=== PATIENT | male | born 1955 | race Caucasian/White ===

== ENCOUNTER 2023-05-09 09:13 | Inpatient (IN) ==
--- NOTE | 2023-05-09 09:37 | Emergency Department Note ---
Impression & Plan Postoperative hemorrhage involving digestive system, Abdominal hemorrhage ED Provider Note NAME: ABRIL BANSAL AGE: 67 SEX: M : 1955 ARRIVES VIA: Walk-In INFORMANT: Patient ED PROVIDER(S): Hugo Mckoy DO CHIEF COMPLAINT: bleeding around PEG tube HPI: Patient is a 67-year-old male who presents to the ER for bleeding from his PEG tube which was just placed this past Tuesday by [facility]'s IR team. He notes around 830 he got up and he noticed that it started bleeding. Blood ran into his shirt and down onto the floor. He denies any chest pain or shortness of breath. He admits to some abdominal bloating. No dysuria, urgency, or frequency. No other exacerbating or remitting factors. He does take Lovenox and is bridging as well as his Coumadin with previous PEs over 2 months ago. He is getting radiation for esophageal cancer. Additional history obtained from who notes that was placed by IR last Tuesday. ADDITIONAL HISTORY OBTAINED: Per HPI Chronic Medical/Social Conditions Affecting Care: Per HPI PAST MEDICAL HISTORY:See Below PAST SURGICAL HISTORY:See Below FAMILY HISTORY:See Below SOCIAL HISTORY:See Below HOME MEDICATIONS:See Below ALLERGIES:See Below VITALS:See Below PHYSICAL EXAMINATION: GENERAL: Sitting up in bed, alert, well appearing, well nourished, no distress, non-toxic EYE EXAM: normal conjunctiva. OROPHARYNX: no exudate, no erythema, lips, buccal mucosa, and tongue normal and mucous membranes are moist NECK: Trach in place LUNGS: Clear to auscultation. Normal chest wall mechanics HEART: no murmurs, S1 normal and S2 normal ABDOMEN: abdomen soft, non-tender, normo-active bowel sounds, PEG tube present with dried blood on the skin. No active bleeding. tube his get 5 cm. BACK: Back is symmetrical on inspection and there is no deformity, no midline tenderness, no CVA tenderness. SKIN: no rashes and no bruising UPPER EXTREMITIES: upper extremities are grossly normal. LOWER EXTREMITIES: No pitting edema. NEURO EXAM: Normal sensorium, cranial nerves II-XII grossly intact, normal speech, no gross weakness of arms, no gross weakness of legs. MEDICAL DECISION MAKING: Patient is a 67-year-old gentleman with past medical history of esophageal cancer with a trach and PEG who presents to the ER for bleeding from the PEG site that started this morning. He had been placed at [facility] by IR this past Tuesday per . IV was established blood work is obtained. Labs show no significant leukocytosis or anemia. INR was subtherapeutic at 1.3. BMP was unremarkable. Transaminitis was present in the 200s to 300s. Lipase was unremarkable. CT abdomen pelvis showed no acute pathology. He did rebleed twice while in the ER. Following this I was able to contact interventional radiology at [facility]. They recommended draining the wound to confirm that there is 10 cc present which I did. Then they recommended adding additional 5 cc which I did. They recommend that this should be present for 4 hours as well as applying dressing underneath and cinching the bumper tight. This was done. There is no bleeding when I rechecked it. I did inform Dr. Tolbert and she will remove the extra 5 cc within 4 hours so there is no chance of necrosis. Patient was also seen evaluated by our chemical machine tender Dr. Smalls. He cinched the bumper even tighter as he noted it was still a little loose. He will follow the patient in-house and closely monitor. If it continues to bleed tomorrow they will take to the OR. Consults/Care Managements Discussions: Per MDM Triage Nursing notes reviewed. Limited review of prior medical records performed Vital Signs: reviewed and remarkable for no significant abnormalities Differential diagnosis: Differential diagnoses includes but is not limited to gastritis, arterial bleeding, incision site bleeding, superficial skin bleeding, peptic ulcer disease, GERD, gallbladder disease, pancreatitis, small bowel obstruction, appendicitis, diverticulitis, hernia, urinary tract infection, torsion, [/ectopic (if female)], perforation, trauma, infectious. ER treatment provided: See below Diagnostics interpreted by me include EKG and cardiac monitoring as listed below: -Cardiac Monitoring: An order was placed for continuous cardiac monitoring. The monitor shows a rate of 82 with sinus rhythm. -ECG: none -Laboratory studies:Interpreted by me as stated above in MDM and shown below. Imaging studies: Xrays: As interpreted by me:none CTs show: CT abdomen pelvis per my preliminary interpretation showed PEG tube present CT abdomen pelvis per radiology as described above Procedures:none Critical Care: None Past Med/Surg History Social History Smoking Status: Unknown if ever smoked Preferred Language: [place] Feels Safe at Home: Yes Allergies Allergies Allergy/AdvReac Type Severity Reaction Status Date / Time Milk Containing Products Allergy Intermediate Gastrointestinal Unverified 05/09/23 11:48 (Dairy) Upset Home Meds Home Medications Medication Instructions Recorded Confirmed amoxicillin 500 mg-potassium 1 tab feeding tube TID 05/09/23 05/09/23 clavulanate 125 mg tablet enoxaparin 100 mg/mL subcutaneous 100 mg subcut BID 05/09/23 05/09/23 syringe nutritional supplements 1 ea feeding tube TID 05/09/23 05/09/23 warfarin 5 mg tablet 7.5 mg PO DAILY 05/09/23 05/09/23 Results & Data (ED) Vital Signs Vital Signs - 24 hr 05/09/23 09:15 05/09/23 10:14 05/09/23 10:18 Temperature 36.7 C Temperature Source Temporal Artery Scan Pulse Rate 84 66 68 Pulse Rate [Right Finger] Pulse Rhythm Regular Pulse Rhythm [Right Finger] Respiratory Rate 18 20 Respiratory Effort / Characteristics Spontaneous Respiratory Depth Normal Respiratory Pattern Regular Blood Pressure 113/72 Blood Pressure [Left Arm] Blood Pressure Mean 85 Blood Pressure Mean [Left Arm] Pulse Oximetry 96 95 Oxygen Delivery Method Room Air Room Air Sepsis Recent Fever Within 48 Hours No Sepsis New/Unexplained Change in Mental Status No Sepsis Action Taken by Nursing No Action Required 05/09/23 12:41 Temperature Temperature Source Pulse Rate Pulse Rate [Right Finger] 68 Pulse Rhythm Pulse Rhythm [Right Finger] Regular Respiratory Rate 22 Respiratory Effort / Characteristics Non-Labored Spontaneous Respiratory Depth Normal Respiratory Pattern Blood Pressure Blood Pressure [Left Arm] 117/68 Blood Pressure Mean Blood Pressure Mean [Left Arm] 84 Pulse Oximetry 97 Oxygen Delivery Method Room Air Sepsis Recent Fever Within 48 Hours Sepsis New/Unexplained Change in Mental Status Sepsis Action Taken by Nursing Laboratory Data 05/09/23 10:10 05/09/23 10:10 Lab Results 05/09/23 Range/Units 10:10 WBC 6.44 (4.8-10.8) K/ul RBC 4.58 L (4.70-6.10) M/uL Hgb 13.9 L (14.0-18.0) g/dl Hct 42.1 (42.0-52.0) % MCV 91.9 (80.0-100.0) fL MCH 30.3 (25.0-34.0) pg MCHC 33.0 (32.0-36.0) g/dL RDW Std Deviation 42.4 (36.4-46.3) fL RDW Coeff of Heladio 12.6 (11.5-14.5) % Plt Count 335 (130-400) K/uL MPV 9.2 L (9.4-12.4) fL Immature Gran % (Auto) 0.6 % Neut % (Auto) 66.7 % Lymph % (Auto) 20.8 % Sutton % (Auto) 9.2 % Eos % (Auto) 2.2 % Baso % (Auto) 0.5 % Neut # (Auto) 4.30 (1.40-6.50) K/uL Lymph # (Auto) 1.34 (1.20-3.40) K/uL Sutton # (Auto) 0.59 (0.11-0.59) K/uL Eos # (Auto) 0.14 (0.00-0.50) K/uL Baso # (Auto) 0.03 (0.00-0.20) K/uL Immature Gran # (Auto) 0.04 (0.01-0.20) K/uL PT 14.3 H (9.0-12.0) Seconds INR 1.3 H (0.9-1.1) Sodium 137 (136-145) mmol/L Potassium 4.2 (3.5-5.1) mmol/L Chloride 102 (98-107) mmol/L Carbon Dioxide 28 (21-32) mmol/L Anion Gap 7 (3-11) BUN 16 (6-23) mg/dl Creatinine 0.74 (0.6-1.4) mg/dl Est Cr Clr Drug Dosing Not Reportable Est GFR ( Amer) 111.4 ml/min Est GFR (Non-Af Amer) 96.1 ml/min BUN/Creatinine Ratio 21.6 H (10-20) Glucose 102 H (70-99(Fasting)) mg/dl Calcium 10.0 (8.6-10.3) mg/dl Total Bilirubin 0.4 (0.2-1.0) mg/dl AST 232 H (13-39) U/L ALT 317 H (7-52) U/L Alkaline Phosphatase 55 (34-104) U/L Total Protein 7.4 (6.0-8.3) gm/dl Albumin 4.0 (3.4-5.0) gm/dl Globulin 3.4 (2.5-4.0) gm/dl Albumin/Globulin Ratio 1.2 (0.9-2) Lipase 26 (11-82) U/L Administered Medications Discontinued Medications Ioversol (Optiray 320 500ml) 84 ml IV ONCE ONE Stop: 05/09/23 11:04 Last Admin: 05/09/23 10:58 Dose: 84 ml Documented By: GINNY Imaging Data Radiologist's Impression: Abdomen/Pelvis CT 05/09/23 09:[address] WITH IV CONTRAST CT DOSE: 1482.71 mGy.cm HISTORY: Status post placement of a PEG tube PEG tube placed bleedidng out and around TECHNIQUE: Multiaxial CT images of the abdomen and pelvis were performed following the IV administration of 84 cc of Optiray, A dose lowering technique was utilized adhering to the principles of ALARA. COMPARISON STUDY: None. FINDINGS: Mild cardiomegaly. No acute lower thoracic abnormality. Mild linear subsegmental bibasilar atelectasis versus scarring. No free air. Unremarkable spleen, pancreas and adrenal glands. 2.5 cm left hepatic lobe cyst. Additional probable cyst in the right hepatic lobe measuring 10 mm. Patency of the hepatic and portal veins. Unremarkable gallbladder. Unremarkable kidneys. No hydronephrosis. Mild nonspecific urinary bladder wall thickening with partial distention. Unremarkable prostate. Small fat filled left inguinal hernia. Atherosclerosis of the aorta without aneurysm. There is no lymphadenopathy. A gastrostomy tube is in place which demonstrates satisfactory positioning. No fluid collections of the abdominal wall. No bowel obstruction, bowel wall thickening, mesenteric inflammation or ascites. Mild to moderate fecal retention. Normal appendix. Tiny fat filled umbilical hernia. There is no acute fracture. IMPRESSION: 1. No acute intra-abdominal or intrapelvic abnormality. 2. Satisfactory positioning of the gastrostomy tube. 3. No bowel obstruction or bowel wall thickening. 4. Additional findings as above. ACT 112: Negative or not required by law. The above report was generated using voice recognition software. It may contain grammatical, syntax or spelling errors. Electronically signed by: Osmar Aguilar M.D. 05/09/2023 11:24 AM Discharge Plan Visit Data Chief Complaint: Feeding/PEG Tube Replacement Stated Complaint: BLEEDING AFTER FEEDING TUBE PLACEMENT ED Provider: Hugo Mckoy Discharge Problem: Postoperative hemorrhage involving digestive system, Abdominal hemorrhage Patient Disposition: Admitted As Inpatient Discharge Instructions Interventions: ED Discharge Assessment Last Done: 05/09/23 13:15 Discharge Problem: Postoperative hemorrhage involving digestive system Qualifiers: Procedure type: digestive system Qualified Code(s): K91.840 - Postprocedural hemorrhage of a digestive system organ or structure following a digestive system procedure
[2023-05-09 10:24] LABS: Basophils # (auto) 0.03 K/uL (0.00-0.20); Basophils % (auto) 0.5 %; Eosinophils # (auto) 0.14 K/uL (0.00-0.50); Eosinophils % (auto) 2.2 %; Hematocrit (blood only) 42.1 % (42.0-52.0); Hemoglobin 13.9 g/dl (14.0-18.0); Immature Granulocytes # (auto) 0.04 K/uL (0.01-0.20); Immature Granulocytes % (auto) 0.6 %; Lymphocytes # (auto) 1.34 K/uL (1.20-3.40); Lymphocytes % (auto) 20.8 %; Mean Corpuscular Hemoglobin 30.3 pg (25.0-34.0); Mean Corpuscular Volume 91.9 fL (80.0-100.0); Mean Platelet Volume 9.2 fL (9.4-12.4); Monocytes # (auto) 0.59 K/uL (0.11-0.59); Monocytes % (auto) 9.2 %; Neutrophils % (auto) 66.7 %; Platelet Count 335 K/uL (130-400); RDW Coefficient of Variation 12.6 % (11.5-14.5); RDW Standard Deviation 42.4 fL (36.4-46.3); Red Blood Count 4.58 M/uL (4.70-6.10); White Blood Count 6.44 K/ul (4.8-10.8)
--- OUTSIDE RECORDS SUMMARY | 2023-05-09 10:29 | External Medical Summary | Summary of Care ---
Author Name Unknown Organization [facility] Address [address] [place] [address] Phone [phone] Care Team Providers Care Strike Off Machine Operator Name Role Phone SujathaEna Janet CHANDLER Primary Care Provider [phone] Reason for Visit * Reason Onset Date Comments Hospital Follow-Up 05/09/2023 1wk hd/fu Encounter Details Date Type Department Care Team (Late st Contact Info) Description 05/09/2023 Telephone Otolaryngology/Head & Neck/Facial Plastic Surgery [address] [place] [address] Specified, Zz No Resource [address] [place] [address] Hospital Follow-Up (1wk hd/fu ) Allergies Active Allergy Reactions Criticality Noted Date Comments Lactose Abdominal pain,Diarrhea Medium 04/30/2023 documented as of this encounter (statuses as of 05/09/2023) Medications Medication Sig Dispensed Refills Start Date End Date Status SURGICAL COMPRESSION STOCKING 20 to 30mm knee high. 0 02/10/2022 Active Warfarin Sodium 5 MG Oral Tablet (Coumadin) Take 1-2 Tablets by mouth every evening. Or as directed by warfarin clinic 60 Tablet 5 02/23/2023 Active Misc. Devices Cool mist humidification device 1 Each 0 04/28/2023 Active Misc. Devices Portable suction device 1 Each 0 04/28/2023 Active Misc. Devices Yankauer suction tips 30 Each 5 04/28/2023 Active Misc. Devices 6-0 Shiley 6UN75H (uncuffed) 4 Each 5 04/28/2023 Active Misc. Devices 4-0 Shiley 4UN65H (uncuffed) 1 Each 0 04/28/2023 Active Misc. Devices Inner cannulas for 6-0 Shiley (6IC75) 50 Each 5 04/28/2023 Active Misc. Devices Trach care cleaning kit 1 Each 0 04/28/2023 Active Misc. Devices 14 Fr flexible suction catheters 30 Each 5 04/28/2023 Active Bay SCD Express Foot Cuff Use on both legs. 10 Each 0 05/04/2023 Active Nutren 2.0 Oral Liquid Administer 250 mL five times daily, as directed through G tube via bolus syringe. 00556 mL 11 05/06/2023 Active Amoxicillin-Pot Clavulanate 500-125 MG Oral Tablet (Augmentin) Administer 1 Tablet into G tube in the morning and 1 Tablet at noon and 1 Tablet before bedtime. Do all this for 8 doses. 8 Tablet 0 05/06/2023 05/09/2023 Active Polyethylene Glycol 3350 17 GM Oral Packet (Miralax) Administer 1 Packet into G tube in the morning. 14 Each 0 05/07/2023 Active Sennosides-Docusa te Sodium 8.6-50 MG Oral Tablet (Senokot-S) Administer 2 Tablets into G tube in the morning and 2 Tablets before bedtime. 60 Tablet 0 05/06/2023 Active Enoxaparin Sodium 100 MG/ML Injection Solution Prefilled Syringe (Lovenox) Inject 100 mg under the skin in the morning and 100 mg before bedtime. Do all this for 4 days. 8 mL 0 05/06/2023 05/10/2023 Active documented as of this encounter (statuses as of 05/09/2023) Active Problems Problem Noted Date Diagnosed Date Acute respiratory failure 05/02/2023 Tracheostomy status 04/30/2023 Airway obstruction 04/30/2023 Tongue mass 04/29/2023 Other vascular myelopathies 02/23/2023 Heterozygous factor V Leiden mutation 05/23/2020 Dyslipidemia, goal LDL below 100 04/29/2020 TUBULAR ADENOMA POLYP OF COLON 10/16/2008 Benign neoplasm of colon 10/15/2008 Overview: adenomatous and hyperplastic polyps, mild to moderate diverticulosis left colonrepeat 3yrs ADVANCE DIRECTIVE INFORMATION 09/16/2005 Overview: Pt will supply copy of his living will LUMB-LUMBOSAC DISC DEGEN 05/31/2002 Sciatica 02/01/2001 documented as of this encounter (statuses as of 05/09/2023) Resolved Problems Problem Noted Date Diagnosed Date Resolved Date Acute deep vein thrombosis ( DVT) of proximal vein of right lower extremity 02/23/2023 03/08/2023 FACTOR V LEIDEN: heterozygote status 09/11/2003 07/02/2016 documented as of this encounter (statuses as of 05/09/2023) Immunizations Name Administration Dates Next Due COVID-19 mRNA, LNP-s, No Pre serve, 2-Dose Series (Moderna) 06/08/2020,05/04/2020 COVID-19, mRNA, LNP-s, PF, B ooster, 100mcg/0.5mg (Moderna) 02/09/2021 Pneumococcal Conjugate Vaccine, 20-valent (Prevn ar20) 11/16/2021 Seasonal Influenza, PF, 6 M & above, IM , (FluLaval or Fluzone) 12/16/2020,01/03/2020 Seasonal Influenza, Quadrivalent Hd (Fluzone Hd) 12/16/2022,12/26/2021 TDAP (age 10 and older)(Boostrix) 07/21/2018 TDAP (age 11 and older)(Adacel) 08/19/2008 Zoster Vaccine Recombinant (Shingrix) 07/14/2020 ,03/19/2020 documented as of this encounter Social History Tobacco Use Types Packs/Day Years Used Date Smoking Tobacco: Never Smokeless Tobacco: Never Alcohol Use Standard Drinks/Week Comments Yes 5 (1 standard drink = 0.6 oz pur e alcohol) rare PHQ-2 Answer Date Recorded PHQ Adult Total Score 0 03/08/2023 Sex and Gender Information Value Date Recorded Sex Assigned at Male 08/30/2022 2:09 PM EDT Gender Identity Male 08/30/2022 2:09 PM EDT Sexual Orientation Straight 08/30/2022 2: 09 PM EDT Job Start Date Occupation Industry Not on file Not on file Not on file documented as of this encounter Functional Status Functional Status Response Date of Assess ment Are you deaf or do you have serious difficulty h earing? No 04/28/2023 Are you blind or do you have serious difficulty seeing, even when wearing glasses? No 04/28/2023 Do you have serious difficul ty walking or climbing stairs? (5 years old or older) No 04/28/2023 Do you have difficulty dress ing or bathing? (5 years old or older) No 04/28/2023 Because of a physical, menta l, or emotional condition, do you have difficulty doing errands alone such as visiting a doctor s office or shopping? (15 years old or older) No 04/28/19 Cognitive Status Response Date of Assessm ent Because of a physical, menta l, or emotional condition, do you have serious difficulty concentrating, remembering, or making decisions? (5 years old or older) No 04/28/2023 documented as of this encounter Miscellaneous Notes * Telephone Encounter - Jeane Poe OSA - 05/09/2023 6:43 AM EST Order RETURN APPT [IP355] (Order [id number]) Jacob Bansal IV 04/28/2023 5:25 PM ED to Hosp-Admission Description: 67 year old male Department: [facility] Message Patient Name: JACOB BANSAL IV([id number]) Sex: Male : 1955 PCP: ENA SOLARES Center: [address] Types of orders made on 05/06/2023: IP Post Discharge , Lab, Medications Order Date:05/06/2023 Ordering User:CLEM CLAUDIO [[id number]] Attending Provider:Rafael Linder DO [[id number] Authorizing Provider: Clem Claudio DO [[id number]] Department:[facility]2 [facility][[id number]] Order Specific Information Order: RETURN APPT [CUSTOM: IP355] Order #: [id number]: 1 Priority: Routine Class: Nursing Unit Department (Single Entry) -> Otolaryngology Appt Needed Within: (Specify # of Days, Weeks, Months) -> 1 Wk Released on: 05/06/2023 4:46 PM Priority: Routine Class: Nursing Unit Department (Single Entry) -> Otolaryngology Appt Needed Within: (Specify # of Days, Weeks, Months) -> 1 Wk Released on: 05/06/2023 4:46 PM documented in this encounter Plan of Treatment Upcoming Encounters Date Type Department Care Team (Latest Contact Info) Description 4 8:20 AM EST Anticoagulation Pharmacy, [facility] [address] [facility] [place] [address] Pharmacist1, [facility] [address] [facility] [place] [address] 4 11:40 AM EST Nutrition Services Nutrition & Weight Management, [place] [address] [place] [address] Zaida Shrestha RDN [address] [place] [address] 4 1:00 PM EDT Hospital Encounter ENDO OSSC, Endoscopy Room [facility] [address] [place] [phone] Marcelino Smalls MD [address] [place] [address] 4 1:00 PM EDT - 4 1:30 PM EDT Surgery ENDO O[facility], Endoscopy Room [facility] [address] [place] [phone] Marcelino Smalls MD [address] [place] [address] ESOPHAGOGASTRODUODENOSCOPY (EGD), FLEXIBLE, TRANSORAL, DIAGNOSTIC 4 8:45 AM EDT Office Visit Dermatology [facility] [address] [place] [address] David Washburn MD [address] [facility] [place] [address] 8:20 AM EST Office Visit Family Practice [employer] [address] [facility] [place] [address] Ena Solares DO [address] [facility] [place] [address] Scheduled Procedures Name Priority Associated Diagnoses Date/Ti me ESOPHAGOGASTRODUODENOSCOPY ( EGD), FLEXIBLE, TRANSORAL, DIAGNOSTIC Dysphagia, unspecified type 07/11/2023 1:00 PM EDT COLONOSCOPY FLEXIBLE PROXIMA L DIAGNOSTIC Recall History of colon polyps Health Maintenance Due Date Last Done Comments COVID-19 Vaccine ( season) 2022 02/09/2021, 06/08/2020, 05/04/2020 Depression Screening 03/08/2024 03/08/2023 COLONOSCOPY-EVERY 3 YRS AGES 18-100 04/19/2025 04/19/2022, 04/19/2022, 06/24/2015, Additional history exists Lipid Panel 05/22/2025 05/22/2020, 0704/2019, 06/20/2015, Additional history exists Diabetes Screening 05/06/2026 05/06/2023, 0 05/05/2023, 05/04/2023, Additional history exists DTaP,Tdap,and Td Vaccines (3 - Td or Tdap) 07/21/2028 07/21/2018, 08/19/2008, 11/27/1997 Zoster Vaccines Completed 07/14/2020, 03/19/2020 Pneumococcal Vaccine: 65+ Years Completed 11/16/2021 COLONOSCOPY-EVERY 5 YRS AGES 18-100 Discontinued 04/19/2022, 04/19/2022, 06/24/2015, Additional history exists Influenza Vaccine (FLU shot) Completed 12/16/2022, 12/26/2021, 12/16/2020, Additional history exists GARDASIL-HPV IMMUNIZATION SERIES Aged Out No longer eligible based on patient's age to complete this topic Hepatitis B Aged Out No longer eligi ble based on patient's age to complete this topic MENINGOCOCCAL (MENACTRA/MENVEO) Aged Out No longer eligible based on patient's age to complete this topic documented as of this encounter Medical Devices Not on filedocumented as of this encounter Advance Directives Latest Code Status on File Code Status Date Activated Date Inactivated Comments Full Code 04/28/2023 7:30 PM 05/06/2023 10:41 PM Question Answer Comments Discussion of Advance Directives occurred with: Not Discussed due to patient's condition Care Teams Strike Off Machine Operator Relationship Specialty Start Date End Date Ena Solares DO [address] [place] [address] PCP - General Family Medicine 07/02/16 documented as of this encounter
--- OUTSIDE RECORDS SUMMARY | 2023-05-09 10:29 | External Medical Summary | Summary of Care ---
Author Name Unknown Organization [facility] Address [address] [facility] [place] [address] Phone [phone] Care Team Providers Care State Game Protector Name Role Phone Sujatha Artemio Janet CHANDLER Primary Care Provider [phone] Encounter Details Date Type Department Care Team (Late st Contact Info) Description 05/09/2023 Population Health External Data Unspecified Department Allergies Active Allergy Reactions Criticality Noted Date [...] directed through G tube via bolus syringe. 03258 mL 11 05/06/2023 Active Amoxicillin-Pot Clavulanate 500-125 [...] (15 years old or older) No 04/28/19 24 Cognitive Status Response Date of Assessm ent Because of a physical, menta l, or emotional condition, do you have serious difficulty concentrating, remembering, or making decisions? (5 years old or older) No 04/28/2023 documented as of this encounter Plan of Treatment Upcoming Encounters Date Type Department Care Team (Latest Contact Info) Description 4 8:20 AM EST Anticoagulation Pharmacy, [facility] [address] [facility] [place] [address] Pharmacist1, [facility] [address] [facility] [place] [address] 4 11:40 AM EST Nutrition Services Nutrition & Weight Management, [place] [address] [place] [address] Zaida Shrestha RDN [address] [place] [address] 4 1:00 PM EDT Hospital Encounter ENDO OSSC, Endoscopy Room [facility] [address] [place] [phone] Marcelino Smalls MD [address] [place] [address] 4 1:00 PM EDT - 4 1:30 PM EDT Surgery ENDO OSS, Endoscopy Room [facility] [address] [place] [phone] Marcelino Smalls MD [address] [place] [address] ESOPHAGOGASTRODUODENOSCOPY (EGD), FLEXIBLE, TRANSORAL, DIAGNOSTIC 4 8:45 AM EDT Office Visit Dermatology [facility] [address] [facility] [place], [place] [address] David Washburn MD [address] [facility] [place] [address] 8:20 AM EST Office Visit Family Practice [facility] [place] [address] [facility] [place] [address] Artemio Solares DO [address] [facility] [place] [place] [address] Scheduled Procedures Name Priority Associated Diagnoses Date/Ti [...] Additional history exists Lipid Panel 05/22/2025 05/22/2020, 07/2 04/2019, 06/20/2015, Additional history exists Diabetes Screening 05/06/2026 [...] Discussed due to patient's condition Care Teams State Game Protector Relationship Specialty Start Date End Date Artemio Solares DO [address] [place] [address] PCP - General Family Medicine 07/02/16 documented as of this encounter
--- OUTSIDE RECORDS SUMMARY | 2023-05-09 10:30 | External Medical Summary | Summary of Care ---
Author Name Unknown Organization [facility] Address [address] [facility] [place] [address] Phone [phone] Care Team Providers Care Rn Care Transition Name Role Phone Artemio Solares DO Primary Care Provider [phone] Reason for Visit * Reason Onset Date Comments Fax 05/05/2023 Encounter Details Date Type Department Care Team (Late st Contact Info) Description 05/05/2023 Telephone Family Practice [facility] [place] [address] [facility] [place] [address] Artemio Solares DO [address] [facility] [place] [address] Fax Allergies Active Allergy Reactions Criticality Noted Date Comments Lactose Abdominal pain,Diarrhea Medium 04/30/2023 documented as of this encounter (statuses as of 05/06/2023) Medications Medication Sig Dispensed Refills Start Date End Date Status Misc. Devices Cool mist humidification device 1 [...] both legs. 10 Each 0 05/04/2023 Active SURGICAL COMPRESSION STOCKING 20 to 30mm knee high. 0 02/10/2022 Suspended Warfarin Sodium 5 MG Oral Tablet (Coumadin) Take 1-2 Tablets by mouth every evening. Or as directed by warfarin clinic 60 Tablet 5 02/23/2023 Suspended Additional Information Enoxaparin Sodium 100 MG/ML Injection Solution Prefilled Syringe (Lovenox)Indicati ons:Heterozygous factor V Leiden mutation (HCC) Inject 100 mg under the skin in the morning and 100 mg before bedtime. 10 mL 0 04/26/2023 Suspended Additional Information documented as of this encounter (statuses as of 05/06/2023) Active Problems Problem Noted Date Diagnosed Date [...] as of this encounter (statuses as of 05/06/2023) Resolved Problems Problem Noted Date Diagnosed Date Resolved Date Acute deep vein thrombosis ( DVT) of proximal vein of right lower extremity 02/23/2023 03/08/2023 FACTOR V LEIDEN: heterozygote status 09/11/2003 07/02/2016 documented as of this encounter (statuses as of 05/06/2023) Immunizations Name Administration Dates Next Due COVID-19 mRNA, LNP-s, No Pre serve, 2-Dose Series (Moderna) 06/08/2020,05/04/2020 COVID-19, mRNA, LNP-s, PF, B ooster, 100mcg/0.5mg (Moderna) 02/09/2021 Diptheria/Tetanus (Adult) 11/27/1997 Pneumococcal Conjugate Vaccine, 20-valent (Prevn ar20) 11/16/2021 [...] encounter Miscellaneous Notes * Telephone Encounter - Vika Alicea OSA - 05/06/2023 12:51 PM EST [employer] calling again requesting notes be faxed over. * Telephone Encounter - Razia Castaneda OSA - 05/05/2023 12:25 PM EST This wasn't signed off on Please advise if and when we can send this * Telephone Encounter - Ching Chau OSA - 05/05/2023 11:05 AM EST Caller requesting the following information to be faxed: Name/Company of caller: [employer] Information requested to be faxed: Office notes, Patholgy imaging Fax number: [phone] Attention to Name/Company: [employer] Any additional information?: n/a documented in this encounter Plan of Treatment Upcoming Encounters Date Type Department Care Team (Latest Contact Info) Description 4 8:20 AM EST Anticoagulation Pharmacy, [facility] [place] [address] [facility] [place] [address] Pharmacist1, [facility] [address] [facility] [place] [address] 4 1:00 PM EDT Hospital Encounter ENDO [facility], Endoscopy Room [facility] [address] [place] [phone] Marcelino Smalls MD [address] [place] [address] 4 1:00 PM EDT - 4 1:30 PM EDT Surgery ENDO [facility], Endoscopy Room [facility] [address] [place] [phone] Marcelino Smalls MD [address] [place] [address] ESOPHAGOGASTRODUODENOSCOPY (EGD), FLEXIBLE, TRANSORAL, DIAGNOSTIC 4 8:45 AM EDT Office Visit Dermatology [facility] [address] [facility] [place] [address] David Washburn MD [address] [facility] [place] [address] 4 8:20 AM EST Office Visit Family Practice [facility] [address] [facility] [place] [address] Artemio Solares, [address] [place] [address] Scheduled Procedures Name Priority Associated Diagnoses Date/Ti [...] Inactivated Comments Full Code 04/28/2023 7:30 PM Question Answer Comments Discussion of Advance Directives occurred with: Not Discussed due to patient's condition Care Teams Rn Care Transition Relationship Specialty Start Date End Date Artemio Solares DO [address] [place] [address] PCP - General Family Medicine 07/02/16 documented as of this encounter
--- OUTSIDE RECORDS SUMMARY | 2023-05-09 10:30 | External Medical Summary | Summary of Care ---
Author Name Unknown Organization [facility] Address [address] [facility] [place] [address] Phone [phone] Care Team Providers Care Lace Mender Name Role Phone Artemio Solares DO Primary Care Provider [phone] Reason for Visit * Reason Onset Date Comments Fax 05/05/2023 Encounter Details Date Type Department Care Team (Late st Contact Info) Description 05/05/2023 Telephone Family Practice [facility] [place] [address] [facility] [place] [address] Artemio Solares DO [address] [facility] [place] [address] Fax Allergies Active Allergy Reactions Criticality Noted Date Comments Lactose Abdominal pain,Diarrhea Medium 04/30/2023 documented as of this encounter (statuses as of 05/05/2023) Medications Medication Sig Dispensed Refills Start Date [...] as of this encounter (statuses as of 05/05/2023) Active Problems Problem Noted Date Diagnosed Date [...] as of this encounter (statuses as of 05/05/2023) Resolved Problems Problem Noted Date Diagnosed Date Resolved Date Acute deep vein thrombosis ( DVT) of proximal vein of right lower extremity 02/23/2023 03/08/2023 FACTOR V LEIDEN: heterozygote status 09/11/2003 07/02/2016 documented as of this encounter (statuses as of 05/05/2023) Immunizations Name Administration Dates Next Due COVID-19 [...] encounter Miscellaneous Notes * Telephone Encounter - Razia Castaneda OSA - 05/05/2023 12:25 PM EST This wasn't signed off on Please advise if and when we can send this * Telephone Encounter - Ching Chau OSA - 05/05/2023 11:05 AM EST Caller requesting the following information to be faxed: Name/Company of caller: [employer] Information requested to be faxed: Office notes, Patholgy imaging Fax number: [phone] Attention to Name/Company: [employer] Any additional information?: n/a documented in this encounter Plan of Treatment Upcoming Encounters Date Type Department Care Team (Latest Contact Info) Description 4 8:20 AM EST Anticoagulation Pharmacy, [facility] [address] [facility] [place] [address] Pharmacist1, [facility] [address] [facility] [place] [address] 4 1:00 PM EDT Hospital Encounter ENDO [facility], Endoscopy Room [facility] [address] [place] [phone] Marcelino Smalls MD [address] [place] [address] 4 1:00 PM EDT - 4 1:30 PM EDT Surgery ENDO [facility], Endoscopy Room [facility] [address] [place] [phone] Marcelino Smalls MD [address] [place] [address] ESOPHAGOGASTRODUODENOSCOPY (EGD), FLEXIBLE, TRANSORAL, DIAGNOSTIC 4 8:45 AM EDT Office Visit Dermatology [facility] [address] [facility] [place] [address] David Washburn MD [address] [facility] [place] [address] 4 8:20 AM EST Office Visit Family Practice [facility] [place] [address] [facility] [place] [address] Artemio Solares DO [address] [facility] [place] [address] Scheduled Procedures Name Priority Associated Diagnoses Date/Ti me ESOPHAGOGASTRODUODENOSCOPY ( EGD), FLEXIBLE, TRANSORAL, DIAGNOSTIC Dysphagia, unspecified type 07/11/2023 1:00 PM EDT COLONOSCOPY FLEXIBLE PROXIMA L DIAGNOSTIC Recall History of colon polyps Health Maintenance Due Date Last Done Comments COVID-19 Vaccine (2022- season) 2022 02/09/2021, 06/08/2020, 05/04/2020 Depression Screening 03/08/2024 03/08/2023 COLONOSCOPY-EVERY 3 YRS AGES 18-100 04/19/2025 04/19/2022, 04/19/2022, 06/24/2015, Additional history exists Lipid Panel 05/22/2025 05/22/2020, 07/2 04/2019, 06/20/2015, Additional history exists Diabetes Screening 05/05/2026 05/05/2023, 0 05/04/2023, 05/03/2023, Additional history exists DTaP,Tdap,and Td Vaccines (3 [...] Discussed due to patient's condition Care Teams Lace Mender Relationship Specialty Start Date End Date Artemio Solares DO [address] [place] [address] PCP - General Family Medicine 07/02/16 documented as of this encounter
--- OUTSIDE RECORDS SUMMARY | 2023-05-09 10:30 | External Medical Summary | Summary of Care ---
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 Discharge Order * Precert (Within 10 days (routine)) - Authorized Specialty Diagnoses / Procedures Referred By Contsissy t Referred To Contact Radiology Diagnoses Tongue mass Tracheostomy status (HCC) Procedures IR GASTROINTESTINAL OSTOMY Mamta Sanchez MD [address] [place] [address] Referral ID Status Reason Start Date Expiration Date V isits Requested Visits Authorized [id number] Authorized 11/03/2023 999 999 Reason for Visit * Reason Comments Trouble Swallowing * Auth/Cert Specialty Diagnoses / Procedures Referred By Contsissy t Referred To Contact Diagnoses Preop examination Referral ID Status Reason Start Date Expiration Date Visits Re quested Visits Authorized [id number] Encounter Details Date Type Department Care Team (Latest Contact Info) Description 04/28/2023 5:25 PM EST - 05/06/2023 6:41 PM EST Hospital Encounter [facility], [facility] [address] [place] [address] Rafael Linder, DO [address] [place] [address] Janice Gomez, [address] [place] [address] Norma Sargent MD [address] [place] [address] Pipe Mckeon MD [address] [place] [address] Izzy Kitchen MD [address] [facility] [place] [address] Clem Camarillo, [address] [place] [address] Various: EKG,CDIQDC Discharge Disposition: Home - Self Care Allergies Active Allergy Reactions Criticality Noted Date Comments Lactose Abdominal pain,Diarrhea Medium 04/30/2023 documented as of this encounter (statuses as of 05/07/2023) Medications Medication Sig Dispensed Refills Start Date End Date Status SURGICAL COMPRESSION STOCKING 20 to 30mm knee high. 0 2 Active Warfarin Sodium 5 MG Oral Tablet (Coumadin) Take 1-2 Tablets by mouth every evening. Or as directed by warfarin clinic 60 Tablet 5 3 Active Misc. Devices Cool mist humidification device 1 Each 0 4 Active Misc. Devices Portable suction device 1 Each 0 4 Active Misc. Devices Yankauer suction tips 30 Each 5 4 Active Misc. Devices 6-0 Shiley 6UN75H (uncuffed) 4 Each 5 4 Active Misc. Devices 4-0 Shiley 4UN65H (uncuffed) 1 Each 0 4 Active Misc. Devices Inner cannulas for 6-0 Shiley (6IC75) 50 Each 5 4 Active Misc. Devices Trach care cleaning kit 1 Each 0 4 Active Misc. Devices 14 Fr flexible suction catheters 30 Each 5 4 Active Bay SCD Express Foot Cuff Use on both legs. 10 Each 0 4 Active Amoxicillin-Pot Clavulanate 500-125 MG Oral Tablet (Augmentin) Administer 1 Tablet into G tube in the morning and 1 Tablet at noon and 1 Tablet before bedtime. Do all this for 8 doses. 8 Tablet 0 4 05/09/19 24 Active Polyethylene Glycol 3350 17 GM Oral Packet (Miralax) Administer 1 Packet into G tube in the morning. 14 Each 0 4 Active Sennosides-Docus ate Sodium 8.6-50 MG Oral Tablet (Senokot-S) Administer 2 Tablets into G tube in the morning and 2 Tablets before bedtime. 60 Tablet 0 4 Active Enoxaparin Sodium 100 MG/ML Injection Solution Prefilled Syringe (Lovenox) Inject 100 mg under the skin in the morning and 100 mg before bedtime. Do all this for 4 days. 8 mL 0 4 05/10/19 24 Active Enoxaparin Sodium 100 MG/ML Injection Solution Prefilled Syringe (Lovenox)Indicat ions:Heterozygou s factor V Leiden mutation (HCC) Inject 100 mg under the skin in the morning and 100 mg before bedtime. 10 mL 0 4 05/06/19 24 Discontinued documented as of this encounter (statuses as of 05/07/2023) Active Problems Problem Noted Date Diagnosed Date [...] as of this encounter (statuses as of 05/07/2023) Resolved Problems Problem Noted Date Diagnosed Date Resolved Date Acute deep vein thrombosis ( DVT) of proximal vein of right lower extremity 02/23/2023 03/08/2023 FACTOR V LEIDEN: heterozygote status 09/11/2003 07/02/2016 documented as of this encounter (statuses as of 05/07/2023) Immunizations Name Administration Dates Next Due COVID-19 [...] Date Smoking Tobacco: Never Smokeless Tobacco: Never Tobacco Cessation:Counseling Given: Not Answered Alcohol Use Standard Drinks/Week Comments Yes 5 [...] on file documented as of this encounter Last Filed Vital Signs Vital Sign Reading Time Taken Comments Blood Pressure 109/62 05/06/2023 3:19 PM EST Pulse 77 05/06/2023 3:19 PM EST Temperature 36.2 C (97.2 F) 05/06/2023 3:19 PM ES T Respiratory Rate 17 05/06/2023 3:19 PM EST Oxygen Saturation 99% 05/06/2023 3:19 PM EST Inhaled Oxygen Concentration - - Weight 102.9 kg (226 lb 12.8 oz) 05/06/2023 6:16 AM EST Height 190.5 cm (6' 3") 04/28/2023 7:49 PM EST Body Mass Index 28.35 04/28/2023 7:49 PM EST documented in this encounter Functional Status Functional Status Response [...] No 04/28/2023 documented as of this encounter Discharge Instructions * Discharge Instr - AVS* Clem Camarillo DO - 05/02/2023 3:56 PM EST Discharge Date: 05/06/2023 The information below provides you with the instructions and the list of medications you need to betaking following discharge from the hospital. If you have any questions, please ask before leaving. If you have questions after leaving, you can reach us at the numbers below. YOUR HOSPITAL PROVIDERS: Discharging Provider: Clem Camarillo DO Provider Department: Hospital Medicine To reach this Provider Tuesday through Tuesday (8:00 AM to 4:30 PM) for any questions or test results: Call [phone] For after-hours concerns: Call [phone] and have your provider paged, or the provider circulation man for the Department of [facility] paged. Please note, the discharging provider will not be able to provide you with any medications refills.Please discuss these with your primary care provider. Worsening Symptoms: If you have new symptoms, or your symptoms get worse, please contact your Discharge Provider or Primary Care Provider (PCP). If these providers are not available, you can go to your local [facility] or Urgent Care Clinic during their business hours. In an EMERGENCY situation: Call [phone] or go to the nearest emergency room. 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 No YOUR FOLLOW UP APPOINTMENTS: Primary Care Provider Information: PCP: Ena Solares DO [address] / [facility] [place] [address] (office) [phone] (fax) An appointment was requested with your PCP (nEa Solares DO) within 7 days. Oncology referralgiven to be seen within 10 days for squamous cell cancer of the base of the tongue. (Please take this form to this visit with your primary care physician.) You need the following studies in the future: none INSTRUCTIONS: Diet: Pureed diet, Nutren 2.0 250mL 5 times per day Activity: As tolerated Additional Instructions: - Call your primary care physician or seek medical attention if you develop chest pain, shortness of breath, choking, loss of consciousness, change in mental status/confusion. POSTOPERATIVE INSTRUCTIONS FOR TRACHEOTOMY -Limit activity for 2 weeks. No strenuous activity such as running, hiking, biking, swimming, playing sports or any other activity that may increase your heart rate or blood pressure. You must avoid swimming, and bathe in a manner where you do not get water in the tracheostomy opening. - Keep humidification over the trach at all times when sitting down/resting. - Change the inner cannula at least two times per day and as needed. - Suction the trach 2-3 times per day or more often if you are having heavy secretions - Okay to use speaking valve during the day. Do not sleep with speaking valve on. - It is okay to shower. Avoid getting water directly on the trach or down the tube. Face away from the shower head. Do not immerse the tracheostomy tube in water. - If the tracheostomy tube falls out, attempt to put it back in. If the # 6 trach is unable to get back in easily, you can place the back up emergency #5 trach. If you cannot get either in, or if youhave difficulty while placing it, call the ENT department or come to your nearest emergency room. If you are in any distress, call an ambulance. -If your trach gets plugged. Remove the inner cannula and replace it. It this does not improve the blockage, remove the entire trach and come to the nearest emergency room to have it replaced. - Call [phone] and ask for ENT on-call for any bleeding from the throat, worsening pain not controlled by medications, inability to take oral nutrition, or persistent fever over 101 F. An intermittent fever to 101 F is normal after surgery for 2-3 days POSTOPERATIVE INSTRUCTIONS FOR DIRECT LARYNGOSCOPY - You may spit up blood tinged secretions. This is normal and expected. Please call for any significant bleeding from the throat, worsening pain not controlled by medications, or inability to take oral nutrition. - Call for any difficulty breathing, chest pain or shortness of breath. If you are in distress, please go directly to an emergency room. - Diet as tolerated. - Over the counter tylenol should be sufficient for pain relief Warnings: Call your surgeon promptly in case of: A. Excessive bleeding B. Fever greater than 101 degrees F (38.3 degrees centigrade) C. Persistent nausea and vomiting D. Redness, swelling or pus-like drainage E. Pain that is not relieved by the medicine you were told to take * Pharmacy Instr - AVS* Anthony Salgado Melissa, [facility] - 05/02/2023 2:29 PM EST Warfarin dosing instructions for after discharge: You will receive a prescription for Warfarin 5 mg tablets. Please take the following doses of warfarin by mouth after Discharge: Date Dose using warfarin 5 mg Tablets 05/06 Take 2 tablets = 10 mg 05/07 Take 2 tablets = 10 mg 05/08 Take 2 tablets = 10 mg 05/09 Take 1.5 tablets = 7.5 mg 05/10 Take 1.5 tablets = 7.5 mg Your dose of ENOXAPARIN is 100 mg subcutaneous injection twice daily. You should use this medication along with warfarin until you are instructed to stop. The anticoagulation clinic pharmacist will provide you with further dosing and appointment instructions. If you have any questions regarding your anticoagulation therapy, please Contact Anticoagulation Clinic at [phone] or . Please share the following information with your provider: You were continued on WARFARIN and ENOXAPARIN for Venous Thrombosis Prophylaxis (VTE) (heterozygousfactor V Leiden mutation). This is an Existing diagnosis. Your Target INR: 2.0-3.0 (Prophylaxis of venous thrombosis). Your Anticipated Duration of Therapy: Lifetime. Because you have been placed on a blood thinner, your therapy will need to be monitored on a regular basis. You will have your Anticoagulation Managed By: Anticoagulation Clinic ([facility]) . While you were in the hospital, you medication doses received and your corresponding labs were: INR Date/Time Value Ref Range Status 05/04/2023 05:54 AM 1.1 0.8 - 1.2 Final 05/03/2023 04:51 AM 1.1 0.8 - 1.2 Final 05/02/2023 04:58 AM 1.1 0.8 - 1.2 Final HGB Date/Time Value Ref Range Status 05/04/2023 05:54 AM 12.4 (L) 14.0 - 16.8 g/dL Final HCT Date/Time Value Ref Range Status 05/04/2023 05:54 AM 37.3 (L) 40.0 - 48.4 % Final PLT Date/Time Value Ref Range Status 05/04/2023 05:54 AM 235 140 - 400 K/uL Final Warfarin Administrations (last 720 hours) Date/Time Action Medication Dose 05/04/232034 Given Warfarin Sodium (Coumadin) tab 10 mg 10 mg documented in this encounter Progress Notes * Denis Martinez RP - 05/06/2023 11:16 AM EST Images from the original note were not included. PHARMACY ANTICOAGULATION WARFARIN (Coumadin) Assessment [address] [address] Name: Jacob Tipton IV Location: [facility] [place] G207/A Date: 05/06/2023 Time: 11:16 AM Jacob Tipton IV is a 67 year old male admitted for No Principal Problem: There is no principal problem currently on the Problem List. Please update the Problem List and refresh.. Pharmacy was consulted for warfarin dosing and monitoring. Anticoagulation Therapy Goals Indication for Anticoagulation: Other (please specify), Venous Thrombosis Prophylaxis (VTE) (heterozygous factor V Leiden mutation) Other please comment: heterozygous factor V Leiden mutation Anticipated Duration of Therapy: Lifetime Target INR: 2.0-3.0 (Prophylaxis of venous thrombosis) Risk factors for anticoagulation therapy: Age>65, Cancer Prior to Admission Management Anticoagulation Managed By: Anticoagulation Clinic ([facility]) Tablet Size/Strength: 5 mg Anticoagulation Regimen: 10 mg every Sun,Nunu; 7.5 mg all other days Anticoagulation Episode Summary Current INR goal: 2.0-3.0 TTR: 100.0% (2 d) Next INR check: 04/29/2023 INR from last check: 2.5 (03/11/2023) Most recent INR: 1.1 (05/06/2023) Weekly max warfarin dose: Target end date: Indefinite INR check location: Preferred lab: Send INR reminders to: Indications Heterozygous factor V Leiden mutation (HCC) [D68.51] Acute deep vein thrombosis (DVT) of proximal vein of right lower extremity (HCC) (Resolved) [I82.4Y1] Comments: Anticoagulation Care Providers Provider Role Specialty Phone number Angie Morillo DO Referring Family Medicine [phone] Labs INR Date/Time Value Ref Range Status 05/06/2023 07:39 AM 1.1 0.8 - 1.2 Final 05/05/2023 09:45 AM 1.1 0.8 - 1.2 Final 05/04/2023 05:54 AM 1.1 0.8 - 1.2 Final HGB Date/Time Value Ref Range Status 05/06/2023 07:39 AM 12.7 (L) 14.0 - 16.8 g/dL Final HCT Date/Time Value Ref Range Status 05/06/2023 07:39 AM 38.2 (L) 40.0 - 48.4 % Final PLT Date/Time Value Ref Range Status 05/06/2023 07:39 AM 302 140 - 400 K/uL Final Objective Warfarin Administrations (last 720 hours) Date/Time Action Medication Dose 05/05/232019 Given Warfarin Sodium (Coumadin) tab 15 mg 15 mg 05/04/232034 Given Warfarin Sodium (Coumadin) tab 10 mg 10 mg Assessment & Plan Assessment Dietary Assessment: Normal/expected PO intake Today's INR : Subtherapeutic Does the patient have any medication interactions: Yes Please comment: Therapeutic enoxaparin Are there bleeding concerns with the patient: No Does the patient have any upcoming procedures: No Plan Warfarin Plan: Give Warfarin Specify Warfarin Dose: 20 mg Is the patient receiving a Bridging Agent: Yes (Therapeutic enoxaparin) Warfarin Patient Education : Not needed Reason Education Not Needed: LAMINE Martinez RPh * Clem Camarillo DO - 05/05/2023 3:30 PM EST Images from the original note were not included. [facility] G207/A INTERVAL HISTORY: Patient seen and examined at bedside. No acute overnight events. Patient doing well. No complaints at this time. He and his + son at bedside are concerned about whether home services can be set up. Objective Physical Exam Most Recent Vital Signs: BP: 110 mmHg/60 mmHg (05/05/23 1520) Pulse: 81 (05/05/23 1520) Temp: 36 C (05/05/23 1520) Resp: 16 (05/05/23 1520) SpO2: 96 % (05/05/23 1520) Constitutional: no acute distress Neck: supple, normal range of motion, tracheostomy with trach collar @ 28% FiO2 CV: normal rate and rhythm, no murmur, gallops or rub Chest: normal respiratory effort, lungs clear to auscultation and percussion Abdomen: normal: soft, bowel sounds normal, no masses, tenderness or organomegaly, PEG in place Extremities: no clubbing, cyanosis, or edema, otherwise grossly normal, warm, and dry Neuro: alert, oriented to person, place, and time, normal mental status exam, cranial nerves intact, muscular strength 5/5 and symmetric, sensory normal Gastrostomy/Enterostomy Gastrostomy 18 Fr. LUQ (Active) Number of days: 2 Peripheral Line Left Antecubital 20 Gauge (Active) Number of days: 7 Peripheral Line Lower;Right Arm 20 Gauge (Active) Number of days: 7 Airway Neck Trach (Active) Number of days: 7 STUDIES: Encounter Orders Labs and other studies reviewed with pertinent findings noted below: Assessment and Plan IMPRESSION : Active Problems: Sciatica Heterozygous factor V Leiden mutation (HCC) Tongue mass Tracheostomy status (HCC) Airway obstruction Acute respiratory failure (HCC) Resolved Problems: * No resolved hospital problems. * DIFFERENTIAL AND PLAN: 67 y/o male with PMHx of Factor V Leiden (on Coumadin) was admitted on 04/28/2023 for progressive dysphagia, odynophagia, choking and difficulty with breathing while lying down over the course of the last one month was admitted to ICU and underwent tracheostomy by ENT for obstructing posterior tongue mass. Subsequently had PEG placed. Hospital course was complicated by PNA for which patient was treated with IV abx and transitioned to pO Augmentin on 05/04 to complete course. [facility]. Tongue mass PNA, likely due to aspiration S/p Trach and PEG - s/p emergent tracheostomy and biopsy of mass on 04/28/2023 -ENT consult on board; appreciate recs -suction PRN -Humidification via trach collar at 5L -ENT to perform trach change POD #5-7 -s/p course of Zosyn, started 05/02, changed to augmentin on 05/04 -sputum culture +ve for gram +ve cocci and gram +ve bacilli, and gram negative bacilli -Nutrition consulted. Appreciate recommendations to titrate tube feeds -patient also tolerating some pureed diet -CM working on establishing home health services Factor V Leiden - continue lovenox + coumadin bridge PHARMACOLOGIC VTE PROPHYLAXIS: Enoxaparin warfarin check daily dose (PHARMACIST MANAGED) Warfarin Sodium CODE STATUS: Full Code EXPECTED DISCHARGE DATE: No information available I spent a total of 54 minutes coordinating, documenting, and providing care for this patient excluding time spent in the performance of separately billed services. * Denis Martinez [facility] - 05/05/2023 11:36 AM EST Images from the original note were not included. PHARMACY ANTICOAGULATION WARFARIN (Coumadin) Assessment [facility] [place] [address] Name: Jacob Tipton IV Location: [facility] [place] G207/A Date: 05/05/2023 Time: 11:36 AM Jacob Tipton IV is a 67 year old male admitted for No Principal Problem: There is no principal problem currently on the Problem List. Please update the Problem List and refresh.. Pharmacy was consulted for warfarin dosing and monitoring. Anticoagulation Therapy Goals Indication for Anticoagulation: Other (please specify), Venous Thrombosis Prophylaxis (VTE) (heterozygous factor V Leiden mutation) Other please comment: heterozygous factor V Leiden mutation Anticipated Duration of Therapy: Lifetime Target INR: 2.0-3.0 (Prophylaxis of venous thrombosis) Risk factors for anticoagulation therapy: Age>65, Cancer Prior to Admission Management Anticoagulation Managed By: Anticoagulation Clinic ([facility]) Tablet Size/Strength: 5 mg Anticoagulation Regimen: 10 mg every Sun,Nunu; 7.5 mg all other days Anticoagulation Episode Summary Current INR goal: 2.0-3.0 TTR: 100.0% (2 d) Next INR check: 04/29/2023 INR from last check: 2.5 (03/11/2023) Most recent INR: 1.1 (05/05/2023) Weekly max warfarin dose: Target end date: Indefinite INR check location: Preferred lab: Send INR reminders to: Indications Heterozygous factor V Leiden mutation (HCC) [D68.51] Acute deep vein thrombosis (DVT) of proximal vein of right lower extremity (HCC) (Resolved) [I82.4Y1] Comments: Anticoagulation Care Providers Provider Role Specialty Phone number Angie Morillo DO Referring [facility] Medicine [phone] Labs INR Date/Time Value Ref Range Status 05/05/2023 09:45 AM 1.1 0.8 - 1.2 Final 05/04/2023 05:54 AM 1.1 0.8 - 1.2 Final 05/03/2023 04:51 AM 1.1 0.8 - 1.2 Final HGB Date/Time Value Ref Range Status 05/05/2023 09:45 AM 13.1 (L) 14.0 - 16.8 g/dL Final HCT Date/Time Value Ref Range Status 05/05/2023 09:45 AM 40.1 40.0 - 48.4 % Final PLT Date/Time Value Ref Range Status 05/05/2023 09:45 AM 286 140 - 400 K/uL Final Objective Warfarin Administrations (last 720 hours) Date/Time Action Medication Dose 05/04/232034 Given Warfarin Sodium (Coumadin) tab 10 mg 10 mg Assessment & Plan Assessment Dietary Assessment: Normal/expected PO intake Today's INR : Subtherapeutic Does the patient have any medication interactions: Yes Please comment: Therapeutic enoxaparin Are there bleeding concerns with the patient: No Does the patient have any upcoming procedures: No Plan Warfarin Plan: Give Warfarin Specify Warfarin Dose: 15 mg Is the patient receiving a Bridging Agent: Yes (Therapeutic enoxaparin) Warfarin Patient Education : Not needed Reason Education Not Needed: LAMINE Martinez RPh * Neal Vegas PA-C - 05/05/2023 6:57 AM EST PROGRESS NOTE - TRACHEOTOMY POST OP - Otolaryngology [facility] [place] [place] [address] Name: Jacob Tipton IV Location: [facility] [place] G207/A Date: 05/05/2023 Time: 6:57 AM SUBJECTIVE: No events overnight Resting comfortably No issues with trach OBJECTIVE: Most Recent Vital Signs: BP: 118 mmHg/67 mmHg (05/05/23347) Pulse: 80 (05/05/23347) Temp: 35.89 C (05/05/23347) Resp: 17 (05/05/23347) SpO2: 95 % (05/05/23347) Vital Signs Last 24 Hours: Systolic BP: Most Recent Systolic BP Av.2 mmHg Min: 103 mmHg Max: 125 mmHg Temperature: Most Recent Temperature Av.7 C Min: 35.89 C Max: 37 C Pulse: Pulse Av.9 Min: 64 Max: 88 Respirations: Resp Av.5 Min: 13 Max: 20 SpO2: SpO2 Av.5 % Min: 94 % Max: 97 % PHYSICAL EXAMINATION: Awake and resting comfortably 6CN75H shiley tracheostomy tube secured in place Normal work of breathing on TC Well-perfused IMPRESSION and PLAN: Jacob Tipton IV is a 67 year old male never smoker with a 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 He is now s/p emergent awake tracheotomy along with DL and biopsy of base of tongue lesion on 04/28/2023. He is doing well postoperatively thus far. Pathology pending. Patient to get G tube 05/03. Trach was changed to a cuffless (6UN75H) trach. - Feeds and Peg management per ICU - Surgical pathology pending, will follow results First 24 hours - Suction q2h, more often as needed > 24 hours - suction q4h, more often as needed - Suction only the length of the inner cannula and ask the patient to cough (if able) to reduce likelihood of trauma to the tracheal mucosa - Change inner cannula BID, more often as needed - Clean trach site PRN - Have obturator, spare (Shiley 6UN75H), and downsize (Shiley 4UN65H) trachs at bedside - Humidification via trach collar when off ventilator, ongoing - DO NOT change trach ties or cut sutures until 1st trach change - ENT to perform first trach change POD 5-7 The patient will be discussed with Dr. Jennifer Vegas PA-C 05/05/2023 6:57 AM * Izzy Kitchen MD - 05/04/2023 3:57 PM EST TRANSFER RECEIVING NOTE - medicine [address] [address] Name: Jacob Tipton IV Current Location: [facility] [place] A452/A HANDOFF COMMUNICATION: Sending patient service: Critical care Accepting service: Med L Sending attending aware of patient and transfer: yes Receiving attending aware of patient and transfer: yes Name of receiving attending provider: Izzy Kitchen MD Patient care is being assumed by receiving service: 3:57 PM in current location Reason for transfer: stability SUBJECTIVE: Patient was admitted on 04/28 for progressive dysphagia, odynophagia, choking, and difficulty breathing while laying down which worsened over the past month and subsequently underwent awake trach by ENT for obstructing posterior tongue mass. Patient was already being bridged from warfarin to Lovenoxin anticipation of tongue biopsy outpatient for heterozygous factor V leidin. Hospital course complicated by pneumonia, transitioned to PO augmentin on 05/04 to complete the course. Patient seen after transfer. Communicated with sign language. Did not have any complaints. CURRENT HOSPITAL MEDICATIONS: Note that completed medications (per the MAR) continue to display for 24 hours. Ordered medicationsto be given in the future also display. Current Facility-Administered Medications Medication Dose Route Frequency Provider Acetaminophen (Tylenol) 160 MG/5ML oral liquid 650 mg 650 mg G Tube Q6H Bethany Nguyen DO amoxicillin-clavulanate (Augmentin) tab 500 mg 500 mg Oral TID(AM/NOON/HS) Bethany Nguyen DO Enoxaparin (Lovenox) inj 100 mg 100 mg Subcutaneous Q12H Ritu Bowens MD hEParin 1000 UNIT/ML inj 1,400 Units 15 Units/kg (Adjusted) IV Push PRN Izzy Kitchen MD hEParin 1000 UNIT/ML inj 2,800 Units 30 Units/kg (Adjusted) IV Push PRN Izzy Kitchen MD hEParin 25,000 units in 250 mL (Xa-DVT/PE) infusion 0-30 Units/kg/hr (Adjusted) Intravenous TitrateIzzy Kitchen MD melatonin tab 3 mg 3 mg G Tube HS Bethany Nguyen DO Nutren 1.5 liquid 200 mL Tube feed Q6H Bethany Nguyen DO warfarin check daily dose (PHARMACIST MANAGED) Does Not Apply Daily 1500 Bethany Nguyen DO Warfarin Sodium (Coumadin) tab 10 mg 10 mg PEG Tube QPM 1999 Pipe Mckeon MD HYDROmorphone (Dilaudid) inj 0.2 mg 0.2 mg IV Push Q4H PRN Rossi Terry MD HYDROmorphone (Dilaudid) inj 0.5 mg 0.5 mg IV Push Q4H PRN Rossi Terry MD Polyethylene Glycol 3350 (Miralax) oral powder 17 g 1 Packet G Tube Daily(AM) Rossi Terry MD senna-docusate (Senokot-S) 2 Tablet 2 Tablet G Tube BID(AM/PM) Rossi Terry MD phenol (chlorASEPTIC) spray 3 Audubon 3 Audubon Oral Q2H PRN Ritu Bowens MD chlorHEXIDINE (Periogard) 0.12 % oral rinse 15 mL 15 mL Oral mucosal membrane BID (08,1999) Miri Beth PA-C Oral Hygiene: Mouth Swab with dentifrice Oral Q4H Limited (00;04;12;16) Miri Beth PA-C sodium chloride 0.9 % flush peripheral uriel 3 mL 3 mL IV Push Q8H Miri Beth PA-C TRANSFER MEDICATION RECONCILIATION COMPLETED? yes REVIEW OF SYSTEMS: As above OBJECTIVE: Most Recent Vital Signs: BP: 105 mmHg/75 mmHg (05/04/23 1400) Pulse: 81 (05/04/23 1400) Temp: 36.78 C (05/04/23 1400) Resp: 17 (05/04/23 1400) SpO2: 94 % (05/04/23 1400) Vital Signs Last 24 Hours: Systolic BP: Most Recent Systolic BP Av.4 mmHg Min: 96 mmHg Max: 145 mmHg Temperature: Most Recent Temperature Av.7 C Min: 36.39 C Max: 37 C Pulse: Pulse Av.5 Min: 64 Max: 94 Respirations: Resp Av.5 Min: 11 Max: 22 SpO2: SpO2 Av.7 % Min: 93 % Max: 100 % Intake/Output Summary (Last 24 hours) at 05/04/2023 1557 Last data filed at 05/04/2023 0700 Gross per 24 hour Intake 1015.17 ml Output 850 ml Net 165.17 ml General: Patient in no apparent distress. Ambulating out of bed HEENT: Trach in place, post op incisional site with ron, appears non- infected and dry. Heart: Regular rate and rhythm; S1 and S2 present; no murmurs, rubs or gallops. Pulmonary: normal respiratory effort Abdomen: Soft, non-tender, non-distended. Normal bowel sounds and no rebound or guarding. G tube inplace MSK: Gross motor function intact Extremities: No pitting edema present at lower extremity bilaterally Skin: [place], warm, no wounds or lesions present. Neuro: AAOx3. No gross motor or sensory deficits. LABS: Labs reviewed as indicated below: reviewed IMAGING: reviewed. IMPRESSION and PLAN: Large base of tongue mass s/p emergent awake tracheotomy and biopsy of mass on 04/28/2023 S/p PEG on 05/03 Follow pathology ENT on board Suction as required ENT to perform first trach change POD 5-7 Humidification via trach collar ( 5L ) Has Corinna [id number] now Pneumonia: Was on zosyn( started on 05/02) changed to oral augmentin today- complete course Sputum culture- Gram possitive cocci/gram postive bacilli and GNB Heterozygous factor V leiden Was on heparin Gtt Change to lovenox today to bridge warfarin to therapeutic Nutrition: Started on trickel feeds Feeds as per study assistant I spent a total of 50 minutes coordinating, documenting, and providing care for this patient excluding time spent in the performance of separately billed services or time spent by another provider/QHP. * Bethany Nguyen DO - 05/04/2023 1:09 PM EST BRIEF TRANSFER OUT OF INTENSIVE CARE NOTE - CRITICAL CARE MEDICINE [facility] [address] [place] [address] Name: Jacob Tipton IV Current Location: [address] Primary ICU Problem: Obstructing tongue mass s/p awake trach, pneumonia ICU Course/Complications: Patient was admitted on 04/28 for progressive dysphagia, odynophagia, choking, and difficulty breathing while laying down which worsened over the past month and subsequently underwent awake trach by ENT for obstructing posterior tongue mass. Patient was already being bridged from warfarin to Lovenox in anticipation of tongue biopsy outpatient for heterozygous factor V leidin. Hospital course complicated by pneumonia, transitioned to PO augmentin today. Patient had PEG placed 05/03 now on trickle feeds. Currently being transitioned back to warfarin from heparin drip. Pathology still pending from biopsy. Delirium: No Mechanical Ventilation: Intubated: No Difficult airway: N/A Major Procedures: Awake trach 04/28, PEG tube placement 05/03 Medications: Medication changes: Bridging back to warfarin from heparin drip Antibiotics: Yes, Augmentin for 5 day course Pending ICU Issues: Active issues currently being followed or monitored at time of transfer out of ICU: Pneumonia and factor V leidin (heterozygous) Consults following or that need to be accomplished: ENT following Central Lines/Chest Tubes/PICC/IUBC: Remaining in place: No Family Meeting/Goals of Care: Full Code Family meeting summary/decision makers: Patient and Follow Up: Outpatient follow up clinics/labs/studies: Pathology from tongue mass Incidental findings that need to be addressed: None * Rowena Chadwick RP - 05/04/2023 11:49 AM EST Images from the original note were not included. PHARMACY ANTICOAGULATION WARFARIN (Coumadin) Assessment [address] [address] Name: Jacob Tipton IV Location: [facility] [place] A452/A Date: 05/04/2023 Time: 11:49 AM Jacob Tipton IV is a 67 year old male admitted after emergent trach/PEG following large base tongue mass finding on 04/28/23. Pharmacy was consulted for warfarin dosing and monitoring. Anticoagulation Therapy Goals Indication for Anticoagulation: Other (please specify), Venous Thrombosis Prophylaxis (VTE) (heterozygous factor V Leiden mutation) Anticipated Duration of Therapy: Lifetime Target INR: 2.0-3.0 (Prophylaxis of venous thrombosis) Risk factors for anticoagulation therapy: Age>65, Cancer Prior to Admission Management Anticoagulation Managed By: Anticoagulation Clinic ([facility]) Tablet Size/Strength: 5 mg Anticoagulation Regimen: 10 mg every Sun,Nunu; 7.5 mg all other days Anticoagulation Episode Summary Current INR goal: 2.0-3.0 TTR: 100.0% (2 d) Next INR check: 04/29/2023 INR from last check: 2.5 (03/11/2023) Most recent INR: 1.1 (05/04/2023) Weekly max warfarin dose: Target end date: Indefinite INR check location: Preferred lab: Send INR reminders to: Indications Heterozygous factor V Leiden mutation (HCC) [D68.51] Acute deep vein thrombosis (DVT) of proximal vein of right lower extremity (HCC) (Resolved) [I82.4Y1] Comments: Anticoagulation Care Providers Provider Role Specialty Phone number Angie Morillo, Referring Family Medicine [phone] Labs INR Date/Time Value Ref Range Status 05/04/2023 05:54 AM 1.1 0.8 - 1.2 Final 05/03/2023 04:51 AM 1.1 0.8 - 1.2 Final 05/02/2023 04:58 AM 1.1 0.8 - 1.2 Final HGB Date/Time Value Ref Range Status 05/04/2023 05:54 AM 12.4 (L) 14.0 - 16.8 g/dL Final HCT Date/Time Value Ref Range Status 05/04/2023 05:54 AM 37.3 (L) 40.0 - 48.4 % Final PLT Date/Time Value Ref Range Status 05/04/2023 05:54 AM 235 140 - 400 K/uL Final Objective Warfarin Administrations (last 720 hours) None Assessment & Plan Assessment Dietary Assessment: Normal/expected PO intake Today's INR : Subtherapeutic (1.1) Does the patient have any medication interactions: No Are there bleeding concerns with the patient: No Does the patient have any upcoming procedures: No Plan Warfarin Plan: Give Warfarin Specify Warfarin Dose: 10 mg Is the patient receiving a Bridging Agent: Yes (heparin drip VTE Xa) Warfarin Patient Education : Not needed Reason Education Not Needed: LAMINE Chadwick RPh, PharmD, BCPS, BCCCP * Rossi Terry MD - 05/04/2023 5:59 AM EST CCM - PROGRESS NOTE [facility] [place] [address] Name: Jacob Tipton IV Location: [facility] [place] A452/A Date: 05/04/2023 Date of admission: 04/28/2023 Hospital length of stay: 6 days ICU length of stay: 1 PATIENT DESCRIPTION: Jacob Tipton IV is a 67 year old male with a past medical history significant for factor 5 Leiden,the patient is normally on warfarin, but has been bridging to Lovenox in preparation for tongue mass biopsy. Patient has been experiencing progressive choking, difficulty breathing when lying down, dysphagia, and odynophagia. Patient underwent upper endoscopy on 04/26/2023 which revealed a large mass at the base of his tongue. Patient was scheduled to see ENT as an outpatient tomorrow, but earlier today he began experiencing worsening difficulty swallowing, shortness of breath when lying down, and inability to take any p.o. at all. He then came for evaluation in [facility] ED. patient evaluated by ENT who took patient to the OR for an emergent tracheostomy and biopsy of the tongue lesion. Patient sent to ICU postop for airway management Upon arrival to ICU, patient is sitting up in bed in no acute distress. Denies significant pain, chest pain, shortness of breath, abdominal pain, nausea or vomiting, but does still complain of difficulty swallowing. Subjective EVENTS OF NOTE: 04/28: Awake tracheotomy with biopsies of posterior tongue INTERIM HISTORY / SUBJECTIVE: NAEON. AFVSS. 5L trach. Has been ambulating out of bed. PEG tube placed yesterday. No n/v. UOP 1000 Last Bowel Movement: 05/03/23 Stool Description: Medium, Mushy, Brown Objective CONSTITUTIONAL DATA / OBJECTIVE: Vital Signs (Most Recent): Pulse: 72 (05/04/23399) BP: 108/70 (05/04/23399) Resp: 13 (05/04/23399) Temp: 36.7 C (98.1 F) (05/04/23 0000) SpO2: 97 % (05/04/23399) Vital Signs (Last 24 Hours): Pulse Av.2 Min: 67 Max: 94 No data recorded Most Recent Systolic BP Av.7 mmHg Min: 96 mmHg Max: 145 mmHg Most Recent Diastolic BP Av.8 mmHg Min: 59 mmHg Max: 78 mmHg Resp Av.1 Min: 9 Max: 22 Most Recent Temperature Av.6 C Min: 36.39 C Max: 37.39 C SpO2 Av.6 % Min: 93 % Max: 100 % Ventilatory Support: HFNC: O2 flow rate: 5 L/MIN (05/04/23399) O2 %: 28 % (05/04/23399) CPAP/EPAP: IPAP: Intake & Output Summary (Last 24 hours): Intake/Output Summary (Last 24 hours) at 05/04/2023 0559 Last data filed at 05/04/2023 0400 Gross per 24 hour Intake 812.13 ml Output 1200 ml Net -387.87 ml Height & Weight: Height: 190.5 cm (6' 3") (04/28/23 1949) Weight: 102.4 kg (225 lb 12 oz) (05/03/23 0800) Weight change: -4.3 kg (-9 lb 7.7 oz) Body mass index is 28.22 kg/m. Physical Examination: General: Patient in no apparent distress. Ambulating out of bed HEENT: Trach in place, post op incisional site with ron, appears non- infected and dry. Heart: Regular rate and rhythm; S1 and S2 present; no murmurs, rubs or gallops. Pulmonary: normal respiratory effort Abdomen: Soft, non-tender, non-distended. Normal bowel sounds and no rebound or guarding. G tube inplace MSK: Gross motor function intact Extremities: No pitting edema present at lower extremity bilaterally Skin: [place], warm, no wounds or lesions present. Neuro: AAOx3. No gross motor or sensory deficits. Laboratory Values: reviewed. Cultures: reviewed. Radiographic Studies: reviewed. No imaging results in the last 72 hours Assessment & Plan Active Problems: Sciatica (POA: Yes) Heterozygous factor V Leiden mutation (HCC) (POA: Yes) Tongue mass (POA: Unknown) Tracheostomy status (HCC) (POA: Unknown) Airway obstruction (POA: Unknown) Acute respiratory failure (HCC) (POA: Unknown) POA = Present On Admission NEUROLOGICAL: Neurologically in tact, no active concerns Analgesia/Sedation: Acetaminophen ATC PULMONARY / RESPIRATORY: Status post awake trach for posterior tongue lesion with ENT 04/28 On 5L humidified trach collar Trach change done at bedside by ENT CARDIOVASCULAR: No active issues ECG 04/28 normal sinus rhythm GASTROINTESTINAL / HEPATOBILIARY: IR PEG placed 05/03 - ok for meds, start trickle feeds DC NGT Bowel Regimen: holding due to BM Stress Ulcer Prophylaxis: Famotidine - dc since he is tolerating PO Diet / Nutrition: Pureed diet with thin liquids RENAL / METABOLIC / FLUIDS: Net IO Since Admission: Intake/Output Summary (Last 24 hours) at 05/04/2023 0559 Last data filed at 05/04/2023 0400 Gross per 24 hour Intake 812.13 ml Output 1200 ml Net -387.87 ml Baseline Cr normal Most Recent: Serum creatinine: 0.9 mg/dL 05/03/23 0451 Estimated creatinine clearance: 104.7 mL/min INFECTIOUS DISEASES: Afebrile however, Sputum cx 05/01 growing gram - bacilli, gram + cocci/baciili - started Abx: zosyn 05/02 day 3. transition to PO augmentin via G tube ENDOCRINE: No active issues Blood Glucose Monitoring (BGM) Goal: 140-180. HEMATOLOGIC/ONCOLOGIC: Heterozygous factor V leiden Had outpatient plan for posterior tongue biopsy was bridging warfarin to lovenox, holding heparin gtt in the interim in anticipation of IR procedure- PEG with IR 05/03 timing 4PM Will need to bridge to coumadin prior to DC VTE/DVT Prophylaxis: chemoprophylaxis alone Lab results within last 7 days (see chart for full results) Units 05/03/23 0451 05/02/23 0458 05/01/23 0512 HGB g/dL 12.3* 12.8* 13.2* HCT % 36.8* 37.3* 39.7* WBC K/uL 7.92 8.85 9.36 PLT K/uL 249 225 214 MUSCULOSKELETAL/ P.T / O.T. / MOBILITY: PT/OT LINES / DRAINS / TUBES: LINES ALL Duration Airway Neck Trach 5 days NG/OG Tube Left nostril Other (Comment) 5 days Peripheral Line Left Antecubital 20 Gauge 5 days Peripheral Line Lower;Right Arm 20 Gauge 5 days Gastrostomy/Enterostomy Gastrostomy 18 Fr. LUQ <1 day List of services consulted/following: OTOLARYNGOLOGY CONSULT IP ADULT PHYSICAL THERAPY CONSULT IP ADULT OCCUPATIONAL THERAPY CONSULT IP CARE MANAGEMENT CONSULT IP SPEECH PATHOLOGY CONSULT IP (VOICE LAB) INTERVENTIONAL RADIOLOGY CONSULT IP INTERVENTIONAL RADIOLOGY CONSULT IP GLOBAL ISSUES: Code Status: Full Code Disposition: med surg Patient's decisional capacity: has capacity to make decisions Communication with Patient/Family: will update family at bedside Patient was discussed with attending physician, MD Matilda Yoo MD - PGY2 General Surgery Resident [facility] Associated attestation - Pipe Mckeon MD - 05/04/2023 4:48 PM EST I saw and evaluated the patient today. I have reviewed the trainee note and agree. Neurological: Pain/Sedation - Tylenol ATC Respiratory: Acute respiratory failure secondary to obstructing upper airway mass s/p tracheostomy with ENT - Trach collar as tolerated Cardiovascular: No acute issues Gastrointestinal: Nutrition - IR placed PEG on 05/03 - Resume tube feeds, can transition to bolus feeds Infectious Disease: Concern for aspiration pneumonia on admission - Switch Zosyn to PO Augmentin - MRSA screen negative - Cultures pending Renal - Metabolic: No acute issues Endocrine: No acute issues Hematology: Hx of Factor V Leiden - On heparin infusion - Bridge back to coumadin GI ppx: N/A DVT ppx: Heparin Lines: PIV, trach, NGT Diet: Tube feeds Bowel regimen: Senna-docusate, Miralax and LBM: 05/03 Pain regimen: Tylenol Level of care: ICU Disposition: Transfer to Med/Surg floor I have provided critical care diagnostic services for respiratory failure and therapeutic services with frequent evaluation and titration of therapies for this patient on the date referenced above. Time devoted to patient care services described in this note equal: 30 minutes total critical care time exclusive of time spent performing procedures or time spent by another provider or resident. Upon my evaluation, this patient had a high probability of imminent or life- threatening deterioration due to respiratory failure from obstructing mass requiring tracheostomy and close airway monitoring, which required my direct attention, intervention, and personal management. Pipe Mckeon MD * Rossi Terry MD - 05/03/2023 8:59 AM EST CCM - PROGRESS NOTE [facility] [place] [address] Name: Jacob Tipton IV Location: [facility] [place] A452/A Date: 05/03/2023 Date of admission: 04/28/2023 Hospital length of stay: 5 days ICU length of stay: 1 PATIENT DESCRIPTION: Jacob Tipton IV is a 67 year old male with a past medical history significant for factor 5 Leiden,the patient is normally on warfarin, but has been bridging to Lovenox in preparation for tongue mass biopsy. Patient has been experiencing progressive choking, difficulty breathing when lying down, dysphagia, and odynophagia. Patient underwent upper endoscopy on 04/26/2023 which revealed a large mass at the base of his tongue. Patient was scheduled to see ENT as an outpatient tomorrow, but earlier today he began experiencing worsening difficulty swallowing, shortness of breath when lying down, and inability to take any p.o. at all. He then came for evaluation in [facility] ED. patient evaluated by ENT who took patient to the OR for an emergent tracheostomy and biopsy of the tongue lesion. Patient sent to ICU postop for airway management Upon arrival to ICU, patient is sitting up in bed in no acute distress. Denies significant pain, chest pain, shortness of breath, abdominal pain, nausea or vomiting, but does still complain of difficulty swallowing. Subjective EVENTS OF NOTE: 04/28: Awake tracheotomy with biopsies of posterior tongue INTERIM HISTORY / SUBJECTIVE: NAEON. AFVSS. 5L trach. Has been ambulating out of bed. Timing of PEG today 4pm. and patient updated at bedside. UOP 470cc + 1 void Last Bowel Movement: 05/01/23 Stool Description: Medium, Formed, Brown Objective CONSTITUTIONAL DATA / OBJECTIVE: Vital Signs (Most Recent): Pulse: 78 (05/03/23799) BP: 109/70 (05/03/23799) Resp: 16 (05/03/23799) Temp: 36.5 C (97.7 F) (05/03/23799) SpO2: 95 % (05/03/23799) Vital Signs (Last 24 Hours): Pulse Av Min: 66 Max: 86 No data recorded Most Recent Systolic BP Av mmHg Min: 96 mmHg Max: 128 mmHg Most Recent Diastolic BP Av.7 mmHg Min: 67 mmHg Max: 106 mmHg Resp Av.1 Min: 10 Max: 26 Most Recent Temperature Av.6 C Min: 36.39 C Max: 37.39 C SpO2 Av % Min: 94 % Max: 98 % Ventilatory Support: HFNC: O2 flow rate: 5 L/MIN (05/03/23699) O2 %: 28 % (05/03/23699) CPAP/EPAP: IPAP: Intake & Output Summary (Last 24 hours): Intake/Output Summary (Last 24 hours) at 05/03/2023 09 Last data filed at 05/03/2023 08 Gross per 24 hour Intake 635.64 ml Output 670 ml Net -34.36 ml Height & Weight: Height: 190.5 cm (6' 3") (04/28/231948) Weight: 106.7 kg (235 lb 3.7 oz) (05/02/23799) Weight change: Body mass index is 29.4 kg/m. Physical Examination: General: Patient in no apparent distress. Ambulating out of bed HEENT: Trach in place, post op incisional site with ron, appears non- infected and dry. Heart: Regular rate and rhythm; S1 and S2 present; no murmurs, rubs or gallops. Pulmonary: normal respiratory effort Abdomen: Soft, non-tender, non-distended. Normal bowel sounds and no rebound or guarding. MSK: Gross motor function intact Extremities: No pitting edema present at lower extremity bilaterally Skin: [place], warm, no wounds or lesions present. Neuro: AAOx3. No gross motor or sensory deficits. Laboratory Values: reviewed. Cultures: reviewed. Radiographic Studies: reviewed. No imaging results in the last 72 hours Assessment & Plan Active Problems: Sciatica (POA: Yes) Heterozygous factor V Leiden mutation (HCC) (POA: Yes) Tongue mass (POA: Unknown) Tracheostomy status (HCC) (POA: Unknown) Airway obstruction (POA: Unknown) Acute respiratory failure (HCC) (POA: Unknown) POA = Present On Admission NEUROLOGICAL: Neurologically in tact, no active concerns Analgesia/Sedation: Acetaminophen ATC PULMONARY / RESPIRATORY: Status post awake trach for posterior tongue lesion with ENT 04/28 On 5L humidified trach collar Trach change done at bedside by ENT CARDIOVASCULAR: No active issues ECG 04/28 normal sinus rhythm GASTROINTESTINAL / HEPATOBILIARY: IR PEG planned 05/03. Holding heparin gtt prior to PEG placement Bowel Regimen: Senna-Docusate, added miralax 05/03 Stress Ulcer Prophylaxis: Famotidine - dc since he is tolerating PO Diet / Nutrition: Pureed diet with thin liquids - holding. Keeping NPO in anticipation of IR PEG today RENAL / METABOLIC / FLUIDS: Net IO Since Admission: Intake/Output Summary (Last 24 hours) at 05/03/2023 0905 Last data filed at 05/03/2023 0800 Gross per 24 hour Intake 635.64 ml Output 670 ml Net -34.36 ml Baseline Cr normal Most Recent: Serum creatinine: 0.9 mg/dL 05/03/23 0451 Estimated creatinine clearance: 106.7 mL/min INFECTIOUS DISEASES: Afebrile however, Sputum cx 05/01 growing gram - bacilli, gram + cocci/baciili - started Abx: zosyn 05/02 day 2 of TBD ENDOCRINE: No active issues Blood Glucose Monitoring (BGM) Goal: 140-180. HEMATOLOGIC/ONCOLOGIC: Heterozygous factor V leiden Had outpatient plan for posterior tongue biopsy was bridging warfarin to lovenox, holding heparin gtt in the interim in anticipation of IR procedure- PEG with IR 05/03 timing 4PM Will need to bridge to coumadin prior to DC VTE/DVT Prophylaxis: chemoprophylaxis alone Lab results within last 7 days (see chart for full results) Units 05/03/23 0451 05/02/23 0458 05/01/23 0512 HGB g/dL 12.3* 12.8* 13.2* HCT % 36.8* 37.3* 39.7* WBC K/uL 7.92 8.85 9.36 PLT K/uL 249 225 214 MUSCULOSKELETAL/ P.T / O.T. / MOBILITY: PT/OT LINES / DRAINS / TUBES: LINES ALL Duration Airway Neck Trach 4 days NG/OG Tube Left nostril Other (Comment) 4 days Peripheral Line Left Antecubital 20 Gauge 4 days Peripheral Line Lower;Right Arm 20 Gauge 4 days List of services consulted/following: OTOLARYNGOLOGY CONSULT IP ADULT PHYSICAL THERAPY CONSULT IP ADULT OCCUPATIONAL THERAPY CONSULT IP CARE MANAGEMENT CONSULT IP SPEECH PATHOLOGY CONSULT IP (VOICE LAB) INTERVENTIONAL RADIOLOGY CONSULT IP INTERVENTIONAL RADIOLOGY CONSULT IP GLOBAL ISSUES: Code Status: Full Code Disposition: keep in ICU today given PEG placement Patient's decisional capacity: has capacity to make decisions Communication with Patient/Family: will update family at bedside Patient was discussed with attending physician, MD Matilda Yoo MD - PGY2 General Surgery Resident [facility] Associated attestation - Pipe Mckeon MD - 05/03/2023 3:23 PM EST I saw and evaluated the patient today. I have reviewed the trainee note and agree. Neurological: Pain/Sedation - Tylenol ATC Respiratory: Acute respiratory failure secondary to obstructing upper airway mass s/p tracheostomy with ENT - Trach collar as tolerated Cardiovascular: No acute issues Gastrointestinal: Nutrition - IR today for PEG today - Resume tube feeds tomorrow Infectious Disease: Concern for aspiration pneumonia on admission - Continue Zosyn - MRSA screen negative - Cultures pending Renal - Metabolic: No acute issues Endocrine: No acute issues Hematology: Hx of Factor V Leiden - On heparin infusion - Will need to resume MANAGER BRIDGE coumadin when able GI ppx: N/A DVT ppx: Heparin Lines: PIV, trach, NGT Diet: Tube feeds Bowel regimen: Senna-docusate, Miralax and LBM: 05/01 Pain regimen: Tylenol Level of care: ICU Disposition: To remain in the ICU I have provided critical care diagnostic services for respiratory failure and therapeutic services with frequent evaluation and titration of therapies for this patient on the date referenced above. Time devoted to patient care services described in this note equal: 30 minutes total critical care time exclusive of time spent performing procedures or time spent by another provider or resident. Upon my evaluation, this patient had a high probability of imminent or life- threatening deterioration due to respiratory failure from obstructing mass requiring tracheostomy and close airway monitoring, which required my direct attention, intervention, and personal management. Pipe Mckeon MD * Blu, Rufina Bonilla MD - 05/02/2023 6:52 AM EST PROGRESS NOTE - TRACHEOTOMY POST OP - Otolaryngology [facility] [place] [address] Name: Jacob Tipton IV Location: [facility] [place] A452/A Date: 05/02/2023 Time: 6:52 AM SUBJECTIVE: No events overnight Able to tolerate pureed food Plan for G tube today OBJECTIVE: Most Recent Vital Signs: BP: 95 mmHg/65 mmHg (05/02/23599) Pulse: 72 (05/02/23599) Temp: 37.28 C (05/02/23599) Resp: 12 (05/02/23599) SpO2: 96 % (05/02/23599) Vital Signs Last 24 Hours: Systolic BP: Most Recent Systolic BP Av.3 mmHg Min: 91 mmHg Max: 137 mmHg Temperature: Most Recent Temperature Av.6 C Min: 35.61 C Max: 37.5 C Pulse: Pulse Av.4 Min: 65 Max: 89 Respirations: Resp Av.1 Min: 11 Max: 22 SpO2: SpO2 Av.5 % Min: 96 % Max: 100 % PHYSICAL EXAMINATION: Awake and resting in the chair comfortably 6CN75H shiley tracheostomy tube secured in place with sutures and velcro ties, expected minimal bloody peristomal secretions Normal work of breathing on TC Well-perfused IMPRESSION and PLAN: Jacob Tipton IV is a 67 year old male never smoker with a 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 He is now s/p emergent awake tracheotomy along with DL and biopsy of base of tongue lesion on 04/28/2023. He is doing well postoperatively thus far. -IR consult for G-tube - Deflate cuff when not on vent. First 24 hours - Suction q2h, more often as needed > 24 hours - suction q4h, more often as needed - Suction only the length of the inner cannula and ask the patient to cough (if able) to reduce likelihood of trauma to the tracheal mucosa - Change inner cannula BID, more often as needed - Clean trach site PRN - Have obturator, spare (Shiley 6CN75H), and downsize (Shiley 4CN65H) trachs at bedside - Humidification via trach collar when off ventilator, ongoing - DO NOT change trach ties or cut sutures until 1st trach change - ENT to perform first trach change POD 5-7, tentative plan for 05/03/2023 Rufina Hurt MD Otolaryngology - Head and Neck Surgery Resident 05/02/2023 6:54 AM * Rossi Terry MD - 05/02/2023 6:15 AM EST CCM - PROGRESS NOTE [facility] [place] [address] Name: Jacob Tipton IV Location: [facility] [place] A452/A Date: 05/02/2023 Date of admission: 04/28/2023 Hospital length of stay: 4 days ICU length of stay: 1 PATIENT DESCRIPTION: Jacob Tipton IV is a 67 year old male with a past medical history significant for factor 5 Leiden,the patient is normally on warfarin, but has been bridging to Lovenox in preparation for tongue mass biopsy. Patient has been experiencing progressive choking, difficulty breathing when lying down, dysphagia, and odynophagia. Patient underwent upper endoscopy on 04/26/2023 which revealed a large mass at the base of his tongue. Patient was scheduled to see ENT as an outpatient tomorrow, but earlier today he began experiencing worsening difficulty swallowing, shortness of breath when lying down, and inability to take any p.o. at all. He then came for evaluation in [facility] ED. patient evaluated by ENT who took patient to the OR for an emergent tracheostomy and biopsy of the tongue lesion. Patient sent to ICU postop for airway management Upon arrival to ICU, patient is sitting up in bed in no acute distress. Denies significant pain, chest pain, shortness of breath, abdominal pain, nausea or vomiting, but does still complain of difficulty swallowing. Subjective EVENTS OF NOTE: 04/28: Awake tracheotomy with biopsies of posterior tongue INTERIM HISTORY / SUBJECTIVE: NAEON. AFVSS. 5L trach. Has been ambulating out of bed. Timing of PEG today TBD UOP 2150 BM x1 Last Bowel Movement: 05/01/23 Stool Description: Medium, Formed, Brown Objective CONSTITUTIONAL DATA / OBJECTIVE: Vital Signs (Most Recent): Pulse: 81 (05/02/23 1000) BP: 121/106 (05/02/23 1000) Resp: 21 (05/02/23 1000) Temp: 36.6 C (97.9 F) (05/02/23 0800) SpO2: 96 % (05/02/23 1000) Vital Signs (Last 24 Hours): Pulse Av.1 Min: 65 Max: 89 No data recorded Most Recent Systolic BP Av.5 mmHg Min: 91 mmHg Max: 137 mmHg Most Recent Diastolic BP Av.5 mmHg Min: 58 mmHg Max: 106 mmHg Resp Av Min: 12 Max: 22 Most Recent Temperature Av.8 C Min: 36 C Max: 37.5 C SpO2 Av.2 % Min: 95 % Max: 100 % Ventilatory Support: HFNC: O2 flow rate: 5 L/MIN (05/02/23 1000) O2 %: 28 % (05/02/23 1000) CPAP/EPAP: IPAP: Intake & Output Summary (Last 24 hours): Intake/Output Summary (Last 24 hours) at 05/02/2023 1030 Last data filed at 05/02/2023 0800 Gross per 24 hour Intake 985.44 ml Output 1550 ml Net -564.56 ml Height & Weight: Height: 190.5 cm (6' 3") (04/28/231948) Weight: 106.7 kg (235 lb 3.7 oz) (05/02/23 08) Weight change: Body mass index is 29.4 kg/m. Physical Examination: General: Patient in no apparent distress. Resting comfortable in chair. HEENT: Trach in place, post op incisional site with ron, appears non- infected and dry. Heart: Regular rate and rhythm; S1 and S2 present; no murmurs, rubs or gallops. Pulmonary: Lungs clear to auscultation bilaterally; no wheezes, rhonchi or crackles. Abdomen: Soft, non-tender, non-distended. Normal bowel sounds and no rebound or guarding. MSK: Gross motor function intact Extremities: No pitting edema present at lower extremity bilaterally Skin: [place], warm, no wounds or lesions present. Neuro: AAOx3. No gross motor or sensory deficits. Laboratory Values: reviewed. Cultures: reviewed. Radiographic Studies: reviewed. FLUORO SWALLOWING FUNCTION W VIDEO CINE Result Date: 04/29/2023 IMPRESSION No laryngeal penetration or aspiration was seen. Please refer to the complete report from Speech Therapy for complete details of this examination. I have personally reviewed this examination and agree with the resident/fellow physician's interpretation. XR ABDOMEN 1 VIEW Result Date: 04/29/2023 IMPRESSION 1. Enteric tube terminates in the mid stomach. 2. Prominent loops of bowel in the central abdomen, nonspecific. Given the passage of the oral contrast from the concurrent esophagram, obstruction or ileus seems less likely and this could be physiologic. Assessment & Plan Active Problems: Sciatica (POA: Yes) Heterozygous factor V Leiden mutation (HCC) (POA: Yes) Tongue mass (POA: Unknown) Tracheostomy status (HCC) (POA: Unknown) Airway obstruction (POA: Unknown) POA = Present On Admission NEUROLOGICAL: Neurologically in tact, no active concerns Analgesia/Sedation: Acetaminophen ATC PULMONARY / RESPIRATORY: Status post awake trach for posterior tongue lesion with ENT 04/28 On 5L humidified trach collar Continue frequent suctioning per ENT and trach care, ok for Q4H suction per ENT Anticipate first trach change in the upcoming days; POD 5-7 CARDIOVASCULAR: No active issues ECG 04/28 normal sinus rhythm GASTROINTESTINAL / HEPATOBILIARY: IR PEG planned tenatively 05/02. Can dc heparin gtt prior to PEG placement Bowel Regimen: Senna-Docusate Stress Ulcer Prophylaxis: Famotidine - dc since he is tolerating PO Diet / Nutrition: Pureed diet with thin liquids RENAL / METABOLIC / FLUIDS: Net IO Since Admission: Intake/Output Summary (Last 24 hours) at 05/02/2023 1030 Last data filed at 05/02/2023 0800 Gross per 24 hour Intake 985.44 ml Output 1550 ml Net -564.56 ml Baseline Cr normal Most Recent: Serum creatinine: 0.9 mg/dL 05/02/23 0458 Estimated creatinine clearance: 106.7 mL/min Phosphorous this AM 2.0; repleted with NaPhos IV INFECTIOUS DISEASES: Afebrile however, Sputum cx 05/01 growing gram - bacilli, gram + cocci/baciili - started Abx: zosyn 05/02 day 1 of TBD ENDOCRINE: No active issues Blood Glucose Monitoring (BGM) Goal: 140-180. HEMATOLOGIC/ONCOLOGIC: Heterozygous factor V leiden Had outpatient plan for posterior tongue biopsy was bridging warfarin to lovenox, heparin gtt in the interim in anticipation of IR procedure- PEG with IR 05/02 timing TBD Will need to bridge to coumadin prior to DC VTE/DVT Prophylaxis: chemoprophylaxis alone Lab results within last 7 days (see chart for full results) Units 05/02/23 0458 05/01/23 0512 04/30/23 1217 HGB g/dL 12.8* 13.2* 13.2* HCT % 37.3* 39.7* 40.1 WBC K/uL 8.85 9.36 10.89* PLT K/uL 225 214 230 MUSCULOSKELETAL/ P.T / O.T. / MOBILITY: PT/OT LINES / DRAINS / TUBES: LINES ALL Duration Airway Neck Trach 3 days NG/OG Tube Left nostril Other (Comment) 3 days Peripheral Line Left Antecubital 20 Gauge 3 days Peripheral Line Lower;Right Arm 20 Gauge 3 days List of services consulted/following: OTOLARYNGOLOGY CONSULT IP ADULT PHYSICAL THERAPY CONSULT IP ADULT OCCUPATIONAL THERAPY CONSULT IP CARE MANAGEMENT CONSULT IP SPEECH PATHOLOGY CONSULT IP (VOICE LAB) INTERVENTIONAL RADIOLOGY CONSULT IP INTERVENTIONAL RADIOLOGY CONSULT IP GLOBAL ISSUES: Code Status: Full Code Disposition: keep in ICU today given PEG placement Patient's decisional capacity: has capacity to make decisions Communication with Patient/Family: will update family at bedside Patient was discussed with attending physician, MD Matilda Yoo MD - PGY2 General Surgery Resident [facility] Associated attestation - Pipe Mckeon MD - 05/02/2023 9:31 PM EST I saw and evaluated the patient today. I have reviewed the trainee note and agree. Neurological: Pain/Sedation - Tylenol ATC Respiratory: Acute respiratory failure secondary to obstructing upper airway mass s/p tracheostomy with ENT - Trach collar as tolerated Cardiovascular: No acute issues Gastrointestinal: Nutrition - IR today for PEG tomorrow, procedure was postponed today - NPO at midnight Infectious Disease: Concern for aspiration pneumonia - Continue Zosyn - MRSA screen negative Renal - Metabolic: No acute issues Endocrine: No acute issues Hematology: Hx of Factor V Leiden - On heparin infusion - Will need to resume [employer] coumadin when able GI ppx: N/A DVT ppx: Heparin Lines: PIV, trach, NGT Diet: Tube feeds Bowel regimen: Senna-docusate and LBM: 05/01 Pain regimen: Tylenol Level of care: ICU Disposition: To remain in the ICU I have provided critical care diagnostic services for respiratory failure and therapeutic services with frequent evaluation and titration of therapies for this patient on the date referenced above. Time devoted to patient care services described in this note equal: 30 minutes total critical care time exclusive of time spent performing procedures or time spent by another provider or resident. Upon my evaluation, this patient had a high probability of imminent or life- threatening deterioration due to respiratory failure from obstructing mass requiring tracheostomy and close airway monitoring, which required my direct attention, intervention, and personal management. Pipe Mckeon MD * Kellen Greer, [facility] - 05/01/2023 7:54 PM EST PHARMACY PHARMACOKINETIC CONSULT [address] [address] Name: Jacob Tipton IV Location: [facility] [place] A452/A Date: 05/01/2023 Time: 7:54 PM Requesting Service: Critical Care White Bacteria being treated: Empiric Source of infection: resp Medication(s) being managed: Vancomycin Pharmacokinetic calculations will be performed utilizing [employer] software. Lab information: Lab Results Component Value Date/Time WBC 9.36 05/01/2023 05:12 AM WBC 10.89 (H) 04/30/2023 12:17 PM WBC 11.06 (H) 04/30/2023 06:01 AM WBC 13.29 (H) 04/29/2023 03:52 PM WBC 12.34 (H) 04/29/2023 04:36 AM WBC 5.47 01/24/2010 08:22 AM Lab Results Component Value Date/Time BUN 9 05/01/2023 05:12 AM BUN 10 04/30/2023 06:01 AM BUN 11 04/29/2023 04:36 AM BUN 13 04/28/2023 07:38 PM BUN 12 04/28/2023 05:49 PM BUN 17 06/20/2015 07:01 AM BUN 18 01/24/2010 08:22 AM BUN 14 09/01/2009 08:21 AM BUN 16 09/05/2008 02:41 PM BUN 15 06/07/2002 11:19 AM Lab Results Component Value Date/Time CREAT 0.8 05/01/2023 05:12 AM CREAT 0.9 04/30/2023 06:01 AM CREAT 0.8 04/29/2023 04:36 AM CREAT 0.9 04/28/2023 07:38 PM CREAT 0.9 04/28/2023 05:49 PM CREAT 1.0 06/20/2015 07:01 AM CREAT 0.9 01/24/2010 08:22 AM CREAT 0.8 09/01/2009 08:21 AM CREAT 0.9 09/05/2008 02:41 PM CREAT 0.8 06/07/2002 11:19 AM ANTIMICROBIALS GIVEN (last 28 hours) None Wt Readings from Last 1 Encounters: 04/30/23 106.2 kg (234 lb 2.1 oz) Levels to date: No results found for: "VANCO", "VANCOPEAK", "VANCORANDOM", "VANCOTROUGH", "GENTPEAK", "GENTRANDOM","GENTTROUGH", "TOBRAPEAK", "TOBRARANDOM", "TOBRATROUGH", "AMIKAPEAK", "AMIKARANDOM", "AMIKATROUGH" Impression: Jacob Tipton IV is a/an 67 year old male receiving vancomycin therapy. The pharmacokinetic target for therapy is AUC24,SS (range) 400-600mg/L.hr Assessment and Plan: Drug: Vancomycin Pharmacokinetic target: AUC24 (range) 400-600 mg/L.hr Recent measured serum creatinine values: 05/01/2023 05:12 0.8 mg/dL 04/30/2023 06:01 0.9 mg/dL 04/29/2023 04:36 0.8 mg/dL Assessment: Analysis using [employer] gives the following patient-specific pharmacokinetic parameters: CL: 5.41 L/hr V: 71.7 L T1/2: 10.2 hours At this time we recommend a loading dose of 2500 mg at 19:54 05/01/2023, followed by a regimen of 1250 mg IV every 12 hours, which is predicted to result in a steady-state trough of 12.2 mg/L and AUC24 of 442 mg/L.hr. Recommendations: - Vancomycin 1250 mg IV every 12 hours - Obtain Vancomycin level - Continue to monitor serum creatinine Obtain next vancomycin level ~05/03. Pharmacy will continue to follow and dose as appropriate by renal function, culture results, infectious disease input, and overall clinical status. Contact the Pharmacy at extension [phone] if there are any questions. Kellen Greer RPh * David Mendez MD - 05/01/2023 9:49 AM EST PROGRESS NOTE - TRACHEOTOMY POST OP - Otolaryngology [facility] [place] [address] Name: Jacob Tipton IV Location: [facility] [place] A452/A Date: 05/01/2023 Time: 9:49 AM SUBJECTIVE: No acute events overnight Reports some continued pain with swallowing No dyspnea Tolerating pureed diet OBJECTIVE: Most Recent Vital Signs: BP: 109 mmHg/72 mmHg (05/01/23899) Pulse: 72 (05/01/23899) Temp: 35.61 C (05/01/23799) Resp: 18 (05/01/23899) SpO2: 98 % (05/01/23899) Vital Signs Last 24 Hours: Systolic BP: Most Recent Systolic BP Av.5 mmHg Min: 92 mmHg Max: 117 mmHg Temperature: Most Recent Temperature Av.5 C Min: 35.61 C Max: 36.78 C Pulse: Pulse Av.4 Min: 62 Max: 85 Respirations: Resp Av.3 Min: 11 Max: 23 SpO2: SpO2 Av.8 % Min: 94 % Max: 100 % PHYSICAL EXAMINATION: Awake and resting in the chair comfortably 6CN75H shiley tracheostomy tube secured in place with sutures and velcro ties, expected minimal bloody peristomal secretions Normal work of breathing on TC Well-perfused IMPRESSION and PLAN: Jacob Tipton IV is a 67 year old male never smoker with a 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 He is now s/p emergent awake tracheotomy along with DL and biopsy of base of tongue lesion on 04/28/2023. He is doing well postoperatively thus far. - Deflate cuff when not on vent. First 24 hours - Suction q2h, more often as needed > 24 hours - suction q4h, more often as needed - Suction only the length of the inner cannula and ask the patient to cough (if able) to reduce likelihood of trauma to the tracheal mucosa - Change inner cannula BID, more often as needed - Clean trach site PRN - Have obturator, spare (Shiley 6CN75H), and downsize (Shiley 4CN65H) trachs at bedside - Humidification via trach collar when off ventilator, ongoing - DO NOT change trach ties or cut sutures until 1st trach change - ENT to perform first trach change POD 5-7, tentative plan for 05/03/2023 -IR consult for G-tube The patient was examined and discussed with Dr. Mendez. Eduardo Meier MD 05/01/2023 9:59 AM ENT Staff Note Attending Attestation: I have discussed the patient's management with the medical trainee and agree with the note. Please refer to the documented findings and plan of care. The patient's bedside service today consisted of an evaluation. I was present and confirmed the findings of the history and exam. David Mendez MD SICU [facility] [place], Surgical Intensive Care Unit, [facility] 4th Floor [address] [id number] * Mara, Rossi, MD - 05/01/2023 6:16 AM EST CCM - PROGRESS NOTE [facility] [place] [address] Name: Jacob Tipton IV Location: [facility] [place] A452/A Date: 05/01/2023 Date of admission: 04/28/2023 Hospital length of stay: 3 days ICU length of stay: 1 PATIENT DESCRIPTION: Jacob Tipton IV is a 67 year old male with a past medical history significant for factor 5 Leiden,the patient is normally on warfarin, but has been bridging to Lovenox in preparation for tongue mass biopsy. Patient has been experiencing progressive choking, difficulty breathing when lying down, dysphagia, and odynophagia. Patient underwent upper endoscopy on 04/26/2023 which revealed a large mass at the base of his tongue. Patient was scheduled to see ENT as an outpatient tomorrow, but earlier today he began experiencing worsening difficulty swallowing, shortness of breath when lying down, and inability to take any p.o. at all. He then came for evaluation in [facility] ED. patient evaluated by ENT who took patient to the OR for an emergent tracheostomy and biopsy of the tongue lesion. Patient sent to ICU postop for airway management Upon arrival to ICU, patient is sitting up in bed in no acute distress. Denies significant pain, chest pain, shortness of breath, abdominal pain, nausea or vomiting, but does still complain of difficulty swallowing. Subjective EVENTS OF NOTE: 04/28: Awake tracheotomy with biopsies of posterior tongue INTERIM HISTORY / SUBJECTIVE: NAEON. AFVSS. 5L trach. Has been ambulating out of bed. Plan for PEG likely Tuesday 05/02. UOP 500 BM x1 Last Bowel Movement: 04/30/23 Stool Description: Medium, Formed, Brown Objective CONSTITUTIONAL DATA / OBJECTIVE: Vital Signs (Most Recent): Pulse: 72 (05/01/23 0900) BP: 100/75 (05/01/23 1000) Resp: 18 (05/01/23 0900) Temp: 35.6 C (96.1 F) (05/01/23 0800) SpO2: 98 % (05/01/23 0900) Vital Signs (Last 24 Hours): Pulse Av.3 Min: 62 Max: 85 No data recorded Most Recent Systolic BP Av.2 mmHg Min: 92 mmHg Max: 117 mmHg Most Recent Diastolic BP Av.2 mmHg Min: 61 mmHg Max: 75 mmHg Resp Av Min: 11 Max: 20 Most Recent Temperature Av.5 C Min: 35.61 C Max: 36.78 C SpO2 Av.9 % Min: 94 % Max: 100 % Ventilatory Support: HFNC: O2 flow rate: 5 L/MIN (05/01/23 1000) O2 %: 28 % (05/01/23 1000) CPAP/EPAP: IPAP: Intake & Output Summary (Last 24 hours): Intake/Output Summary (Last 24 hours) at 05/01/2023 1023 Last data filed at 05/01/2023 0900 Gross per 24 hour Intake 1038.54 ml Output 950 ml Net 88.54 ml Height & Weight: Height: 190.5 cm (6' 3") (04/28/23 1949) Weight: 106.2 kg (234 lb 2.1 oz) (04/30/23 0800) Weight change: Body mass index is 29.26 kg/m. Physical Examination: General: Patient in no apparent distress. Resting comfortable in chair. HEENT: Trach in place, post op incisional site with ron, appears non- infected and dry. Heart: Regular rate and rhythm; S1 and S2 present; no murmurs, rubs or gallops. Pulmonary: Lungs clear to auscultation bilaterally; no wheezes, rhonchi or crackles. Abdomen: Soft, non-tender, non-distended. Normal bowel sounds and no rebound or guarding. MSK: Gross motor function intact Extremities: No pitting edema present at lower extremity bilaterally Skin: [place], warm, no wounds or lesions present. Neuro: AAOx3. No gross motor or sensory deficits. Laboratory Values: reviewed. Cultures: reviewed. Radiographic Studies: reviewed. FLUORO SWALLOWING FUNCTION W VIDEO CINE Result Date: 04/29/2023 IMPRESSION No laryngeal penetration or aspiration was seen. Please refer to the complete report from Speech Therapy for complete details of this examination. I have personally reviewed this examination and agree with the resident/fellow physician's interpretation. XR ABDOMEN 1 VIEW Result Date: 04/29/2023 IMPRESSION 1. Enteric tube terminates in the mid stomach. 2. Prominent loops of bowel in the central abdomen, nonspecific. Given the passage of the oral contrast from the concurrent esophagram, obstruction or ileus seems less likely and this could be physiologic. CT CHEST W CONTRAST Result Date: 04/29/2023 IMPRESSION 1. Postsurgical changes with tracheostomy tube placement. A few likely infectious/inflammatory right upper lobe ground-glass opacities. 2. No intrathoracic metastases. XR CHEST 1 VIEW Result Date: 04/28/2023 IMPRESSION 1. Tracheostomy tube in place. 2. Left basilar consolidation could represent atelectasisor sequelae of aspiration pneumonia. Assessment & Plan Active Problems: Sciatica (POA: Yes) Heterozygous factor V Leiden mutation (HCC) (POA: Yes) Tongue mass (POA: Unknown) Tracheostomy status (HCC) (POA: Unknown) Airway obstruction (POA: Unknown) POA = Present On Admission NEUROLOGICAL: Neurologically in tact, no active concerns Analgesia/Sedation: Acetaminophen ATC PULMONARY / RESPIRATORY: Status post awake trach for posterior tongue lesion with ENT 04/28 On 5L humidified trach collar Continue frequent suctioning per ENT and trach care, ok for Q4H suction per ENT Anticipate first trach change in the upcoming days; POD 5-7 CARDIOVASCULAR: No active issues ECG 04/28 normal sinus rhythm GASTROINTESTINAL / HEPATOBILIARY: IR PEG planned, possibly Tuesday. Can dc heparin gtt prior to PEG placement Bowel Regimen: Senna /Colace Stress Ulcer Prophylaxis: Famotidine - dc since he is tolerating PO Diet / Nutrition: Pureed diet with thin liquids RENAL / METABOLIC / FLUIDS: Net IO Since Admission: Intake/Output Summary (Last 24 hours) at 05/01/2023 1023 Last data filed at 05/01/2023 0900 Gross per 24 hour Intake 1038.54 ml Output 950 ml Net 88.54 ml Baseline Cr normal Most Recent: Serum creatinine: 0.8 mg/dL 05/01/23 0512 Estimated creatinine clearance: 119.7 mL/min Phosphorous this AM 2.0; repleted with NaPhos IV INFECTIOUS DISEASES: No active concerns, observing off antibiotics at this time ENDOCRINE: No active issues Blood Glucose Monitoring (BGM) Goal: 140-180. BMP glucose 101 HEMATOLOGIC/ONCOLOGIC: Heterozygous factor V leiden Had outpatient plan for posterior tongue biopsy was bridging warfarin to lovenox, heparin gtt in the interim in anticipation of IR procedure- PEG possibly 05/02 VTE/DVT Prophylaxis: chemoprophylaxis alone Lab results within last 7 days (see chart for full results) Units 05/01/23 0512 04/30/23 1217 04/30/23 0601 HGB g/dL 13.2* 13.2* 13.1* HCT % 39.7* 40.1 38.8* WBC K/uL 9.36 10.89* 11.06* PLT K/uL 214 230 213 MUSCULOSKELETAL/ P.T / O.T. / MOBILITY: PT/OT LINES / DRAINS / TUBES: LINES ALL Duration Airway Neck Trach 2 days NG/OG Tube Left nostril Other (Comment) 2 days Peripheral Line Left Antecubital 20 Gauge 2 days Peripheral Line Lower;Right Arm 20 Gauge 2 days List of services consulted/following: OTOLARYNGOLOGY CONSULT IP ADULT PHYSICAL THERAPY CONSULT IP ADULT OCCUPATIONAL THERAPY CONSULT IP CARE MANAGEMENT CONSULT IP SPEECH PATHOLOGY CONSULT IP (VOICE LAB) INTERVENTIONAL RADIOLOGY CONSULT IP GLOBAL ISSUES: Code Status: Full Code Disposition: keep in ICU Keep in ICU until trach >72 hrs (trach 04/28) Patient's decisional capacity: has capacity to make decisions Communication with Patient/Family: Updated at bedside Patient was discussed with attending physician, DO Matilda Grewal MD - PGY2 General Surgery Resident [facility] Associated attestation - Janice Gomez DO - 05/01/2023 1:38 PM EST I have seen and examined the patient with the resident/fellow physician, reviewed the history and available data, reviewed labwork and personally reviewed the available imaging. I have discussed these findings with the multidisciplinary team and concur with the findings and plan except as per my own notations. HPI: 67 yo M with newly-diagnosed obstructing tongue mass status post emergent awake tracheostomy yesterday evening after which he was admitted to the SICU for close airway monitoring in the setting of a new tracheostomy. PMH: Factor V Leiden PSH: Flank lesion excision, Lumbar laminectomy ALL: NKDA SOCH: Occasional EtOH Active Issues: Obstructing tongue mass Status post new tracheostomy status Factor 5 Leiden mutation on Warfarin Acute blood loss anemia Overnight Events: No acute overnight events. Plan: Neurologic: Pain, Sedation and Analgesia Continue acetaminophen scheduled for pain control Oxycodone as needed for breakthrough pain once enteral access is obtained Delirium Prevention CAM ICU: Not indicated Sleep protocol Melatonin qHS for sleep Cardiac: No active issues, continue close hemodynamic monitoring Respiratory: Obstructing tongue base mass Status post tracheostomy creation Tracheostomy care per ENT recommendations Wean to trach collar as tolerated Patient likely to require PEG per ENT Ok for speech evaluation/comfort feeds if able Aggressive pulmonary toilet Pain control as needed Renal/Fluids/Electrolytes Renal function is at baseline Avoid nephrotoxins Maintain vascular status Replete electrolytes as needed Discontinue IVF once tolerating goal nutrition Musa: Not indicated, voiding independently without issue Infectious Disease Afebrile overnight, leukocytosis is downtrending Antibiotics: No indication for antibiotics at this time, continue close monitoring for signs of infection GI/Nutrition Nutrition Plan Patient did clear METHODS ANALYST DATA PROCESSING evaluation but is having trouble taking in his full nutritional needs orally,will likely require PEG placement per ENT Resume and advance diet as tolerated pending METHODS ANALYST DATA PROCESSING clearance Consider IR evaluation for PEG placement (concerns about passing endoscope to try surgical route) Musculoskeletal and Soft Tissue Deconditioning Progressive mobility as tolerated PT/OT as able, disposition planning Hematology Factor 5 Leiden mutation Patient is on heparin GTT, will bridge to home AC regimen once procedural course is completed Acute blood loss anemia - H/H is stable Blood conservation consultation with anemia protocol as indicated Risks of blood transfusion outweigh benefit at this time Continue close monitoring with repeat CBC this afternoon Endocrine No active issues, remains euglycemic without need for SSI Prophylaxis DVT: TEDs, SCDs, Heparin GTT GI: Famotidine (Until nutrition is started) Bowel regimen: Senna, Docusate (Last BM on 04/30) Lines: PIV x 2 Goals of Care/Advance Directives: Full Code Disposition: To remain in SICU There is a high probability of sudden, clinically significant or life threatening deterioration in the patient's condition that requires the highest level of physician preparedness to intervene urgently. Critical care time spent treating the critical illness and injuries documented, exclusive of teaching time: 31 minutes Janice Gomez DO, , FACOS Trauma and Acute Care Surgery Surgical Critical Care * David Mendez MD - 04/30/2023 11:36 AM EST PROGRESS NOTE - TRACHEOTOMY POST OP - Otolaryngology [facility] [place] [address] Name: Jacob Tipton IV Location: [facility] [place] A452/A Date: 04/30/2023 Time: 11:36 AM SUBJECTIVE: No acute events overnight Patient reports some continued pain with swallowing No dyspnea Tolerating pureed diet OBJECTIVE: Most Recent Vital Signs: BP: 97 mmHg/82 mmHg (04/30/23899) Pulse: 75 (04/30/23899) Temp: 37 C (04/30/23899) Resp: 18 (04/30/23899) SpO2: 95 % (04/30/23899) Vital Signs Last 24 Hours: Systolic BP: Most Recent Systolic BP Av.3 mmHg Min: 94 mmHg Max: 117 mmHg Temperature: Most Recent Temperature Av C Min: 36.28 C Max: 37.5 C Pulse: Pulse Av.7 Min: 69 Max: 86 Respirations: Resp Av.5 Min: 13 Max: 20 SpO2: SpO2 Av.8 % Min: 94 % Max: 100 % PHYSICAL EXAMINATION: Awake and resting in the chair comfortably Minimal bloody secretions in the oral cavity [id number] shiley tracheostomy tube secured in place with sutures and velcro ties, expected minimal bloody peristomal secretions Normal work of breathing on TC Well-perfused IMAGING: CT Chest with IV contrast 04/29/2023, read pending CXR 04/29/2023: IMPRESSION 1. Tracheostomy tube in place. 2. Left basilar consolidation could represent atelectasis or sequelae of aspiration pneumonia. CT Neck with Contrast 04/27/23: IMPRESSION: 4 cm mass of the dorsal tongue protruding into the valleculae. Large necrotic level 1 lymph nodes, likely metastatic.. Biopsy recommend. IMPRESSION and PLAN: Jacob Tipton IV is a 67 year old male never smoker with a 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 He is now s/p emergent awake tracheotomy along with DL and biopsy of base of tongue lesion on 04/28/2023. He is doing well postoperatively thus far, and will require close monitoring in the ICU at this time. - Deflate cuff when not on vent. - CT chest with Contrast, final read pending First 24 hours - Suction q2h, more often as needed > 24 hours - suction q4h, more often as needed - Suction only the length of the inner cannula and ask the patient to cough (if able) to reduce likelihood of trauma to the tracheal mucosa - Change inner cannula BID, more often as needed - Clean trach site PRN - Have obturator, spare (Shiley 6CN75H), and downsize (Shiley 4CN65H) trachs at bedside - Humidification via trach collar when off ventilator, ongoing - DO NOT change trach ties or cut sutures until 1st trach change - ENT to perform first trach change POD 5-7 The patient was examined and discussed with Dr. Mendez. Eduardo Meier MD 04/30/2023 11:38 AM ENT Staff Note Attending Attestation: I have discussed the patient's management with the medical trainee and agree with the note. Please refer to the documented findings and plan of care. The patient's bedside service on April 30, 2023(this is a late entry) consisted of an evaluation. I was present and confirmed the findings of the history and exam. David Mendez MD SICU [facility] [place], Surgical Intensive Care Unit, [facility] 4th Floor [address] [facility] [address] * Rossi Terry MD - 04/30/2023 6:56 AM EST CCM - PROGRESS NOTE [facility] [place] [address] Name: Jacob Tipton IV Location: [facility] [place] A452/A Date: 04/30/2023 Date of admission: 04/28/2023 Hospital length of stay: 2 days ICU length of stay: 1 PATIENT DESCRIPTION: Jacob Tipton IV is a 67 year old male with a past medical history significant for factor 5 Leiden,the patient is normally on warfarin, but has been bridging to Lovenox in preparation for tongue mass biopsy. Patient has been experiencing progressive choking, difficulty breathing when lying down, dysphagia, and odynophagia. Patient underwent upper endoscopy on 04/26/2023 which revealed a large mass at the base of his tongue. Patient was scheduled to see ENT as an outpatient tomorrow, but earlier today he began experiencing worsening difficulty swallowing, shortness of breath when lying down, and inability to take any p.o. at all. He then came for evaluation in [facility] ED. patient evaluated by ENT who took patient to the OR for an emergent tracheostomy and biopsy of the tongue lesion. Patient sent to ICU postop for airway management Upon arrival to ICU, patient is sitting up in bed in no acute distress. Denies significant pain, chest pain, shortness of breath, abdominal pain, nausea or vomiting, but does still complain of difficulty swallowing. Subjective EVENTS OF NOTE: 04/28: Awake tracheotomy with biopsies of posterior tongue INTERIM HISTORY / SUBJECTIVE: No acute events. Vitals signs stable and patient remained afebrile. Formal eval with speech yesterday recommended pureed/thin liquids which patient is tolerating . On 5L trach collar satting 95%. Plan for PEG Last Bowel Movement: 04/29/23 Stool Description: Medium, Formed, Brown Objective CONSTITUTIONAL DATA / OBJECTIVE: Vital Signs (Most Recent): Pulse: 75 (04/30/23899) BP: 97/82 (04/30/23899) Resp: 18 (04/30/23899) Temp: 37 C (98.6 F) (04/30/23899) SpO2: 95 % (04/30/23899) Vital Signs (Last 24 Hours): Pulse Av.5 Min: 69 Max: 86 No data recorded Most Recent Systolic BP Av.9 mmHg Min: 94 mmHg Max: 117 mmHg Most Recent Diastolic BP Av.9 mmHg Min: 60 mmHg Max: 82 mmHg Resp Av.5 Min: 13 Max: 20 Most Recent Temperature Av C Min: 36.28 C Max: 37.5 C SpO2 Av.8 % Min: 94 % Max: 100 % Ventilatory Support: HFNC: O2 flow rate: 5 L/MIN (04/30/23899) O2 %: 28 % (04/30/23899) CPAP/EPAP: IPAP: Intake & Output Summary (Last 24 hours): Intake/Output Summary (Last 24 hours) at 04/30/2023 1207 Last data filed at 04/30/2023 0900 Gross per 24 hour Intake 329.7 ml Output 900 ml Net -570.3 ml Height & Weight: Height: 190.5 cm (6' 3") (04/28/23 1949) Weight: 106.2 kg (234 lb 2.1 oz) (04/30/23 0800) Weight change: Body mass index is 29.26 kg/m. Physical Examination: General: Patient in no apparent distress. Resting comfortable in chair. HEENT: Trach in place, post op incisional site with ron, appears non- infected and dry. Heart: Regular rate and rhythm; S1 and S2 present; no murmurs, rubs or gallops. Pulmonary: Lungs clear to auscultation bilaterally; no wheezes, rhonchi or crackles. Abdomen: Soft, non-tender, non-distended. Normal bowel sounds and no rebound or guarding. MSK: Gross motor function intact Extremities: No pitting edema present at lower extremity bilaterally Skin: [place], warm, no wounds or lesions present. Neuro: AAOx3. No gross motor or sensory deficits. Laboratory Values: reviewed. Cultures: reviewed. Radiographic Studies: reviewed. FLUORO SWALLOWING FUNCTION W VIDEO CINE Result Date: 04/29/2023 IMPRESSION No laryngeal penetration or aspiration was seen. Please refer to the complete report from Speech Therapy for complete details of this examination. I have personally reviewed this examination and agree with the resident/fellow physician's interpretation. XR ABDOMEN 1 VIEW Result Date: 04/29/2023 IMPRESSION 1. Enteric tube terminates in the mid stomach. 2. Prominent loops of bowel in the central abdomen, nonspecific. Given the passage of the oral contrast from the concurrent esophagram, obstruction or ileus seems less likely and this could be physiologic. CT CHEST W CONTRAST Result Date: 04/29/2023 IMPRESSION 1. Postsurgical changes with tracheostomy tube placement. A few likely infectious/inflammatory right upper lobe ground-glass opacities. 2. No intrathoracic metastases. XR CHEST 1 VIEW Result Date: 04/28/2023 IMPRESSION 1. Tracheostomy tube in place. 2. Left basilar consolidation could represent atelectasisor sequelae of aspiration pneumonia. Assessment & Plan Active Problems: Sciatica (POA: Yes) Heterozygous factor V Leiden mutation (HCC) (POA: Yes) Tongue mass (POA: Unknown) Tracheostomy status (HCC) (POA: Unknown) Airway obstruction (POA: Unknown) POA = Present On Admission NEUROLOGICAL: Neurologically in tact, no active concerns Analgesia/Sedation: Acetaminophen ATC PULMONARY / RESPIRATORY: Status post awake trach for posterior tongue lesion with ENT 04/28 On 5L humidified trach collar Continue frequent suctioning per ENT and trach care Anticipate first trach change in the upcoming days; POD 5-7 CARDIOVASCULAR: No active issues ECG 04/28 normal sinus rhythm GASTROINTESTINAL / HEPATOBILIARY: IR PEG planned, possibly Tuesday. Can dc heparin gtt prior to PEG placement Bowel Regimen: Senna /Colace Stress Ulcer Prophylaxis: Famotidine - dc since he is tolerating PO Diet / Nutrition: Pureed diet with thin liquids RENAL / METABOLIC / FLUIDS: Net IO Since Admission: Intake/Output Summary (Last 24 hours) at 04/30/2023 1203 Last data filed at 04/30/2023 0900 Gross per 24 hour Intake 329.7 ml Output 900 ml Net -570.3 ml Baseline Cr normal Most Recent: Serum creatinine: 0.9 mg/dL 04/30/23 0601 Estimated creatinine clearance: 106.4 mL/min Phosphorous this AM 2.0; repleted with NaPhos IV INFECTIOUS DISEASES: No active concerns, observing off antibiotics at this time ENDOCRINE: No active issues Blood Glucose Monitoring (BGM) Goal: 140-180. BMP glucose 118 HEMATOLOGIC/ONCOLOGIC: Heterozygous factor V leiden Had outpatient plan for posterior tongue biopsy was bridging warfarin to lovenox, heparin gtt in the interim in anticipation of IR procedure- PEG possibly 05/02 VTE/DVT Prophylaxis: chemoprophylaxis alone Lab results within last 7 days (see chart for full results) Units 04/30/23 0601 04/29/23 1552 04/29/23 0436 HGB g/dL 13.1* 14.2 13.9* HCT % 38.8* 43.1 41.5 WBC K/uL 11.06* 13.29* 12.34* PLT K/uL 213 220 253 Repeat CBC this afternoon 04/30 MUSCULOSKELETAL/ P.T / O.T. / MOBILITY: PT/OT LINES / DRAINS / TUBES: LINES ALL Duration Airway Neck Trach 1 day NG/OG Tube Left nostril Other (Comment) 1 day Peripheral Line Left Antecubital 20 Gauge 1 day Peripheral Line Lower;Right Arm 20 Gauge 1 day List of services consulted/following: OTOLARYNGOLOGY CONSULT IP ADULT PHYSICAL THERAPY CONSULT IP ADULT OCCUPATIONAL THERAPY CONSULT IP CARE MANAGEMENT CONSULT IP SPEECH PATHOLOGY CONSULT IP (VOICE LAB) INTERVENTIONAL RADIOLOGY CONSULT IP GLOBAL ISSUES: Code Status: Full Code Disposition: keep in ICU Keep in ICU until trach >72 hrs (trach 04/28) Patient's decisional capacity: has capacity to make decisions Communication with Patient/Family: Updated at bedside Patient was discussed with attending physician, DO Matilda Grewal MD - PGY2 General Surgery Resident [facility] Associated attestation - Janice Gomez DO - 04/30/2023 12:44 PM EST I have seen and examined the patient with the resident/fellow physician, reviewed the history and available data, reviewed labwork and personally reviewed the available imaging. I have discussed these findings with the multidisciplinary team and concur with the findings and plan except as per my own notations. HPI: 67 yo M with newly-diagnosed obstructing tongue mass status post emergent awake tracheostomy yesterday evening after which he was admitted to the SICU for close airway monitoring in the setting of a new tracheostomy. PMH: Factor V Leiden PSH: Flank lesion excision, Lumbar laminectomy ALL: NKDA SOCH: Occasional EtOH Active Issues: Obstructing tongue mass Status post new tracheostomy status Factor 5 Leiden mutation on Warfarin Acute blood loss anemia Overnight Events: No acute overnight events. Plan: Neurologic: Pain, Sedation and Analgesia Continue acetaminophen scheduled for pain control Oxycodone as needed for breakthrough pain once enteral access is obtained Delirium Prevention CAM ICU: Not indicated Sleep protocol Melatonin qHS for sleep Cardiac: No active issues, continue close hemodynamic monitoring Respiratory: Obstructing tongue base mass Status post tracheostomy creation Tracheostomy care per ENT recommendations Wean to trach collar as tolerated Patient likely to require PEG per ENT Ok for speech evaluation/comfort feeds if able Aggressive pulmonary toilet Pain control as needed Renal/Fluids/Electrolytes Renal function is at baseline Avoid nephrotoxins Maintain vascular status Replete electrolytes as needed Discontinue IVF once tolerating goal nutrition Musa: Not indicated, voiding independently without issue Infectious Disease Afebrile overnight, leukocytosis is downtrending Antibiotics: No indication for antibiotics at this time, continue close monitoring for signs of infection GI/Nutrition Nutrition Plan Obtain METHODS ANALYST DATA PROCESSING evaluation Resume and advance diet as tolerated pending METHODS ANALYST DATA PROCESSING clearance Consider IR evaluation for PEG placement Musculoskeletal and Soft Tissue Deconditioning Progressive mobility as tolerated PT/OT as able, disposition planning Hematology Factor 5 Leiden mutation Patient is on heparin GTT, will bridge to home AC regimen once procedural course is completed Acute blood loss anemia - H/H is downtrending Blood conservation consultation with anemia protocol as indicated Risks of blood transfusion outweigh benefit at this time Continue close monitoring with repeat CBC this afternoon Endocrine No active issues, remains euglycemic without need for SSI Prophylaxis DVT: TEDs, SCDs, Prophylactic dose Lovenox GI: Famotidine (Until nutrition is started) Bowel regimen: Senna, Docusate Lines: PIV x 2 Goals of Care/Advance Directives: Full Code Disposition: To remain in SICU There is a high probability of sudden, clinically significant or life threatening deterioration in the patient's condition that requires the highest level of physician preparedness to intervene urgently. Critical care time spent treating the critical illness and injuries documented, exclusive of teaching time: 34 minutes Janice Gomez DO, , FACOS Trauma and Acute Care Surgery Surgical Critical Care * Bethany Nguyen DO - 04/29/2023 5:26 PM EST CCM - PROGRESS NOTE [facility] [place] [address] Name: Jacob Tipton IV Location: [facility] [place] A452/A Date: 04/29/2023 Date of admission: 04/28/2023 Hospital length of stay: 1 days ICU length of stay: 1 PATIENT DESCRIPTION: Jacob Tipton IV is a 67 year old male with a past medical history significant for factor 5 Leiden,the patient is normally on warfarin, but has been bridging to Lovenox in preparation for tongue mass biopsy. Patient has been experiencing progressive choking, difficulty breathing when lying down, dysphagia, and odynophagia. Patient underwent upper endoscopy on 04/26/2023 which revealed a large mass at the base of his tongue. Patient was scheduled to see ENT as an outpatient tomorrow, but earlier today he began experiencing worsening difficulty swallowing, shortness of breath when lying down, and inability to take any p.o. at all. He then came for evaluation in [facility] ED. patient evaluated by ENT who took patient to the OR for an emergent tracheostomy and biopsy of the tongue lesion. Patient sent to ICU postop for airway management Upon arrival to ICU, patient is sitting up in bed in no acute distress. Denies significant pain, chest pain, shortness of breath, abdominal pain, nausea or vomiting, but does still complain of difficulty swallowing. Subjective EVENTS OF NOTE: 04/28: Awake tracheotomy with biopsies of posterior tongue INTERIM HISTORY / SUBJECTIVE: Overnight: No acute events. Vitals signs stable and patient remained afebrile. No bowel movements yet. Patient states he feels well just has some discomfort with swallowing. Formal eval with speech earlier today, recommendations for pureed/thin liquids. No new increasing O2 requirements. Patient out of bed to chair. Confirmed patient is a non-smoker and does not drink alcohol on a regular basis. Objective CONSTITUTIONAL DATA / OBJECTIVE: Vital Signs (Most Recent): Pulse: 85 (04/29/231599) BP: 117/72 (04/29/231599) Resp: 13 (04/29/231599) Temp: 36.3 C (97.3 F) (04/29/231599) SpO2: 96 % (04/29/231599) Vital Signs (Last 24 Hours): Pulse Av.2 Min: 61 Max: 88 No data recorded Most Recent Systolic BP Av.8 mmHg Min: 104 mmHg Max: 136 mmHg Most Recent Diastolic BP Av.7 mmHg Min: 65 mmHg Max: 110 mmHg Resp Av Min: 10 Max: 20 Most Recent Temperature Av.5 C Min: 36.11 C Max: 36.89 C SpO2 Av.5 % Min: 94 % Max: 100 % Ventilatory Support: HFNC: O2 flow rate: 10 L/MIN (04/29/23 1200) O2 %: 35 % (04/29/231199) CPAP/EPAP: IPAP: Intake & Output Summary (Last 24 hours): Intake/Output Summary (Last 24 hours) at 04/29/2023 8027 Last data filed at 04/29/2023 1200 Gross per 24 hour Intake 1500 ml Output 975 ml Net 525 ml Net IO Since Admission: 525 mL [04/29/231725] Height & Weight: Height: 190.5 cm (6' 3") (04/28/231948) Weight: 108.3 kg (238 lb 12.1 oz) (04/28/231948) Weight change: Body mass index is 29.84 kg/m. Physical Examination: General: Patient in no apparent distress. Resting comfortable in chair. HEENT: Trach in place, post op incisional site with ron, appears non- infected and dry. Heart: Regular rate and rhythm; S1 and S2 present; no murmurs, rubs or gallops. Pulmonary: Lungs clear to auscultation bilaterally; no wheezes, rhonchi or crackles. Abdomen: Soft, non-tender, non-distended. Normal bowel sounds and no rebound or guarding. MSK: Gross motor function intact Extremities: No pitting edema present at lower extremity bilaterally Skin: [place], warm, no wounds or lesions present. Neuro: AAOx3. No gross motor or sensory deficits. Laboratory Values: reviewed. Cultures: reviewed. Radiographic Studies: reviewed. FLUORO SWALLOWING FUNCTION W VIDEO CINE Result Date: 04/29/2023 IMPRESSION This impression is a preliminary interpretation by the resident and is subject to changes following review by an attending radiologist. Be sure to review a final report to be signed by a staff radiologist for any discrepancies with this preliminary interpretation. No laryngeal penetration or aspiration was seen. Please refer to the complete report from Speech Therapy for complete details of this examination. XR ABDOMEN 1 VIEW Result Date: 04/29/2023 IMPRESSION 1. Enteric tube terminates in the mid stomach. 2. Prominent loops of bowel in the central abdomen, nonspecific. Given the passage of the oral contrast from the concurrent esophagram, obstruction or ileus seems less likely and this could be physiologic. CT CHEST W CONTRAST Result Date: 04/29/2023 IMPRESSION 1. Postsurgical changes with tracheostomy tube placement. A few likely infectious/inflammatory right upper lobe ground-glass opacities. 2. No intrathoracic metastases. XR CHEST 1 VIEW Result Date: 04/28/2023 IMPRESSION 1. Tracheostomy tube in place. 2. Left basilar consolidation could represent atelectasisor sequelae of aspiration pneumonia. Assessment & Plan Active Problems: Sciatica (POA: Yes) Heterozygous factor V Leiden mutation (HCC) (POA: Yes) Tongue mass (POA: Unknown) POA = Present On Admission NEUROLOGICAL: Neurologically in tact, no active concerns Analgesia/Sedation: PRN Acetaminophen Add breakthrough PRN PULMONARY / RESPIRATORY: Status post awake trach for posterior tongue lesion 04/28 On 8L humidified trach collar Continue frequent suctioning per ENT and trach care Anticipate first trach change in the upcoming days; POD 5-7 CARDIOVASCULAR: No active issues ECG 04/28 normal sinus rhythm GASTROINTESTINAL / HEPATOBILIARY: IR PEG planned, possibly Tuesday (hold heparin drip Tuesday night) Bowel Regimen: Reassess in the next 24 hours Stress Ulcer Prophylaxis: Famotidine Diet / Nutrition: Pureed diet with thin liquids RENAL / METABOLIC / FLUIDS: Net IO Since Admission: 525 mL [04/29/23 1726] Baseline Cr normal Most Recent: Serum creatinine: 0.8 mg/dL 04/29/23 0436 Estimated creatinine clearance: 120.8 mL/min INFECTIOUS DISEASES: No active concerns, observing off antibiotics at this time ENDOCRINE: No active issues Blood Glucose Monitoring (BGM) Goal: 140-180. BMP glucose 101 this morning HEMATOLOGIC/ONCOLOGIC: Heterozygous factor V leiden Had outpatient plan for posterior tongue biopsy was was bridging warfarin to lovenox, heparin gtt in the interim in anticipation of IR procedure- PEG VTE/DVT Prophylaxis: chemoprophylaxis alone MUSCULOSKELETAL/ P.T / O.T. / MOBILITY: PT/OT LINES / DRAINS / TUBES: LINES ALL Duration Peripheral Line Left Antecubital 20 Gauge 1 day Airway Neck Trach <1 day Peripheral Line Lower;Right Arm 20 Gauge <1 day List of services consulted/following: OTOLARYNGOLOGY CONSULT IP ADULT PHYSICAL THERAPY CONSULT IP ADULT OCCUPATIONAL THERAPY CONSULT IP CARE MANAGEMENT CONSULT IP SPEECH PATHOLOGY CONSULT IP (VOICE LAB) INTERVENTIONAL RADIOLOGY CONSULT IP GLOBAL ISSUES: Code Status: Full Code Disposition: keep in ICU Patient's decisional capacity: has capacity to make decisions Communication with Patient/Family: Updated at bedside Patient was discussed with attending physicianJanice DO Shivani Desai, DO PGY4 Critical Care Medicine Associated attestation - Janice Gomez DO - 04/30/2023 7:17 AM EST I have seen and examined the patient with the resident/fellow physician, reviewed the history and available data, reviewed labwork and personally reviewed the available imaging. I have discussed these findings with the multidisciplinary team and concur with the findings and plan except as per my own notations. This is a late entry for date of service 04/29/23 at 10AM. HPI: 67 yo M with newly-diagnosed obstructing tongue mass status post emergent awake tracheostomy yesterday evening after which he was admitted to the SICU for close airway monitoring in the setting of a new tracheostomy. PMH: Factor V Leiden PSH: Flank lesion excision, Lumbar laminectomy ALL: NKDA SOCH: Occasional EtOH Active Issues: Obstructing tongue mass Factor 5 Leiden mutation on Warfarin Overnight Events: Has remained stable since admission to the SICU postoperatively. Currently on Plan: Neurologic: Pain, Sedation and Analgesia Continue acetaminophen scheduled for pain control Oxycodone as needed for breakthrough pain once enteral access is obtained Delirium Prevention CAM ICU: Not indicated Sleep protocol Melatonin qHS for sleep Cardiac: No active issues, continue close hemodynamic monitoring Respiratory: Obstructing tongue base mass Status post tracheostomy creation Tracheostomy care per ENT recommendations Wean to trach collar as tolerated Patient likely to require PEG per ENT Ok for speech evaluation/comfort feeds if able Aggressive pulmonary toilet Pain control as needed Renal/Fluids/Electrolytes Renal function is at baseline Avoid nephrotoxins Maintain vascular status Replete electrolytes as needed Discontinue IVF once tolerating goal nutrition Musa: Not indicated, voiding independently without issue Infectious Disease Afebrile overnight, leukocytosis is downtrending Antibiotics: No indication for antibiotics at this time, continue close monitoring for signs of infection GI/Nutrition Nutrition Plan Obtain METHODS ANALYST DATA PROCESSING evaluation Resume and advance diet as tolerated pending METHODS ANALYST DATA PROCESSING clearance Consider IR evaluation for PEG placement Musculoskeletal and Soft Tissue Deconditioning Progressive mobility as tolerated PT/OT as able, disposition planning Hematology Factor 5 Leiden mutation Patient was on therapeutic lovenox bridging to coumadin in OP setting Will resume DVT ppx dose then transition to Heparin GTT as soon as we are cleared to do so by ENT Acute blood loss anemia - H/H is stable Blood conservation consultation with anemia protocol as indicated Risks of blood transfusion outweigh benefit at this time Continue close monitoring with repeat CBC in AM Endocrine No active issues, remains euglycemic without need for SSI Prophylaxis DVT: TEDs, SCDs, Prophylactic dose Lovenox GI: Famotidine (Until nutrition is started) Bowel regimen: Senna, Docusate Lines: PIV x 2 Goals of Care/Advance Directives: Full Code Disposition: To remain in SICU There is a high probability of sudden, clinically significant or life threatening deterioration in the patient's condition that requires the highest level of physician preparedness to intervene urgently. Critical care time spent treating the critical illness and injuries documented, exclusive of teaching time: 37 minutes Janice Gomez DO, , FACOS Trauma and Acute Care Surgery Surgical Critical Care * Kaci Rodriguez MD - 04/29/2023 7:15 AM EST PROGRESS NOTE - TRACHEOTOMY POST OP - Otolaryngology [facility] [place] [address] Name: Jacob Tipton IV Location: [facility] [place] A452/A Date: 04/29/2023 Time: 7:25 AM SUBJECTIVE: No acute events overnight Patient reports some continued pain with swallowing No dyspnea OBJECTIVE: Most Recent Vital Signs: BP: 122 mmHg/83 mmHg (04/29/23699) Pulse: 83 (04/29/23699) Temp: 36.72 C (04/29/23599) Resp: 13 (04/29/23699) SpO2: 97 % (04/29/23699) Vital Signs Last 24 Hours: Systolic BP: Most Recent Systolic BP Av.5 mmHg Min: 104 mmHg Max: 136 mmHg Temperature: Most Recent Temperature Av.5 C Min: 36.11 C Max: 36.89 C Pulse: Pulse Av.9 Min: 61 Max: 87 Respirations: Resp Av.4 Min: 10 Max: 20 SpO2: SpO2 Av.3 % Min: 94 % Max: 100 % PHYSICAL EXAMINATION: Awake and resting in the chair comfortably Minimal bloody secretions in the oral cavity 6CN75H shiley tracheostomy tube secured in place with sutures and velcro ties, expected minimal bloody peristomal secretions Normal work of breathing on TC Well-perfused IMAGING: CT Chest with IV contrast 04/29/2023, read pending CXR 04/29/2023: IMPRESSION 1. Tracheostomy tube in place. 2. Left basilar consolidation could represent atelectasis or sequelae of aspiration pneumonia. CT Neck with Contrast 04/27/23: IMPRESSION: 4 cm mass of the dorsal tongue protruding into the valleculae. Large necrotic level 1 lymph nodes, likely metastatic.. Biopsy recommend. IMPRESSION and PLAN: Jacob Tipton IV is a 67 year old male never smoker with a 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 He is now s/p emergent awake tracheotomy along with DL and biopsy of base of tongue lesion on 04/28/2023. He is doing well postoperatively thus far, and will require close monitoring in the ICU at this time. - OK for speech evaluation today - Keep the cuff up for 24 hours after surgery - CT chest with Contrast, final read pending First 24 hours - Suction q2h, more often as needed > 24 hours - suction q4h, more often as needed - Suction only the length of the inner cannula and ask the patient to cough (if able) to reduce likelihood of trauma to the tracheal mucosa - Change inner cannula BID, more often as needed - Clean trach site PRN - Have obturator, spare (Shiley 6CN75H), and downsize (Shiley 4CN65H) trachs at bedside - Humidification via trach collar when off ventilator, ongoing - DO NOT change trach ties or cut sutures until 1st trach change - ENT to perform first trach change POD 5-7 The patient was discussed with Dr. Rodriguez. Amber Lees MD PGY-2 Otolaryngology Resident 04/29/2023 7:24 AM I have discussed the patient's management with the medical trainee and agree with the note. Please refer to the documented findings and plan of care. This patient's visit today consisted of an evaluation. I was present and confirmed the findings of the history and exam. Kaci Rodriguez MD * Miri Beth PA-C - 04/28/2023 10:12 PM EST TRANSFER RECEIVING NOTE - Critical Care Medicine [address] [address] Name: Jacob Tipton IV Current Location: [facility] [place] A4/A HANDOFF COMMUNICATION: Sending patient service: ENT Accepting service: DELFIN Verduzco Sending attending aware of patient and transfer: yes Receiving attending aware of patient and transfer: yes Name of receiving attending provider: Onursal Patient care is being assumed by receiving service: when patient arrives in receiving unit Reason for transfer: airway management following emergent trach Care during the described time interval was provided by me. I have reviewed this patient's available data, including medical history, events of note, physical examination and test results. PATIENT DESCRIPTION/HPI: Jacob Tipton IV is a 67 year old male with a past medical history significant for factor 5 Leiden,the patient is normally on warfarin, but has been bridging to Lovenox in preparation for tongue mass biopsy. Patient has been experiencing progressive choking, difficulty breathing when lying down, dysphagia, and odynophagia. Patient underwent upper endoscopy on 04/26/2023 which revealed a large mass at the base of his tongue. Patient was scheduled to see ENT as an outpatient tomorrow, but earlier today he began experiencing worsening difficulty swallowing, shortness of breath when lying down, and inability to take any p.o. at all. He then came for evaluation in [facility] ED. patient evaluated by ENT who took patient to the OR for an emergent tracheostomy and biopsy of the tongue lesion. Patient sent to ICU postop for airway management Upon arrival to ICU, patient is sitting up in bed in no acute distress. Denies significant pain, chest pain, shortness of breath, abdominal pain, nausea or vomiting, but does still complain of difficulty swallowing. TRANSFER MEDICATION RECONCILIATION COMPLETED? yes REVIEW OF SYSTEMS: All systems reviewed and negative unless discussed in HPI CONSTITUTIONAL DATA: BP: 113 mmHg/73 mmHg (04/28/232099) Pulse: 61 (04/28/232099) Temp: 36.22 C (04/28/231999) Resp: 17 (04/28/232099) SpO2: 95 % (04/28/232099) Vent Settings: PHYSICAL EXAM: Constitutional: no acute distress HEENT: (+) trach in place - no evidence of hemorrhage Eyes: sclera and conjunctiva normal Neck: supple, normal range of motion, no tracheal deviation CV: normal heart sounds, normal rate, normal rhythm Chest: normal respiratory effort, breath sounds normal, on trach collar Abdomen: soft, normal bowel sounds Extremities: no edema, normal ROM Skin: warm, dry, intact: Neuro: alert, oriented to person, place, and time, normal mental status exam Psych: normal mood and affect Laboratory Values: Component Latest Ref Rng 04/28/2023 WBC 4.00 - 10.80 K/uL 6.17 RBC 4.50 - 5.25 M/uL 4.28 HGB 14.0 - 16.8 g/dL 13.2 (L) HCT 40.0 - 48.4 % 40.4 MCV 82.0 - 99.5 fL 94.4 MCH 27.0 - 34.0 pg 30.8 MCHC 32.0 - 36.0 g/dL 32.7 RDW 11.5 - 15.5 % 12.5 PLT 140 - 400 K/uL 233 MPV 6.6 - 11.1 fL 9.4 nRBCs <=0 /100 WBCs 0 BUN 6 - 20 mg/dL 13 Creatinine 0.6 - 1.2 mg/dL 0.9 Estimated Glomerular Filtration Rate >=60 mL/min >90 Sodium 135 - 146 mmol/L 138 Potassium 3.5 - 5.1 mmol/L 4.0 Chloride 98 - 107 mmol/L 102 CO2 22 - 32 mmol/L 24 Anion Gap 7 - 15 mmol/L 12 Glucose 70 - 120 mg/dL 123 (H) Calcium 8.4 - 10.2 mg/dL 8.8 Lactate 0.4 - 2.0 mmol/L 1.0 Magnesium 1.5 - 2.6 mg/dL 1.9 Phosphorus 2.5 - 4.8 mg/dL 2.8 Legend: (L) Low (H) High Radiographic Studies: CXR - 1. Tracheostomy tube in place. 2. Left basilar consolidation could represent atelectasis or sequelae of aspiration pneumonia. CT chest w contrast - pending ASSESSMENT: Tongue mass s/p emergent awake trach SYSTEM BASED PLAN: Neurological No acute concerns -Denies significant pain and refusing pain meds -IV tylenol for pain/fever HEENT Tongue mass s/p emergent trach -ENT following -recommendations appreciated: - NPO - Keep the cuff up tonight - METHODS ANALYST DATA PROCESSING evaluation 04/29/23 - STAT CXR - CT chest with Contrast First 24 hours - Suction q2h, more often as needed > 24 hours - suction q4h, more often as needed - Suction only the length of the inner cannula and ask the patient to cough (if able) to reduce likelihood of trauma to the tracheal mucosa - Change inner cannula BID, more often as needed - Clean trach site PRN - Have obturator, spare (Shiley 6CN75H), and downsize (Shiley 4CN65H) trachs at bedside - Humidification via trach collar when off ventilator, ongoing - DO NOT change trach ties or cut sutures until 1st trach change - ENT to perform first trach change POD 5-7 Cardiovascular No acute concerns -Will get baseline EKG Respiratory Trach care as above No other respiratory concerns Gastrointestinal/Hepatobiliary No acute concerns -Diet: NPO for now -Stress ulcer prophylaxis: NA -Bowel regimen: Held at this time - will discuss PO vs enteral access tomorrow Renal/FEN No acute concerns -Cr 0.9 -Q1hr I&Os -Will trend and replete electrolytes PRN Endocrine No acute concerns -Accuchecks PRN Infectious Disease No acute concerns -No leukocytosis, fever, or lactate Hematology/Oncology Tongue Mass -Biopsy results pending - ENT following as well Factor V Leiden -Warfarin and lovenox being held overnight - will discuss with ENT in AM -DVT chemoprophylaxis: held overnight -DVT mechanical prophylaxis with SCDs/TEDs Musculoskeletal/Skin No acute concern -PT/OT as able -Frequent turns and repositioning Lines/Tubes/Drains PIV, trach GLOBAL ISSUES: Analgesia: protocol with control Sedation: N/A Delirium/Confusion Assessment Method for ICU (CAM-ICU): CAM-ICU negative HOB Elevation: greater than 30 degress Nutrition: NPO Nutrition Section DVT Prophylaxis: pneumatic compression devices alone due to chemoprophylaxis contraindication Stress Ulcer Prophylaxis: not indicated Glycemic Control: controlled - protocol Central Line Necessity Reviewed: N/A Musa: N/A Disposition: keep in ICU Patient's decisional capacity: has capacity to make decisions Communication with Patient/Family: No meeting held. Goals of Care: improve respiratory status, decrease pain and discomfort, and airway monitoring following trach I have provided 60 mins of critical care time independent of other providers. Discussed above mentioned care with attending, Dr. Brown. Miri Beth PA-C 04/29/2023 12:25 AM Associated attestation - Jose Brown MD - 04/29/2023 3:34 PM EST [facility] STAFF I have reviewed the advanced practitioner's documentation, and I agree with, and take responsibility for the plan of care. I spent a total of 15 minutes coordinating, documenting, and providing care for this patient excluding time spent in the performance of separately billed services or time spent by another provider/QHP All care provided on Apr 28 2023. This is a late entry. Jose Brown MD 04/29/2023 3:34 PM * Amber Lees MD - 04/28/2023 7:23 PM EST PROGRESS NOTE - TRACHEOTOMY POST OP - Otolaryngology [facility] [place] [address] Name: Jacob Tipton IV Location: [facility] [place] A452/A Date: 04/28/2023 Time: 7:23 PM SUBJECTIVE: Patient transported to PACU without issue Report given to SICU staff Updates given to the patient's OBJECTIVE: Most Recent Vital Signs: BP: 136 mmHg/76 mmHg (04/28/23 1800) Pulse: 78 (04/28/23 1800) Temp: 36.89 C (04/28/23 1800) Resp: 16 (04/28/23 1800) SpO2: 99 % (04/28/23 1800) Vital Signs Last 24 Hours: Systolic BP: Most Recent Systolic BP Av mmHg Min: 126 mmHg Max: 136 mmHg Temperature: Most Recent Temperature Av.8 C Min: 36.61 C Max: 36.89 C Pulse: Pulse Av Min: 72 Max: 78 Respirations: Resp Av Min: 16 Max: 18 SpO2: SpO2 Av.5 % Min: 98 % Max: 99 % PHYSICAL EXAMINATION: Sleeping comfortably in bed Mild amount of bloody secretions in the oral cavity Neck: 6CN75H shiley tracheostomy tube secured in place with sutures and velcro ties, expected minimal bloody peristomal secretions Normal work of breathing on TC Well-perfused IMAGING: CT Chest with IV contrast pending STAT CXR pending CT Neck with Contrast 04/27/23: IMPRESSION: 4 cm mass of the dorsal tongue protruding into the valleculae. Large necrotic level 1 lymph nodes, likely metastatic.. Biopsy recommend. IMPRESSION and PLAN: Jacob Tipton IV is a 67 year old male never smoker with a 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 He is now s/p emergent awake tracheotomy along with DL and biopsy of base of tongue lesion on 04/28/2023. He is doing well postoperatively thus far, and will require close monitoring in the ICU at this time. - NPO - Keep the cuff up tonight - METHODS ANALYST DATA PROCESSING evaluation 04/29/23 - STAT CXR - CT chest with Contrast First 24 hours - Suction q2h, more often as needed > 24 hours - suction q4h, more often as needed - Suction only the length of the inner cannula and ask the patient to cough (if able) to reduce likelihood of trauma to the tracheal mucosa - Change inner cannula BID, more often as needed - Clean trach site PRN - Have obturator, spare (Shiley 6CN75H), and downsize (Shiley 4CN65H) trachs at bedside - Humidification via trach collar when off ventilator, ongoing - DO NOT change trach ties or cut sutures until 1st trach change - ENT to perform first trach change POD 5-7 The patient was discussed with Dr. Rodriguez. Amber Lees MD PGY-2 Otolaryngology Resident 04/28/2023 7:28 PM documented in this encounter H&P Notes * Mamta Sanchez MD - 05/03/2023 4:27 PM EST PRE-SEDATION ASSESSMENT: Gastrostomy Tube Insertion Level of sedation planned: Moderate Patient's allergies reviewed: Yes H&P Review / Interval Note Documentation: I have reviewed the H&P previously performed, examined the patient today, and the following findings are new (see comments). Obstructive upper airway mass s/p tracheostomy Difficulty with sedation / anesthesia: No Sleep apnea: No History of snoring: No History of difficult intubation: No Decreased ROM neck flexion/extension: No Tracheal deviation: No Decreased ability to open mouth / TMJ: Yes Loose teeth / dentures / partial: No Congenital deformities / abnormalities: No Dysphagia: Yes Comments: Trach'd Mallampati Classification: Unable to assess ASA Risk Stratification (Select One): ASA 2 - Mild systemic disease, no functional limitations The patient was identified and the procedure verified: Yes Proceed with image guided gastrostomy tube placement with moderate sedation. * Kaci Rodriguez MD - 04/28/2023 5:26 PM EST HISTORY OF PRESENT ILLNESS - Otolaryngology [facility] [place] [address] Name: Jacob Tipton IV Location: SW03/X Date: 04/28/2023 Time: 5:26 PM HISTORY OF PRESENT ILLNESS: Jacob is a 67 year old male with PMH of Factor V Leiden (on Warfarin usually, now bridging to Lovenox for potential base of tongue biopsy) who presented to [facility] [place] ED due to progressive dysphagia, odynophagia, choking, and difficulty breathing while laying down that has progressively worsened over thepast month. He reports that he was initially evaluated by his PCP for this problem. They recommended upper endoscopy for the evaluation of possible GERD and esophageal stricture. He underwent an EGD on 04/26/23 and at that time, a large base of tongue mass was visualized. This prompted urgent CT neck imaging and urgent evaluation to ENT (Dr. Rodriguez). Today, the patient drove to [place] from [place] for the appointment with Dr. Rodriguez (scheduled for 04/29/23). Today, after lunch, the patient began experiencing worsening dyspnea while laying down, choking, and difficulty taking any PO at all. This prompted urgent evaluation in the [facility] [place] ED. When evaluated at bedside, the patient confirmed the history as detailed above. He reports that theGI physician who completed his EGD 2 days ago was not comfortable taking a biopsy. He is hoping to obtain a biopsy of the lesion SU, as he is experiencing a significant sore throat and significant dysphagia. He is not having trouble breathing when sitting upright. Sometimes the difficulty swallowing will lead to coughing. There was one instance where he coughed "hard" and coughed up some blood. Denies: oral pain, oral lesions, trismus, neck masses, history of cancer, smoking history, voice changes He used to drink 2-3 beers a day until about 1 year ago. No other major medical problems. HOSPITAL PROBLEM LIST: Active Problems: * No active hospital problems. * Resolved Problems: * No resolved hospital problems. * POA = Present On Admission PAST MEDICAL HISTORY: Past Medical History: Diagnosis Date Benign neoplasm of colon 10/15/08 adenomatous and hyperplastic polyps, mild to moderate diverticulosis left colonrepeat 3yrs Fracture of navicular bone of right wrist 02/2012 right wrist PAST SURGICAL HISTORY: Past Surgical History: Procedure Laterality Date BACK/FLANK SUBQ TUMOR REMOVAL, UNDER 3 CM N/A 10/22/2022 EXCISION SOFT TISSUE TUMOR BACK OR FLANK performed by Gloria Parish MD at OR [facility] COLONOSCOPY W/ LESION REMOVAL, SNARE 10/15/08 done adenomatous and hyperplastic polyps, mild to moderate diverticulosis left colonrepeat 3yrs COLONOSCOPY, DIAGNOSTIC (RECTUM) 06/24/2015 normal, repeat 5 yrs/COLONOSCOPY FLEXIBLE PROXIMAL DIAGNOSTIC performed by Lamar Brown DO at ENDOSCOPY [facility] COLONOSCOPY, DIAGNOSTIC (RECTUM) 04/19/2022 benign adenomatous polyps, repeat 3 yrs / COLONOSCOPY FLEXIBLE PROXIMAL DIAGNOSTIC performed by Marcelino Smalls MD at ENDOSCOPY [facility] REMOVE LUMBAR SPINE LAMINA, 1 SEG 02/09/2001 Lumbar laminectomy REMOVE LUMBAR SPINE LAMINA, 1 SEG 04/11/1975 Lumbar laminectomy- Dr. Jimenez FAMILY HISTORY: Family History Problem Relation Age of Onset Arthritis Mother age 72 Asthma Brother Asthma Brother Asthma Brother No Past Hx Brother Asthma Sister No Past Hx Sister Heart Disorder Father Heart arrhythmia-atrial fibrillation- age 79 SOCIAL HISTORY: Social History Tobacco Use Smoking status: Never Smokeless tobacco: Never Vaping Use Vaping Use: Never used Substance Use Topics Alcohol use: Yes Comment: rare Drug use: No Occupation: other Place of Employment: , [address] , [place], [place] [address] ALLERGIES: Patient has no known allergies. REVIEW OF SYSTEMS: Negative for constitutional, eyes, cardiac, pulmonary, hepatic, renal, digestive, hematologic, epileptic, syncopal, musculo-skeletal, mental health, integumentary, hypertensive, lipid, arthritic, diabetic, thyroid or neurologic disorders (except as listed in the PMH and Problem List). PHYSICAL EXAMINATION: No acute distress, no stridor, breathing comfortably on RA No facial lesions EOMI, PERRLA Auricles normally formed Patent EACs No external nasal deformity, septum is midline, turbinates are without abnormality, no masses, no polyps, no mucopus. No oral cavity lesions appreciated, dentition intact, FOM soft and nontender Tonsils non enlarged, no posterior oropharyngeal drainage Palpable enlarged right level I lymph node Heart rare regular, rhythm regular Lungs clear to auscultation bilaterally PROCEDURE NOTE - Laryngeal Fiberoptic Examination Because of inability to cooperate with the mirror exam or in order to get a better assessment of the larynx, fiberoptic examination of the larynx was performed. Nasopharynx: non-obstructing adenoids with open choanae and non-obstructed Eustachian tube orifices, no cysts and no signs of inflammation or infection. Oropharynx/Hypopharynx: Large exophytic and necrotic mass emanating from the base of tongue, obstructing clear view of the hypopharynx and larynx Larynx: The fiberoptic laryngoscope was carefully maneuvered around the mas, Vocal fold mobility was normal without paralysis or paresis. No vocal fold masses were visualized. The pyriform sinuses were free of mass lesion and significant pooling. The laryngeal mucosa was normal appearing. I performed the procedure. IMAGING: I reviewed the images personally and agree with the radiology interpretation CT Neck with Contrast 04/27/23: IMPRESSION: 4 cm mass of the dorsal tongue protruding into the valleculae. Large necrotic level 1 lymph nodes, likely metastatic.. Biopsy recommend. IMPRESSION: Jacob Tipton IV is a 67 year old male never smoker with a 1 month history of progression dysphagia, odynophagia, and orthopnea. Flexible laryngoscopy exam revealed a large base of tongue mass obstructing view of the larynx, along with a palpable enlarged right level I lymph node. It is unlikely that the patient can safely be intubated from above if needed due to the obstructive nature of the base of tongue lesion. RECOMMENDATION: - Emergent awake tracheotomy, along with DL biopsy - NPO - ICU admission after surgery - remainder of care per primary team - contact ENT with any questions Patient was discussed with Dr. Jennifer Lees MD Otolaryngology - Head and Neck Surgery Resident 04/28/2023 5:26 PM Late Entry for 04/28/23 Awake trach tonight. I have discussed the patient's management with the medical trainee and agree with the note. Please refer to the documented findings and plan of care. This patient's visit today consisted of an evaluation. I was present and confirmed the findings of the history and exam. Kaci Rodriguez MD documented in this encounter Procedure Notes * Kristy Dueñas, KEENAN-METHODS ANALYST DATA PROCESSING - 04/29/2023 2:30 PM EST VIDEOFLUOROSCOPY SWALLOW EVALUATION - Speech-Language Pathology [address] [address] Name: Jacob Tipton IV Location: [facility] [place] [facility] A452/[id number] Date: 04/29/2023 Time: 2:30 PM Patient Status: Inpatient Insurance: Payor: MEDICARE / Plan: MEDICARE A AND B / Product Type: *No Product type* / Patient Age: [age] year old Referring Physician: DO Kwan Pertinent Medical History: Per Epic H&P 04/28/23: "Jacob is a 67 year old male with PMH of Factor V Leiden (on Warfarin usually, now bridging to Lovenox for potential base of tongue biopsy) who presented to [facility] [place] due to progressive dysphagia, odynophagia, choking, and difficulty breathing while laying down that has progressively worsened over the past month. He reports that he was initially evaluated by his PCP for this problem. They recommended upper endoscopy for the evaluation of possible GERD and esophageal stricture. He underwent an EGDon 04/26/23 and at that time, a large base of tongue mass was visualized. This prompted urgent CT neck imaging and urgent evaluation to ENT (Dr. Rodriguez). Today, the patient drove to [place] from [place] for the appointment with Dr. Rodriguez (scheduled for 04/29/23). Today, after lunch, the patient began experiencing worsening dyspnea while laying down, choking, and difficulty taking any PO at all. This prompted urgent evaluation in the [facility] [place]. When evaluated at bedside, the patient confirmed the history as detailed above. He reports that theGI physician who completed his EGD 2 days ago was not comfortable taking a biopsy. He is hoping to obtain a biopsy of the lesion SU, as he is experiencing a significant sore throat and significant dysphagia. He is not having trouble breathing when sitting upright. Sometimes the difficulty swallowing will lead to coughing. There was one instance where he coughed "hard" and coughed up some blood. Denies: oral pain, oral lesions, trismus, neck masses, history of cancer, smoking history, voice changes He used to drink 2-3 beers a day until about 1 year ago. No other major medical problems. " Per CT chest 04/28/23: "FINDINGS Lines and devices: Tracheostomy tube in place. Lungs and pleura: A few patchy airspace opacities in the right lung. Atelectasis in the lower lobes. No consolidation or pleural effusion. No suspicious pulmonary nodule. Trachea and bronchi: Secretions in the trachea. Interval tracheostomy tube placement. Mediastinum, lui and lymph nodes: Pneumomediastinum, postsurgical. Heart and pericardium: Normal in size. No pericardial effusion. Vessels: Unremarkable. Soft tissues: Unremarkable. Upper abdomen: Left hepatic cyst. A few additional tiny hypodensities are too small to characterize. Bones: Degenerative osseous changes. IMPRESSION IMPRESSION 1. Postsurgical changes with tracheostomy tube placement. A few likely infectious/inflammatory right upper lobe ground-glass opacities. 2. No intrathoracic metastases." Past Medical History Past Medical History: Diagnosis Date Benign neoplasm of colon 10/15/08 adenomatous and hyperplastic polyps, mild to moderate diverticulosis left colonrepeat 3yrs Fracture of navicular bone of right wrist 02/2012 right wrist Past Surgical History Past Surgical History: Procedure Laterality Date BACK/FLANK SUBQ TUMOR REMOVAL, UNDER 3 CM N/A 10/22/2022 EXCISION SOFT TISSUE TUMOR BACK OR FLANK performed by Gloria Parish MD at OR [facility] COLONOSCOPY W/ LESION REMOVAL, SNARE 10/15/08 done adenomatous and hyperplastic polyps, mild to moderate diverticulosis left colonrepeat 3yrs COLONOSCOPY, DIAGNOSTIC (RECTUM) 06/24/2015 normal, repeat 5 yrs/COLONOSCOPY FLEXIBLE PROXIMAL DIAGNOSTIC performed by Lamar Brown DO at ENDOSCOPY [facility] COLONOSCOPY, DIAGNOSTIC (RECTUM) 04/19/2022 benign adenomatous polyps, repeat 3 yrs / COLONOSCOPY FLEXIBLE PROXIMAL DIAGNOSTIC performed by Marcelino Smalls MD at ENDOSCOPY [facility] INCISION OF [place], PLANNED N/A 04/28/2023 TRACHEOSTOMY PLANNED performed by Kaci Rodriguez MD at OR [facility] [place] REMOVE LUMBAR SPINE LAMINA, 1 SEG 02/09/2001 Lumbar laminectomy REMOVE LUMBAR SPINE LAMINA, 1 SEG 04/11/1975 Lumbar laminectomy- Dr. Jimenez Current Diet/Dysphagia History: NPO; pt seen for bedside swallow evaluation this date with recommendations for full liquid diet, thin liquids and completion of VFSS. Per initial evaluation, "Pt reports dysphagia, ongoing for months, to all consistencies. He reportsfrequent coughing/"choking" with thin liquids, pain with swallowing (solids>liquids). Pt reportshe has been consuming mostly liquids and soups as they are easiest to get down/least painful. " Cognitive-Communication: Pt awake and alert, able to follow basic commands, and express wants/needsvia written communication and mouthing words d/t presence of trach. Pt able to achieve phonation with manual occlusion, although vocal quality muffled. Pain: Patient has complaints of pain. Pain located Tongue/throat. RN aware ORAL EXAM Facial Symmetry: Within Functional Limits (WFL) Lingual Function: Within Functional Limits (WFL) Labial Function: Within Functional Limits (WFL) Velar Function: Did not assess Dentition: Natural PROTECTIVE MECHANISMS Volitional Swallow: Within Functional Limits (WFL) Volitional Throat Clearing: Did Not Test (DNT) Volitional Cough: Did Not Test (DNT) Vocal Quality: Aphonic with open trach, muffled with manual occlusion TRACH/VENTILATOR STATUS: not applicable The following solids and liquids were presented to the patient: Thin liquids via tsp and cup, mildly-thick liquids via cup, and puree consistencies. Pt declined trials of chewable solids d/t anticipated odynophagia with same. RESULTS: Oral Preparation/Oral Phase: Within functional limits Pharyngeal Phase: Mild pharyngeal dysphagia, characterized by incomplete airway closure; suspect d/t previously-diagnosed mass on base of tongue. No penetration/aspiration visualized. Esophageal Phase: Within functional limits to level of the UES. IMPRESSIONS: Mild pharyngeal dysphagia -No penetration/aspiration visualized PAS Score: Puree (IDDSI level 4) 1 Mildly-thick (IDDSI level 2) 1 Thin (IDDSI level 0) 1 Penetration-Aspiration Scale Wander MARY, Graciela JA, Roclayton EB, Lorenza JL, Larry JL. A penetration-aspiration scale. Dysphagia. 1996; 11:93-8. PA Scale Score 1- Material does not enter the airway. 2- Material enters the airway, remains above the vocal folds, and is ejected from the airway. 3- Material enters the airway, remains above the vocal folds, and is not ejected from the airway. 4- Material enters the airway, contacts the vocal folds, and is ejected from the airway. 5- Material enters the airway, contacts the vocal folds, and is not ejected from the airway. 6- Material enters the airway, passes below the vocal folds, and is ejected into the larynx or out of the airway. 7- Material enters the airway, passes below the vocal folds, and is not ejected from the trachea despite effort. 8- Material enters the airway, passes below the vocal folds, and no effort is made to eject. RECOMMENDATIONS: Diet Level: Puree Liquid Level: Thin Presentation of Medication: Crushed in puree Positioning: Seated with 90 degree hip flexion Level of Supervision: Close Compensatory Techniques to be Utilized During PO Intake: Small Bites/Sips, Alternate Solids & Liquids, and Slow Rate of Intake PLAN: Swallowing Treatment: Indicated for duration of hospitalization REHAB POTENTIAL: Fair Patient will consume least restrictive diet without sign/symptoms of aspiration Additional Recommendations: If pt to d/c from [facility] [place], recommend ST f/u as OP within [facility] ENT clinic. The above information was discussed with the patient/family/RN/Dr. Bowens: Yes The patient/family/RN/Dr. Bowens was in Agreement AP VIEW: Not Viewed Additional Findings: Suspect pt may not tolerate PMV given mass within upper respiratory tract. Patient / Family goals: None stated * Alvin Garduno MD - 04/28/2023 5:49 PM ESTAssociated Order(s): EKG REASON FOR STUDY: PRE OP CONCLUSIONS: Normal sinus rhythm Normal ECG When compared with ECG of 08-FEB-2001 10:40, Questionable change in The axis Ventricular Rate: 75 Atrial Rate: 75 VA Interval: 164 QRS Duration: 98 QT/QTc: 396/442 ms P-R-T Hudson: 51 : -3 : 29 degrees documented in this encounter Consult Notes * Zaida Shrestha RDN - 05/06/2023 4:00 PM EST CLINICAL NUTRITION INTERVAL NOTE [address] [address] Name: Jacob Tipton IV Location: [facility] [place] [id number] Date: 05/06/2023 Time: 4:37 PM How patient was identified (select 2): date and Name Attending requested RD discuss home regimen and nutrition plan for discharge. Already set up in clinic with television writer 2/6, but message sent to schedulers to set up with RD at [facility] [place] as it[facility] [place]. Discussed nutrition goals and enteral recommendations in depth. Will likely need to re-submit insurance authorization if pt unable to meet needs PO. He reports he was instructed to practice swallowing, but this should not be considering "eating". Outpatient RD can re-assess adequacy of PO intake and document accordingly. If only eating/drinkingto practice swallowing, this is not considered being on an oral diet, and enteral nutrition should be covered more. Discussed recommendation for Boost VHC (237 mL, 530 Kcals, 22 gm protein, 159 mL free water) as this can be used as a PO supplement once trying to build up on PO intake once treatment is completed. 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 He is now s/p emergent awake tracheotomy along with DL and biopsy of base of tongue lesion on 04/28/2023. Other pertinent information: Patient is seen at bedside. Able to communicate on a white board. Reports that doesn't feel like having breakfast meal this morning and prefers to have lunch meal. He would like to have first option on the menu along with extra gravy, sweet potatoes, broccoli and mixed peach berries. Relayed message to the kitchen. He reports that he is lactose intolerant. Diet order changed to puree, lactose controlled. Has PEG placement yesterday and plan to start nocturnal feeds . Discussed about diet, and feeds with pt and his . Left this television writer's phone number to reach outif they have any questions. Currently denies N/V and abdominal discomfort. Please see the recommendations below. Trickle feeds Nutren 1.5 at 10 ml/hr order noted on the JUN. NUTRITION ASSESSMENT: Past medical/surgical history and medications reviewed. Food/Nutrition-Related History Nutrition Support: Nutren 1.5 @ 10 ml/hr order noted on JUN. , Provides 210 ml,315 Kcal,14.2 gm protein and 159.6 ml free water Diet: Pureed Food, Level 4 Other: thin liquids Previously followed diet: Soft diet Food Allergies/Intolerances: Lactose Adult Energy Intake: Less than 75% of estimated energy requirement for greater than 1 month (moderate/severe, chronic illness). MANAGER BRIDGE Pertinent medications/vitamins/minerals/supplements: Miralax, senna, sodium chloride, Pertinent Biochemical Data: There are no biochemical abnormalities requiring a change in the nutrition plan of care. Nutrition-Focused Physical Findings: Appearance: WNWD Respiratory support: Supplemental O2 Delivery: Trach Collar/Mask Nasal/Oral: Swallow function, compromised or painful Digestive: Appetite poor Last Bowel Movement: 05/03/23 (05/03/23 1100) Cognition: Awake, alert and Oriented Skin: Surgical incision middle neck Enteral access: G-Tube - 05/03/23 Nutrition Focused Physical Exam: NFPE completed on 04/29/2023 Subcutaneous Fat Loss: Orbital fat pads: WNL Buccal fat: WNL Tricep: WNL Muscle Loss: Temples: WNL Clavicles: Mild Shoulders: WNL Interosseous: WNL Quadriceps: WNL Anthropometrics Measurements Height: 190.5 cm (6' 3") (04/28/231948) Admission weight: 108.3 kg Weight: 102.4 kg (225 lb 12 oz) (05/03/23 0800) BMI: 29.84 (04/28/231948) Usual Body Weight: 108-111 kg per EHR Drury weight: 90.4 kg Drury Weight Based on BMI: 24.9 Interpretation of Weight Change Prior to Admission: No recent/significant weight change Weight Changes Since Admission: 5.4% wt loss noted, will recheck the weight Nutrition Prescription: Energy needs: 20-25 Kcal/kg Kcal/day: 5824-7539 Based on admission weight (108.3 kg) Protein needs: 1.0-1.2 gm/kg Protein: 108-129 Based on admission weight (108.3 kg) Fluid needs: 30 ml/kg Fluid: 3249 ml/day -- maintenance Based on admission weight (108.3 kg) Malnutrition: Malnutrition Present: No (04/29/23 1155) NUTRITION DIAGNOSIS: Swallowing difficulty related to suspected pharyngeal dysphagia as evidenced by METHODS ANALYST DATA PROCESSING evaluation and the need for a texture-modified diet consistency and supplemental enteral nutrition Goals: Patient to consume greater than >50 % of daily meals and >50% of daily supplements within 3-5days. Patient will be at goal tube feeding rate within 3-5 days and show evidence of tolerance. Previous diagnosis/Goals: Met - diet advanced and plan to start enteral Nutrition NUTRITION INTERVENTION/PLAN: Orders: Change diet to puree and lactose controlled diet Continue to monitor nutrition support Clinical Nutrition Recommendations: Diet: Continue current nutrition plan Enteral Nutrition: Recommend Nutren 1.5 at 75 mL/hr x 10 hours overnight (2000- 0600). 750 mL provides 1125 kcal, 51 gm protein, and 570 mL free water daily to meet ~ 50% of the patient's estimated energy and protein needs daily If pt is not able to consume at least 50% of his meal, provide 100% nutrition via PEG. If it is not able to eat 50% of meals - Recommend Nutren 2.0 , 250 ml 5 x day to provide 2500 kcal,105 gm protein and 862 ml free water NUTRITION MONITORING AND EVALUATION: Nursing documentation flowsheets for percent meal intake Tolerance of supplement per patient/nursing report Enteral nutrition intake for formula, rate, progress toward goal regimen GI tolerance for enteral nutrition Lab values warranting change with MNT Weight for trends Plan follow-up: Will follow and adjust nutrition plan of care as medical condition requires. Please contact for change(s) in patient condition requiring earlier intervention. Humberto Contreras MS, RDN, LDN Clinical Dietitian [facility] text * Flor Johnson, OTR/L - 04/29/2023 11:47 AM ESTAssociated Order(s): ADULT OCCUPATIONAL THERAPY CONSULT IP GENERAL EVALUATION - Occupational Therapy [address] [address] Name: Jacob Tipton IV Location: [facility] [place] [id number] Date: 04/29/2023 Time: 1146 Jacob Tipton IV is a 67 year old male. Patient Status: Inpatient Insurance: Payor: MEDICARE Plan: MEDICARE A AND B Product Type: *No Product type* Payor: AARP Plan: AARP Product Type: *No Product type* Patient Seen: at bedside, nursing cleared patient for therapy Patient Identified By: Name, ID Band and Date Diagnosis: posterior tongue mass (04/29/23 114) Status of treatment: Evaluation completed (04/29/23 114) Orders: OT evaluation and treatment (04/29/23 114) Weight Bearing Status: Weight bearing as tolerated (04/29/23 114) Precautions: Falls;Alarms;Safety;Trach;Musa (04/29/23 1147) Total Treatment Time: 12 (04/29/23 114) Past Medical History: Past Medical History: Diagnosis Date Benign neoplasm of colon 10/15/08 adenomatous and hyperplastic polyps, mild to moderate diverticulosis left colonrepeat 3yrs Fracture of navicular bone of right wrist 02/2012 right wrist Past Surgical History: Past Surgical History: Procedure Laterality Date BACK/FLANK SUBQ TUMOR REMOVAL, UNDER 3 CM N/A 10/22/2022 EXCISION SOFT TISSUE TUMOR BACK OR FLANK performed by Gloria Parish MD at OR [facility] COLONOSCOPY W/ LESION REMOVAL, SNARE 10/15/08 done adenomatous and hyperplastic polyps, mild to moderate diverticulosis left colonrepeat 3yrs COLONOSCOPY, DIAGNOSTIC (RECTUM) 06/24/2015 normal, repeat 5 yrs/COLONOSCOPY FLEXIBLE PROXIMAL DIAGNOSTIC performed by Lamar Brown DO at ENDOSCOPY [facility] COLONOSCOPY, DIAGNOSTIC (RECTUM) 04/19/2022 benign adenomatous polyps, repeat 3 yrs / COLONOSCOPY FLEXIBLE PROXIMAL DIAGNOSTIC performed by Marcelino Smalls MD at ENDOSCOPY [facility] INCISION OF [place], PLANNED N/A 04/28/2023 TRACHEOSTOMY PLANNED performed by Kaci Rodriguez MD at [place] [facility] [place] REMOVE LUMBAR SPINE LAMINA, 1 SEG 02/09/2001 Lumbar laminectomy REMOVE LUMBAR SPINE LAMINA, 1 SEG 04/11/1975 Lumbar laminectomy- Dr. Jimenez Social History/Disposition Lives with: Spouse (04/29/23 114) Assistance available: Yes (04/29/23 114) Dwelling type: Single story home (04/29/23 114) Entry steps: 1 (04/29/23 114) Inside steps: None (04/29/23 114) Bedroom location: 1st floor (04/29/23 114) Bath location: 1st floor full bath (04/29/23 114) Prior Level of Function Reported by: Patient (04/29/23 114) Ambulation: Ambulatory without device (04/29/23 114) Grooming: Independent (04/29/23 114) Bathing: Independent (04/29/23 114) Dressing: Independent (04/29/23 114) Feeding: Independent (04/29/23 114) Toileting: Independent (04/29/23 114) Meal Prep: Independent (04/29/23 114) Homemaking: Independent (04/29/23 114) Shopping: Independent (04/29/23 114) Medication Management: Independent (04/29/23 114) Money Management: Independent (04/29/23 114) Driving: Yes (04/29/23 114) Durable Medical Equipment at home: Rolling walker;Straight cane (spouse stated they have a lot of medical equipment available) (04/29/23 114) Pain: No complaints of pain Observations Consciousness: Alert (04/29/23 114) Orientation: Oriented times 4 (04/29/231146) Psychosocial: Patient can communicate basic needs (04/29/231146) Sitting posture: Forward head;Rounded shoulders (04/29/231146) Standing posture: Forward head;Rounded shoulders (04/29/231146) Safety awareness: The Patient demonstrates carryover of insight during functional tasks.;The Patient can communicate basic needs. (04/29/231146) Other Findings Endurance: Fair (04/29/231146) Light touch sensation: Intact (04/29/231146) Proprioception: Intact (04/29/231146) Coordination: Intact (04/29/231146) Tone: Normal tone (04/29/231146) Edema: No edema noted (04/29/231146) Current Functional Status: Bilateral Upper Extremity Range of Motion: WFL (04/29/231146) Strength Assessment: (/5 throughout) (04/29/231146) Self Care Able to provide self care: No (04/29/231146) Grooming: Supervision (Please comment) (wipe face) (04/29/231146) Dressing Upper Body: Moderate Assistance (pull gown up over shoulders) (04/29/231146) Lower Body: Dependent (socks) (04/29/231146) Functional Ambulation Assistive Device: Rolling walker (04/29/231146) Distance in feet:: 10 (04/29/231146) Level of Assistance: Supervision (Please Comment) (04/29/231146) OT Transfers Sit-Stand: Supervision (Please comment) (04/29/231146) Stand-Sit: Supervision (Please comment) (04/29/231146) Toilet: Supervision (Please comment) (04/29/231146) Balance Sit (Static): Fair (04/29/231146) Sit (Dynamic): Fair (04/29/231146) Stand (Static): Fair (04/29/231146) Stand (Dynamic): Fair (04/29/231146) Alarm Status Patient positioned in: Chair (04/29/231146) With: Pressure pad alarm intact and functioning and call gonzalez in reach (04/29/231146) Patient and Family Goals: unable to obtain Patient Education Education Topic: Role of OT;Plan of care goals (04/29/231146) Review of Precautions: Fall;Safety (04/29/231146) Method of Education: Verbalized to patient (04/29/231146) Education Provided to: Patient (04/29/231146) Response to Education: Receptive and agreeable to education (04/29/231146) Barriers to learning: Medical status (04/29/231146) Preferred learning method: Combination (04/29/231146) Treatment Provided: Evaluation Moderate Complexity 12 minutes - [id number]: Patient was cooperative, pleasant, and alert during treatment session. Moderate complexity evaluation performed and 3-5 activitylimitations were identified, including ADL deficit, functional mobility deficit, bed mobility deficit, decreased strength, decreased endurance, and impaired balance. Minimal or moderate modification of the functional task was necessary to complete the evaluation. Deficits Requiring O.T. Treatment: Deficits requiring O.T. treatment needs: ADL/self-care;Balance;Endurance;Functional mobility;Safety;Upper extremity strength (04/29/231146) Goals: Increase Strength of: increase 1/2 grade, Demonstrates sitting Balance at: modified independent, Demonstrates standing Balance at: modified independent, Demonstrates self care at: Grooming at Modified Independent , Bathing upper body at Modified Independent , Bathing lower body at Modified In dependent , Upper body dressing at Modified Independent , Lower body dressing at Modified Independent and Toileting at Modified Independent , Demonstrates Activity Tolerance at 40/45 minutes, Demonstrates Bed Mobility with: Supine to Sit: Modified Independent and Sit to Supine: Modified Independent, Demonstrates Transfers with: Sit to Stand: Modified Independent (100% with device/additional time) Stand to Sit: Modified Independent (100% with device/additional time) Bed to Chair/Wheelchair: Modified Independent (100% with device/additional time) Toilet: Modified Independent (100% with device/additional time) , Demonstrates Functional Ambulation: Assistive Device: least restrictive device and Level of Assistance: Modified Independent and Increase safety with transfers, ambulation and self care Goal Time Frame: 10 visits Assessment: Patient is a 67 year old male admitted with a tongue mass and presents with minor deficits in all areas of care and mobility due to decreased strength, balance, activity tolerance, safety, and overall medical condition. Declined to attempt LE self care at this time and did require assist to pull gown up over shoulders due to tubes and lines in place. Supervision overall for all mobility tasks but declined further ambulation at this time. Would benefit from continued OT treatment to maximize level of functional independence. Please consider home with post-acute care services which may include home health or outpatient therapy. The level of care will be determined in collaborationwith the patient, family/caregiver and care team members. Treatment Plan: Energy Conservation, Safety, Bed mobility training, Functional Ambulation, Transfertraining, Upper extremity strengthening, Balance activities: , ADL training , and Endurance Anticipated Frequency (on eval): 1 to 3 times per week (04/29/231146) Equipment Needs Equipment needs: Rolling walker (04/29/231146) AM-PAC Help From Another Person Eating Meals: A little (04/29/231146) Help From Another Person Taking Care of Personal Grooming: A little (04/29/231146) Help From Another Person To Put On/Take Off Upper Body Clothing: A lot (04/29/231146) Help From Another Person To Put On/Take Off Lower Body Clothing: Total (04/29/231146) Help From Another Person Toileting: A little (04/29/231146) Help From Another Person Bathing: A little (04/29/231146) OT AM-PAC Score: 15 (04/29/23 114) OT AM-PAC t-Scale Score: 34.69 (04/29/23 114) HLM (Highest Level of Mobility) Goal: Level 6 walk 10 steps or more (04/29/231135) A portion of this AM-PAC assessment not scored based on functional assessment ; rather clinical decision making utilized based on current findings and/or prior level of function. Please refer to future AM-PAC calculations of functional ability as they become available. Flor Johnson MS OTR/L Occupational Therapy [facility] 04/29/2023 2:55 PM * Karina Oneil, PT - 04/29/2023 11:36 AM ESTAssociated Order(s): ADULT PHYSICAL THERAPY CONSULT IP GENERAL EVALUATION - Physical Therapy [address] [address] Name: Jacob Tipton IV Location: [facility] [place] A452/[id number] Date: 04/29/2023 Time: 1135 Jacob Tipton IV is a/an 67 year old male. Patient Status: Inpatient Insurance: Payor: MEDICARE Plan: MEDICARE A AND B Product Type: *No Product type* Payor: AARP Plan: AARP Product Type: *No Product type* Patient Seen: at bedside, nursing cleared patient for therapy Patient Identified By: Name, ID Band and Date Diagnosis: s/p trach (04/29/231135) Status of treatment: Evaluation completed (04/29/231135) Orders: PT evaluation and treatment;OOB (04/29/231135) Weight Bearing Status: Weight bearing as tolerated (04/29/231135) Precautions: Alarms;Falls;Safety;Trach (04/29/231135) Total Treatment Time--free text: 10 (04/29/231135) Past Medical History: Past Medical History: Diagnosis Date Benign neoplasm of colon 10/15/08 adenomatous and hyperplastic polyps, mild to moderate diverticulosis left colonrepeat 3yrs Fracture of navicular bone of right wrist 02/2012 right wrist Past Surgical History: Past Surgical History: Procedure Laterality Date BACK/FLANK SUBQ TUMOR REMOVAL, UNDER 3 CM N/A 10/22/2022 EXCISION SOFT TISSUE TUMOR BACK OR FLANK performed by Gloria Parish MD at OR [facility] COLONOSCOPY W/ LESION REMOVAL, SNARE 10/15/08 done adenomatous and hyperplastic polyps, mild to moderate diverticulosis left colonrepeat 3yrs COLONOSCOPY, DIAGNOSTIC (RECTUM) 06/24/2015 normal, repeat 5 yrs/COLONOSCOPY FLEXIBLE PROXIMAL DIAGNOSTIC performed by Lamar Brown DO at ENDOSCOPY [facility] COLONOSCOPY, DIAGNOSTIC (RECTUM) 04/19/2022 benign adenomatous polyps, repeat 3 yrs / COLONOSCOPY FLEXIBLE PROXIMAL DIAGNOSTIC performed by Marcelino Smalls MD at ENDOSCOPY [facility] INCISION OF [place], PLANNED N/A 04/28/2023 TRACHEOSTOMY PLANNED performed by Kaic Rodriguez MD at [place] [facility] [place] REMOVE LUMBAR SPINE LAMINA, 1 SEG 02/09/2001 Lumbar laminectomy REMOVE LUMBAR SPINE LAMINA, 1 SEG 04/11/1975 Lumbar laminectomy- Dr. Jimenez Subjective: Patient exiting bathroom with nursing, agrees to PT evaluation Social History/Disposition Lives with: Spouse (04/29/231135) Assistance available: Yes (04/29/231135) Dwelling type: Single story home (04/29/231135) Entry steps: 1 (04/29/231135) Inside steps: None (04/29/231135) Bedroom location: 1st floor (04/29/231135) Bath location: 1st floor full bath (04/29/231135) Prior Level of Function Reported by: Family (04/29/231135) Ambulation: Ambulatory without device (04/29/231135) Devices at home: Shower chair;Rolling walker (04/29/231135) Observations Consciousness: Alert (04/29/231135) Orientation: Oriented times 4 (04/29/231135) Psychosocial: Patient can communicate basic needs (writing/head nod) (04/29/231135) Other Findings: Yes (04/29/231135) Findings: Light touch sensation (04/29/231135) Light Touch Sensation Results: Intact;LLE;RLE (04/29/231135) Sitting Posture: Rounded shoulders (04/29/231135) Standing Posture: Rounded shoulders (04/29/231135) Pain: No complaints of pain Range of Motion Range of Motion: WFL (04/29/231135) Strength Assessment Strength Assessment: Deficits noted (04/29/231135) WNL, except: LLE;RLE (04/29/231135) LLE: Hip;Knee;Ankle;4+/5 (04/29/231135) RLE: Hip;Knee;Ankle;4+/5 (04/29/231135) Transfers Sit-Stand: Supervision (04/29/231135) Stand-Sit: Supervision (04/29/231135) Ambulation: Distance ambulated (feet): 10 Assistive Device: Rolling walker Assist: Supervision Balance Sit (Static): Fair (04/29/231135) Sit (Dynamic): Fair (04/29/231135) Stand (Static): Fair (04/29/231135) Stand (Dynamic): Fair (04/29/231135) Patient and or Family Goal(s): to get well and to return home Patient Education Review of Precautions: Safety;Fall (role of PT) (04/29/231135) Safety Awareness: Patient demonstrates carryover of insight during functional tasks (04/29/231135) Preferred learning method: Combination (04/29/231135) Barriers to learning: Medical Status (04/29/231135) Method of Education: Verbalized to patient (04/29/231135) Topic of Education: Safety with mobility, Goals/plan of care, and Fall prevention Method of Education: Verbal discussion and explanation provided to patient: verbalized understanding and or agreement of this information Treatment Provided: Evaluation Moderate Complexity 10 minutes - [id number]: Patient was cooperative, pleasant, and motivated during treatment session. Moderate complexity evaluation performed and 1-2 personal factors or comorbidities were identified that will impact plan of care, including ICU status. Patient presents with limitations in strength, bed mobility, transfers, gait, elevations, balance, and endurance, which will impact plan of care. These limitations will be addressed by the goals set for this patient. Alarm Status Patient positioned in: Chair (04/29/231135) With: Pressure pad alarm intact and functioning and call gonzalez in reach (04/29/231135) Following session patient seated OOB in chair with chair alarm activated and cord plugged into callbell system. Treatment Status: Treatment at bedside (04/29/231135) Goals: Demonstrate Bed Mobility with: Sit to supine: modified independent Supine to sit:modified independent Demonstrate transfers with: Sit to stand: modified independent Stand to sit: modified independent Bed to chair: modified independent with least restrictive device Chair to bed: modified independent with least restrictive device Demonstrate ambulation: distance: 250 feet with assistive device: least restrictive device and level of assistance: modified independent Demonstrate Stair climbing (when appropriate): number of stairs: 1 with level of assistance: modified independent Increase Strength: to 5/5 BLE Increase Balance: fair+ sitting / fair+ standing Time Frame: 10 visits Assessment: Patient is 67 y/o male with dx s/p trach. Prior to admission, patient lives with spouseand was independent with mobility with no device. Patient received leaving bathroom with nursing. Supervision for ambulation with rolling walker and sit<>stand. Patient declines further mobility due to fatigue. Ended session with patient resting comfortably in chair. Patient bale to communicate by writing or by head nods/shake. Patient's mobility is limited by decreased LE strength, decreased balance, overall medical status, and decreased activity tolerance. Patient would benefit from continued PT to maximize functional independence. Please consider home with post-acute care services whi ch may include home health or outpatient therapy. The level of care will be determined in collaboration with the patient, family/caregiver and care team members. Deficits requiring P.T. treatment needs: Mobility;Balance;Weakness;Endurance;Lower extremity strength (04/29/23 113) Equipment Needs: Equipment needs: (tbd) (04/29/23 113) Treatment Plan: Bed mobility training, Transfer training, Gait training, Elevation training, Strengthening exercises: BLE, and Balance activities Anticipated Frequency (on eval): 1 to 3 times per week (04/29/23 113) AM PAC Score with Stairs: 18 A portion of this AM-PAC assessment not scored based on functional assessment; rather clinical decision making utilized based on current findings and/or prior level of function. Please refer to future AM-PAC calculations of functional ability as they become available. * Kristy Dueñas CCC-METHODS ANALYST DATA PROCESSING - 04/29/2023 11:19 AM ESTAssociated Order(s): SPEECH PATHOLOGY CONSULT IP (VOICE LAB) CLINICAL BEDSIDE SWALLOW EVALUATION - Speech-Language Pathology [facility] [place] [address] Name: Jacob Tipton IV Location: [facility] [place] A452/[id number] Date: 04/29/2023 Time: 11:19 AM Patient Status: Inpatient Insurance: Payor: MEDICARE / Plan: MEDICARE A AND B / Product Type: *No Product type* / GENERAL INFORMATION: Admission Date: 04/28/2023 Referring Physician: MD Kwan Pertinent Medical History: Per Epic H&P 04/28/23: "Jacob is a 67 year old male with PMH of Factor V Leiden (on Warfarin usually, now bridging to Lovenox for potential base of tongue biopsy) who presented to [facility] [place] ED due to progressive dysphagia, odynophagia, choking, and difficulty breathing while laying down that has progressively worsened over the past month. He reports that he was initially evaluated by his PCP for this problem. They recommended upper endoscopy for the evaluation of possible GERD and esophageal stricture. He underwent an EGDon 04/26/23 and at that time, a large base of tongue mass was visualized. This prompted urgent CT neck imaging and urgent evaluation to ENT (Dr. Rodriguez). Today, the patient drove to [place] from [place] for the appointment with Dr. Rodriguez (scheduled for 04/29/23). Today, after lunch, the patient began experiencing worsening dyspnea while laying down, choking, and difficulty taking any PO at all. This prompted urgent evaluation in the [facility] [place] ED. When evaluated at bedside, the patient confirmed the history as detailed above. He reports that theGI physician who completed his EGD 2 days ago was not comfortable taking a biopsy. He is hoping to obtain a biopsy of the lesion SU, as he is experiencing a significant sore throat and significant dysphagia. He is not having trouble breathing when sitting upright. Sometimes the difficulty swallowing will lead to coughing. There was one instance where he coughed "hard" and coughed up some blood. Denies: oral pain, oral lesions, trismus, neck masses, history of cancer, smoking history, voice changes He used to drink 2-3 beers a day until about 1 year ago. No other major medical problems. " Per CT chest 04/28/23: "FINDINGS Lines and devices: Tracheostomy tube in place. Lungs and pleura: A few patchy airspace opacities in the right lung. Atelectasis in the lower lobes. No consolidation or pleural effusion. No suspicious pulmonary nodule. Trachea and bronchi: Secretions in the trachea. Interval tracheostomy tube placement. Mediastinum, lui and lymph nodes: Pneumomediastinum, postsurgical. Heart and pericardium: Normal in size. No pericardial effusion. Vessels: Unremarkable. Soft tissues: Unremarkable. Upper abdomen: Left hepatic cyst. A few additional tiny hypodensities are too small to characterize. Bones: Degenerative osseous changes. IMPRESSION IMPRESSION 1. Postsurgical changes with tracheostomy tube placement. A few likely infectious/inflammatory right upper lobe ground-glass opacities. 2. No intrathoracic metastases." Past Medical History: Diagnosis Date Benign neoplasm of colon 10/15/08 adenomatous and hyperplastic polyps, mild to moderate diverticulosis left colonrepeat 3yrs Fracture of navicular bone of right wrist 02/2012 right wrist Past Surgical History: Procedure Laterality Date BACK/FLANK SUBQ TUMOR REMOVAL, UNDER 3 CM N/A 10/22/2022 EXCISION SOFT TISSUE TUMOR BACK OR FLANK performed by Gloria Parish MD at OR [facility] COLONOSCOPY W/ LESION REMOVAL, SNARE 10/15/08 done adenomatous and hyperplastic polyps, mild to moderate diverticulosis left colonrepeat 3yrs COLONOSCOPY, DIAGNOSTIC (RECTUM) 06/24/2015 normal, repeat 5 yrs/COLONOSCOPY FLEXIBLE PROXIMAL DIAGNOSTIC performed by Lamar Brown DO at ENDOSCOPY [facility] COLONOSCOPY, DIAGNOSTIC (RECTUM) 04/19/2022 benign adenomatous polyps, repeat 3 yrs / COLONOSCOPY FLEXIBLE PROXIMAL DIAGNOSTIC performed by Marcelino Smalls MD at ENDOSCOPY [facility] INCISION OF [place], PLANNED N/A 04/28/2023 TRACHEOSTOMY PLANNED performed by Kaci Rodriguez MD at OR [facility] [place] REMOVE LUMBAR SPINE LAMINA, 1 SEG 02/09/2001 Lumbar laminectomy REMOVE LUMBAR SPINE LAMINA, 1 SEG 04/11/1975 Lumbar laminectomy- Dr. Jimenez Current Diet/Dysphagia History: NPO, no alternate means of nutrition/hydration. Pt reports dysphagia, ongoing for months, to all consistencies. He reports frequent coughing/"choking" with thin liquids, pain with swallowing (solids>liquids). Pt reports he has been consuming mostly liquids and soups as they are easiest to get down/least painful. Cognitive-Communication: Pt awake and alert, able to follow basic commands, and express wants/needsvia written communication and mouthing words d/t trach. Pt able to achieve phonation with manual occlusion, although vocal quality muffled. Barriers to Learning: Medical Status Hearing Acuity: Deferred Best Learning Method: Auditory Pain: Patient has complaints of pain. Pain located tongue/throat; RN aware. ORAL MECHANISM EXAM: Facial Symmetry Within functional limits Labial Function Within functional limits Lingual Function Within functional limits Velar Function Did not assess Dentition: Natural PROTECTIVE MECHANISMS: Volitional Swallow Within Functional Limits Volitional Throat Clearing Did not test Volitional Cough Did not test Vocal Quality Aphonic with open trach, muffled with manual occlusion Tracheostomy Tube: Present [id number] trach, cuff slightly inflated - RT removed residual air from trach cuff prior to PO trials. Ventilator Status: Not Applicable - Pt receiving 10L O2 via TC at 35% SWALLOWING FUNCTION: ORAL PREPARATION PHASE: Puree (IDDSI Level 4): Within functional limits Thin Liquid (IDDSI Level 0): Within functional limits ORAL PHASE: Puree (IDDSI Level 4): Within functional limits Thin Liquid (IDDSI Level 0): Within functional limits PHARYNGEAL PHASE: Puree (IDDSI Level 4): Pain with swallow Thin Liquid (IDDSI Level 0): Pain with swallow, Cough following 4/10 trials RECOMMENDATIONS/PLAN: Videofluoroscopy: Indicated to assess pharyngeal phase of swallow Diet Level: Full liquid Liquid Level: Thin Presentation of Medication: Crushed in puree Positioning: Seated with 90 degree hip flexion Level of Supervision: close Use of Straws: not allowed Compensatory Techniques to be Utilized During PO Intake: Small Bites/Sips, Alternate Solids & Liquids, and Slow Rate of Intake Additional findings: N/A ANTICIPATED FREQUENCY (ON EVAL): 1-3 times per week DIAGNOSIS/IMPRESSIONS: Diagnosis/Impressions: Suspected pharyngeal dysphagia Pt was presented with trials of thin liquids via tsp and puree consistencies. Oral phase was judged to be within functional limits. Pharyngeal dysphagia suspected, characterized by painful swallow, inconsistent cough response following thin liquids via tsp. Given new trach and base of tongue mass, recommend completion of VFSS to assess pharyngeal phase ofswallow. Rehab Potential: Good TREATMENT PLAN: Swallowing Treatment: Indicated for duration of hospitalization Treatment Goals: Patient will consume least restricitive diet without signs/symptoms of aspiration Additional Recommendations: If s/s of aspiration or difficulty noted, downgrade as appropriate and contact METHODS ANALYST DATA PROCESSING for f/u. The above information was discussed with the patient/family/JOHN/Dr. Nguyen. Yes The patient/family/RN/Dr. Nguyen was in Agreement * Precious Melton RN - 04/29/2023 11:13 AM ESTAssociated Order(s): CARE MANAGEMENT CONSULT IP Chart reviewed. Patient discussed with Spouse. See CM ancillary progress note for more details. Care Management will continue to follow. * Share, Diann Ho, RDN - 04/29/2023 9:59 AM EST CLINICAL NUTRITION CONSULT NOTE [address] [address] Name: Jacob Tipton IV Location: [facility] [place] [id number] Date: 04/29/2023 Time: 9:59 AM How patient was identified (select 2): Medical record number and date Discussed in interdisciplinary rounds: No Reason for RDN intervention: trauma NUTRITION ASSESSMENT: Primary Diagnosis: 67 year old male with a large base of tongue mass. He is now s/p emergent awake tracheotomy along with DL and biopsy of base of tongue lesion on 04/28/2023. Other pertinent information: Patient seen earlier this morning. Answers assessment questions with the use of pen and paper. He notes that that he has had a reduced appetite and oral intake since lateFebruary, but his PO intake had gotten worse over the last 10-15 days due to increased difficulty swallowing. He reports that at home he was primarily consuming soups and softer, easily-chewed foods.He does note that he was consuming some oral nutrition supplements, but not a lot. Also endorses some weight loss MANAGER BRIDGE, though this is not reflected in his EHR weight history at this time. Of note, he was seen by the METHODS ANALYST DATA PROCESSING this morning and cleared for a full liquid diet. Will provide protein supplements with meals upon diet advancement, though it may be difficult to meet his estimated energy and protein needs given the limitations of the diet. May need to consider supplemental enteral nutrition support if unable to advance beyond full liquids throughout this admission. Food/Nutrition-Related History Diet: NPO Previously followed diet: Soft diet Food Allergies/Intolerances: None known Adult Energy Intake: Less than 75% of estimated energy requirement for greater than 1 month (moderate/severe, chronic illness). Percentage of meal intake: NPO Oral Nutrition Supplement (ONS): None Pertinent medications/vitamins/minerals/supplements: Medications reviewed. No significant nutritionrelated medications noted. Pertinent Biochemical Data: There are no biochemical abnormalities requiring a change in the nutrition plan of care. Nutrition-Focused Physical Findings: Appearance: WNWD Respiratory support: Supplemental O2 Delivery: Trach Collar/Mask Nasal/Oral: Swallow function, compromised or painful Digestive: No issues identified Cognition: Awake, alert and Oriented Skin: Compromise without nutrition-related implications - surgical incision to neck Enteral access: None Nutrition Focused Physical Exam: NFPE completed on 04/29/2023 Subcutaneous Fat Loss: Orbital fat pads: WNL Buccal fat: WNL Tricep: WNL Muscle Loss: Temples: WNL Clavicles: Mild Shoulders: WNL Interosseous: WNL Quadriceps: WNL Anthropometrics Measurements Height: 190.5 cm (6' 3") (04/28/231948) Admission weight: 108.3 kg Weight: 108.3 kg (238 lb 12.1 oz) (04/28/231948) BMI: 29.84 (04/28/231948) Usual Body Weight: 108-111 kg per EHR Drury weight: 90.4 kg Drury Weight Based on BMI: 24.9 Interpretation of Weight Change Prior to Admission: No recent/significant weight change Weight Changes Since Admission: N/A Nutrition Prescription: Energy needs: 20-25 Kcal/kg Kcal/day: 1513-3915 Based on admission weight (108.3 kg) Protein needs: 1.0-1.2 gm/kg Protein: 108-129 Based on admission weight (108.3 kg) Fluid needs: 30 ml/kg Fluid: 3249 ml/day -- maintenance Based on admission weight (108.3 kg) Malnutrition: Malnutrition Present: No (04/29/23 1155) NUTRITION DIAGNOSIS: Swallowing difficulty related to suspected pharyngeal dysphagia as evidenced by METHODS ANALYST DATA PROCESSING evaluation and the need for a texture-modified diet consistency. Goals: Diet advancement or initiation of enteral/parenteral nutrition within 24-48 hours. NUTRITION INTERVENTION/PLAN: Monitored NPO/clear liquid status; Nutrition support monitoring; Upon diet advancement, will order/adjust oral nutrition supplement - Boost Plus (1 cup provides 360 calories, 14 grams protein, 45 grams carbohydrate) TID Clinical Nutrition Recommendations: Diet: Advance diet when clinically feasible Safest consistency per METHODS ANALYST DATA PROCESSING Enteral Nutrition: If unable to advance diet beyond full liquids, recommend placement of a feeding tube for supplemental enteral nutrition support: Recommend Nutren 1.5 at 75 mL/hr x 10 hours overnight ([id number]). 750 mL provides 1125 kcal, 51 gmprotein, and 570 mL free water daily to meet ~50% of the patient's estimated energy and protein needs daily. NUTRITION MONITORING AND EVALUATION: NPO status/diet advancement and tolerance Lab values warranting change with MNT Weight for trends Plan follow-up: Will follow and adjust nutrition plan of care as medical condition requires. Please contact for change(s) in patient condition requiring earlier intervention. Diann Espinal, MS, RDN, LDN, [facility] Clinical Dietitian [employer] | Extension [phone] * Kaci Rodriguez MD - 04/28/2023 6:02 PM ESTAssociated Order(s): OTOLARYNGOLOGY CONSULT IP CONSULT - Otolaryngology [facility] [place] [address] Name: Jacob Tipton IV Location: [place] [facility] [place] Date: 04/28/2023 Time: 5:26 PM REQUESTING SERVICE: Emergency Medicine REASON FOR CONSULT: choking, dysphagia, odynophagia, concern for base of tongue mass HISTORY OF PRESENT ILLNESS: Jacob is a 67 year old male with PMH of Factor V Leiden (on Warfarin usually, now bridging to Lovenox for potential base of tongue biopsy) who presented to [facility] [place] [facility] due to progressive dysphagia, odynophagia, choking, and difficulty breathing while laying down that has progressively worsened over thepast month. He reports that he was initially evaluated by his PCP for this problem. They recommended upper endoscopy for the evaluation of possible GERD and esophageal stricture. He underwent an EGD on 04/26/23 and at that time, a large base of tongue mass was visualized. This prompted urgent CT neck imaging and urgent evaluation to ENT (Dr. Rodriguez). Today, the patient drove to [place] from [place] for the appointment with Dr. Rodriguez (scheduled for 04/29/23). Today, after lunch, the patient began experiencing worsening dyspnea while laying down, choking, and difficulty taking any PO at all. This prompted urgent evaluation in the [facility] [place] [facility]. When evaluated at bedside, the patient confirmed the history as detailed above. He reports that theGI physician who completed his EGD 2 days ago was not comfortable taking a biopsy. He is hoping to obtain a biopsy of the lesion SU, as he is experiencing a significant sore throat and significant dysphagia. He is not having trouble breathing when sitting upright. Sometimes the difficulty swallowing will lead to coughing. There was one instance where he coughed "hard" and coughed up some blood. Denies: oral pain, oral lesions, trismus, neck masses, history of cancer, smoking history, voice changes He used to drink 2-3 beers a day until about 1 year ago. No other major medical problems. HOSPITAL PROBLEM LIST: Active Problems: * No active hospital problems. * Resolved Problems: * No resolved hospital problems. * POA = Present On Admission PAST MEDICAL HISTORY: Past Medical History: Diagnosis Date Benign neoplasm of colon 10/15/08 adenomatous and hyperplastic polyps, mild to moderate diverticulosis left colonrepeat 3yrs Fracture of navicular bone of right wrist 02/2012 right wrist PAST SURGICAL HISTORY: Past Surgical History: Procedure Laterality Date BACK/FLANK SUBQ TUMOR REMOVAL, UNDER 3 CM N/A 10/22/2022 EXCISION SOFT TISSUE TUMOR BACK OR FLANK performed by Gloria Parish MD at OR [facility] COLONOSCOPY W/ LESION REMOVAL, SNARE 10/15/08 done adenomatous and hyperplastic polyps, mild to moderate diverticulosis left colonrepeat 3yrs COLONOSCOPY, DIAGNOSTIC (RECTUM) 06/24/2015 normal, repeat 5 yrs/COLONOSCOPY FLEXIBLE PROXIMAL DIAGNOSTIC performed by Lamar Brown DO at ENDOSCOPY [facility] COLONOSCOPY, DIAGNOSTIC (RECTUM) 04/19/2022 benign adenomatous polyps, repeat 3 yrs / COLONOSCOPY FLEXIBLE PROXIMAL DIAGNOSTIC performed by Marcelino Smalls MD at ENDOSCOPY [facility] REMOVE LUMBAR SPINE LAMINA, 1 SEG 02/09/2001 Lumbar laminectomy REMOVE LUMBAR SPINE LAMINA, 1 SEG 04/11/1975 Lumbar laminectomy- Dr. Jimenez FAMILY HISTORY: Family History Problem Relation Age of Onset Arthritis Mother age 72 Asthma Brother Asthma Brother Asthma Brother No Past Hx Brother Asthma Sister No Past Hx Sister Heart Disorder Father Heart arrhythmia-atrial fibrillation- age 79 SOCIAL HISTORY: Social History Tobacco Use Smoking status: Never Smokeless tobacco: Never Vaping Use Vaping Use: Never used Substance Use Topics Alcohol use: Yes Comment: rare Drug use: No Occupation: other Place of Employment: , [address], [place], [place] [address] ALLERGIES: Patient has no known allergies. REVIEW OF SYSTEMS: Negative for constitutional, eyes, cardiac, pulmonary, hepatic, renal, digestive, hematologic, epileptic, syncopal, musculo-skeletal, mental health, integumentary, hypertensive, lipid, arthritic, diabetic, thyroid or neurologic disorders (except as listed in the PMH and Problem List). PHYSICAL EXAMINATION: No acute distress, no stridor, breathing comfortably on RA No facial lesions EOMI, PERRLA Auricles normally formed Patent EACs No external nasal deformity, septum is midline, turbinates are without abnormality, no masses, no polyps, no mucopus. No oral cavity lesions appreciated, dentition intact, FOM soft and nontender Tonsils non enlarged, no posterior oropharyngeal drainage Palpable enlarged right level I lymph node Heart rare regular, rhythm regular Lungs clear to auscultation bilaterally PROCEDURE NOTE - Laryngeal Fiberoptic Examination Because of inability to cooperate with the mirror exam or in order to get a better assessment of the larynx, fiberoptic examination of the larynx was performed. Nasopharynx: non-obstructing adenoids with open choanae and non-obstructed Eustachian tube orifices, no cysts and no signs of inflammation or infection. Oropharynx/Hypopharynx: Large exophytic and necrotic mass emanating from the base of tongue, obstructing clear view of the hypopharynx and larynx Larynx: The fiberoptic laryngoscope was carefully maneuvered around the mas, Vocal fold mobility was normal without paralysis or paresis. No vocal fold masses were visualized. The pyriform sinuses were free of mass lesion and significant pooling. The laryngeal mucosa was normal appearing. I performed the procedure. IMAGING: I reviewed the images personally and agree with the radiology interpretation CT Neck with Contrast 04/27/23: IMPRESSION: 4 cm mass of the dorsal tongue protruding into the valleculae. Large necrotic level 1 lymph nodes, likely metastatic.. Biopsy recommend. IMPRESSION: Jacob Tipton IV is a 67 year old male never smoker with a 1 month history of progression dysphagia, odynophagia, and orthopnea. Flexible laryngoscopy exam revealed a large base of tongue mass obstructing view of the larynx, along with a palpable enlarged right level I lymph node. It is unlikely that the patient can safely be intubated from above if needed due to the obstructive nature of the base of tongue lesion. RECOMMENDATION: - Emergent awake tracheotomy, along with DL biopsy - NPO - ICU admission after surgery - remainder of care per primary team - contact ENT with any questions Patient was discussed with Dr. Jennifer Lees MD Otolaryngology - Head and Neck Surgery Resident 04/28/2023 5:26 PM Late Entry for 04/28/23 The patient is going to the OR for awake trach. I have discussed the patient's management with the medical trainee and agree with the note. Please refer to the documented findings and plan of care. This patient's visit today consisted of an evaluation. I was present and confirmed the findings of the history and exam. Kaci Rodriguez MD documented in this encounter Nursing Notes * Monica Cotter RN - 05/04/2023 4:52 PM EST Dual Licensed Skin Assessment completed by Monica Sexton and Sadia Hong The patient is/has a N/A Skin Breakdown (includes non blanchable erythema): Yes - Surgical/Procedural changes only. * Gia Marinelli RN - 05/03/2023 4:23 PM EST forest supervisor note Name: Jacob Tipton IV Date: 05/03/2023 Procedure: Percutaneous Endoscopic Gastrostomy Tube Insertion Patient ID band checked using two identifiers. Patient placed on procedure table, supine position, with comfort measures intact and safety strap in place. Hemodynamic monitoring placed and initiated.Patient denies any current complaints at current time. RT staff preps for procedure. Reevaluation statement: RN received verbal confirmation that the patient was reevaluated by Dr. Mamta Sanchez immediately prior to the sedation at 4:46 PM . 4:40 PM 1 mg of Versed given per order of physician. Order was verbalized and verified with Dr. Mamta Sanchez prior to administration. 4:43 PM Timeout performed by Dr. Mamta Sanchez. 4:46 PM Procedure started by Dr. Mamta Sanchez, and scrubbed RT Osmany. Nasogastric tube already in place upon arrival to IR. Stomach inflated with air. 25 mcg of Fentanyl and 4 mg of Zofran given per order of physician. Order was verbalized and verified with Dr. Mamta Sanchez prior to administration. 4:48 PM 1% buffered lidocaine given by doctor at [facility] site. 1 mg of Glucagon given per order of physician. Order was verbalized and verified with Dr. Mamta Sanchez prior to administration. 4:52 PM Anchors x3 placed. Images obtained. 4:54 PM 25 mcg of Fentanyl and 1 mg of Versed given per order of physician. Order was verbalized and verified with Dr. Mamta Sanchez prior to administration. 4:55 PM Access obtained. Guidewire inserted. Images obtained. 5:01 PM G tube placed. Avanos James Bolus Gastrostomy Feeding Tube. 18 Fr. LOT [id number]. EXP 02/01/2026. Images obtained. 10 mL instilled into balloon. 5:05 PM Area cleaned. Split telfa dressing applied. Post op instructions per Dr. Mamta Sanchez: NPO with G tube to drainage bag x 4 hours. Instill 50cc H2O and clamp x 2 hours. If tolerated - instill 250 cc H2O and clamp x 2 hours. If tolerated - OK to start trickle tube feeds. Report given to JOHN Rodriguez. No further questions at this time. Patient tolerated procedure well without complications. All wires, catheters, sheaths and other devices have been inspected prior to the procedure for damage. This has been confirmed by the scrubbed RT and the operating physician. All items not intended to remain in the patient have been inspected, accounted for and have been removed from the patient atthe end of the procedure. This has been confirmed by the scrubbed RT and the operating physician. Pt did receive conscious sedation for their procedure, and was sedated from 4:46 PM to 5:12 PM. Total medications given Versed: 2 mg Fentanyl: 50 mcg Zosyn: 4.5 g Glucagon: 1 mg Zofran: 4 mg 1% buffered lidocaine: 19 mL Please see doctor's operative note for additional details. * Alejandrina Jean RN - 05/03/2023 12:26 PM EST SBAR FOR PRE INTERVENTIONAL RADIOLOGY PROCEDURE Patient Name: Jacob Tipton IV Age:[age] year old Room: [facility] [place] A452/A Safety Concerns: None Allergies: Lactose Code Status: Full Code Discussion of adv directives occurred with - adult: Not Discussed due to patient's condition Isolation: Isolation flowsheet: None Report from: JOHN Rodriguez Patient arriving via: Bed or Stretcher Reason for SBAR handoff: Procedure/Diagnostic/Treatment Situation/Background Admission date: 04/28/2023 Patient Service: Critical Care White [[id number]] Attending Provider: Pipe Mckeon MD Admitting diagnosis: Preop examination Chief Complaint: Trouble Swallowing Problem list: Active Problems: Sciatica Heterozygous factor V Leiden mutation (HCC) Tongue mass Tracheostomy status (HCC) Airway obstruction Acute respiratory failure (HCC) Resolved Problems: * No resolved hospital problems. * Level of Care: Critical Care (ICU/CCU/PICU) [1] Vital Signs: BP: 104/63 (05/03/23 1000) Temp: 36.6 C (97.9 F) (05/03/23 1000) Pulse: 68 (05/03/23 1000) Resp: 12 (05/03/23 1000) SpO2: 95 % (05/03/23 1000) Weight: 102.4 kg (225 lb 12 oz) (05/03/23 0800) Height: 190.5 cm (6' 3") (04/28/23 1949) * Tammy Tang RN - 05/02/2023 3:26 PM EST Met with patient, (Tootie), and daughter (Samaria) at the bedside for tracheostomy teaching. Reviewed stoma care, Yankuer suctioning, deep suctioning, and inner cannula change. Return demonstration performed by patient and Tootie with verbal cues. Discussed emergency care, provided contact information for myself and ENT circulation man. Patient and verbalized understanding. Will visit with patient and tomorrow to review HME use. Tammy Tang PhD RN supervisor malted milk Otolaryngology * Adrián Correa RN - 04/28/2023 8:00 PM EST Dual Licensed Skin Assessment completed by Adrián Lam RN and Ivis Lam RN. The patient is/has a N/A Skin Breakdown (includes non blanchable erythema): Yes - Surgical/Procedural changes only. Only issue with patients skin is a trach site. * Donna Aguilar RN - 04/28/2023 6:23 PM EST Unable to perform skin assessment due to patient taken back for emergent case. 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 He presents today for scheduled surgery. DESCRIPTION OF OPERATION: The patient was brought to the operating room. Lower extremity sequential compression devices were in place. Laryngeal landmarks were marked. A vertical 2 cm incision was planned two fingers above the sternal notch just inferior to the cricoid cartilage. The planned incision was marked and injectedwith 1% lidocaine with epinephrine 1:100,000. Local anesthetic was used widely as the tracheostomy was planned for local anesthetic only. The patient was prepped and draped in usual sterile fashion. A surgical timeout was performed confirming correct patient and surgical site. A 2 cm incision was made through the skin and subcutaneous tissue with monopolar cautery. This was carried down through the subcutaneous tissue with electrocautery. The strap musculature and midline raphe were identified and retracted laterally. The cricoid cartilage was identified and retracted sup eriorly. The thyroid isthmus was divided using cautery and confirmed to be hemostatic. The anteriortracheal wall was cleared of fascia using blunt dissection. An area was marked with electrocautery between the 2nd and 3rd tracheal rings. The airway was entered with a hemostat and further opened fran ntly with a hemostat and a Neil retractor. A 6-0 Shiley cuffed tracheostomy tube was placed easily through the tracheotomy. The cuff was inflated. End-tidal CO2 was confirmed. The patient was easily ventilated. The tracheotomy tube was sutured in place with four 2-0 silk sutures. In addition trach ties were used to secure the tracheostomy tube. Next, a laryngoscope was used to systematically evaluate the oral cavity, pharynx and larynx. Care was taken to protect the eyes with tape, and minimal extension of the tongue, teeth, jaw and neck was utilized. A mouth guard was placed. On direct laryngoscopy, the following findings were noted: The oral cavity was unremarkable. The tonsils were unremarkable bilaterally. The base of tongue wasnoted with a large, exophytic neoplasm in the midline. The glottis was nt able to be visualized dueto the size of the base of tongue mass obscuring the view. A biopsy was taken of the previously described mass using up biting cupped forceps, and this was sent for surgical pathology. The airway was thoroughly suctioned and all instruments removed. There were no signs of damage to the lips, tongue, teeth, or gums. This concluded the procedure. The patient was returned to our anesthesia colleagues, awakened, and transported to ICU in stable condition. DISPOSITION: The patient was transferred to the Intensive Care Unit. APPARENT INTRAOPERATIVE COMPLICATIONS: None PATIENT CONDITION: Stable ATTESTATION: Dr. Rodriguez was present for the hernández portions of the procedure. Abe Alberto DO Resident Physician Otolaryngology -Head & Neck Surgery [address] [address] cc: Professional Reimbursement and Compliance documented in this encounter ED Notes * Rafael Linder DO - 04/28/2023 5:28 PM EST HISTORY OF PRESENT ILLNESS Jacob Tipton IV is a 67 year old male who presents to the ED for evaluation of Trouble Swallowing.The patient was seen at 04/28/23 1726. Informant: patient Jacob Tipton IV is a 67 year old male who reports to me a chief complaint of difficulty swallowing. Patient presents to the emergency department by private vehicle with a chief complaint of difficulty swallowing. He underwent outpatient imaging which showed a posterior tongue mass. He came to the emergency department for evaluation by ENT. Review of Systems Constitutional: Negative for fever. HENT: Positive for trouble swallowing. Respiratory: Negative for shortness of breath. The patient's allergies, past history, and medications were reviewed. PHYSICAL EXAM Initial Vitals (see all): BP 126/90 | Pulse 72 | Resp 18 | Temp 97.9 | O2 98 %Weight 108.86 kg | Height 190 cm | BMI 30.16 kg/m2 Initial Pain Assessment (see all): 6 (severe pain)/10, Aching, location: throat ([facility] Adult Scale 0-10) Physical Exam Vitals and nursing note reviewed. Constitutional: General: He is not in acute distress. Appearance: He is not toxic-appearing. HENT: Head: Normocephalic and atraumatic. Right Ear: External ear normal. Left Ear: External ear normal. Nose: Nose normal. No congestion or rhinorrhea. Mouth/Throat: Comments: No drooling Eyes: General: No scleral icterus. Right eye: No discharge. Left eye: No discharge. Pulmonary: Effort: Pulmonary effort is normal. No respiratory distress. Breath sounds: No stridor. Comments: No respiratory distress Musculoskeletal: General: No deformity. Normal range of motion. Cervical back: No rigidity. Skin: General: Skin is warm and dry. Neurological: General: No focal deficit present. Mental Status: He is alert and oriented to person, place, and time. Psychiatric: Mood and Affect: Mood normal. Behavior: Behavior normal. PROCEDURES AND TREATMENTS ED Orders | ED Results MEDICAL DECISION MAKING Nursing notes and vital signs were reviewed. ED consults were placed. Differential Diagnoses Based on my history, physical exam, and evaluation, the differential includes, but is not limited, to the following diagnoses: Airway obstruction, esophageal obstruction, malignancy, lymph node. History and physical exam were obtained. The patient's constellation of clinical and laboratory work up were consistent with difficulty swallowing, felt to be secondary to tongue mass. The patient was treated with supportive care. Patient was evaluated by ENT, bedside upper airway endoscopy revealed a significant mass. They planto go to the operating theater for an awake tracheostomy, patient will subsequently be triaged to the ICU. Blood pressure 126/90, pulse 72, temperature 36.6 C (97.9 F), temperature source Tympanic, resp. rate 18, weight 108.9 kg (240 lb), SpO2 98%. VITALS Basic preop labs were ordered, patient was triaged to the ICU. Patient taken to operating room withENT. Amount and/or Complexity of Data Reviewed Labs: ordered. ECG/medicine tests: ordered. Clinical Impressions Preop examination Disposition Admitted. I discussed the management of this patient with the admitting provider and I made a decision to admit the patient. Admission Order Ordered Status . 04/28/23 1734 Admit for Inpatient Services (incl ZPO) ONCE Ordered Rafael Linder documented in this encounter Miscellaneous Notes * Ancillary Progress Note - Marla Del Real, JOHN - 05/06/2023 4:57 PM EST CARE MANAGEMENT - ADULT DISCHARGE NOTE [facility] [place] [address] Name: Jacob Tipton IV Location: [address] Date: 05/06/2023 Time: 4:57 PM The following coordination of care and discharge plan has been coordinated with the care team, patient, family and/or caregiver according to the patients needs and preferences. Discharge Final Discharge Plan (Complete only at time of Discharge): Home - Self Care (05/06/23 1657) Narrative: Patient is discharging home with his and his son. SANDRA attempted to get a agency to follow patient. Patient has been declined due to a staffing shortage of Skilled Nurses in his area. Patient was provided with portable suction for transport and was given supplies for his trach careand syringes for his bolus feeds. Patient will be purchasing over the counter feeding supplies. DMEsupplies will be provided to his home by Jacquie. Reviewed IMM with Jacob and informed that patient is medically stable for discharge, however, may have 4 hours to consider whether they want to appealdischarge. Jacob waived waiting those 4 hours and wishes for discharge to occur prior to that time. Patient is in agreement plan. Information on the Waiver services was supplied to the family. * Care Plan - Lavonne Rolon RN - 05/06/2023 2:44 PM EST Clinical Goal(s): Pt will perform all trach care this shift (05/06/23 0700) Possible barriers to meeting goal(s)/advancing plan of care: N/a Stability of the patient: Moderately stable - low risk of patient condition declining or worsening Summary regarding today's goal(s): Met: Pt eager to learn how to do care for himself Recommendations: Encourage pt to ask questions * Care Plan - Citlaly Carr RN - 05/06/2023 3:21 AM EST Clinical Goal(s): pt will remain safe (05/05/232049) Possible barriers to meeting goal(s)/advancing plan of care: pt diagnosis Stability of the patient: Moderately stable - low risk of patient condition declining or worsening Summary regarding today's goal(s): Met: Recommendations: continue with plan of care Problem: Risk for Impaired Physical Mobility Goal: Patient will maintain optimal mobility level. Outcome: Progressing Problem: Knowledge Deficit Goal: Patient & caregiver will demonstrate understanding. Outcome: Progressing * Ancillary Progress Note - Marla Del Real RN - 05/05/2023 1:49 PM EST CARE MANAGEMENT - ADULT TRANSITION NOTE [facility] [place] [address] Name: Jacob Tipton IV Location: [facility] [place] G207/A Date: 05/05/2023 Time: 1:49 PM Risk Stratification Risk Stratification Psycho Social / Medical Concerns Identified: Adjustment to illness/injury;Multiple Comorbidities;New serious diagnosis (04/29/23 110) Readmission Risk Score: 11.98 (05/05/23 1200) AM-PAC Score With Stairs : 19 (05/04/232029) Caregiver Information Patient Contacts Name Relation Home Work Tootie Aguilar Spouse [phone] Terri Gomez Adult Child [phone] Transition of Care Checklist Transition of Care Checklist (aka Readmission Risk Score) Discharge Disposition: Home w/Home Health (04/29/231105) Narrative: Patient discussed in AM Boost Rounds and chart reviewed. Spoke to patient and family at bedside. They are hopeful of receiving home health services upon discharge. CM followed up on referrals that have been made and sent additional referrals. Waiver Services application process printed for family. CM will continue to follow. Referral made to [facility]. Anticipated Transportation at Discharge: ALS Patient/Family Expectations: Home Transition Planning Transition Planning Transition Plan/Considerations: Needs uncertain at this time - Continue monitoring for needs;Discussed at Interdisciplinary Team / Boost Rounds (04/29/231105) Transition plan discussed with - Enter name and phone #: patient's spouse via phone (04/29/231105) Insurance Considerations: N/A (04/29/231105) Referral to Community Agency : N/A (04/29/231105) Post-Acute Care needs identified and Referrals Completed: Tracheostomy Care;Occupational Therapy;Physical Therapy (04/29/231105) Additional Considerations: Patient will also need DME at discharge. Care Management will continue to monitor and assist with discharge planning needs * Ancillary Progress Note - Cathryn Nicole CCC-METHODS ANALYST DATA PROCESSING - 05/05/2023 11:57 AM EST PROGRESS NOTE - Speech-Language Pathology [address] [address] Name: Jacob Tipton IV Location: [facility] Date: 05/05/2023 Time: 11:57 AM Patient Status: Inpatient Insurance: Payor: MEDICARE / Plan: MEDICARE A AND B / Product Type: *No Product type* / Patient Age: [age] year old Pt was seen this date for dysphagia and speech treatment Pt was received sitting OOB in bedside chair alert and interactive He maintains Shiley [id number] Inner canula was noted to be full of debris Pt was provided w/new inner canula which he exchanged independently w/o issue Pt able to phonate w/o manual occlusion of the trach His overall vocal quality was fair He is currently consuming a puree diet w/thin liquids following completion of MBSS 04/29/23 The pt indicated that ENT spoke w/him and educated him that given the location of his mass food would have difficulty passing and may get stuck Pt stated that he does not wish to pursue diet advancement trials at this time He reported that he plans to continue to swallow throughout his treatment He also plans to f/u w/speech therapy on an OP basis following d/c Will discontinue treatment at this time Pt to f/u w/speech at d/c * Ancillary Progress Note - Isa Leiva RDN - 05/05/2023 11:24 AM EST CLINICAL NUTRITION INTERVAL NOTE [address] [address] Name: Jacob Tipton IV Location: [facility] Date: 05/05/2023 Time: 11:24 AM How patient was identified (select 2): Medical record number, date, and Name Jacob Tipton IV is being seen in follow up for adjustment in nutritional care Diet: Pureed Food, Level 4, lactose controlled Oral Nutrition Supplement (ONS): None Current Nutrition Support: Nutren 1.5, 200 ml every 6 hours, which provides: 800 ml total volume, 1200 kcal, 54 gm protein, and 608 ml free water Chart reviewed for pertinent nutrition information. Pt discussed at rounds. Will adjust TF regimen.Pt has been eating up to 60% of meals. Will recommend transitioning to cycle night feeds. If nto able to take in 50% of meals, may need to meet 100% needs via enteral nutrition - will monitor. Nutrition Prescription: Energy needs: 20-25 Kcal/kg Kcal/day: 2750-0656 Based on admission weight (108.3 kg) Protein needs: 1.0-1.2 gm/kg Protein: 108-129 Based on admission weight (108.3 kg) Fluid needs: 30 ml/kg Fluid: 3249 ml/day -- maintenance Based on admission weight (108.3 kg) NUTRITION INTERVENTION/PLAN: Continue to monitor nutrition support Continue current care plan Clinical Nutrition Recommendations: Diet: Advance diet when clinically feasible Safest consistency per METHODS ANALYST DATA PROCESSING evaluation and recommendations Enteral Nutrition: Would recommend Nutren 1.5 at 75 mL/hr x 10 hours overnight ([id number]). 750 mL provides 1125 kcal,51 gm protein, and 570 mL free water daily to meet ~ 50% of the patient's estimated energy and protein needs daily Will monitor if additional free water flushes are needed based on PO intake If not able to eat 50% of meals, would recommend: Nutren 2.0 , 250 ml 5 x day to provide 2500 kcal,105 gm protein and 863 ml free water INDICATIONS FOR ENTERAL FEEDINGS: Tube feedings required for sufficient nutrients to maintain weight and strength, Patient's condition warrants tube feedings for a long and indefinite duration Isa Leiva RDN, LDN Clinical Dietitian Extension: [phone] [employer] * Care Plan - Citlaly Carr RN - 05/05/2023 3:58 AM EST Clinical Goal(s): pt will remain safe (05/04/232029) Possible barriers to meeting goal(s)/advancing plan of care: pt diagnosis Stability of the patient: Moderately stable - low risk of patient condition declining or worsening Summary regarding today's goal(s): Met: Recommendations: continue with plan of care * Ancillary Progress Note - Cristy Gonzalez OSA - 05/04/2023 3:52 PM EST 05/04/23 SANDRA Ross asked me to call DME suppliers to see if any had the Compression Device- sleeves worn on legs. All of our suppliers do not carry them.DLK * Ancillary Progress Note - Joan Lr PTA - 05/04/2023 3:51 PM EST PROGRESS NOTE - Physical Therapy [facility] [place] [address] Name: Jacob Tipton IV Location: [facility] [place] A452/A Date: 05/04/2023 Time: 3:51 PM Jacob Tipton IV is a/an 67 year old male. Patient Status: Inpatient Insurance: Payor: MEDICARE Plan: MEDICARE A AND B Product Type: *No Product type* Payor: AARP Plan: AARP Product Type: *No Product type* Patient Seen: at bedside, nursing cleared patient for therapy Patient Identified By: Name, ID Band and Date Diagnosis: s/p trach (05/04/231548) Status of treatment: Treatment completed (05/04/231548) Orders: PT evaluation and treatment;OOB (05/04/231548) Weight Bearing Status: Weight bearing as tolerated (05/04/231548) Precautions: Alarms;Falls;Safety;Trach (trach collar, PEG) (05/04/231548) Total Treatment Time--free text: 10 (05/04/231548) Subjective: Patient pleasant and agreeable. Pain: Reports less discomfort from yesterday. Transfers Sit-Stand: Supervision (05/04/231548) Stand-Sit: Supervision (05/04/231548) Ambulation: Distance ambulated (feet): 250 Assistive Device: Rolling walker Assist: Supervision Stair Training: Number of stairs: 5 (single step ups in stairwell due to lines) Number of handrails: single Level of Assistance: supervision Balance Sit (Static): Good (05/04/231548) Sit (Dynamic): Fair (+) (05/04/231548) Stand (Static): Fair (05/04/231548) Stand (Dynamic): Fair (05/04/231548) Patient and or Family Goal(s): to get well and to return home Topic of Education: Safety with mobility, Goals/plan of care, Use of assistive device, and Stair training Method of Education: Verbal discussion and explanation provided to patient: demonstrated the exercise and or task Treatment Provided: Gait Training 10 minutes: gait training with rolling walker stair training Alarm Status Patient positioned in: Chair (05/04/231548) With: Pressure pad alarm intact and functioning and call gonzalez in reach (05/04/231548) Patient Education Review of Precautions: Safety;Fall (05/04/231548) Safety Awareness: Patient demonstrates carryover of insight during functional tasks (05/04/231548) Preferred learning method: Combination (05/04/231548) Barriers to learning: Medical Status (05/04/231548) Method of Education: Verbalized to patient (05/04/231548) Assessment: Patient pleasant and agreeable to therapy, seated in chair upon arrival, motivated to participate. Patient ok to be removed from trach collar for ambulation. Sit to stands completed with supervision to rise. Ambulation completed with rolling walker, patient ambulated 250 feet with directional changes. Patient demonstrates ambulation at supervision level, no losses of balance, tolerated well. Step training completed with single upper extremity support in stairwell, single step ascend/descend due to lines, step x5 completed. Patient navigated the step at supervision level, toleratedthis well. Patient seated in chair upon end of treatment session, positioned with pillows for comfort. Call gonzalez in reach and chair alarm on, trach collar reapplied, RN requested monitor lines were left disconnected due to patient transferring floors, all needs met. Please consider home with post-acute care services which may include home health or outpatient therapy. The level of care will be de termined in collaboration with the patient, family/caregiver and care team members. Deficits requiring P.T. treatment needs: Mobility;Balance;Weakness;Endurance;Lower extremity strength (05/04/23 1549) Equipment needs: (tbd) (04/29/23 1136) Plan: Continue with current treatment plan established on evaluation. AM PAC Score with Stairs: 19 A portion of this AM-PAC assessment not scored based on functional assessment; rather clinical decision making utilized based on current findings and/or prior level of function. Please refer to future AM-PAC calculations of functional ability as they become available. * Ancillary Progress Note - Veena Allen COTA - 05/04/2023 1:16 PM EST PROGRESS NOTE - Occupational Therapy [facility] [place] [address] Name: Jacob Tipton IV Location: [facility] [place] A452/A Date: 05/04/2023 Time: 3:50 PM Jacob Tipton IV is a 67 year old male. Patient Status: Inpatient Insurance: Payor: MEDICARE Plan: MEDICARE A AND B Product Type: *No Product type* Payor: AARP Plan: AARP Product Type: *No Product type* Patient Seen: at bedside, nursing cleared patient for therapy Patient Identified By: Name, ID Band and Date Diagnosis: posterior tongue mass (05/04/231515) Status of treatment: Treatment completed (05/04/231515) Orders: OT evaluation and treatment (05/04/231515) Weight Bearing Status: Weight bearing as tolerated (05/04/231515) Precautions: Falls;Alarms;Safety;Trach (05/04/231515) Total Treatment Time: 20 (05/04/231515) Subjective: Pleasant and cooperative Pain: No complaints of pain Observations Consciousness: Alert (05/02/23851) Orientation: Oriented times 4 (05/02/23851) Psychosocial: Patient can communicate basic needs (05/02/23851) Sitting posture: Forward head;Rounded shoulders (05/02/23851) Standing posture: Forward head;Rounded shoulders (05/02/23 0852) Safety awareness: The Patient demonstrates carryover of insight during functional tasks.;The Patient can communicate basic needs. (05/02/23851) Other Findings Endurance: Fair (05/04/231515) Light touch sensation: Intact (04/29/23 1147) Proprioception: Intact (04/29/23 1147) Coordination: Intact (04/29/23 1147) Tone: Normal tone (04/29/23 1147) Edema: No edema noted (04/29/23 114) Current Functional Status: Activities of Daily Living: Self Care Able to provide self care: No (04/29/23 114) Grooming: Not Tested (05/04/231515) Toileting: Supervision (Please comment) (clothing management) (05/04/231515) Dressing Upper Body: Not Tested (05/04/231515) Lower Body: Supervision (Please comment) (to meagan pants) (05/04/231515) Functional Ambulation Assistive Device: Rolling walker (05/04/231515) Distance in feet:: (in room and hallway) (05/04/231515) Level of Assistance: Supervision (Please Comment) (05/04/231515) Bed Mobility Supine-Sit: Not Tested (05/04/231515) OT Transfers Sit-Stand: Supervision (Please comment) (05/04/231515) Stand-Sit: Supervision (Please comment) (05/04/231515) Toilet: Not Tested (05/04/231515) Balance Sit (Static): Good (05/04/231515) Sit (Dynamic): Good (05/04/231515) Stand (Static): Fair (05/04/231515) Stand (Dynamic): Fair (05/04/231515) Patient Education Education Topic: Role of OT;Plan of care goals (05/04/231515) Review of Precautions: Fall;Safety (05/04/231515) Method of Education: Verbalized to patient (05/04/231515) Education Provided to: Patient (05/04/231515) Response to Education: Receptive and agreeable to education (05/04/231515) Barriers to learning: Medical status (05/04/231515) Preferred learning method: Combination (05/04/231515) Alarm Status Patient positioned in: Chair (05/04/231515) With: Pressure pad alarm intact and functioning and call gonzalez in reach (05/04/231515) Following session patient seated OOB in chair with chair alarm activated and cord plugged into callbell system. Treatment Provided: Self Fpc Management Trainin minutes Deficits requiring O.T. treatment needs: ADL/self- care;Balance;Endurance;Functional mobility;Safety;Upper extremity strength (05/04/231515) Assessment: Patient was found sitting in recliner chair upon arrival to room; awake and alert. Patient performed LE dressing donning a pair of pants while seated with supervision level and setup. He was then able to transition sit to stand standing in front of chair to pull pants up with bilateral UE's, without loss of balance. Activity tolerance and endurance continue to improve daily. He continues to demonstrate functional ambulation with use of rolling walker for balance and safety in room and hallways with supervision level. Please consider home with post-acute care services which may include home health or outpatient therapy. The level of care will be determined in collaboration with the patient, family/caregiver and care team members. Plan: Will continue to follow patient per plan of care. Anticipated Frequency (on eval): 1 to 3 times per week (05/04/231515) Equipment Equipment used in Therapy: Rolling walker (05/04/231515) Equipment Needs Equipment needs: Rolling walker (04/29/23 1147) AM-PAC Help From Another Person Eating Meals: A little (05/04/231515) Help From Another Person Taking Care of Personal Grooming: A little (05/04/231515) Help From Another Person To Put On/Take Off Upper Body Clothing: A little (05/04/231515) Help From Another Person To Put On/Take Off Lower Body Clothing: A little (05/04/231515) Help From Another Person Toileting: A little (05/04/231515) Help From Another Person Bathing: A little (05/04/231515) OT AM-PAC Score: 18 (05/04/231515) OT AM-PAC t-Scale Score: 38.66 (05/04/23 1516) HLM (Highest Level of Mobility) Goal: Level 6 walk 10 steps or more (05/03/23 1536) A portion of this AM-PAC assessment not scored based on functional assessment; rather clinical decision making utilized based on current findings and/or prior level of function. Please refer to future AM-PAC calculations of functional ability as they become available. * Ancillary Progress Note - Gretta Ross, JOHN - 05/04/2023 12:08 PM EST CARE MANAGEMENT - ADULT TRANSITION NOTE [facility] [place] [address] Name: Jacob Tipton IV Location: [facility] [place] A452/A Date: 05/04/2023 Time: 12:08 PM Risk Stratification Risk Stratification Psycho Social / Medical Concerns Identified: Adjustment to illness/injury;Multiple Comorbidities;New serious diagnosis (04/29/23 1106) Readmission Risk Score: 12.19 (05/04/23 1201) AM-PAC Score With Stairs : 18 (05/03/23 1536) Caregiver Information Patient Contacts Name Relation Home Work Mobile Tootie Valdivia Spouse [phone] PatriciaTerri Adult Child [phone] Transition of Care Checklist Transition of Care Checklist (aka Readmission Risk Score) Discharge Disposition: Home w/Home Health (04/29/23 1106) Narrative: CM met with pt at bedside. Discussed the difficultly of finding HH to accept in the areaand pt wrote that he was aware of this problem from family members who had tried to get services. Instructed pt that [facility] is unable to supply the portable suction machine and humidifier and pt doesnot have a preference for another company. Orders were fax[facility] to [facility] in [place]. , Tootie Valdivia was at bedside and requested to meet with CM when she arrived at hospital. isunsure that she will be able to care for pt and will require teaching and is nervous about Home Health not accepting to follow pt at discharge. Pt's daughter is an Oncology nurse in [place] and has said she would stay with pt a few days after discharge. ENT TT and informed about problem with HH and discussed at Boost review this AM and need for in-house education. Two HH agencies still reviewing at this time. [employer] has received Trach supply orders and have supplies as per Alejandro. TF recommendations have been faxed to [facility]. [phone] placed to Keith @ [facility] in [place] at request of Tootie, Office is strictly waiverservice, multiple hours a day care. Pt currently does not have waiver services. Call placed to [facility] to make a referral to begin waiver application for Jacob. Due to Jacob not being able to speak, a Healthcare proxy needs to be sent to [facility] to add Tootie onto application for her to speak on Jacob's behalf. Anticipated Transportation at Discharge: Family Patient/Family Expectations: Discharge home when medically stable. Transition Planning Transition Planning Transition Plan/Considerations: Needs uncertain at this time - Continue monitoring for needs;Discussed at Interdisciplinary Team / Boost Rounds (04/29/23 1106) Transition plan discussed with - Enter name and phone #: patient's spouse via phone (04/29/23 1106) Insurance Considerations: N/A (04/29/23 1106) Referral to Community Agency : N/A (04/29/23 1106) Post-Acute Care needs identified and Referrals Completed: Tracheostomy Care;Occupational Therapy;Physical Therapy (04/29/23 1106) Care Management will continue to monitor and assist with discharge planning needs * Ancillary Progress Note - Cristy Gonzalez OSA - 05/04/2023 10:26 AM EST 05/04/23 spoke with Lorena with [facility] reg patient, reviewing. [phone] Declined do not doTrach. DLK * Postprocedure Note - Mamta Sanchez MD - 05/03/2023 5:10 PM EST PROCEDURE NOTE - Interventional Radiology [facility] [place] [address] Name: Jacob Tipton IV Location: RADIOLOGY WAITING ROOM/IR Date: 05/03/2023 Time: 5:27 PM PROCEDURE: Percutaneous gastrostomy tube placement MOLD CAPPER HELPER: Dr. Mamta Sanchez ASSISTANTS: RT Jules ANESTHESIA: local conscious sedation COMPLICATIONS: none SPECIMEN: none ESTIMATED BLOOD LOSS: negligible FINDINGS: Image guided placement of 18F percutaneous gastrostomy tube. PLAN: Strict NPO and keep Gtube to gravity drainage for 4 hours. After 4 hours (2100 hours), give 50cc water via the Gtube and clamp. If there is no abdominal pain, distention, nausea or vomiting, at 2300 give 250cc water via the Gtube and clamp. If there is no abdominal pain, distention, nausea or vomiting, at 0100 can start trickle feeds. * Ancillary Progress Note - Karina Oneil PT - 05/03/2023 3:42 PM EST Jacob Tipton IV [id number] [facility] [place] A452/A 05/03/2023 67 year old Communicated with treating Joan RAMAN regarding functional improvements. Please see updated goals below: Increase stairclimbin steps at modified independent level Increase Ambulation: 500' with least restrictive device at modified independent level * Ancillary Progress Note - Joan Lr PTA - 05/03/2023 3:36 PM EST PROGRESS NOTE - Physical Therapy [facility] [place] [address] Name: Jacob Tipton IV Location: [facility] [place] A452/A Date: 05/03/2023 Time: 3:41 PM Jacob Tipton IV is a/an 67 year old male. Patient Status: Inpatient Insurance: Payor: MEDICARE Plan: MEDICARE A AND B Product Type: *No Product type* Payor: AARP Plan: AARP Product Type: *No Product type* Patient Seen: at bedside, nursing cleared patient for therapy Patient Identified By: Name, ID Band and Date Diagnosis: s/p trach (05/03/231535) Status of treatment: Treatment completed (05/03/231535) Orders: PT evaluation and treatment;OOB (05/03/231535) Weight Bearing Status: Weight bearing as tolerated (05/03/231535) Precautions: Alarms;Falls;Safety;Trach (trach collar) (05/03/231535) Total Treatment Time--free text: 25 (05/03/231535) Subjective: Patient pleasant and agreeable; highly motivated. Pain: Patient reports discomfort in neck and throat being sore, patient in care of RN at end of session. Transfers Sit-Stand: Supervision (05/03/231535) Stand-Sit: Supervision (05/03/231535) Ambulation: Distance ambulated (feet): 400 Assistive Device: Rolling walker Assist: Supervision Stair Training: Number of stairs: 1 (single curb step) x2 Number of handrails: bilateral support on rolling walker Level of Assistance: supervision Balance Sit (Static): Good (05/03/231535) Sit (Dynamic): Fair (05/03/231535) Stand (Static): Fair (05/03/231535) Stand (Dynamic): Fair (05/03/231535) Patient and or Family Goal(s): to get well and to return home Topic of Education: Safety with mobility and Goals/plan of care Method of Education: Verbal discussion and explanation provided to patient: demonstrated the exercise and or task Treatment Provided: Gait Training 25 minutes: gait training with rolling walker stair training, curb step transfers Alarm Status Patient positioned in: Chair (05/03/231535) With: Pressure pad alarm intact and functioning and call gonzalez in reach (05/03/231535) Patient Education Review of Precautions: Safety;Fall (05/03/231535) Safety Awareness: Patient demonstrates carryover of insight during functional tasks (05/03/231535) Preferred learning method: Combination (05/03/231535) Barriers to learning: Medical Status (05/03/231535) Method of Education: Verbalized to patient (05/03/231535) Assessment: Patient pleasant and agreeable to therapy, seated in chair upon arrival, motivated to participate. RN gave ok for patient to be removed from trach collar for ambulation. Sit to stands completed with supervision to rise, initial cues for hand placement to improve safety, patient demonstrates good knowledge of safety and asks prior to standing if it is ok to rise. Ambulation completed with rolling walker, patient ambulated 400 feet with directional changes. Patient demonstrates ambulation at supervision level, no losses of balance, tolerated well. HR and SpO2 remained within normal limits during ambulation training. Single step training completed with bilateral upper extremity support on rolling walker. Patient navigated single step at supervision level. Patient seated in chair upon end of treatment session, positioned with pillows for comfort and to maintain skin integrity. Call gonzalez in reach and chair alarm on, all needs met. MANAGER BRIDGE reached out to PT in regards to updated ambulation distance and stair training goals. Please consider home with post-acute care services which may include home health or outpatient therapy. The level of care will be determined in collaborationwith the patient, family/caregiver and care team members. Deficits requiring P.T. treatment needs: Mobility;Balance;Weakness;Endurance;Lower extremity strength (05/03/23 1536) Equipment needs: (tbd) (04/29/23 1136) Plan: Continue with current treatment plan established on evaluation. AM PAC Score with Stairs: 18 A portion of this AM-PAC assessment not scored based on functional assessment; rather clinical decision making utilized based on current findings and/or prior level of function. Please refer to future AM-PAC calculations of functional ability as they become available. * Ancillary Progress Note - Gretta Ross RN - 05/03/2023 3:16 PM EST CARE MANAGEMENT - ADULT TRANSITION NOTE [facility] [place] [address] Name: Jacob Tipton IV Location: [facility] [place] A452/A Date: 05/03/2023 Time: 3:16 PM Risk Stratification Risk Stratification Psycho Social / Medical Concerns Identified: Adjustment to illness/injury;Multiple Comorbidities;New serious diagnosis (04/29/23 1106) Readmission Risk Score: 10.51 (05/03/23 1201) AM-PAC Score With Stairs : 18 (05/03/23 0800) Caregiver Information Patient Contacts Name Relation Home Work Mobile Tootie Valdivia Spouse [phone] Terri Gomez Adult Child [phone] Transition of Care Checklist Transition of Care Checklist (aka Readmission Risk Score) Discharge Disposition: Home w/Home Health (04/29/231105) Narrative: CM received call from [employer], company has no suction machines and no humidifiers and will not have any this week. Pt will need to get supplies from another company. Pt having G-tube placed today. No home health company has accepted yet. CM will continue to follow. Anticipated Transportation at Discharge: Family Patient/Family Expectations: Discharge when medically stable. Transition Planning Transition Planning Transition Plan/Considerations: Needs uncertain at this time - Continue monitoring for needs;Discussed at Interdisciplinary Team / Boost Rounds (04/29/231105) Transition plan discussed with - Enter name and phone #: patient's spouse via phone (04/29/231105) Insurance Considerations: N/A (04/29/231105) Referral to Community Agency : N/A (04/29/231105) Post-Acute Care needs identified and Referrals Completed: Tracheostomy Care;Occupational Therapy;Physical Therapy (04/29/231105) Care Management will continue to monitor and assist with discharge planning needs * Ancillary Progress Note - Gretta Ross RN - 05/03/2023 11:22 AM EST CARE MANAGEMENT - ADULT TRANSITION NOTE [facility] [place] [address] Name: Jacob Tipton IV Location: [facility] [place] A452/A Date: 05/03/2023 Time: 11:22 AM Risk Stratification Risk Stratification Psycho Social / Medical Concerns Identified: Adjustment to illness/injury;Multiple Comorbidities;New serious diagnosis (04/29/23 1106) Readmission Risk Score: 10.36 (05/03/23 0801) AM-PAC Score With Stairs : 18 (05/03/23 0800) Caregiver Information Patient Contacts Name Relation Home Work Tootie Aguilar Spouse [phone] Terri Gomez Adult Child [phone] Transition of Care Checklist Transition of Care Checklist (aka Readmission Risk Score) Discharge Disposition: Home w/Home Health (04/29/231105) Narrative: Call placed to [facility] in [facility], They did not receive fax, instructed CMto use fax # [phone]. Scripts for trach supplies re- faxed to new fax number. Anticipated Transportation at Discharge: /Family Patient/Family Expectations: Discharge home when medically cleared. Transition Planning Transition Planning Transition Plan/Considerations: Needs uncertain at this time - Continue monitoring for needs;Discussed at Interdisciplinary Team / Boost Rounds (04/29/231105) Transition plan discussed with - Enter name and phone #: patient's spouse via phone (04/29/231105) Insurance Considerations: N/A (04/29/231105) Referral to Community Agency : N/A (04/29/231105) Post-Acute Care needs identified and Referrals Completed: Tracheostomy Care;Occupational Therapy;Physical Therapy (04/29/231105) Care Management will continue to monitor and assist with discharge planning needs * Diagnostic Clarification - Pipe Mckeon MD - 05/03/2023 10:10 AM EST The patient has been diagnosed with acute respiratory failure with hypoxia. * Diagnostic Clarification - Pipe Mckeon MD - 05/03/2023 9:28 AM EST - aspiration pneumonia was present on admission * Ancillary Progress Note - eVena Allen COTA - 05/02/2023 4:29 PM EST PROGRESS NOTE - Occupational [facility] [facility] [place] [facility] [address] Name: Jacob Tipton IV Location: [facility] A452/A Date: 05/02/2023 Time: 4:29 PM Jacob Tipton IV is a 67 year old male. Patient Status: Inpatient Insurance: Payor: MEDICARE Plan: MEDICARE A AND B Product Type: *No Product type* Payor: AARP Plan: AARP Product Type: *No Product type* Patient Seen: at bedside, nursing cleared patient for therapy Patient Identified By: Name, ID Band and Date Diagnosis: posterior tongue mass (05/02/23851) Status of treatment: Treatment completed (05/02/23851) Orders: OT evaluation and treatment (05/02/23851) Weight Bearing Status: Weight bearing as tolerated (05/02/23851) Precautions: Falls;Alarms;Safety;Trach (05/02/23851) Total Treatment Time: 35 (05/02/23851) Subjective: Agreeable to therapy Pain: Patient has complaints of pain. Pain located in neck Observations Consciousness: Alert (05/02/23851) Orientation: Oriented times 4 (05/02/23851) Psychosocial: Patient can communicate basic needs (05/02/23851) Sitting posture: Forward head;Rounded shoulders (05/02/23851) Standing posture: Forward head;Rounded shoulders (05/02/23851) Safety awareness: The Patient demonstrates carryover of insight during functional tasks.;The Patient can communicate basic needs. (05/02/23851) Other Findings Endurance: Fair (05/02/23851) Light touch sensation: Intact (04/29/23 1147) Proprioception: Intact (04/29/23 1147) Coordination: Intact (04/29/23 1147) Tone: Normal tone (04/29/23 1147) Edema: No edema noted (04/29/23 114) Current Functional Status: Activities of Daily Living: Self Care Able to provide self care: No (04/29/23 114) Grooming: Supervision (Please comment) (wash hands in stance) (05/02/23851) Toileting: Supervision (Please comment) (posterior hygiene and clothing management) (05/02/23851) Dressing Upper Body: Not Tested (due to lines) (05/02/23851) Lower Body: Minimal Assistance (with stool to meagan R slipper sock) (05/02/23851) supervision level to meagan mesh underwear Functional Ambulation Assistive Device: Rolling walker (05/02/23851) Distance in feet:: 15 (' X1, and 10' X1) (05/02/23851) Level of Assistance: Supervision (Please Comment) (05/02/23851) Bed Mobility Supine-Sit: Supervision (Please comment) (05/02/23851) OT Transfers Sit-Stand: Supervision (Please comment) (05/02/23851) Stand-Sit: Supervision (Please comment) (05/02/23851) Toilet: Supervision (Please comment) (05/02/23851) Balance Sit (Static): Good (05/02/23851) Sit (Dynamic): Good (05/02/23851) Stand (Static): Fair (05/02/23851) Stand (Dynamic): Fair (05/02/23851) Patient Education Education Topic: Role of OT;Plan of care goals (05/02/23851) Review of Precautions: Fall;Safety (05/02/23851) Method of Education: Verbalized to patient (05/02/23851) Education Provided to: Patient (05/02/23851) Response to Education: Receptive and agreeable to education (05/02/23851) Barriers to learning: Medical status (05/02/23851) Preferred learning method: Combination (05/02/23851) Alarm Status Patient positioned in: Chair (05/02/23851) With: Pressure pad alarm intact and functioning and call gonzalez in reach (05/02/23851) Following session patient seated OOB in chair with chair alarm activated and cord plugged into callbell system. Treatment Provided: Self Fpc Management Trainin minutes Deficits requiring O.T. treatment needs: ADL/self- care;Balance;Endurance;Functional mobility;Safety;Upper extremity strength (05/02/23851) Assessment: Patient was found laying supine in bed upon arrival to room; awake and alert; Oriented X4; trach collar. Pt completed bed mobility, functional transfers, and functional ambulation to/fromthe bathroom with device with supervision level; No LOB demonstrated throughout activity duration and vitals were all within normal limits. Patient completed most ADL's with supervision level and setup although required Min A to meagan R slipper sock only due to decreased functional reach. Pt utilized stool this session to help improve overall reach. Please consider home with post-acute care services which may include home health or outpatient therapy. The level of care will be determined in collaboration with the patient, family/caregiver and care team members. Please consider home with post-acute care services which may include home health or outpatient therapy. The level of care will be determined in collaboration with the patient, family/caregiver and care team members. Plan: Will continue to follow patient per plan of care. Anticipated Frequency (on eval): 1 to 3 times per week (05/02/23851) Equipment Equipment used in Therapy: Rolling walker (05/02/23851) Equipment Needs Equipment needs: Rolling walker (04/29/23 1147) AM-PAC Help From Another Person Eating Meals: A little (05/02/23851) Help From Another Person Taking Care of Personal Grooming: A little (05/02/23851) Help From Another Person To Put On/Take Off Upper Body Clothing: A little (05/02/23851) Help From Another Person To Put On/Take Off Lower Body Clothing: A little (05/02/23851) Help From Another Person Toileting: A little (05/02/23851) Help From Another Person Bathing: A little (05/02/23851) OT AM-PAC Score: 18 (05/02/23851) OT AM-PAC t-Scale Score: 38.66 (05/02/23851) HLM (Highest Level of Mobility) Goal: Level 6 walk 10 steps or more (05/02/23799) A portion of this AM-PAC assessment not scored based on functional assessment; rather clinical decision making utilized based on current findings and/or prior level of function. Please refer to future AM-PAC calculations of functional ability as they become available. * Ancillary Progress Note - Gretta Ross RN - 05/02/2023 10:25 AM EST CARE MANAGEMENT - ADULT TRANSITION NOTE [facility] [place] [address] Name: Jacob Tipton IV Location: [facility] [place] A452/A Date: 05/02/2023 Time: 10:26 AM Risk Stratification Risk Stratification Psycho Social / Medical Concerns Identified: Adjustment to illness/injury;Multiple Comorbidities;New serious diagnosis (04/29/231105) Readmission Risk Score: 10.43 (05/02/23 0800) AM-PAC Score With Stairs : 18 (05/02/23 0800) Caregiver Information Patient Contacts Name Relation Home Work Tootie Aguilar Spouse [phone] Terri Gomez Adult Child [phone] Transition of Care Checklist Transition of Care Checklist (aka Readmission Risk Score) Discharge Disposition: Home w/Home Health (04/29/231105) Narrative: Pt was discussed at IDT Boost and chart reviewed. Pt was admitted and is S/P emergent awake tracheotomy along with DL and biopsy of base of tongue lesion on 04/28/2023. Received TT from MILLIE Richard with ENT this AM, Pt will have a g-tube placed today with IR and will most likely be readyfor discharge around Tuesday this week. Pt will need trach and TF supplies for home. referralsmade, received call from Lety at [facility] requesting additional records be faxed for review. Scripts will be faxed to [facility] in [facility]. Pt will need a Heparin bridge to Warfarin prior to discharge and Portable Suction Machine will need to be at bedside to accompany pt home at home of discharge. CM will continue to follow. [facility] confirmed receipt of trach scripts/fax. Respiratory department to call CM when reviewed. [facility] unable to accept pt. Anticipated Transportation at Discharge: /Family Patient/Family Expectations: Discharge home when medically cleared. Transition Planning Transition Planning Transition Plan/Considerations: Needs uncertain at this time - Continue monitoring for needs;Discussed at Interdisciplinary Team / Boost Rounds (04/29/231105) Transition plan discussed with - Enter name and phone #: patient's spouse via phone (04/29/23 110) Insurance Considerations: N/A (04/29/23 110) Referral to Community Agency : N/A (04/29/23 110) Post-Acute Care needs identified and Referrals Completed: Tracheostomy Care;Occupational Therapy;Physical Therapy (04/29/23 1106) Care Management will continue to monitor and assist with discharge planning needs * Ancillary Progress Note - Gretta Ross RN - 05/02/2023 8:39 AM EST HOME HEALTH REFERRAL FORM CARE MANAGEMENT [address] [place] [address] Referred By: Gretta Ross RN Admission Date: 04/28/2023 Discharge Date: TBD Discharge Time: TBD Start Date: Same day start of care Agency Referred To: PATIENT INFORMATION: Name: Jacob Tipton IV Address: [address] [place] [address] [address] Lian [address] [address] : 1955 (home) SSN: [id number] County: [place] Caregiver Name: Tootie Valdivia Relationship: Emergency Contacts: Extended Emergency Contact Information Primary Emergency Contact: Tootie Valdivia Mobile Relation: Spouse Preferred language: Mauritanian Primary Care Pediatrician needed? No Secondary Emergency Contact: Terri Gomez Mobile Relation: Adult Child Primary Care Pediatrician needed? No MEDICAL INFORMATION: Principal Diagnosis: Base of tongue mass, S/P awake trach and direct laryngoscopy with biopsy on 04/28 Other Diagnosis: See attached History and Physical Surgery and Dates: Past Surgical History: Procedure Laterality Date BACK/FLANK SUBQ TUMOR REMOVAL, UNDER 3 CM N/A 10/22/2022 EXCISION SOFT TISSUE TUMOR BACK OR FLANK performed by Gloria Parish MD at OR [facility] COLONOSCOPY W/ LESION REMOVAL, SNARE 10/15/08 done adenomatous and hyperplastic polyps, mild to moderate diverticulosis left colonrepeat 3yrs COLONOSCOPY, DIAGNOSTIC (RECTUM) 06/24/2015 normal, repeat 5 yrs/COLONOSCOPY FLEXIBLE PROXIMAL DIAGNOSTIC performed by Lamar Brown DO at ENDOSCOPY [facility] COLONOSCOPY, DIAGNOSTIC (RECTUM) 04/19/2022 benign adenomatous polyps, repeat 3 yrs / COLONOSCOPY FLEXIBLE PROXIMAL DIAGNOSTIC performed by Marcelino Smalls MD at ENDOSCOPY [facility] INCISION OF [place], PLANNED N/A 04/28/2023 TRACHEOSTOMY PLANNED performed by Kaci Rodriguez MD at [facility] REMOVE LUMBAR SPINE LAMINA, 1 SEG 02/09/2001 Lumbar laminectomy REMOVE LUMBAR SPINE LAMINA, 1 SEG 04/11/1975 Lumbar laminectomy- Dr. Jimenez Diet: Adults: As tolerated and NPO, peg tube placement 05/02 Allergies: Lactose Isolation Type: None Activity Restrictions: Activity as tolerated Isolation For: None HOME CARE ORDERS: (Discipline and Frequency): alf for general assessment and evaluation, vital signs, medication teaching and compliance. Trach Care/Teaching/Education Suctioning/teaching/education Peg tube care/ teaching/education PT/OT eval Medications Dose, Frequency, & Route: Refer to Physician's Discharge Instructions Equipment and Supplies: Trach supplies Peg tube supplies Suction supplies Ordering Physician and Contact Information: Pipe Mckeon MD Comments: Pt having peg tube placed on 05/02/23. Trach placed 04/28/23. PCP: PCP: ENA SOLARES [facility] [place] [address] [phone] D/C Physician: Pipe Mckeon MD Insurance: See attached facesheet. * Respiratory Progress Note - Ciara De Leon, ELECTRIC METER TESTER HELPER-PROTOTYPE ENGINEER - 05/01/2023 2:22 PM EST PATIENT DRIVEN PROTOCOL - Respiratory Care Services [address] [address] Name: Jacob Tipton IV Location: [facility] [place] A452/A Date:05/01/2023 Time: 2:23 PM Patient Driven Protocol Summary: Initial evaluation performed. This Treatment Plan and medications will be reviewed by the Primary Care Team for any contraindications. Respiratory Care Treatment Plan Pulmonary Volume Expansion Therapy: Deep Breathing/Cough PRN to prevent or treat alveolar consolidation and atelectasis. . Secretion Management Treatment: Suction Q4H to enhance mobilization of secretions. . Patient is up and walking and is able to cough secretions up. The patient will be re-evaluated: No re-evaluation needed. Indications for treatment met. The Triage Level is: (Assessment Score = 6 -10) Level 4. Triage Level Definitions: Level 1 Severe Respiratory/Airway Compromise Level 2 Moderate Respiratory/Airway Compromise or high risk for pulmonary complications Level 3 Mild Respiratory/Airway Compromise or moderate risk for pulmonary complications Level 4 Episodic Respiratory/Airway Compromise or low risk for pulmonary complications Level 5 No Respiratory/Airway Compromise Triage 1 Triage 2 Triage 3 Triage 4 Triage 5 greater than 20 16 - 20 11 - 15 6 - 10 0 - 5 Medical Record Assessment Clinical Findings Pulmonary Status: 0 - No History Surgical Status: 1 - General Surgery Chest X-Ray: 2 - Infiltrates and/or Atelectasis Assessment Score: 3 Patient Assessment Clinical Findings Respiratory Pattern: 0 - RR 12 - 20; Patient only gets breathless with strenuous exercise. Breath Sounds: 0 - Clear to auscultation Cough Effectiveness: 1 - Strong productive Sputum Production: 1 - Less than 20 ml per day, chronic Level of Activity: 1 - Ambulatory with assist O2 needed to keep SpO2 greater than or equal to 92%: 1 - Oxygen 1-3 LPM or FiO2 less than 35% Assessment Score: 4 Total Assessment Score: 7 Breath Sounds: Inspiratory and expiratory clear bilaterally.. Cough and Sputum: An effective cough produced moderate amount of thick clear/white sputum.. CXR: Left basilar consolidation could represent atelectasis or sequelae of aspiration pneumonia. Vital Signs: Resp: 20 (05/02/23 1400) Pulse: 75 (05/02/23 1400) Temp: 36.4 C (97.5 F) (05/02/23 1200) BP: 114/71 (05/02/23 1300) SpO2: 96 % (05/02/23 1400) PFT: Patient unable to perform Inspiratory Capacity. Reason: tracheostomy. Primary Service: Critical Care White. Admitting Diagnosis: Preop examination [Z01.818] Pulmonary Diagnosis: Tracheostomy for tongue mass . Prescriptions/Home Medications/Durable Medical Equipment: None * Communication - Bruno Lim MD - 04/29/2023 6:27 PM EST NG tube placed in left naris with flexible nasopharyngolaryngoscopy guidance. Taped at 60 cm. KUB pending. Bruno Lim MD Otolaryngology - Head & Neck Surgery Resident * Ancillary Progress Note - Precious Melton RN - 04/29/2023 11:07 AM EST CARE MANAGEMENT - ADULT INITIAL SCREENING [address] [address] Name: Jacob Tipton IV Location: [facility] A452/A Date: 04/29/2023 Time: 11:07 AM Discussed patient with the interdisciplinary care team. This Melon Packer performed a chart review and spoke to patient's via phone to complete admission screen and assessed needs for transitionplanning. The physician assistant primary care role and services were explained and emotional support was provided. Chief Complaint: Trouble Swallowing Prior Living Arrangements What was your living situation prior to admission/observation?: Independently;With Spouse () Living Quarters: House (04/29/231105) Do you have serious difficulty walking or climbing stairs? (5 years old or older): No (04/28/23 194) History of falling: No (04/29/23 08) Prior Level of Functioning Describe the patient's ability prior to admission/observation to perform ADLs: Performs independently (04/29/231105) Describe the patient's mobility status prior to admission: Patient ambulates independently (04/29/231105) Patient uses assistive device: No (04/29/231105) Caregiver Information Patient Contacts Name Relation Home Work Tootie Aguilar Spouse [phone] Risk Stratification/Psychosocial/Care Gaps Risk Stratification Psycho Social / Medical Concerns Identified: Adjustment to illness/injury;Multiple Comorbidities;New serious diagnosis (04/29/231105) Readmission Risk Score: 8.65 (04/29/23 0801) AM-PAC Score With Stairs : 18 (04/29/23 0600) Prior to Admission Services Services Prior to Admission MANAGER BRIDGE Services (Services received within the last 30 days with exception, Psych within last two years): N/A (04/29/231105) [place] Dept[place] of Aging (PDA) Waiver Program: N/A (04/29/231105) MANAGER BRIDGE Transportation (Services received within the last 30 days): Family/Friends Personal Vehicle (04/29/23 4150) Outpatient Melon Packer: No care steamship agent to display Patient/Family Expectations: RN SANDRA spoke to patient's over the phone to complete initial CM assessment. Per pt's , pt was independent at home with ADL's MANAGER BRIDGE. Pt lives with his in a 1-story home. Pt is an active flatbed company driver. Pt's anticipates pt returning home at discharge. Pt's understands pt will need home health at discharge and [employer] company will need to be established for trach care and supplies. Per pt's , [facility] is near their home and states they would likelyuse that company for referral. Pt's is unsure if she has a HH preference, repisodic list emailed to her to review. Pt uses either [facility] or [facility] in [place] for medications. Pt was discussed during IDT rounds. Pt remains in ICU and is not medically stable for discharge. Ptis s/p emergent awake tracheotomy along with DL and biopsy of base of tongue lesion on 04/28/2023. Care Management will continue to follow for evolving needs. For further screening information, please refer to the Care Management flow document. * Medical Necessity - Razia Hall RN - 04/28/2023 7:20 PM EST AdmissionCare Guideline: Head and Neck Disease, Inpatient Based on the indications selected for the patient, the bed status of Admit to Inpatient was determined to be MET The following indications were selected as present at the time of evaluation of the patient: - Airway blockage or inability to swallow Additional Information: 1 month history of progression dysphagia, odynophagia, and orthopnea. Flexible laryngoscopy exam revealed a large base of tongue mass obstructing view of the larynx, along with a palpable enlarged right level I lymph node. It is unlikely that the patient can safely be intubated from above if needed due to the obstructive nature of the base of tongue lesion AdmissionCare documentation entered by: Razia Hall [facility] DN2K, 27th edition, Copyright 2022 [facility] All Rights Reserved. [id number]:20:04-05:00 Solely for purpose of utilization review and payment; not a diagnostic tool documented in this encounter Plan of Treatment Upcoming Encounters Date Type Department Care Team (Latest Contact Info) Description 4 8:20 AM EST Anticoagulation Pharmacy, [facility] [place] [address] [facility] [place] [address] Pharmacist1, [facility] [address] [facility] [place] [address] 4 11:40 AM EST Nutrition Services Nutrition & Weight Management, [place] [address] [place] [address] Zaida Shrestha RDN [address] [place], [place] [id number] 4 1:00 PM EDT Hospital Encounter ENDO [facility], Endoscopy Room [facility] [address] [place] [phone] Marcelino Smalls MD [address] [place] [address] 4 1:00 PM EDT - 4 1:30 PM EDT Surgery ENDO [facility], Endoscopy Room [facility] [address] [place] [phone] Marcelino Smalls MD [address] [place] [address] ESOPHAGOGASTRODUODENOSCOPY (EGD), FLEXIBLE, TRANSORAL, DIAGNOSTIC 4 8:45 AM EDT Office Visit Dermatology [facility] [place] [address] [place] [place] [address] David Washburn MD [address] [facility] [place] [address] 4 8:20 AM EST Office Visit Family Practice [facility] [address] [place] [address] Ena Solares DO [address] [facility] [place] [address] Scheduled Orders Name Type Priority Associated Diagnoses Order Schedule FLUORO SWALLOWING FUNCTION W VIDEO CINE Medical Imaging Routine One Time f or 1 Occurrences starting 04/29/2023 until 04/29/2023 IR GASTROINTESTINAL OSTOMY Medical Imaging Routine Tongue mass Tracheostomy status (HCC) Expected: 11/03/2023 (Approximate), Expires: 06/05/2024 Scheduled Procedures Name Priority Associated Diagnoses Date/Ti me ESOPHAGOGASTRODUODENOSCOPY ( EGD), FLEXIBLE, TRANSORAL, DIAGNOSTIC Dysphagia, unspecified type 07/11/2023 1:00 PM EDT COLONOSCOPY FLEXIBLE PROXIMA L DIAGNOSTIC Recall History of colon polyps Scheduled Referrals Name Type Priority Associated Diagnoses Orde r Schedule HEMATOLOGY/ONCOLOGY REFERRAL OP Referral Within 10 days (routine) 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) Ordered: 05/06/2023 Health Maintenance Due Date Last Done Comments [...] Not on filedocumented as of this encounter Procedures Procedure Name Priority Date/Time Associated Diagnosis Comments BASIC METABOLIC PANEL Routine 05/06/2023 7:39 AM EST PT INR Routine 05/06/2023 7:39 AM EST PHOSPHORUS STAT 05/06/2023 7:39 AM EST CALCIUM, IONIZED STAT 05/06/2023 7:39 AM EST CBC Routine 05/06/2023 7:39 AM EST MAGNESIUM STAT 05/06/2023 7:39 AM EST BASIC METABOLIC PANEL Routine 05/05/2023 9:45 AM EST PT INR Routine 05/05/2023 9:45 AM EST PHOSPHORUS STAT 05/05/2023 9:45 AM EST CALCIUM, IONIZED STAT 05/05/2023 9:45 AM EST CBC Routine 05/05/2023 9:45 AM EST MAGNESIUM STAT 05/05/2023 9:45 AM EST BASIC METABOLIC PANEL Routine 05/04/2023 5:54 AM EST HEPARIN, UNFRACTIONATED Routine 05/04/19 5:54 AM EST PT INR Routine 05/04/2023 5:54 AM EST PHOSPHORUS STAT 05/04/2023 5:54 AM EST CALCIUM, IONIZED STAT 05/04/2023 5:54 AM EST CBC Routine 05/04/2023 5:54 AM EST MAGNESIUM STAT 05/04/2023 5:54 AM EST HEPARIN, UNFRACTIONATED Routine 05/03/19 11:52 PM EST IR GASTROINTESTINAL OSTOMY Routine 05/03/2023 5:12 PM EST BASIC METABOLIC PANEL Routine 05/03/2023 4:51 AM EST HEPARIN, UNFRACTIONATED STAT 05/03/19 4:51 AM EST PT INR Routine 05/03/2023 4:51 AM EST PHOSPHORUS STAT 05/03/2023 4:51 AM EST CALCIUM, IONIZED STAT 05/03/2023 4:51 AM EST CBC Routine 05/03/2023 4:51 AM EST MAGNESIUM STAT 05/03/2023 4:51 AM EST HEPARIN, UNFRACTIONATED STAT 05/02/19 9:24 PM EST BASIC METABOLIC PANEL Routine 05/02/2023 4:58 AM EST HEPARIN, UNFRACTIONATED STAT 05/02/19 4:58 AM EST PT INR Routine 05/02/2023 4:58 AM EST PHOSPHORUS STAT 05/02/2023 4:58 AM EST CALCIUM, IONIZED STAT 05/02/2023 4:58 AM EST CBC Routine 05/02/2023 4:58 AM EST MAGNESIUM STAT 05/02/2023 4:58 AM EST MRSA SCREEN, PCR STAT 05/01/2023 8:07 PM EST CULTURE, RESPIRATORY, LOWER, AEROBIC STAT 05/01/2023 9:45 AM EST BASIC METABOLIC PANEL Routine 05/01/2023 5:12 AM EST HEPARIN, UNFRACTIONATED Routine 05/01/19 5:12 AM EST PT INR Routine 05/01/2023 5:12 AM EST PHOSPHORUS STAT 05/01/2023 5:12 AM EST CALCIUM, IONIZED STAT 05/01/2023 5:12 AM EST CBC Routine 05/01/2023 5:12 AM EST MAGNESIUM STAT 05/01/2023 5:12 AM EST HEPARIN, UNFRACTIONATED STAT 04/30/19 1:54 PM EST CBC STAT 04/30/2023 12:17 PM EST HEPARIN, UNFRACTIONATED Routine 04/30/19 7:34 AM EST BASIC METABOLIC PANEL Routine 04/30/2023 6:01 AM EST PT INR Routine 04/30/2023 6:01 AM EST PHOSPHORUS STAT 04/30/2023 6:01 AM EST CALCIUM, IONIZED STAT 04/30/2023 6:01 AM EST CBC Routine 04/30/2023 6:01 AM EST MAGNESIUM STAT 04/30/2023 6:01 AM EST HEPARIN, UNFRACTIONATED Routine 04/30/19 12:54 AM EST XR ABDOMEN 1 VIEW STAT 04/29/2023 4:0 5 PM EST HEPARIN, UNFRACTIONATED STAT 04/29/19 3:52 PM EST PT INR STAT 04/29/2023 3:52 PM EST APTT STAT 04/29/2023 3:52 PM EST CBC STAT 04/29/2023 3:52 PM EST FLUORO SWALLOWING FUNCTION W VIDEO CINE Routine 04/29/2023 2:24 PM EST BASIC METABOLIC PANEL Routine 04/29/2023 4:36 AM EST PHOSPHORUS STAT 04/29/2023 4:36 AM EST CALCIUM, IONIZED STAT 04/29/2023 4:36 AM EST CBC Routine 04/29/2023 4:36 AM EST MAGNESIUM STAT 04/29/2023 4:[address] CHEST W CONTRAST STAT 04/28/2023 1 1:32 PM EST XR CHEST 1 VIEW STAT 04/28/2023 7:47 PM EST BASIC METABOLIC PANEL STAT 04/28/2023 7:38 PM EST PHOSPHORUS STAT 04/28/2023 7:38 PM EST LACTATE STAT 04/28/2023 7:38 PM EST CBC STAT 04/28/2023 7:38 PM EST MAGNESIUM STAT 04/28/2023 7:38 PM EST SURGICAL PATHOLOGY Routine 04/28/2023 6: 52 PM EST Pain SARS-COV-2 (COVID-19), NAAT STAT 04/28/2023 6:18 PM EST GLUCOSE METER, POINT OF CARE SU 04/28/2023 6:01 PM EST HC ECG TRACING ONLY STAT 04/28/2023 5 :49 PM EST Preop examination DIFFERENTIAL, AUTOMATED STAT 04/28/19 5:49 PM EST COMPREHENSIVE METABOLIC PANEL STAT 04/28/2023 5:49 PM EST ABO/RH STAT 04/28/2023 5:49 PM EST TYPE AND SCREEN STAT 04/28/2023 5:49 PM EST CBC STAT 04/28/2023 5:49 PM EST PT INR STAT 04/28/2023 5:49 PM EST CBC STAT 04/28/2023 5:49 PM EST Incision of Windpipe, Planned 04/28/2023 5:15 PM EST Pain documented in this encounter Results * PT INR (05/06/2023 7:39 AM EST) Prothrombin Time 14.4 11.6 - 15.2 seconds 05/06/2023 8:32 AM EST LAB[facility]ATORY [facility] [place] INR 1.1 0.8 - 1.2 05/06/2023 8:32 AM EST LAB[facility] [place] Blood Venous blood specimen / Unknown Venipuncture / Unknown 05/06/2023 7:39 AM EST 05/06/2023 7:55 AM EST Narrative [facility]AT[facility] [place] - 05/06/2023 8:32 AM EST Warfarin Therapy INR: 2.0-3.0 conventional anticoagulation INR: 2.5-3.5 high intensity anticoagulation Ritu Bowens MD LAB BLOOD ORDERABLES Performing Organization Address [email or web address]] Co de Phone Number LAB[facility]ATORY [facility] [place] [address] [place] [address] * CALCIUM, IONIZED (05/06/2023 7:39 AM EST) Calcium, Ionized 1.29 1.13 - 1.32 mmol/L 05/06/2023 8:11 AM EST LAB[facility]ATORY [facility] [place] Comment:This test was develo ped and its performance characteristics dtermined by [employer]. It has not been cleared or approved by the [place] Food and Drug Administration Blood Venous blood specimen / Unknown Venipuncture / Unknown 05/06/2023 7:39 AM EST 05/06/2023 7:55 AM EST Miri Beth PA-C LAB BLOOD ORDERABLES Performing Organization Address [facility] de Phone Number LABORATORY [address] [address] * (ABNORMAL) PHOSPHORUS (05/06/2023 7:39 AM EST) Phosphorus 2.3(L) 2.5 - 4.8 mg/dL 05/06/2023 8:35 AM EST LAB[facility]ORY [facility] [place] Blood Venous blood specimen / Unknown Venipuncture / Unknown 05/06/2023 7:39 AM EST 05/06/2023 7:55 AM EST Miri Beth PA-C LAB BLOOD ORDERABLES Performing Organization Address City/[facility] [[email or web address]] Co de Phone Number LAB[facility]ATORY [facility] [place] [address] [place] [address] * MAGNESIUM (05/06/2023 7:39 AM EST) Magnesium 2.1 1.5 - 2.6 mg/dL 05/06/2023 8:35 AM EST LAB[facility] Blood Venous blood specimen / Unknown Venipuncture / Unknown 05/06/2023 7:39 AM EST 05/06/2023 7:55 AM EST Miri Beth PA-C LAB BLOOD ORDERABLES LAB[facility]AT[facility] [address], [place] [id number] * (ABNORMAL) BASIC METABOLIC PANEL (05/06/2023 7:39 AM EST) BUN 11 6 - 20 mg/dL 05/06/2023 8:35 AM EST LAB[facility]ORY [facility] Creatinine 0.8 0.6 - 1.2 mg/dL 05/06/2023 8:35 AM EST LAB[facility]ORY [facility] Estimated Glomerular Filtration Rate >90 >=60 mL/min 05/06/2023 8:35 AM EST LAB[facility]ORY [facility] Comment:eGFR is calculated b ased on the CKD-EPI 2020 equation Sodium 138 135 - 146 mmol/L 05/06/2023 8:35 AM EST LAB[facility]ORY [facility] Potassium 3.5 3.5 - 5.1 mmol/L 05/06/2023 8:35 AM EST LAB[facility] Chloride 101 98 - 107 mmol/L 05/06/2023 8:35 AM EST [facility] CO2 28 22 - 32 mmol/L 05/06/2023 8:35 AM EST [facility] Anion Gap 9 7 - 15 mmol/L 05/06/2023 8:35 AM EST LAB[facility] Glucose 127(H) 70 - 120 mg/dL 05/06/2023 8:35 AM EST LAB[facility] Calcium 9.3 8.4 - 10.2 mg/dL 05/06/2023 8:35 AM EST LAB[facility] Blood Venous blood specimen / Unknown Venipuncture / Unknown 05/06/2023 7:39 AM EST 05/06/2023 7:55 AM EST Miri Beth PA-C LAB BLOOD ORDERABLES LAB[facility]AT[facility] [address] [place] [address] * (ABNORMAL) CBC (05/06/2023 7:39 AM EST) WBC 4.56 4.00 - 10.80 K/uL 05/06/2023 8:17 AM EST LABORATORY [facility] RBC 4.06 4.50 - 5.25 M/uL 05/06/2023 8:17 AM EST LAB[facility]ORY [facility] HGB 12.7(L) 14.0 - 16.8 g/dL 05/06/2023 8:17 AM EST LAB[facility] HCT 38.2(L) 40.0 - 48.4 % 05/06/2023 8:17 AM EST LAB[facility] MCV 94.1 82.0 - 99.5 fL 05/06/2023 8:17 AM EST [facility] [place] MCH 31.3 27.0 - 34.0 pg 05/06/2023 8:17 AM EST LAB[facility]ORY [facility] [place] MCHC 33.2 32.0 - 36.0 g/dL 05/06/2023 8:17 AM EST LAB[facility] [place] RDW 12.5 11.5 - 15.5 % 05/06/2023 8:17 AM EST LAB[facility] [place] PLT 302 140 - 400 K/uL 05/06/2023 8:17 AM EST LAB[facility]ORY [facility] [place] MPV 9.4 6.6 - 11.1 fL 05/06/2023 8:17 AM EST LAB[facility] [place] nRBCs 0 <=0 /100 WBCs 05/06/2023 8:17 AM EST [facility] [place] Blood Venous blood specimen / Unknown Venipuncture / Unknown 05/06/2023 7:39 AM EST 05/06/2023 7:55 AM EST Miri Beth PA-C LAB BLOOD ORDERABLES [facility] [place] [address] [place] [address] * PT INR (05/05/2023 9:45 AM EST) Prothrombin Time 14.6 11.6 - 15.2 seconds 05/05/2023 10:31 AM EST LABORATORY [facility] INR 1.1 0.8 - 1.2 05/05/2023 10:31 AM EST [facility] [place] Blood Venous blood specimen / Unknown Venipuncture / Unknown 05/05/2023 9:45 AM EST 05/05/2023 10:09 AM EST Narrative [facility] [place] - 05/05/2023 10:31 AM EST Warfarin Therapy INR: 2.0-3.0 conventional anticoagulation INR: 2.5-3.5 high intensity anticoagulation Ritu Bowens MD LAB BLOOD ORDERABLES Performing Organization Address [facility] de Phone Number LAB[facility]ATORY [facility] [place] [address] [place] [address] * CALCIUM, IONIZED (05/05/2023 9:45 AM EST) Calcium, Ionized 1.31 1.13 - 1.32 mmol/L 05/05/2023 10:17 AM EST [facility] [place] Comment:This test was develo ped and its performance characteristics dtermined by [employer]. It has not been cleared or approved by the [place] Food and Drug Administration Blood Venous blood specimen / Unknown Venipuncture / Unknown 05/05/2023 9:45 AM EST 05/05/2023 10:00 AM EST Miri Beth PA-C LAB BLOOD ORDERABLES Performing Organization Address [facility] Phone Number LABORATORY [place] [address] [place] [address] * (ABNORMAL) PHOSPHORUS (05/05/2023 9:45 AM EST) Phosphorus 1.4(L) 2.5 - 4.8 mg/dL 05/05/2023 10:34 AM EST LAB[facility] [place] Blood Venous blood specimen / Unknown Venipuncture / Unknown 05/05/2023 9:45 AM EST 05/05/2023 10:09 AM EST Miri Beth PA-C LAB BLOOD ORDERABLES Performing Organization Address [facility] [[email or web address]] Co de Phone Number LAB[facility]ATORY [facility] [place] [address] [place] [address] * MAGNESIUM (05/05/2023 9:45 AM EST) Magnesium 2.2 1.5 - 2.6 mg/dL 05/05/2023 10:34 AM EST LAB[facility]ORY [facility] Blood Venous blood specimen / Unknown Venipuncture / Unknown 05/05/2023 9:45 AM EST 05/05/2023 10:09 AM EST Miri Beth PA-C LAB BLOOD ORDERABLES LAB[facility] [place] [address] [place] [address] * (ABNORMAL) BASIC METABOLIC PANEL (05/05/2023 9:45 AM EST) BUN 12 6 - 20 mg/dL 05/05/2023 10:34 AM EST LAB[facility] Creatinine 0.8 0.6 - 1.2 mg/dL 05/05/2023 10:34 AM EST LAB[facility] Estimated Glomerular Filtration Rate >90 >=60 mL/min 05/05/2023 10:34 AM EST LAB[facility]ORY [facility] Comment:eGFR is calculated b ased on the CKD-EPI 2020 equation Sodium 137 135 - 146 mmol/L 05/05/2023 10:34 AM EST LAB[facility] Potassium 3.6 3.5 - 5.1 mmol/L 05/05/2023 10:34 AM EST [facility] Chloride 99 98 - 107 mmol/L 05/05/2023 10:34 AM EST [facility] CO2 30 22 - 32 mmol/L 05/05/2023 10:34 AM EST [facility] Anion Gap 8 7 - 15 mmol/L 05/05/2023 10:34 AM EST LAB[facility] Glucose 131(H) 70 - 120 mg/dL 05/05/2023 10:34 AM EST [facility] Calcium 9.4 8.4 - 10.2 mg/dL 05/05/2023 10:34 AM EST LAB[facility] Blood Venous blood specimen / Unknown Venipuncture / Unknown 05/05/2023 9:45 AM EST 05/05/2023 10:09 AM EST Miri Beth PA-C LAB BLOOD ORDERABLES LAB[facility] [address] [place] [address] * (ABNORMAL) CBC (05/05/2023 9:45 AM EST) WBC 5.04 4.00 - 10.80 K/uL 05/05/2023 10:21 AM EST LAB[facility] RBC 4.23 4.50 - 5.25 M/uL 05/05/2023 10:21 AM EST LAB[facility] HGB 13.1(L) 14.0 - 16.8 g/dL 05/05/2023 10:21 AM EST LAB[facility] HCT 40.1 40.0 - 48.4 % 05/05/2023 10:21 AM EST LAB[facility] MCV 94.8 82.0 - 99.5 fL 05/05/2023 10:21 AM EST LAB[facility] MCH 31.0 27.0 - 34.0 pg 05/05/2023 10:21 AM EST LAB[facility] MCHC 32.7 32.0 - 36.0 g/dL 05/05/2023 10:21 AM EST LAB[facility] RDW 12.3 11.5 - 15.5 % 05/05/2023 10:21 AM EST LAB[facility] PLT 286 140 - 400 K/uL 05/05/2023 10:21 AM EST LAB[facility] MPV 9.5 6.6 - 11.1 fL 05/05/2023 10:21 AM EST LAB[facility] nRBCs 0 <=0 /100 WBCs 05/05/2023 10:21 AM EST LAB[facility] Blood Venous blood specimen / Unknown Venipuncture / Unknown 05/05/2023 9:45 AM EST 05/05/2023 10:09 AM EST Miri Beth PA-C LAB BLOOD ORDERABLES LAB[facility]ATORY [facility] [address] [place] [address] * PT INR (05/04/2023 5:54 AM EST) Prothrombin Time 14.6 11.6 - 15.2 seconds 05/04/2023 6:22 AM EST LAB[facility]ORY [facility] [place] INR 1.1 0.8 - 1.2 05/04/2023 6:22 AM EST [facility] [place] Blood Venous blood specimen / Unknown Venipuncture / Unknown 05/04/2023 5:54 AM EST 05/04/2023 5:59 AM EST Narrative LABORATORY [facility] - 05/04/2023 6:22 AM EST Warfarin Therapy INR: 2.0-3.0 conventional anticoagulation INR: 2.5-3.5 high intensity anticoagulation Ritu Bowens MD LAB BLOOD ORDERABLES Performing Organization Address [facility] [[email or web address]] Co de Phone Number LAB[facility]ATORY [facility] [place] [address] [place] [address] * CALCIUM, IONIZED (05/04/2023 5:54 AM EST) Pathologist [facility] Calcium, Ionized 1.17 1.13 - 1.32 mmol/L 05/04/2023 6:15 AM EST [facility]ORY [facility] [place] Comment:This test was develo ped and its performance characteristics dtermined by [employer]. It has not been cleared or approved by the US Food and Drug Administration Blood Venous blood specimen / Unknown Venipuncture / Unknown 05/04/2023 5:54 AM EST 05/04/2023 5:59 AM EST Miri Beth PA-C LAB BLOOD ORDERABLES Performing Organization Address [place]/[facility] [[email or web address]] Co de Phone Number LAB[facility]ATORY [facility] [place] [address] [place] [address] * PHOSPHORUS (05/04/2023 5:54 AM EST) Phosphorus 2.9 2.5 - 4.8 mg/dL 05/04/2023 6:35 AM EST [facility] [place] Blood Venous blood specimen / Unknown Venipuncture / Unknown 05/04/2023 5:54 AM EST 05/04/2023 5:59 AM EST Miri Hopson Kirit ESCOTO-C LAB BLOOD ORDERABLES LABORATORY [facility] [address] [place] [address] * MAGNESIUM (05/04/2023 5:54 AM EST) Magnesium 2.2 1.5 - 2.6 mg/dL 05/04/2023 6:35 AM EST LAB[facility]ATORY [facility] Blood Venous blood specimen / Unknown Venipuncture / Unknown 05/04/2023 5:54 AM EST 05/04/2023 5:59 AM EST Miri Hopson Kirit ESCOTO-C LAB BLOOD ORDERABLES Performing Organization Address [place]/[facility]/ZIP Co de Phone Number LAB[facility]ATORY [facility] [place] [address] [place] [address] * BASIC METABOLIC PANEL (05/04/2023 5:54 AM EST) BUN 14 6 - 20 mg/dL 05/04/2023 6:35 AM EST LAB[facility]ORY [facility] Creatinine 0.9 0.6 - 1.2 mg/dL 05/04/2023 6:35 AM EST LAB[facility] Estimated Glomerular Filtration Rate >90 >=60 mL/min 05/04/2023 6:35 AM EST LAB[facility]ORY [facility] Comment:eGFR is calculated b ased on the CKD-EPI 2020 equation Sodium 137 135 - 146 mmol/L 05/04/2023 6:35 AM EST LAB[facility] Potassium 3.8 3.5 - 5.1 mmol/L 05/04/2023 6:35 AM EST LAB[facility] Chloride 101 98 - 107 mmol/L 05/04/2023 6:35 AM EST [facility] CO2 25 22 - 32 mmol/L 05/04/2023 6:35 AM EST [facility] Anion Gap 11 7 - 15 mmol/L 05/04/2023 6:35 AM EST LAB[facility] Glucose 96 70 - 120 mg/dL 05/04/2023 6:35 AM EST LAB[facility] Calcium 8.7 8.4 - 10.2 mg/dL 05/04/2023 6:35 AM EST LAB[facility] Blood Venous blood specimen / Unknown Venipuncture / Unknown 05/04/2023 5:54 AM EST 05/04/2023 5:59 AM EST Miri Beth PA-C LAB BLOOD ORDERABLES LAB[facility]ATORY [facility] [address] [place] [address] * (ABNORMAL) CBC (05/04/2023 5:54 AM EST) WBC 6.89 4.00 - 10.80 K/uL 05/04/2023 6:16 AM EST LAB[facility] RBC 3.98 4.50 - 5.25 M/uL 05/04/2023 6:16 AM EST LAB[facility] HGB 12.4(L) 14.0 - 16.8 g/dL 05/04/2023 6:16 AM EST LAB[facility] HCT 37.3(L) 40.0 - 48.4 % 05/04/2023 6:16 AM EST LAB[facility] MCV 93.7 82.0 - 99.5 fL 05/04/2023 6:16 AM EST LAB[facility] MCH 31.2 27.0 - 34.0 pg 05/04/2023 6:16 AM EST LAB[facility] MCHC 33.2 32.0 - 36.0 g/dL 05/04/2023 6:16 AM EST LAB[facility] RDW 12.3 11.5 - 15.5 % 05/04/2023 6:16 AM EST LAB[facility] PLT 235 140 - 400 K/uL 05/04/2023 6:16 AM EST LAB[facility] MPV 9.4 6.6 - 11.1 fL 05/04/2023 6:16 AM EST LAB[facility] nRBCs 0 <=0 /100 WBCs 05/04/2023 6:16 AM EST LAB[facility] Blood Venous blood specimen / Unknown Venipuncture / Unknown 05/04/2023 5:54 AM EST 05/04/2023 5:59 AM EST Miri Beth PA-C LAB BLOOD ORDERABLES Performing Organization Address [facility] de Phone Number LABORATORY [place] [address] [place] [address] * (ABNORMAL) HEPARIN, UNFRACTIONATED (05/04/2023 5:54 AM EST) Heparin, Unfractionated 0.62(H) <0.10 IU/mL 05/04/2023 6:30 AM EST LAB[facility]ATORY [facility] [place] Comment: Unfractionated therapeutic ranges for Anti Xa activity: For Cardiac/Neurologic treatment: 0.3 to 0.6 IU/mL. For treatment of DVT or Pulmonary Embolism: 0.3 to 0.7 IU/mL. Blood Venous blood specimen / Unknown Venipuncture / Unknown 05/04/2023 5:54 AM EST 05/04/2023 5:59 AM EST Pipe Mckeon MD LAB BLOOD ORDE HUMZA Performing Organization Address [facility] Phone Number LABORATORY [facility] [place] [address] [place] [address] * (ABNORMAL) HEPARIN, UNFRACTIONATED (05/03/2023 11:52 PM EST) Heparin, Unfractionated 0.35(H) <0.10 IU/mL 05/04/2023 12:49 AM EST LAB[facility]ORY [facility] [place] Comment: Unfractionated therapeutic ranges for Anti Xa activity: For Cardiac/Neurologic treatment: 0.3 to 0.6 IU/mL. For treatment of DVT or Pulmonary Embolism: 0.3 to 0.7 IU/mL. Blood Venous blood specimen / Unknown Venipuncture / Unknown 05/03/2023 11:52 PM EST 05/04/2023 12:28 AM EST Pipe Mckeon MD LAB BLOOD ORDBreanna CHING Performing Organization Address [facility] [[email or web address]] Co de Phone Number LAB[facility]ATORY [facility] [place] [address] [place] [address] * IR GASTROINTESTINAL OSTOMY (05/03/2023 5:12 PM EST) Anatomical Region Laterality Modality Any X-Ray Angiograph y 05/05/2023 5:33 PM EST Impressions 05/05/2023 5:31 PM EST IMPRESSION: Successful percutaneous placement of a 18 Fr gastrostomy catheter. PLAN: Strict NPO and keep Gtube to gravity drainage for 4 hours. After 4 hours (2100 hours), give 50cc water via the Gtube and clamp. If there is no abdominal pain, distention, nausea or vomiting, at 2300 give 250cc water via the Gtube and clamp. If there is no abdominal pain, distention, nausea or vomiting, at 0100 can start trickle feeds Flush tube with 20-30 mL of water before and after each feeding and each medication. Medications should be in liquid form if possible and if not available in liquid form they should be finely crushed, mixed in warm water and administered individually. First routine change by IR in 6 months; may have exchanges by the hat marker thereafter. Narrative 05/05/2023 5:31 PM EST PROCEDURE: Fluoro-guided percutaneous gastrostomy catheter placement. 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 He presents to IR for percutaneous gastrostomy placement. ATTENDING (OPERATING PHYSICIAN): Mamta Sanchez MD SCRUBBED RESIDENT (OPERATING PHYSICIAN): None. SUPPORTING PROVIDER (FRONT OFFICE COORDINATOR): RT Naresh CONSENT: After a detailed discussion of the procedure, risks, benefits and alternative treatment options, informed consent was obtained. TIME OUT: A time out procedure was performed. The patient's identification was verified. Informed consent with agreement of procedure, site and position was obtained. All necessary equipment was available prior to procedure. CONTRAST: Optiray 320. COMPLICATIONS: None. ANESTHESIA: Local lidocaine. 2 mg IV Versed. 50 mcg IV Fentanyl. SEDATION TIME: Start to end: 4:46 PM to 5:12 PM. Qualified nurse sedation observer Gia Acosta RN. MEDICATIONS: See MAR PROCEDURE DESCRIPTION: The patient was placed supine on the fluoroscopy table and prepped and draped in the usual sterile fashion. An existing nasogastric tube was in place. The stomach was insufflated with air. Fluoroscopic images were obtained to select the access site in the anterior upper abdomen. After anesthetizing the skin and using intermittent fluoroscopic imaging, 3 gastropexy anchors were placed in a triangular fashion. The gastrostomy site was selected in the middle of the triangle and after dilation using a 8 mm balloon a 18 Fr gastrostomy catheter was advanced in the stomach. Under fluoroscopy, contrast was injected through the gastrostomy tube and its balloon inflated with sterile water and contrast. The gastrostomy catheter was secured with its bumper and the site was dressed. The gastrostomy tube was then attached to a gravity drainage bag. The procedure was performed by Dr. Sanchez. FINDINGS: Initial fluoroscopic imaging demonstrates a suitable window for gastrostomy tube placement. Further imaging demonstrates insufflation of the stomach with air and percutaneous gastropexy placement into the stomach lumen. Contrast injection through the newly placed gastrostomy tube demonstrates the tube in expected position. Procedure Note Mamta Sanchez MD - 05/05/2023 PROCEDURE: Fluoro-guided percutaneous gastrostomy catheter placement. INDICATION: History of heterozygous factor 5 Leiden and posterior tonguemass status post awake tracheostomy. He presents to IR for percutaneousgastrostomy placement. ATTENDING (OPERATING PHYSICIAN): Mamta Sanchez MD SCRUBBED RESIDENT (OPERATING PHYSICIAN): None. SUPPORTING PROVIDER (FRONT OFFICE COORDINATOR): RT Naresh CONSENT: After a detailed discussion of the procedure, risks, benefits andalternative treatment options, informed consent was obtained. TIME OUT: A time out procedure was performed. The patient's identificationwas verified. Informed consent with agreement of procedure, site andposition was obtained. All necessary equipment was available prior toprocedure. CONTRAST: Optiray 320. COMPLICATIONS: None. ANESTHESIA: Local lidocaine. 2 mg IV Versed. 50 mcg IV Fentanyl. SEDATION TIME: Start to end: 4:46 PM to 5:12 PM. Qualified nurse sedationobserver Gia Acosta RN. MEDICATIONS: See MAR PROCEDURE DESCRIPTION: The patient was placed supine on the fluoroscopytable and prepped and draped in the usual sterile fashion. An existingnasogastric tube was in place. The stomach was insufflated with air.Fluoroscopic images were obtained to select the access site in theanterior upper abdomen. After anesthetizing the skin and usingintermittent fluoroscopic imaging, 3 gastropexy anchors were placed in atriangular fashion. The gastrostomy site was selected in the middle of thetriangle and after dilation using a 8 mm balloon a 18 Fr gastrostomycatheter was advanced in the stomach. Under fluoroscopy, contrast wasinjected through the gastrostomy tube and its balloon inflated withsterile water and contrast. The gastrostomy catheter was secured with itsbumper and the site was dressed. The gastrostomy tube was then attached toa gravity drainage bag. The procedure was performed by Dr. Sanchez. FINDINGS: Initial fluoroscopic imaging demonstrates a suitable window forgastrostomy tube placement. Further imaging demonstrates insufflation ofthe stomach with air and percutaneous gastropexy placement into thestomach lumen. Contrast injection through the newly placed gastrostomytube demonstrates the tube in expected position. IMPRESSION IMPRESSION: Successful percutaneous placement of a 18 Fr gastrostomy catheter. PLAN: Strict NPO and keep Gtube to gravity drainage for 4 hours. After 4 hours (2100 hours), give 50cc water via the Gtube and clamp. If there is no abdominal pain, distention, nausea or vomiting, at 2300give 250cc water via the Gtube and clamp. If there is no abdominal pain, distention, nausea or vomiting, at 0100 canstart trickle feeds Flush tube with 20-30 mL of water before and after each feeding and eachmedication. Medications should be in liquid form if possible and if notavailable in liquid form they should be finely crushed, mixed in warmwater and administered individually. First routine change by IR in 6months; may have exchanges by the hat marker thereafter. Rossi Terry MD RAD SPECIAL PROCEDUR ES * PT INR (05/03/2023 4:51 AM EST) Prothrombin Time 14.1 11.6 - 15.2 seconds 05/03/2023 5:25 AM EST LABORATORY [facility] [place] INR 1.1 0.8 - 1.2 05/03/2023 5:25 AM EST LAB[facility]ATORY [facility] [place] [facility] Blood Venous blood specimen / Unknown Venipuncture / Unknown 05/03/2023 4:51 AM EST 05/03/2023 5:05 AM EST Narrative LAB[facility]ATORY [facility] [place] - 05/03/2023 5:25 AM EST Warfarin Therapy INR: 2.0-3.0 conventional anticoagulation INR: 2.5-3.5 high intensity anticoagulation Ritu Bowens MD LAB BLOOD ORDERABLES Performing Organization Address [facility] [[email or web address]] Co de Phone Number LAB[facility]ATORY [facility] [address] [place] [address] * CALCIUM, IONIZED (05/03/2023 4:51 AM EST) Calcium, Ionized 1.26 1.13 - 1.32 mmol/L 05/03/2023 5:15 AM EST LAB[facility]ATORY [facility] Comment:This test was develo ped and its performance characteristics dtermined by [employer]. It has not been cleared or approved by the [place] Food and Drug Administration Blood Venous blood specimen / Unknown Venipuncture / Unknown 05/03/2023 4:51 AM EST 05/03/2023 5:05 AM EST Miri Beth PA-C LAB BLOOD ORDERABLES Performing Organization Address [facility] [[email or web address]] Co de Phone Number LABORATORY [facility] [address] [place] [address] * PHOSPHORUS (05/03/2023 4:51 AM EST) Phosphorus 2.8 2.5 - 4.8 mg/dL 05/03/2023 5:55 AM EST LAB[facility]ORY [facility] [facility] Blood Venous blood specimen / Unknown Venipuncture / Unknown 05/03/2023 4:51 AM EST 05/03/2023 5:05 AM EST Miri Beth PA-C LAB BLOOD ORDERABLES Performing Organization Address [place]/[facility] [[email or web address] Co de Phone Number LAB[facility]ORY [facility] [address] [id number] * MAGNESIUM (05/03/2023 4:51 AM EST) Magnesium 2.1 1.5 - 2.6 mg/dL 05/03/2023 5:55 AM EST LAB[facility]ATORY [facility] [place] Blood Venous blood specimen / Unknown Venipuncture / Unknown 05/03/2023 4:51 AM EST 05/03/2023 5:05 AM EST Miri Beth PA-C LAB BLOOD ORDERABLES [facility] [address] [place] [address] * BASIC METABOLIC PANEL (05/03/2023 4:51 AM EST) BUN 12 6 - 20 mg/dL 05/03/2023 5:55 AM EST LAB[facility] Creatinine 0.9 0.6 - 1.2 mg/dL 05/03/2023 5:55 AM EST LAB[facility] Estimated Glomerular Filtration Rate >90 >=60 mL/min 05/03/2023 5:55 AM EST LAB[facility] Comment:eGFR is calculated b ased on the CKD-EPI 2020 equation Sodium 135 135 - 146 mmol/L 05/03/2023 5:55 AM EST [facility] Potassium 3.7 3.5 - 5.1 mmol/L 05/03/2023 5:55 AM EST [facility] Chloride 100 98 - 107 mmol/L 05/03/2023 5:55 AM EST [facility] CO2 25 22 - 32 mmol/L 05/03/2023 5:55 AM EST [facility] Anion Gap 10 7 - 15 mmol/L 05/03/2023 5:55 AM EST [facility] Glucose 99 70 - 120 mg/dL 05/03/2023 5:55 AM EST [facility] Calcium 8.8 8.4 - 10.2 mg/dL 05/03/2023 5:55 AM EST [facility] Blood Venous blood specimen / Unknown Venipuncture / Unknown 05/03/2023 4:51 AM EST 05/03/2023 5:05 AM EST Miri Beth PA-C LAB BLOOD ORDERABLES LAB[facility]ATORY [facility] [address] [place] [address] * (ABNORMAL) CBC (05/03/2023 4:51 AM EST) WBC 7.92 4.00 - 10.80 K/uL 05/03/2023 5:38 AM EST LAB[facility] RBC 3.91 4.50 - 5.25 M/uL 05/03/2023 5:38 AM EST LAB[facility] HGB 12.3(L) 14.0 - 16.8 g/dL 05/03/2023 5:38 AM EST [facility] HCT 36.8(L) 40.0 - 48.4 % 05/03/2023 5:38 AM EST [facility] MCV 94.1 82.0 - 99.5 fL 05/03/2023 5:38 AM EST LAB[facility] MCH 31.5 27.0 - 34.0 pg 05/03/2023 5:38 AM EST LABORATORY [facility] MCHC 33.4 32.0 - 36.0 g/dL 05/03/2023 5:38 AM EST LABORATORY [facility] RDW 12.4 11.5 - 15.5 % 05/03/2023 5:38 AM EST LABORATORY [facility] PLT 249 140 - 400 K/uL 05/03/2023 5:38 AM EST LABORATORY [facility] MPV 9.8 6.6 - 11.1 fL 05/03/2023 5:38 AM EST LAB[facility]ATORY [facility] [place] nRBCs 0 <=0 /100 WBCs 05/03/2023 5:38 AM EST LAB[facility]ATORY [facility] [place] Blood Venous blood specimen / Unknown Venipuncture / Unknown 05/03/2023 4:51 AM EST 05/03/2023 5:05 AM EST Miri Beth PA-C LAB BLOOD ORDERABLES Performing Organization Address City/State/[facility] [[email or web address]] Co de Phone Number LABORATORY [facility] [place] [address] [place] [address] * HEPARIN, UNFRACTIONATED (05/03/2023 4:51 AM EST) [facility] Heparin, Unfractionated <0.10 <0.10 IU/mL 05/03/2023 5:26 AM EST LAB[facility]ATORY [facility] Comment: Unfractionated therapeutic ranges for Anti Xa activity: For Cardiac/Neurologic treatment: 0.3 to 0.6 IU/mL. For treatment of DVT or Pulmonary Embolism: 0.3 to 0.7 IU/mL. Blood Venous blood specimen / Unknown Venipuncture / Unknown 05/03/2023 4:51 AM EST 05/03/2023 5:05 AM EST Ritu Bowens MD LAB BLOOD ORDERABLES Performing Organization Address [facility]/ZIP Co de Phone Number LABORATORY [facility] [place] [address] [place] [address] * (ABNORMAL) HEPARIN, UNFRACTIONATED (05/02/2023 9:24 PM EST) Heparin, Unfractionated 0.19(H) <0.10 IU/mL 05/02/2023 9:51 PM EST LAB[facility]ATORY [facility] [place] Comment: Unfractionated therapeutic ranges for Anti Xa activity: For Cardiac/Neurologic treatment: 0.3 to 0.6 IU/mL. For treatment of DVT or Pulmonary Embolism: 0.3 to 0.7 IU/mL. Blood Venous blood specimen / Unknown Venipuncture / Unknown 05/02/2023 9:24 PM EST 05/02/2023 9:28 PM EST Ritu Bowens MD LAB BLOOD ORDERABLES Performing Organization Address [facility] de Phone Number LABORATORY [place] [address] [place] [address] * (ABNORMAL) HEPARIN, UNFRACTIONATED (05/02/2023 4:58 AM EST) Heparin, Unfractionated 0.38(H) <0.10 IU/mL 05/02/2023 5:49 AM EST LAB[facility]ATORY [facility] [place] Comment: Unfractionated therapeutic ranges for Anti Xa activity: For Cardiac/Neurologic treatment: 0.3 to 0.6 IU/mL. For treatment of DVT or Pulmonary Embolism: 0.3 to 0.7 IU/mL. Blood Venous blood specimen / Unknown Venipuncture / Unknown 05/02/2023 4:58 AM EST 05/02/2023 5:04 AM EST Ritu Bowens MD LAB BLOOD ORDERABLES Performing Organization Address [facility] [[email or web address]] Co de Phone Number LAB[facility]ATORY [facility] [place] [address] [place] [address] * PT INR (05/02/2023 4:58 AM EST) Prothrombin Time 14.5 11.6 - 15.2 seconds 05/02/2023 5:48 AM EST LAB[facility]ATORY [facility] [place] INR 1.1 0.8 - 1.2 05/02/2023 5:48 AM EST LAB[facility]ATORY [facility] [place] Blood Venous blood specimen / Unknown Venipuncture / Unknown 05/02/2023 4:58 AM EST 05/02/2023 5:04 AM EST Narrative LABORATORY C - 05/02/2023 5:48 AM EST Warfarin Therapy INR: 2.0-3.0 conventional anticoagulation INR: 2.5-3.5 high intensity anticoagulation Ritu Bowens MD LAB BLOOD ORDERABLES Performing Organization Address City/[facility]/ZIP Co de Phone Number LAB[facility]ATORY [facility] [place] [address] [place] [address] * CALCIUM, IONIZED (05/02/2023 4:58 AM EST) Calcium, Ionized 1.18 1.13 - 1.32 mmol/L 05/02/2023 5:23 AM EST LAB[facility]ATORY [facility] [place] Comment:This test was develo ped and its performance characteristics dtermined by [employer]. It has not been cleared or approved by the [place] Food and Drug Administration Blood Venous blood specimen / Unknown Venipuncture / Unknown 05/02/2023 4:58 AM EST 05/02/2023 5:04 AM EST Miri Beth PA-C LAB BLOOD ORDERABLES LAB[facility]ATORY [facility] [place] [address] [place] [address] * PHOSPHORUS (05/02/2023 4:58 AM EST) Phosphorus 3.3 2.5 - 4.8 mg/dL 05/02/2023 5:35 AM EST LAB[facility]ATORY [facility] [place] Blood Venous blood specimen / Unknown Venipuncture / Unknown 05/02/2023 4:58 AM EST 05/02/2023 5:04 AM EST Miri Hopson Kirit ESCOTO-C LAB BLOOD ORDERABLES Performing Organization Address City/[facility]/ZIP Co de Phone Number LABORATORY [facility] [address] [place] [address] * MAGNESIUM (05/02/2023 4:58 AM EST) Magnesium 2.1 1.5 - 2.6 mg/dL 05/02/2023 5:35 AM EST LAB[facility]ATORY [facility] Blood Venous blood specimen / Unknown Venipuncture / Unknown 05/02/2023 4:58 AM EST 05/02/2023 5:04 AM EST Miri Hopson Kirit ESCOTO-C LAB BLOOD ORDERABLES Performing Organization Address [facility] [[email or web address]] Co de Phone Number LAB[facility]ATORY [facility] [place] [address] [place] [address] * BASIC METABOLIC PANEL (05/02/2023 4:58 AM EST) BUN 10 6 - 20 mg/dL 05/02/2023 5:35 AM EST LAB[facility] Creatinine 0.9 0.6 - 1.2 mg/dL 05/02/2023 5:35 AM EST LAB[facility] Estimated Glomerular Filtration Rate >90 >=60 mL/min 05/02/2023 5:35 AM EST LAB[facility] Comment:eGFR is calculated b ased on the CKD-EPI 2020 equation Sodium 137 135 - 146 mmol/L 05/02/2023 5:35 AM EST LAB[facility] Potassium 3.9 3.5 - 5.1 mmol/L 05/02/2023 5:35 AM EST [facility] Chloride 101 98 - 107 mmol/L 05/02/2023 5:35 AM EST [facility] CO2 25 22 - 32 mmol/L 05/02/2023 5:35 AM EST [facility] Anion Gap 11 7 - 15 mmol/L 05/02/2023 5:35 AM EST [facility] Glucose 113 70 - 120 mg/dL 05/02/2023 5:35 AM EST [facility] Calcium 8.5 8.4 - 10.2 mg/dL 05/02/2023 5:35 AM EST [facility] Blood Venous blood specimen / Unknown Venipuncture / Unknown 05/02/2023 4:58 AM EST 05/02/2023 5:04 AM EST Miri Hopson Kirit ESCOTO-Katty LAB BLOOD ORDERABLES [facility] [address] [place] [address] * (ABNORMAL) CBC (05/02/2023 4:58 AM EST) WBC 8.85 4.00 - 10.80 K/uL 05/02/2023 5:16 AM EST LAB[facility] RBC 4.06 4.50 - 5.25 M/uL 05/02/2023 5:16 AM EST LAB[facility] HGB 12.8(L) 14.0 - 16.8 g/dL 05/02/2023 5:16 AM EST [facility] HCT 37.3(L) 40.0 - 48.4 % 05/02/2023 5:16 AM EST LAB[facility] MCV 91.9 82.0 - 99.5 fL 05/02/2023 5:16 AM EST LAB[facility] MCH 31.5 27.0 - 34.0 pg 05/02/2023 5:16 AM EST [facility] MCHC 34.3 32.0 - 36.0 g/dL 05/02/2023 5:16 AM EST [facility] RDW 12.6 11.5 - 15.5 % 05/02/2023 5:16 AM EST [facility] PLT 225 140 - 400 K/uL 05/02/2023 5:16 AM EST [facility] MPV 9.5 6.6 - 11.1 fL 05/02/2023 5:16 AM EST LAB[facility] nRBCs 0 <=0 /100 WBCs 05/02/2023 5:16 AM EST LAB[facility] Blood Venous blood specimen / Unknown Venipuncture / Unknown 05/02/2023 4:58 AM EST 05/02/2023 5:04 AM EST Miri ESCOTO-C LAB BLOOD ORDERABLES Performing Organization Address [facility] [[email or web address]] Co de Phone Number LAB[facility]ATORY [facility] [place] [address] [place] [address] * MRSA SCREEN, PCR (05/01/2023 8:07 PM EST) MRSA PCR Result Negative Negative 11:05 PM EST LAB[facility]ATORY [facility] Comment:No Methicillin resis tant Staphylococcus aureus detected by PCR (amplified probe). Upper Respiratory (Nares, Bilateral) Non-blood Collection / Unknown 05/01/2023 8:07 PM EST 05/01/2023 8:49 PM EST Han ESCOTO-C LAB MICRO - GE NERAL ORDERABLES Performing Organization Address [facility] de Phone Number LABORATORY [facility] [place] [address] [place] [address] * (ABNORMAL) CULTURE, RESPIRATORY, LOWER, AEROBIC (05/01/2023 9:45 AM EST) Pathologist [facility] Culture Growth Moderate growth normal jose 05/03/2023 7:55 AM EST LAB[facility]ATORY [facility] Stain Description Purulent specimen, >25 neutrophils/low power microscopic field.(A) 05/03/2023 7:55 AM EST LAB[facility] Stain Description Many Polymorphonuclear leukocytes(A) 05/03/2023 7:55 AM EST LAB[facility] Stain Description Many Gram negative bacilli(A) 05/03/2023 7:55 AM EST LAB[facility] Stain Description Many Gram positive cocci(A) 05/03/2023 7:55 AM EST LAB[facility] Stain Description Occasional Gram positive bacilli(A) 05/03/2023 7:55 AM EST LAB[facility]ORY [facility] Lower Respiratory Specimen from trachea obtained by aspiration / Unknown Non-blood Collection / Unknown 05/01/2023 9:45 AM EST 05/01/2023 10:03 AM EST Ritu Bowens MD LAB MICRO - GENERAL ORDERABLES Performing Organization Address [facility] [[email or web address]] Co de Phone Number LAB[facility]ATORY [facility] [place] [address] [place] [address] * PT INR (05/01/2023 5:12 AM EST) Prothrombin Time 14.2 11.6 - 15.2 seconds 05/01/2023 5:37 AM EST LAB[facility]ATORY [facility] [place] INR 1.1 0.8 - 1.2 05/01/2023 5:37 AM EST LAB[facility]ATORY [facility] [place] Blood Venous blood specimen / Unknown Venipuncture / Unknown 05/01/2023 5:12 AM EST 05/01/2023 5:25 AM EST Narrative LABORATORY C - 05/01/2023 5:37 AM EST Warfarin Therapy INR: 2.0-3.0 conventional anticoagulation INR: 2.5-3.5 high intensity anticoagulation Ritu Bowens MD LAB BLOOD ORDERABLES Performing Organization Address City/[facility]/ZIP Co de Phone Number LAB[facility]ATORY [facility] [place] [address] [place] [address] * CALCIUM, IONIZED (05/01/2023 5:12 AM EST) Calcium, Ionized 1.16 1.13 - 1.32 mmol/L 05/01/2023 5:54 AM EST LAB[facility]ATORY [facility] [place] Comment:This test was develo ped and its performance characteristics dtermined by [employer]. It has not been cleared or approved by the [place] Food and Drug Administration Blood Venous blood specimen / Unknown Venipuncture / Unknown 05/01/2023 5:12 AM EST 05/01/2023 5:25 AM EST Miri Beth PA-C LAB BLOOD ORDERABLES LAB[facility]ATORY [facility] [place] [address] [place] [address] * (ABNORMAL) PHOSPHORUS (05/01/2023 5:12 AM EST) Phosphorus 2.4(L) 2.5 - 4.8 mg/dL 05/01/2023 5:54 AM EST LAB[facility]ATORY [facility] [place] Blood Venous blood specimen / Unknown Venipuncture / Unknown 05/01/2023 5:12 AM EST 05/01/2023 5:25 AM EST Miri ESCOTO-C LAB BLOOD ORDERABLES Performing Organization Address City/[facility]/ZIP Co de Phone Number LABORATORY [facility] [address] [place] [address] * MAGNESIUM (05/01/2023 5:12 AM EST) Magnesium 2.1 1.5 - 2.6 mg/dL 05/01/2023 5:54 AM EST LAB[facility]ATORY [facility] Blood Venous blood specimen / Unknown Venipuncture / Unknown 05/01/2023 5:12 AM EST 05/01/2023 5:25 AM EST Miri ESCOTO-C LAB BLOOD ORDERABLES Performing Organization Address [facility] [[email or web address] Co de Phone Number LAB[facility]ATORY [facility] [place] [address] [place] [address] * BASIC METABOLIC PANEL (05/01/2023 5:12 AM EST) BUN 9 6 - 20 mg/dL 05/01/2023 5:54 AM EST LAB[facility]ORY [facility] Creatinine 0.8 0.6 - 1.2 mg/dL 05/01/2023 5:54 AM EST LAB[facility] Estimated Glomerular Filtration Rate >90 >=60 mL/min 05/01/2023 5:54 AM EST LAB[facility]ORY [facility] Comment:eGFR is calculated b ased on the CKD-EPI 2020 equation Sodium 136 135 - 146 mmol/L 05/01/2023 5:54 AM EST LAB[facility] Potassium 3.7 3.5 - 5.1 mmol/L 05/01/2023 5:54 AM EST [facility] Chloride 100 98 - 107 mmol/L 05/01/2023 5:54 AM EST [facility] CO2 26 22 - 32 mmol/L 05/01/2023 5:54 AM EST [facility] Anion Gap 10 7 - 15 mmol/L 05/01/2023 5:54 AM EST [facility] Glucose 104 70 - 120 mg/dL 05/01/2023 5:54 AM EST [facility] Calcium 8.6 8.4 - 10.2 mg/dL 05/01/2023 5:54 AM EST LAB[facility] Blood Venous blood specimen / Unknown Venipuncture / Unknown 05/01/2023 5:12 AM EST 05/01/2023 5:25 AM EST Miri Mark Anthony Beth PA-C LAB BLOOD ORDERABLES Performing Organization Address City/State/[facility] [[email or web address]] Co de Phone Number LAB[facility]ATORY [facility] [address], [place] [id number] * (ABNORMAL) CBC (05/01/2023 5:12 AM EST) WBC 9.36 4.00 - 10.80 K/uL 05/01/2023 5:36 AM EST LAB[facility] RBC 4.23 4.50 - 5.25 M/uL 05/01/2023 5:36 AM EST LAB[facility] HGB 13.2(L) 14.0 - 16.8 g/dL 05/01/2023 5:36 AM EST LAB[facility] HCT 39.7(L) 40.0 - 48.4 % 05/01/2023 5:36 AM EST LAB[facility] MCV 93.9 82.0 - 99.5 fL 05/01/2023 5:36 AM EST LAB[facility] MCH 31.2 27.0 - 34.0 pg 05/01/2023 5:36 AM EST [facility] MCHC 33.2 32.0 - 36.0 g/dL 05/01/2023 5:36 AM EST [facility] RDW 12.7 11.5 - 15.5 % 05/01/2023 5:36 AM EST LAB[facility] PLT 214 140 - 400 K/uL 05/01/2023 5:36 AM EST [facility] MPV 9.4 6.6 - 11.1 fL 05/01/2023 5:36 AM EST [facility] nRBCs 0 <=0 /100 WBCs 05/01/2023 5:36 AM EST [facility] Blood Venous blood specimen / Unknown Venipuncture / Unknown 05/01/2023 5:12 AM EST 05/01/2023 5:25 AM EST Miri Beth PA-C LAB BLOOD ORDERABLES Performing Organization Address [facility] de Phone Number LABORATORY [facility] [place] [address] [place] [address] * (ABNORMAL) HEPARIN, UNFRACTIONATED (05/01/2023 5:12 AM EST) Heparin, Unfractionated 0.56(H) <0.10 IU/mL 05/01/2023 5:38 AM EST LAB[facility]ATORY [facility] [place] Comment: Unfractionated therapeutic ranges for Anti Xa activity: For Cardiac/Neurologic treatment: 0.3 to 0.6 IU/mL. For treatment of DVT or Pulmonary Embolism: 0.3 to 0.7 IU/mL. Blood Venous blood specimen / Unknown Venipuncture / Unknown 05/01/2023 5:12 AM EST 05/01/2023 5:25 AM EST Janice Gomez DO LAB BLOOD ORDERABLES Performing Organization Address [facility] de Phone Number LAB[facility]ATORY [facility] [place] [address] [place] [address] * (ABNORMAL) HEPARIN, UNFRACTIONATED (04/30/2023 1:54 PM EST) Heparin, Unfractionated 0.54(H) <0.10 IU/mL 04/30/2023 2:15 PM EST LAB[facility]ATORY [facility] [place] Comment: Unfractionated therapeutic ranges for Anti Xa activity: For Cardiac/Neurologic treatment: 0.3 to 0.6 IU/mL. For treatment of DVT or Pulmonary Embolism: 0.3 to 0.7 IU/mL. Blood Venous blood specimen / Unknown Venipuncture / Unknown 04/30/2023 1:54 PM EST 04/30/2023 1:59 PM EST Ritu Bowens MD LAB BLOOD ORDERABLES Performing Organization Address [facility] [[email or web address]] Co de Phone Number LABORATORY [facility] [place] [address] [place] [address] * (ABNORMAL) CBC (04/30/2023 12:17 PM EST) WBC 10.89(H) 4.00 - 10.80 K/uL 04/30/2023 12:41 PM EST LAB[facility]ORY [facility] RBC 4.25 4.50 - 5.25 M/uL 04/30/2023 12:41 PM EST LAB[facility] HGB 13.2(L) 14.0 - 16.8 g/dL 04/30/2023 12:41 PM EST LAB[facility] HCT 40.1 40.0 - 48.4 % 04/30/2023 12:41 PM EST LAB[facility] MCV 94.4 82.0 - 99.5 fL 04/30/2023 12:41 PM EST LAB[facility] MCH 31.1 27.0 - 34.0 pg 04/30/2023 12:41 PM EST LAB[facility] MCHC 32.9 32.0 - 36.0 g/dL 04/30/2023 12:41 PM EST LAB[facility] RDW 12.6 11.5 - 15.5 % 04/30/2023 12:41 PM EST LAB[facility] PLT 230 140 - 400 K/uL 04/30/2023 12:41 PM EST LAB[facility] MPV 9.6 6.6 - 11.1 fL 04/30/2023 12:41 PM EST LABORATORY [facility] nRBCs 0 <=0 /100 WBCs 04/30/2023 12:41 PM EST LABORATORY [facility] Blood Venous blood specimen / Unknown Venipuncture / Unknown 04/30/2023 12:17 PM EST 04/30/2023 12:34 PM EST Ritu Bowens MD LAB BLOOD ORDERABLES LAB[facility]ATORY [facility] [address] [place] [address] * (ABNORMAL) HEPARIN, UNFRACTIONATED (04/30/2023 7:34 AM EST) Heparin, Unfractionated 0.66(H) <0.10 IU/mL 04/30/2023 8:07 AM EST LAB[facility]ATORY [facility] Comment: Unfractionated therapeutic ranges for Anti Xa activity: For Cardiac/Neurologic treatment: 0.3 to 0.6 IU/mL. For treatment of DVT or Pulmonary Embolism: 0.3 to 0.7 IU/mL. Blood Venous blood specimen / Unknown Venipuncture / Unknown 04/30/2023 7:34 AM EST 04/30/2023 7:47 AM EST Janice Gomez DO LAB BLOOD ORDERABLES Performing Organization Address [facility] de Phone Number LABORATORY [address] [address] * PT INR (04/30/2023 6:01 AM EST) Prothrombin Time 15.2 11.6 - 15.2 seconds 04/30/2023 6:40 AM EST LABORATORY [facility] [place] INR 1.2 0.8 - 1.2 04/30/2023 6:40 AM EST LABORATORY [facility] [place] Blood Venous blood specimen / Unknown Venipuncture / Unknown 04/30/2023 6:01 AM EST 04/30/2023 6:12 AM EST Narrative LABORATORY [facility] [place] - 04/30/2023 6:40 AM EST Warfarin Therapy INR: 2.0-3.0 conventional anticoagulation INR: 2.5-3.5 high intensity anticoagulation Ritu Bowens MD LAB BLOOD ORDERABLES Performing Organization Address [facility] de Phone Number LABORATORY [address] [address] * CALCIUM, IONIZED (04/30/2023 6:01 AM EST) Calcium, Ionized 1.17 1.13 - 1.32 mmol/L 04/30/2023 6:34 AM EST LAB[facility]ATORY [facility] [place] Comment:This test was develo ped and its performance characteristics dtermined by [employer]. It has not been cleared or approved by the [place] Food and Drug Administration Blood Venous blood specimen / Unknown Venipuncture / Unknown 04/30/2023 6:01 AM EST 04/30/2023 6:11 AM EST Miri M Ombongi PA-C LAB BLOOD ORDERABLES Performing Organization Address [facility]/ZIP Co de Phone Number LABORATORY [facility] [place] [address] [place] [address] * (ABNORMAL) PHOSPHORUS (04/30/2023 6:01 AM EST) Phosphorus 2.0(L) 2.5 - 4.8 mg/dL 04/30/2023 6:41 AM EST LAB[facility]ATORY [facility] Blood Venous blood specimen / Unknown Venipuncture / Unknown 04/30/2023 6:01 AM EST 04/30/2023 6:12 AM EST Miri ESCOTO-C LAB BLOOD ORDERABLES Performing Organization Address [facility] [[email or web address]] Co de Phone Number LABORATORY [facility] [place] [address] [place] [address] * MAGNESIUM (04/30/2023 6:01 AM EST) Magnesium 2.1 1.5 - 2.6 mg/dL 04/30/2023 6:41 AM EST LAB[facility]ATORY [facility] [place] Blood Venous blood specimen / Unknown Venipuncture / Unknown 04/30/2023 6:01 AM EST 04/30/2023 6:12 AM EST Miri ESCOTO-C LAB BLOOD ORDERABLES Performing Organization Address City/[facility] [[email or web address]] Co de Phone Number LABORATORY [facility] [place] [address] [place] [address] * (ABNORMAL) BASIC METABOLIC PANEL (04/30/2023 6:01 AM EST) BUN 10 6 - 20 mg/dL 04/30/2023 6:41 AM EST LAB[facility]ATORY [facility] Creatinine 0.9 0.6 - 1.2 mg/dL 04/30/2023 6:41 AM EST LABORATORY [facility] Estimated Glomerular Filtration Rate >90 >=60 mL/min 04/30/2023 6:41 AM EST LAB[facility]ORY [facility] Comment:eGFR is calculated b ased on the CKD-EPI 2020 equation Sodium 133(L) 135 - 146 mmol/L 04/30/2023 6:41 AM EST LAB[facility] Potassium 4.1 3.5 - 5.1 mmol/L 04/30/2023 6:41 AM EST LAB[facility] Chloride 99 98 - 107 mmol/L 04/30/2023 6:41 AM EST LAB[facility] CO2 26 22 - 32 mmol/L 04/30/2023 6:41 AM EST LAB[facility] Anion Gap 8 7 - 15 mmol/L 04/30/2023 6:41 AM EST [facility] Glucose 118 70 - 120 mg/dL 04/30/2023 6:41 AM EST [facility] Calcium 8.7 8.4 - 10.2 mg/dL 04/30/2023 6:41 AM EST [facility] Blood Venous blood specimen / Unknown Venipuncture / Unknown 04/30/2023 6:01 AM EST 04/30/2023 6:12 AM EST Miri Beth PA-C LAB BLOOD ORDERABLES Performing Organization Address City/State/[facility] [[email or web address]] Co de Phone Number [facility] [address] [place] [address] * (ABNORMAL) CBC (04/30/2023 6:01 AM EST) WBC 11.06(H) 4.00 - 10.80 K/uL 04/30/2023 6:25 AM EST [facility] RBC 4.15 4.50 - 5.25 M/uL 04/30/2023 6:25 AM EST [facility] HGB 13.1(L) 14.0 - 16.8 g/dL 04/30/2023 6:25 AM EST [facility] HCT 38.8(L) 40.0 - 48.4 % 04/30/2023 6:25 AM EST [facility] MCV 93.5 82.0 - 99.5 fL 04/30/2023 6:25 AM EST [facility] MCH 31.6 27.0 - 34.0 pg 04/30/2023 6:25 AM EST [facility] MCHC 33.8 32.0 - 36.0 g/dL 04/30/2023 6:25 AM EST [facility] RDW 12.6 11.5 - 15.5 % 04/30/2023 6:25 AM EST [facility]ORY [facility] [place] PLT 213 140 - 400 K/uL 04/30/2023 6:25 AM EST [facility] [place] MPV 9.2 6.6 - 11.1 fL 04/30/2023 6:25 AM EST [facility] [place] nRBCs 0 <=0 /100 WBCs 04/30/2023 6:25 AM EST [facility] [place] Blood Venous blood specimen / Unknown Venipuncture / Unknown 04/30/2023 6:01 AM EST 04/30/2023 6:12 AM EST Miri Beth PA-C LAB BLOOD ORDERABLES Performing Organization Address [facility] [[email or web address]] Co de Phone Number LABORATORY [address] [phone] * (ABNORMAL) HEPARIN, UNFRACTIONATED (04/30/2023 12:54 AM EST) [facility] Heparin, Unfractionated 0.73(H) <0.10 IU/mL 04/30/2023 1:16 AM EST LABORATORY [facility] [place] Comment: Unfractionated therapeutic ranges for Anti Xa activity: For Cardiac/Neurologic treatment: 0.3 to 0.6 IU/mL. For treatment of DVT or Pulmonary Embolism: 0.3 to 0.7 IU/mL. Blood Venous blood specimen / Unknown Venipuncture / Unknown 04/30/2023 12:54 AM EST 04/30/2023 12:59 AM EST Janice Gomez DO LAB BLOOD ORDERABLES Performing Organization Address [facility] [[email or web address]] Co de Phone Number LABORATORY [address] [address] * XR ABDOMEN 1 VIEW (04/29/2023 4:05 PM EST) Anatomical Region Laterality Modality Abdomen, Pelvis Computed Radiogr aphy 04/29/2023 4:14 PM EST Impressions 04/29/2023 4:11 PM EST IMPRESSION 1. Enteric tube terminates in the mid stomach. 2. Prominent loops of bowel in the central abdomen, nonspecific. Given the passage of the oral contrast from the concurrent esophagram, obstruction or ileus seems less likely and this could be physiologic. Narrative 04/29/2023 4:11 PM EST EXAM XR ABDOMEN 1 VIEW - 04/29/2023 4:05 pm HISTORY NGT placement TECHNIQUE Single portable semi upright view the chest submitted for interpretation. COMPARISON None FINDINGS Enteric tube terminates in the stomach. Distended loops of small bowel noted within the central abdomen, partially imaged, nonspecific. Linear opacities in the lung bases, left greater than right, favor atelectasis or scarring. Degenerative changes are present throughout the bony structures. Procedure Note Lionel Rosales MD - 04/29/2023 EXAM XR ABDOMEN 1 VIEW - 04/29/2023 4:05 pm HISTORY NGT placement TECHNIQUE Single portable semi upright view the chest submitted forinterpretation. COMPARISON None FINDINGS Enteric tube terminates in the stomach. Distended loops of small bowelnoted within the central abdomen, partially imaged, nonspecific. Linearopacities in the lung bases, left greater than right, favor atelectasis orscarring. Degenerative changes are present throughout the bonystructures. IMPRESSION IMPRESSION 1. Enteric tube terminates in the mid stomach. 2. Prominent loops of bowel in the central abdomen, nonspecific. Giventhe passage of the oral contrast from the concurrent esophagram,obstruction or ileus seems less likely and this could be physiologic. Ritu Bowens MD RADIOLOGY (RAD GENER AL) * (ABNORMAL) HEPARIN, UNFRACTIONATED (04/29/2023 3:52 PM EST) Heparin, Unfractionated 0.25(H) <0.10 IU/mL 04/29/2023 4:33 PM EST LABORATORY [facility] [place] Comment: Unfractionated therapeutic ranges for Anti Xa activity: For Cardiac/Neurologic treatment: 0.3 to 0.6 IU/mL. For treatment of DVT or Pulmonary Embolism: 0.3 to 0.7 IU/mL. Blood Venous blood specimen / Unknown Venipuncture / Unknown 04/29/2023 3:52 PM EST 04/29/2023 3:57 PM EST Ritu Bowens MD LAB BLOOD ORDERABLES LAB[facility]ATORY [facility] [place] [address] [place] [address] * (ABNORMAL) CBC (04/29/2023 3:52 PM EST) WBC 13.29(H) 4.00 - 10.80 K/uL 04/29/2023 4:08 PM EST LABORATORY [facility] RBC 4.52 4.50 - 5.25 M/uL 04/29/2023 4:08 PM EST LABORATORY [facility] HGB 14.2 14.0 - 16.8 g/dL 04/29/2023 4:08 PM EST LAB[facility]ATORY [facility] HCT 43.1 40.0 - 48.4 % 04/29/2023 4:08 PM EST LAB[facility]ATORY [facility] MCV 95.4 82.0 - 99.5 fL 04/29/2023 4:08 PM EST LAB[facility]ATORY [facility] MCH 31.4 27.0 - 34.0 pg 04/29/2023 4:08 PM EST LAB[facility]ATORY [facility] MCHC 32.9 32.0 - 36.0 g/dL 04/29/2023 4:08 PM EST LAB[facility]ATORY [facility] RDW 12.7 11.5 - 15.5 % 04/29/2023 4:08 PM EST LAB[facility]ATORY [facility] PLT 220 140 - 400 K/uL 04/29/2023 4:08 PM EST LAB[facility]ATORY [facility] MPV 9.8 6.6 - 11.1 fL 04/29/2023 4:08 PM EST LAB[facility]ATORY [facility] nRBCs 0 <=0 /100 WBCs 04/29/2023 4:08 PM EST LAB[facility]ATORY [facility] Blood Venous blood specimen / Unknown Venipuncture / Unknown 04/29/2023 3:52 PM EST 04/29/2023 3:57 PM EST Ritu Bowens MD LAB BLOOD ORDERABLES LAB[facility]ATORY [facility] [place] [address] [place] [address] * APTT (04/29/2023 3:52 PM EST) aPTT 35 21 - 38 seconds 04/29/2023 4:35 PM EST LABORATORY [facility] Blood Venous blood specimen / Unknown Venipuncture / Unknown 04/29/2023 3:52 PM EST 04/29/2023 3:57 PM EST Narrative LAB[facility]ATORY [facility] [place] - 04/29/2023 4:35 PM EST Anticoagulation may affect testing. Refer to [employer] Test Catalog for a list of effects. Ritu Bowens MD LAB BLOOD ORDERABLES Performing Organization Address [facility] [[email or web address]] Co de Phone Number LABORATORY [address] [address] * PT INR (04/29/2023 3:52 PM EST) Prothrombin Time 13.7 11.6 - 15.2 seconds 04/29/2023 4:34 PM EST LAB[facility]ATORY [facility] [place] INR 1.1 0.8 - 1.2 04/29/2023 4:34 PM EST LAB[facility]ATORY [facility] [place] Blood Venous blood specimen / Unknown Venipuncture / Unknown 04/29/2023 3:52 PM EST 04/29/2023 3:57 PM EST Narrative LAB[facility]ATORY [facility] [place] - 04/29/2023 4:34 PM EST Warfarin Therapy INR: 2.0-3.0 conventional anticoagulation INR: 2.5-3.5 high intensity anticoagulation Ritu Bowens MD LAB BLOOD ORDERABLES Performing Organization Address [facility] Phone Number LABORATORY [address] [address] * FLUORO SWALLOWING FUNCTION W VIDEO CINE (04/29/2023 2:24 PM EST) Anatomical Region Laterality Modality Esoph, Neck Radio Fluoroscop y 04/29/2023 3:09 PM EST Impressions 04/29/2023 5:49 PM EST IMPRESSION No laryngeal penetration or aspiration was seen. Please refer to the complete report from Speech Therapy for complete details of this examination. I have personally reviewed this examination and agree with the resident/fellow physician's interpretation. 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 Barium of varying consistencies was administered to the patient by the speech therapist. Please refer to the complete report from Speech Therapy for complete details of this examination. COMPARISON None. FINDINGS There is a soft tissue mass at the posterior base of the tongue. No laryngeal penetration or aspiration was seen. Procedure Note Ildefonso Medrano MD - 04/29/2023 EXAM FLUORO SWALLOWING FUNCTION W VIDEO CINE - 04/29/2023 2:24 pm HISTORY 67 year old male never smoker with a large base of tongue mass obstructingview of the larynx s/p emergent trach TECHNIQUE Video fluoroscopy was provided during a modified barium swallow performedby Speech Therapy. Barium of varying consistencies was administered tothe patient by the speech therapist. Please refer to the complete reportfrom Speech Therapy for complete details of this examination. COMPARISON None. FINDINGS There is a soft tissue mass at the posterior base of the tongue. Nolaryngeal penetration or aspiration was seen. IMPRESSION IMPRESSION No laryngeal penetration or aspiration was seen. Please refer to the complete report from Speech Therapy for completedetails of this examination. I have personally reviewed this examination and agree with the resident/fellow physician's interpretation. Ritu Bowens MD RAD FLUOROSCOPY * CALCIUM, IONIZED (04/29/2023 4:36 AM EST) Calcium, Ionized 1.16 1.13 - 1.32 mmol/L 04/29/2023 5:02 AM EST LAB[facility]ATORY [facility] [place] Comment:This test was develo ped and its performance characteristics dtermined by [employer]. It has not been cleared or approved by the US Food and Drug Administration Blood Venous blood specimen / Unknown Venipuncture / Unknown 04/29/2023 4:36 AM EST 04/29/2023 4:51 AM EST Miri Beth PA-C LAB BLOOD ORDERABLES LAB[facility]ATORY [facility] [place] [address] [place] [address] * PHOSPHORUS (04/29/2023 4:36 AM EST) Phosphorus 3.0 2.5 - 4.8 mg/dL 04/29/2023 5:21 AM EST LABORATORY [facility] Blood Venous blood specimen / Unknown Venipuncture / Unknown 04/29/2023 4:36 AM EST 04/29/2023 4:51 AM EST Miri Hopson Kirit ESCOTO- LAB BLOOD ORDERABLES Performing Organization Address City/[facility] [[email or web address]] Co de Phone Number LABORATORY [facility] [place] [address] [place] [address] * MAGNESIUM (04/29/2023 4:36 AM EST) Magnesium 2.1 1.5 - 2.6 mg/dL 04/29/2023 5:21 AM EST LAB[facility]ATORY [facility] [place] Blood Venous blood specimen / Unknown Venipuncture / Unknown 04/29/2023 4:36 AM EST 04/29/2023 4:51 AM EST Miri Hopson Kirit ESCOTO- LAB BLOOD ORDERABLES Performing Organization Address [facility] de Phone Number LABORATORY [address] [address] * (ABNORMAL) BASIC METABOLIC PANEL (04/29/2023 4:36 AM EST) BUN 11 6 - 20 mg/dL 04/29/2023 5:21 AM EST LABORATORY [facility] [place] Creatinine 0.8 0.6 - 1.2 mg/dL 04/29/2023 5:21 AM EST LABORATORY [facility] Estimated Glomerular Filtration Rate >90 >=60 mL/min 04/29/2023 5:21 AM EST LABORATORY [facility] Comment:eGFR is calculated b ased on the CKD-EPI 2020 equation Sodium 135 135 - 146 mmol/L 04/29/2023 5:21 AM EST LABORATORY [facility] Potassium 4.3 3.5 - 5.1 mmol/L 04/29/2023 5:21 AM EST LAB[facility]ATORY [facility] Chloride 99 98 - 107 mmol/L 04/29/2023 5:21 AM EST LAB[facility]ATORY [facility] CO2 24 22 - 32 mmol/L 04/29/2023 5:21 AM EST LAB[facility]ATORY [facility] Anion Gap 12 7 - 15 mmol/L 04/29/2023 5:21 AM EST LABORATORY [facility] Glucose 125(H) 70 - 120 mg/dL 04/29/2023 5:21 AM EST LAB[facility]ATORY [facility] Calcium 8.9 8.4 - 10.2 mg/dL 04/29/2023 5:21 AM EST LABORATORY [facility] Blood Venous blood specimen / Unknown Venipuncture / Unknown 04/29/2023 4:36 AM EST 04/29/2023 4:51 AM EST Miri Beth PA-C LAB BLOOD ORDERABLES LAB[facility]ATORY [facility] [place] [address] [place] [address] * (ABNORMAL) CBC (04/29/2023 4:36 AM EST) WBC 12.34(H) 4.00 - 10.80 K/uL 04/29/2023 5:04 AM EST LABORATORY [facility] RBC 4.45 4.50 - 5.25 M/uL 04/29/2023 5:04 AM EST LAB[facility]ATORY [facility] HGB 13.9(L) 14.0 - 16.8 g/dL 04/29/2023 5:04 AM EST LAB[facility]ATORY [facility] HCT 41.5 40.0 - 48.4 % 04/29/2023 5:04 AM EST LAB[facility]ATORY [facility] MCV 93.3 82.0 - 99.5 fL 04/29/2023 5:04 AM EST LAB[facility]ATORY [facility] MCH 31.2 27.0 - 34.0 pg 04/29/2023 5:04 AM EST LAB[facility]ATORY [facility] MCHC 33.5 32.0 - 36.0 g/dL 04/29/2023 5:04 AM EST LAB[facility]ATORY [facility] RDW 12.3 11.5 - 15.5 % 04/29/2023 5:04 AM EST LAB[facility]ATORY [facility] PLT 253 140 - 400 K/uL 04/29/2023 5:04 AM EST LAB[facility]ATORY [facility] MPV 9.4 6.6 - 11.1 fL 04/29/2023 5:04 AM EST LAB[facility]ATORY [facility] nRBCs 0 <=0 /100 WBCs 04/29/2023 5:04 AM EST LAB[facility]ATORY [facility] [place] Blood Venous blood specimen / Unknown Venipuncture / Unknown 04/29/2023 4:36 AM EST 04/29/2023 4:51 AM EST Miri Hopson Kirit CARRENO LAB BLOOD ORDERABLES LABORATORY [facility] [place] [address] [place] [address] * CT CHEST W CONTRAST (04/28/2023 11:32 PM EST) Anatomical Region Laterality Modality Chest, Body, Cardio Computed Fernando ography 04/29/2023 8:00 AM EST Impressions 04/29/2023 7:58 AM EST IMPRESSION 1. Postsurgical changes with tracheostomy tube placement. A few likely infectious/inflammatory right upper lobe ground-glass opacities. 2. No intrathoracic metastases. Narrative 04/29/2023 7:58 AM EST EXAM EXAM: CT CHEST W CONTRAST DATE and TIME: 04/28/2023 11:32 pm HISTORY CLINICAL INFORMATION: s/p emergent trach TECHNIQUE Axial images of the chest were obtained. Sagittal and coronal reformats were submitted. IV contrast: IV contrast was administered. COMPARISON CT neck 04/27/2023 FINDINGS Lines and devices: Tracheostomy tube in place. Lungs and pleura: A few patchy airspace opacities in the right lung. Atelectasis in the lower lobes. No consolidation or pleural effusion. No suspicious pulmonary nodule. Trachea and bronchi: Secretions in the trachea. Interval tracheostomy tube placement. Mediastinum, lui and lymph nodes: Pneumomediastinum, postsurgical. Heart and pericardium: Normal in size. No pericardial effusion. Vessels: Unremarkable. Soft tissues: Unremarkable. Upper abdomen: Left hepatic cyst. A few additional tiny hypodensities are too small to characterize. Bones: Degenerative osseous changes. Procedure Note Sreekanth Stone MD - 04/29/2023 EXAM EXAM: CT CHEST W CONTRAST DATE and TIME: 04/28/2023 11:32 pm HISTORY CLINICAL INFORMATION: s/p emergent trach TECHNIQUE Axial images of the chest were obtained. Sagittal and coronal reformatswere submitted. IV contrast: IV contrast was administered. COMPARISON CT neck 04/27/2023 FINDINGS Lines and devices: Tracheostomy tube in place. Lungs and pleura: A few patchy airspace opacities in the right lung.Atelectasis in the lower lobes. No consolidation or pleural effusion. Nosuspicious pulmonary nodule. Trachea and bronchi: Secretions in the trachea. Interval tracheostomytube placement. Mediastinum, lui and lymph nodes: Pneumomediastinum, postsurgical. Heart and pericardium: Normal in size. No pericardial effusion. Vessels: Unremarkable. Soft tissues: Unremarkable. Upper abdomen: Left hepatic cyst. A few additional tiny hypodensities aretoo small to characterize. Bones: Degenerative osseous changes. IMPRESSION IMPRESSION 1. Postsurgical changes with tracheostomy tube placement. A few likelyinfectious/inflammatory right upper lobe ground-glass opacities. 2. No intrathoracic metastases. Miri Hopson brent PA-C RAD CT * XR CHEST 1 VIEW (04/28/2023 7:47 PM EST) Anatomical Region Laterality Modality Chest Computed Radiogr aphy 04/28/2023 7:56 PM EST Impressions 04/28/2023 7:53 PM EST IMPRESSION 1. Tracheostomy tube in place. 2. Left basilar consolidation could represent atelectasis or sequelae of aspiration pneumonia. Narrative 04/28/2023 7:53 PM EST EXAM XR CHEST 1 VIEW-04/28/2023 7:47 pm HISTORY s/p trach COMPARISON None TECHNIQUE Semi-upright AP view of the chest. FINDINGS Lines/Tubes/Devices: Tracheostomy tube in place. Lungs/Pleura: Left basilar opacity obscuring the left lateral hemidiaphragm. Lungs are otherwise clear. No pleural effusion or discernible pneumothorax. Heart/Mediastinum: Size and contours are within normal limits. Bones/Soft Tissues: No acute osseous finding. Upper Abdomen: Visualized portions are unremarkable. Procedure Note Osmar Manning MD - 04/28/2023 EXAM XR CHEST 1 VIEW-04/28/2023 7:47 pm HISTORY s/p trach COMPARISON None TECHNIQUE Semi-upright AP view of the chest. FINDINGS Lines/Tubes/Devices: Tracheostomy tube in place. Lungs/Pleura: Left basilar opacity obscuring the left lateralhemidiaphragm. Lungs are otherwise clear. No pleural effusion ordiscernible pneumothorax. Heart/Mediastinum: Size and contours are within normal limits. Bones/Soft Tissues: No acute osseous finding. Upper Abdomen: Visualized portions are unremarkable. IMPRESSION IMPRESSION 1. Tracheostomy tube in place. 2. Left basilar consolidation could represent atelectasis or sequelae ofaspiration pneumonia. Miri Beth PA-C RADIOLOGY (RAD GENER AL) * PHOSPHORUS (04/28/2023 7:38 PM EST) Phosphorus 2.8 2.5 - 4.8 mg/dL 04/28/2023 8:28 PM EST LABORATORY [facility] Blood Venous blood specimen / Unknown Venipuncture / Unknown 04/28/2023 7:38 PM EST 04/28/2023 7:56 PM EST Rossi Terry MD LAB BLOOD ORDERABLES LABORATORY [facility] [place] [address] [place] [address] * MAGNESIUM (04/28/2023 7:38 PM EST) Pathologist [facility] Magnesium 1.9 1.5 - 2.6 mg/dL 04/28/2023 8:28 PM EST LABORATORY [facility] Blood Venous blood specimen / Unknown Venipuncture / Unknown 04/28/2023 7:38 PM EST 04/28/2023 7:56 PM EST Rossi Terry MD LAB BLOOD ORDERABLES Performing Organization Address City/State/[facility] [[email or web address]] Co de Phone Number LABORATORY [facility] [place] [address] [place] [address] * (ABNORMAL) BASIC METABOLIC PANEL (04/28/2023 7:38 PM EST) BUN 13 6 - 20 mg/dL 04/28/2023 8:28 PM EST LABORATORY [facility] [place] Creatinine 0.9 0.6 - 1.2 mg/dL 04/28/2023 8:28 PM EST LABORATORY [facility] Estimated Glomerular Filtration Rate >90 >=60 mL/min 04/28/2023 8:28 PM EST LABORATORY [facility] Comment:eGFR is calculated b ased on the CKD-EPI 2020 equation Sodium 138 135 - 146 mmol/L 04/28/2023 8:28 PM EST LABORATORY [facility] Potassium 4.0 3.5 - 5.1 mmol/L 04/28/2023 8:28 PM EST LAB[facility]ATORY [facility] Chloride 102 98 - 107 mmol/L 04/28/2023 8:28 PM EST LAB[facility]ATORY [facility] CO2 24 22 - 32 mmol/L 04/28/2023 8:28 PM EST LAB[facility]ATORY [facility] Anion Gap 12 7 - 15 mmol/L 04/28/2023 8:28 PM EST LAB[facility]ATORY [facility] Glucose 123(H) 70 - 120 mg/dL 04/28/2023 8:28 PM EST LAB[facility]ATORY [facility] Calcium 8.8 8.4 - 10.2 mg/dL 04/28/2023 8:28 PM EST LAB[facility]ATORY [facility] Blood Venous blood specimen / Unknown Venipuncture / Unknown 04/28/2023 7:38 PM EST 04/28/2023 7:56 PM EST Rossi Terry MD LAB BLOOD ORDERABLES LAB[facility]ATORY [facility] [address] [place] [address] * (ABNORMAL) CBC (04/28/2023 7:38 PM EST) WBC 6.17 4.00 - 10.80 K/uL 04/28/2023 8:07 PM EST LABORATORY [facility] RBC 4.28 4.50 - 5.25 M/uL 04/28/2023 8:07 PM EST LABORATORY [facility] HGB 13.2(L) 14.0 - 16.8 g/dL 04/28/2023 8:07 PM EST LAB[facility]ATORY [facility] HCT 40.4 40.0 - 48.4 % 04/28/2023 8:07 PM EST LAB[facility]ATORY [facility] MCV 94.4 82.0 - 99.5 fL 04/28/2023 8:07 PM EST LAB[facility]ATORY [facility] MCH 30.8 27.0 - 34.0 pg 04/28/2023 8:07 PM EST LAB[facility]ATORY [facility] MCHC 32.7 32.0 - 36.0 g/dL 04/28/2023 8:07 PM EST LAB[facility]ATORY [facility] RDW 12.5 11.5 - 15.5 % 04/28/2023 8:07 PM EST LAB[facility]ATORY [facility] PLT 233 140 - 400 K/uL 04/28/2023 8:07 PM EST LAB[facility]ATORY [facility] MPV 9.4 6.6 - 11.1 fL 04/28/2023 8:07 PM EST LAB[facility]ATORY [facility] nRBCs 0 <=0 /100 WBCs 04/28/2023 8:07 PM EST LAB[facility]ATORY [facility] Blood Venous blood specimen / Unknown Venipuncture / Unknown 04/28/2023 7:38 PM EST 04/28/2023 7:56 PM EST Rossi Terry MD LAB BLOOD ORDERABLES Performing Organization Address City/[facility]/ZIP Co de Phone Number LABORATORY [facility] [place] [address] [place] [address] * LACTATE (04/28/2023 7:38 PM EST) Lactate 1.0 0.4 - 2.0 mmol/L 04/28/2023 8:23 PM EST LAB[facility]ATORY [facility] [place] Blood Venous blood specimen / Unknown Venipuncture / Unknown 04/28/2023 7:38 PM EST 04/28/2023 7:56 PM EST Rossi Terry MD LAB BLOOD ORDERABLES LABORATORY [facility] [place] [address] [place] [address] * SURGICAL PATHOLOGY (04/28/2023 6:52 PM EST) Final Diagnosis A. Base of tongue, biopsy: Poorly differentiated carcinoma, consistent with HPV mediated squamous cell carcinoma, see comment. 05/06/2023 12:18 PM EST LABORATORY [facility] Final Diagnosis Comment Microscopic evaluation shows an ulcerated infiltrative malignant neoplasm composed of large atypical cells with prominent nuclear pleomorphism and mitotic activity. A distinct in-situ component is not identified within the submitted tissue. Immunohistochemical stains were performed with adequate control on block A2. The tumor cells are positive for AE1/3 (weak), CK5/6, and p63. S100 shows focal positivity in the tumor cells. Rare cells are positive for p40. Tumor cells show strong positivity for p16. Immunohistochemical stains for synaptophysin, CK7, HMB-45, Pawling-1, NUT-1, and TTF-1 are negative. In-situ hybridization with adequate controls is positive for high-risk HPV. In-situ hybridization for EBV shows high background staining; however, tumor cells appear negative. SMARCA4 and SMARCA2 are retained. Overall, the histologic appearance and immunohistochemical profile are consistent with a poorly differentiated carcinoma, consistent with HPV mediated squamous cell carcinoma. Clinical and radiologic correlation is recommended. PDL1 testing will be performed and the results will be reported in an addendum. 05/06/2023 12:18 PM EST LABORATORY [facility] [place] Gross Description A. Tongue. Received fresh with a container labeled with "Jacob Sheldon [facility]", "[id number]", "[id number]" and " base of tongue". The specimen consists of a 3.5 x 2.5 x 1.5 cm aggregate of lyn-pink to yellow soft friable necrotic tissue. The specimen is serially sectioned and entirely submitted in 2 cassettes Gross By: CL 05/06/2023 12:18 PM EST LABORATORY [facility] [place] Microscopic Description Microscopic examination performed. 05/06/2023 12:18 PM EST LABORATORY [facility] [place] Sign Out Location Pathologist sign out performed at [facility] ([facility]), [address] [place] [address]. 05/06/2023 12:18 PM EST LABORATORY [facility] [place] Photographic images and diagrams represent hernández findings in this case; they are not intended to replace a complete review of the final diagnostic report. The following statement applies to Flow Cytometry, Histology, In situ Hybridization Assays and Molecular Genetics. This test was developed and performed at [facility] and its performance characteristics determined by [employer]. It has not been cleared or approved by the U.S. Food and Drug Administration. The FDA has determined that such clearance or approval is not necessary. This test is used for clinical purposes. It should not be regarded as investigational or for research. Special stains, including histochemical stains, and studies using immunologic and ALONSO methodology (where applicable) are performed with appropriate positive and negative control reactions. 05/06/2023 12:18 PM EST LABORATORY [facility] [place] Tissue Specimen from tongue / Unknown 04/28/2023 6:52 PM EST 04/28/2023 7:18 PM EST Kaci Rodriguez MD LAB PATHOLOGY OR DERABLES LABORATORY [facility] [place] [address] [place] [address] * SARS-COV-2 (COVID-19), NAAT (04/28/2023 6:18 PM EST) SARS-CoV-2 (COVID-19) Result Negative Negative 04/28/2023 8:23 PM EST LABORATORY [facility] [place] Comment: 2019 Novel Coronavirus not detected. This express test was developed and its performance characteristics determined by [employer]. It has not been cleared or approved by the U.S. Food and Drug Administration (FDA). FDA does not require this test to go thru premarket FDA review. This test is used for clinical purposes. It should not be regarded as investigational or for research. This laboratory is certified under the Clinical Laboratory Improvement Amendments (CLIA) as qualified to perform high complexity clinical laboratory testing. This test is a nucleic acid amplification test (NAAT), a reverse transcriptase polymerase chain reaction (RT-PCR) test, or a Centers for Disease Control- acceptable equivalent. The test is performed in a high complexity Clinical Laboratory Improvement Amendments-(CLIA) certified laboratory. The test is acceptable for SARS-CoV-2 diagnosis, surveillance, and travel within the [place] and to most countries. Please check with local testing authorities about requirements before travel. The validation of bronchial specimens, tracheal aspirates, and sputum for this assay was developed and performance characteristics determined by [employer]. The validation of alternate specimen types has not been cleared or approved by the U.S. Food and Drug Administration (FDA). It has been determined that such clearance is not necessary. Upper Respiratory Mid-turbinate nasal swab / Unknown Non-blood Collection / Unknown 04/28/2023 6:18 PM EST 04/28/2023 6:39 PM EST Rafael Aminah Niyah DO LAB MICRO - GE NERAL ORDERABLES Performing Organization Address City/[facility]/ZIP Co de Phone Number LAB[facility]ATORY [facility] [address] [place] [address] * GLUCOSE METER, POINT OF CARE (04/28/2023 6:01 PM EST) Glucose Meter 101 70 - 120 mg/dL 04/28/2023 6:05 PM EST [facility] 4tiitoo [facility] Blood Whole blood specimen / Unknown 04/28/2023 6:01 PM EST 04/28/2023 6:05 PM EST Janice Gomez DO LAB POINT OF CARE TE ST DOCKED DEVICE UNSOLICITED RESULTS Performing Organization Address [facility] [email or web address]] Co de Phone Number [facility] [address] [place] [address] * EKG (04/28/2023 5:49 PM EST) 04/28/2023 5:49 PM EST Narrative Procedure Note Alvin Garduno MD - 04/28/2023 5:49 PM EST REASON FOR STUDY: PRE OP CONCLUSIONS: Normal sinus rhythm Normal ECG When compared with ECG of 08-FEB-2001 10:40, Questionable change in The axis Ventricular Rate: 75 Atrial Rate: 75 VA Interval: 164 QRS Duration: 98 QT/QTc: 396/442 ms P-R-T [place]: 51 : -3 : 29 degrees Miri Beth PA-C EKG Performing Organization Address City/[facility] [[email or web address]] Co de Phone Number [facility] * ABO/RH (04/28/2023 5:49 PM EST) ABO O 04/28/2023 7:45 PM EST [facility] BLOOD BANK Rh Positive 04/28/2023 7:45 PM EST [facility] BLOOD BANK Blood Venous blood specimen / Unknown Venipuncture / Unknown 04/28/2023 5:49 PM EST 04/28/2023 6:27 PM EST Rafael Linder DO LAB BLOOD BANK TEST ORDERABLES [facility] BLOOD BANK [address] [place] [address] * DIFFERENTIAL, AUTOMATED (04/28/2023 5:49 PM EST) WBC 9.52 4.00 - 10.80 K/uL 04/28/2023 7:04 PM EST [facility] Neutrophils % 64.1 40.0 - 75.0 % 04/28/2023 7:04 PM EST [facility] Lymphocytes % 24.9 18.0 - 42.0 % 04/28/2023 7:04 PM EST [facility] Monocytes % 9.1 1.0 - 11.0 % 04/28/2023 7:04 PM EST [facility] Eosinophils % 1.3 0.0 - 6.0 % 04/28/2023 7:04 PM EST [facility] Basophils % 0.3 0.0 - 2.0 % 04/28/2023 7:04 PM EST [facility] Immature Granulocytes % 0.3 0.0 - 2.0 % 04/28/2023 7:04 PM EST [facility] Absolute Neutrophils 6.10 1.80 - 7.70 K/uL 04/28/2023 7:04 PM EST [facility] Absolute Lymphocytes 2.37 1.00 - 4.80 K/ul 04/28/2023 7:04 PM EST [facility] Absolute Monocytes 0.87 0.00 - 1.10 K/uL 04/28/2023 7:04 PM EST [facility] Absolute Eosinophils 0.12 0.00 - 0.70 K/uL 04/28/2023 7:04 PM EST [facility] Absolute Basophils 0.03 0.00 - 0.20 K/uL 04/28/2023 7:04 PM EST [facility] Absolute Immature Granulocytes 0.03 0.00 - 0.20 K/uL 04/28/2023 7:04 PM EST [facility] Blood Venous blood specimen / Unknown Venipuncture / Unknown 04/28/2023 5:49 PM EST 04/28/2023 6:27 PM EST Rafael Linder DO LAB BLOOD [facility]DE [facility] [address] [place] [facility] [place] [address] * CBC (04/28/2023 5:49 PM EST) WBC 9.52 4.00 - 10.80 K/uL 04/28/2023 7:04 PM EST [facility] RBC 4.78 4.50 - 5.25 M/uL 04/28/2023 7:04 PM EST [facility] HGB 15.0 14.0 - 16.8 g/dL 04/28/2023 7:04 PM EST [facility] HCT 45.3 40.0 - 48.4 % 04/28/2023 7:04 PM EST [facility] MCV 94.8 82.0 - 99.5 fL 04/28/2023 7:04 PM EST [facility] MCH 31.4 27.0 - 34.0 pg 04/28/2023 7:04 PM EST [facility] MCHC 33.1 32.0 - 36.0 g/dL 04/28/2023 7:04 PM EST [facility] RDW 12.6 11.5 - 15.5 % 04/28/2023 7:04 PM EST [facility] PLT 304 140 - 400 K/uL 04/28/2023 7:04 PM EST [facility] MPV 10.0 6.6 - 11.1 fL 04/28/2023 7:04 PM EST [facility] nRBCs 0 <=0 /100 WBCs 04/28/2023 7:04 PM EST [facility] Blood Venous blood specimen / Unknown Venipuncture / Unknown 04/28/2023 5:49 PM EST 04/28/2023 6:27 PM EST Rafaelluciana Leonardtha DO LAB BLOOD ORDBreanna CHING [facility] [address] [place] [address] * TYPE AND SCREEN (04/28/2023 5:49 PM EST) ABO O 04/28/2023 7:10 PM EST [facility] BLOOD BANK Rh Positive 04/28/2023 7:10 PM EST [facility] BLOOD BANK Red Blood Cell Antibody Screen Negative 04/28/2023 7:10 PM EST LAB[facility] BLOOD BANK Specimen Expiration Date 05/01/2023 23:59 04/28/2023 7:10 PM EST [facility] BLOOD BANK Blood Venous blood specimen / Unknown Venipuncture / Unknown 04/28/2023 5:49 PM EST 04/28/2023 6:27 PM EST Rafael Linder DO LAB BLOOD BANK TEST ORDERABLES Performing Organization Address City/[facility]/ZIP Co de Phone Number [facility] BLOOD BANK [address] [place] [address] * PT INR (04/28/2023 5:49 PM EST) Prothrombin Time 13.1 11.6 - 15.2 seconds 04/28/2023 6:51 PM EST [facility] INR 1.0 0.8 - 1.2 04/28/2023 6:51 PM EST LAB[facility] Blood Venous blood specimen / Unknown Venipuncture / Unknown 04/28/2023 5:49 PM EST 04/28/2023 6:27 PM EST Narrative LAB[facility]ATORY [facility] - 04/28/2023 6:51 PM EST Warfarin Therapy INR: 2.0-3.0 conventional anticoagulation INR: 2.5-3.5 high intensity anticoagulation Rafael Srinivasana DO LAB BLOOD ORDE RABLES LAB[facility]AT[facility] [address] [place] [address] * COMPREHENSIVE METABOLIC PANEL (04/28/2023 5:49 PM EST) BUN 12 6 - 20 mg/dL 04/28/2023 6:49 PM EST [facility] Creatinine 0.9 0.6 - 1.2 mg/dL 04/28/2023 6:49 PM EST [facility] Estimated Glomerular Filtration Rate 89 >=60 mL/min 04/28/2023 6:49 PM EST [facility] Comment:eGFR is calculated b ased on the CKD-EPI 2020 equation Sodium 136 135 - 146 mmol/L 04/28/2023 6:49 PM EST [facility] Potassium 3.7 3.5 - 5.1 mmol/L 04/28/2023 6:49 PM EST [facility] Chloride 101 98 - 107 mmol/L 04/28/2023 6:49 PM EST [facility] CO2 26 22 - 32 mmol/L 04/28/2023 6:49 PM EST [facility] Anion Gap 9 7 - 15 mmol/L 04/28/2023 6:49 PM EST [facility] Glucose 101 70 - 120 mg/dL 04/28/2023 6:49 PM EST [facility] Albumin 4.2 3.8 - 5.0 g/dL 04/28/2023 6:49 PM EST [facility] AST 41 10 - 50 U/L 04/28/2023 6:49 PM EST [facility] Alkaline Phosphatase 68 35 - 130 U/L 04/28/2023 6:49 PM EST [facility] Bilirubin, Total 0.5 <=1.2 mg/dL 04/28/2023 6:49 PM EST [facility] Calcium 9.4 8.4 - 10.2 mg/dL 04/28/2023 6:49 PM EST [facility] Protein 7.7 6.0 - 8.3 g/dL 04/28/2023 6:49 PM EST [facility] ALT 49 10 - 50 U/L 04/28/2023 6:49 PM EST [facility] Blood Venous blood specimen / Unknown Venipuncture / Unknown 04/28/2023 5:49 PM EST 04/28/2023 6:27 PM EST Rafael Linder DO LAB BLOOD [facility] [address] [place] [address] documented in this encounter Visit Diagnoses Diagnosis 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 Malignant neoplasm of base of tongue Preop examination Preoperative examination, unspecified Pain Generalized pain Chest pain Chest pain, unspecified Tongue mass Swelling, mass, or lump in head and neck Tracheostomy status (HCC) Tracheostomy status Other diseases of tongue [K14.8] 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] Primary hypercoagulable state Heterozygous factor V Leiden mutation (HCC) Primary hypercoagulable state Sciatica Tongue mass Swelling, mass, or lump in head and neck Tracheostomy status (HCC) Tracheostomy status Airway obstruction Other diseases of respiratory system, not elsewhere classified Acute respiratory failure (HCC) Acute respiratory failure Dysphagia, unspecified type documented in this encounter Administered Medications Inactive Administered Medications - up to 3 most recent administrations Medication Order MAR Action Action Date Dose Rate Site Acetaminophen (Ofirmev) inj 1,000 mg 1,000 mg, Intravenous, Q6H, 4 doses, First dose on Tue05/03/23 at 1900, Last dose on Tue05/04/23 at 1200, Administer over 15 Minutes, Administer undiluted over 15 minutes! NOTE: Maximum of 4000 mg per 24 hours of acetaminophen from all acetaminophen containing products., Indication: Patient is strictly NPO New Bag 05/04/2023 6:18 AM EST 1,000 mg 400 mL/hr New Bag 05/03/2023 11:57 PM EST 1,000 mg 400 mL/hr New Bag 05/03/2023 9:00 PM EST 1,000 mg 400 mL/hr Acetaminophen (Tylenol) 160 MG/5ML oral liquid 650 mg 650 mg, G Tube, Q6H, First dose (after last modification) on Tue05/04/23 at 1200, Until Discontinued, Maximum or 4 grams (4000mg) per day. Given 05/06/2023 5:45 PM EST 650 mg Given 05/06/2023 6:16 AM EST 650 mg Given 05/06/2023 12:48 AM EST 650 mg Acetaminophen (Tylenol) tab 650 mg 650 mg, Oral, Q8H, First dose on Tue04/29/23 at 2200, Until Discontinued, Maximum of 4 grams (4000 mg) per day. Given 04/30/2023 2:33 PM EST 650 mg Given 04/30/2023 6:12 AM EST 650 mg Given 04/29/2023 9:12 PM EST 650 mg Acetaminophen (Tylenol) tab 650 mg 650 mg, NG Tube, Q8H, First dose (after last modification) on 04/30/23 at 2200, Until Discontinued, Maximum of 4 grams (4000 mg) per day. Given 05/03/2023 6:22 AM EST 650 mg Given 05/02/2023 8:58 PM EST 650 mg Given 05/02/2023 3:54 PM EST 650 mg amoxicillin-clavulanate (Augmentin) tab 500 mg 500 mg, Oral, TID(AM/NOON/HS), First dose on Tue05/04/23 at 1200, Last dose on Tue05/09/23 at 0600, For 5 days Given 05/06/2023 6:16 AM EST 500 mg Given 05/05/2023 8:21 PM EST 500 mg Given 05/05/2023 10:59 AM EST 500 mg amoxicillin-clavulanate (Augmentin) tab 500 mg 500 mg, G Tube, TID(AM/NOON/HS), First dose (after last modification) on Tue05/06/23 at 1300, Last dose on Tue05/08/23 at 2200, For 8 doses Given 05/06/2023 12:25 PM EST 500 mg barium sulfate 40% (Varibar Thin) oral susp 1 Dose 1 Dose, Oral, ONCE, On Tue04/29/23 at 1500, For 1 dose, Number of teaspoons given in dose 12, Radiology Medication Routing (Non-IR) Given 04/29/2023 3:00 PM EST 1 Dose buffered lidocaine 1 % inj Intradermal, ONCE PRN INTRA PROCEDURE, Starting on Tue05/03/23 at 1648, Until Tue05/03/23 at 1648, Intra-Op Given 05/03/2023 4:48 PM EST 19 mL Abdomen Left Upper chlorHEXIDINE (Periogard) 0.12 % oral rinse 15 mL 15 mL, Oral mucosal membrane, BID (0800,1999), First dose on Tue04/28/23 at 2015, Until Discontinued, Include oral/gum/tooth brushing with medication. Use prepackaged oral kit suction tooth brush if available. Given 05/06/2023 8:18 AM EST 15 mL Given 05/05/2023 8:20 PM EST 15 mL Given 05/05/2023 10:59 AM EST 15 mL Enoxaparin (Lovenox) inj 100 mg 100 mg, Subcutaneous, Q12H, First dose on Tue05/04/23 at 2100, Until Discontinued, If patient is on warfarin, inform provider if daily INR value is 2 or greater! Given 05/06/2023 8:17 AM EST 100 mg Abdomen Right Lower Given 05/05/2023 8:21 PM EST 100 mg Ab domen Left Lower Given 05/05/2023 10:59 AM EST 100 mg A bdomen Left Lower Enoxaparin (Lovenox) inj 40 mg 40 mg, Subcutaneous, Daily(AM), First dose on Tue04/29/23 at 1330, Until Discontinued, If patient is on warfarin, inform provider if daily INR value is 2 or greater! Given 04/29/2023 2:36 PM EST 40 mg Abdom en Right Lower fentaNYL (PF) inj ONCE PRN INTRA PROCEDURE, Starting on Tue05/03/23 at 1646, Until Tue05/03/23 at 1654, Intra-Op Given 05/03/2023 4:54 PM EST 25 mcg Given 05/03/2023 4:46 PM EST 25 mcg glucagon (Glucagen) inj ONCE PRN INTRA PROCEDURE, Starting on Tue05/03/23 at 1648, Until Tue05/03/23 at 1648, Intra-Op Given 05/03/2023 4:48 PM EST 1 mg hEParin 25,000 units in 250 mL (Xa-DVT/PE) infusion Intravenous, at 0-28.2 mL/hr, Start heparin as soon as baseline labs are drawn. Please select this medication from the infusion pump library! Concentration: 100 units/mL Expires 96 hours after spiking on (date) at (hour) , TITRATE, Starting on Tue04/29/23 at 1600, Until Tue05/02/23 at 1538, On hold since Tue05/02/2023 at 0644 until manually unheld New Bag 05/02/2023 6:43 AM EST 17 Units/kg/hr 15.98 mL/hr Nurse Change 05/01/2023 7:10 PM EST 17 Units/kg/hr 15.98 m L/hr New Bag 05/01/2023 2:48 PM EST 17 Units/kg/hr 15.98 mL/ hr hEParin 25,000 units in 250 mL (Xa-DVT/PE) infusion Intravenous, at 0-28.2 mL/hr, Start heparin as soon as baseline labs are drawn. Please select this medication from the infusion pump library! Concentration: 100 units/mL Expires 96 hours after spiking on (date) at (hour) , TITRATE, Starting on Tue05/02/23 at 1615, Until Tue05/03/23 at 1753, On hold since Tue05/03/2023 at 0704 until manually unheld Nurse Change 05/02/2023 7:25 PM EST 18 Units/kg/hr 16.92 mL/hr New Bag 05/02/2023 3:59 PM EST 18 Units/kg/hr 16.92 mL/ hr hEParin 25,000 units in 250 mL (Xa-DVT/PE) infusion Intravenous, at 0-28.2 mL/hr, Start heparin as soon as baseline labs are drawn. Please select this medication from the infusion pump library! Concentration: 100 units/mL Expires 96 hours after spiking on (date) at (hour) , TITRATE, Starting on Tue05/03/23 at 1830, Until Tue05/04/23 at 1509 New Bag 05/04/2023 8:31 AM EST 18 Units/kg/hr 16.92 mL/hr Nurse Change 05/04/2023 7:00 AM EST 18 Units/kg/hr 16.92 m L/hr Rate Verify 05/04/2023 6:30 AM EST 18 Units/kg/hr 16.92 mL /hr hEParin 25,000 units in 250 mL (Xa-DVT/PE) infusion Intravenous, at 0-28.2 mL/hr, Start heparin as soon as baseline labs are drawn. Please select this medication from the infusion pump library! Concentration: 100 units/mL Expires 96 hours after spiking on (date) at (hour) , TITRATE, Starting on Tue05/04/23 at 1600, Until Tue05/04/23 at 2059 Nurse Change 05/04/2023 7:19 PM EST 18 Units/kg/hr 16.92 mL/hr Nurse Change 05/04/2023 4:19 PM EST 18 Units/kg/hr 16.92 m L/hr Rate Verify 05/04/2023 4:00 PM EST 18 Units/kg/hr 16.92 mL /hr HYDROmorphone (Dilaudid) inj 0.2 mg 0.2 mg, IV Push, Q4H PRN Pain, Mild, Pain, Moderate, Starting on Tue05/03/23 at 1825, Until Tue05/06/23 at 2241 HYDROmorphone (Dilaudid) inj 0.5 mg 0.5 mg, IV Push, Q4H PRN Pain, Severe, Starting on Tue05/03/23 at 1825, Until Tue05/06/23 at 2241 Given 05/03/2023 6:35 PM EST 0.5 mg Ioversol (Optiray 320) inj 100 mL 100 mL, Intravenous, ONCE, On Tue05/03/23 at 1745, For 1 dose Given 05/03/2023 5:45 PM EST 40 mL Ioversol (Optiray 350) 74 % inj 100 mL 100 mL, Intravenous, ONCE, On Tue04/29/23 at 0015, For 1 dose, Radiology Medication Routing (Non-IR) Given 04/29/2023 12:15 AM EST 87 mL isolyte-S pH 7.4 infusion Intravenous, at 100 mL/hr, Plasma-LYTE 148, isolyte-S, and isolyte-S pH 7.4 are considered equivalent - including for MAR barcode scanning., CONTINUOUS, Starting on Tue04/28/23 at 2115, Until Tue04/29/23 at 0714 New Bag 04/28/2023 9:09 PM EST 100 m L/hr melatonin tab 3 mg 3 mg, G Tube, HS, First dose (after last modification) on Tue05/04/23 at 2000, Until Discontinued midazolam (Versed) 2 MG/2ML inj ONCE PRN INTRA PROCEDURE, Starting on Tue05/03/23 at 1640, Until Tue05/03/23 at 1654, Intra-Op Given 05/03/2023 4:54 PM EST 1 mg Given 05/03/2023 4:40 PM EST 1 mg Nutren 1.5 liquid 10 mL/hr, PEG Tube, CONTINUOUS, Starting on Tue05/04/23 at 0745, Until Tue05/04/23 at 1511 New Bag 05/04/2023 10:00 AM EST 10 mL/hr 10 m L/hr Nutren 1.5 liquid 200 mL, Tube feed, Q6H, First dose on Tue05/04/23 at 1800, Until Discontinued Given 05/06/2023 5:45 PM EST 200 mL Given 05/06/2023 12:41 PM EST 200 mL Given 05/06/2023 6:16 AM EST 200 mL ondansetron (Zofran) inj ONCE PRN INTRA PROCEDURE, Starting on Tue05/03/23 at 1646, Until Tue05/03/23 at 1646, Intra-Op Given 05/03/2023 4:46 PM EST 4 mg Oral Hygiene: Mouth Swab with dentifrice Oral, Q4H LIMITED (00;04;12;16), First dose on Tue04/29/23 at 0000, Until Discontinued, To be used with 1.5% hydrogen peroxide solution or 0.05% cetylpyridium chloride oral rinse Given 05/06/2023 12:42 PM EST 1 Kit Given 05/06/2023 12:00 AM EST Given 05/05/2023 12:47 PM EST 1 Kit phenol (chlorASEPTIC) spray 3 Audubon 3 Audubon, Oral, Q2H PRN Sore throat, Starting on Tue04/29/23 at 1752, Until Tue05/06/23 at 2241, See nursing care plan Given 05/04/2023 6:22 AM EST 3 Spr ays Given 05/03/2023 3:07 AM EST 3 Sprays Piperacillin-Tazobactam (Zosyn) 4.5 g in 100 mL NSS ivpb (FOUR hour infusion) IV Piggyback, 4.5 g, Q8HNOW, 15 doses, First dose on Tue05/02/23 at 0100, Last dose on Tue05/06/23 at 1700, Administer over 4 Hours, at 25 mL/hr New Bag 05/04/2023 8:26 AM EST 4.5 g 25 mL/hr New Bag 05/04/2023 12:40 AM EST 4.5 g 25 mL/hr New Bag 05/03/2023 4:42 PM EST 4.5 g 25 mL/hr Piperacillin-Tazobactam (Zosyn) 4.5 g in 100 mL NSS ivpb (HALF hour infusion) IV Piggyback, 4.5 g, ONCE, 1 dose, On Tue05/01/23 at 2030, Administer over 30 Minutes New Bag 05/01/2023 8:01 PM EST 4.5 g 200 mL/hr Polyethylene Glycol 3350 (Miralax) oral powder 17 g 17 g (1 Packet), G Tube, Daily(AM), First dose (after last modification) on Tue05/04/23 at 0900, Until Discontinued, Mix in 8 oz of water, juice, soda, coffee, or tea. Given 05/04/2023 8:26 AM EST 17 g potassium and sodium phosphate (Phos-Nak) oral powder 2 Packet 2 Packet, Oral, ONCE, On Tue05/01/23 at 0700, For 1 dose, Mix 1 packet in 2.5 ounces (75 mL) of water, stir well and administer promptly. 1 packet contains Phosphorus 250 mg (~8 mMoles) + potassium 280 mg (~7.125 mEq) + sodium 160mg (~7.125 mEq) Given 05/01/2023 6:28 AM EST 2 Packets senna-docusate (Senokot-S) 2 Tablet 2 Tablet, NG Tube, BID (.AM/PM), First dose on Tue04/30/23 at 2100, Until Discontinued Given 05/02/2023 8:58 PM EST 2 Tablets Given 05/02/2023 10:24 AM EST 2 Tablets Given 05/01/2023 9:24 PM EST 2 Tablets senna-docusate (Senokot-S) 2 Tablet 2 Tablet, G Tube, BID (.AM/PM), First dose (after last modification) on Tue05/03/23 at 2100, Until Discontinued Given 05/04/2023 8:26 AM EST 2 Tablets sodium chloride 0.9 % flush peripheral uriel 3 mL 3 mL, IV Push, Q8H, First dose on Tue04/28/23 at 2200, Until Discontinued, Do not flush if lock, PICC, or central line not in place; IV infusing or unable to flush. Given 05/06/2023 6:16 AM EST 3 mL Given 05/05/2023 10:00 PM EST 3 mL Given 05/05/2023 3:30 PM EST 3 mL sodium PHOSphate 30 mmol in NSS 250 mL (NaPhos) ivpb 30 mmol, Peripheral IV, ONCE, 1 dose, On 04/30/23 at 0745 New Bag 04/30/2023 8:28 AM EST 30 mmol 57 mL/hr sodium PHOSphate 30 mmol in NSS 250 mL (NaPhos) ivpb 30 mmol, Peripheral IV, ONCE, 1 dose, On Nunu 05/05/23 at 1815 New Bag 05/05/2023 8:09 PM EST 30 mmol 57 mL/hr vancomycin (Vancocin) 2,500 mg in NSS 500 mL ivpb 2,500 mg, IV Piggyback, ONCE, 1 dose, On Tue05/01/23 at 2030 New Bag 05/01/2023 9:24 PM EST 2,500 mg 22 0 mL/hr warfarin check daily dose (PHARMACIST MANAGED) [id number], First dose on Tue05/04/23 at 1500, Until Discontinued, Routine, Contact the pharmacy if there is not a warfarin dose entered by 1500 and document with whom it was discussed. Warfarin Sodium (Coumadin) tab 10 mg 10 mg, PEG Tube, QPM-1999, First dose on Tue05/04/23 at 1999, Last dose on Tue05/04/23 at 1999, For 1 day, WASTE INFO: Return packaging and waste medication in zip lock bag to pharmacy - [facility] container. Given 05/04/2023 8:35 PM EST 10 mg Warfarin Sodium (Coumadin) tab 15 mg 15 mg, Oral, QPM-1999, First dose on Tue05/05/23 at 1999, Last dose on Tue05/05/23 at 1999, For 1 day, WASTE INFO: Return packaging and waste medication in zip lock bag to pharmacy - [facility] container. Given 05/05/2023 8:20 PM EST 15 mg Warfarin Sodium (Coumadin) tab 20 mg 20 mg, Oral, QPM-1999, First dose on Tue05/06/23 at 1999, Last dose on Tue05/06/23 at 2000, For 1 day, WASTE INFO: Return packaging and waste medication in zip lock bag to pharmacy - [facility] container. documented in this encounter Active and Recently Administered Medications Times are shown in EST. Scheduled Medication Order 05/04/2023 05/05/2023 05/06/2023 Acetaminophen (Ofirmev) inj 1,000 mg (CANCELED) 1,000 mg, Intravenous, Q6H, 4 doses, First dose on Tue05/03/23 at 1900, Last dose on Tue05/04/23 at 1200, Administer over 15 Minutes, Administer undiluted over 15 minutes! NOTE: Maximum of 4000 mg per 24 hours of acetaminophen from all acetaminophen containing products., Indication: Patient is strictly NPO 0618 (New Bag - Provider: Adrián Correa RN) Acetaminophen (Tylenol) 160 MG/5ML oral liquid 650 mg 650 mg, G Tube, Q6H, First dose (after last modification) on Tue05/04/23 at 1200, Until Discontinued, Maximum or 4 grams (4000mg) per day. 1232 (Given - Provider: Melissa Barakat RN)1715 (Given - Provider: Monica Cotter RN)2324 (Given - Provider: Citlaly Carr RN) 0548 (Given - Provider: Citlaly Carr RN)1100 (Given - Provider: Ondina Finch, JOHN)1844 (Given - Provider: Ondina Finch, JOHN) 0048 (Given - Provider: Citlaly Carr RN)0616 (Given - Provider: Citlaly Carr RN)1200 (Not Given - Provider: Lavonne Rolon RN - Reason: Refused-Notify Provider - Comment: Ayan villalobos)1745 (Given - Provider: Lavonne Rolon, JOHN) amoxicillin-clavulanate (Augmentin) tab 500 mg (CANCELED) 500 mg, Oral, TID(AM/NOON/HS), First dose on Tue05/04/23 at 1200, Last dose on Tue05/09/23 at 0600, For 5 days 1231 (Given - Provider: Melissa Barakat RN)2034 (Given - Provider: Citlaly Carr RN) 0554 (Given - Provider: Citlaly Carr RN)1059 (Given - Provider: Ondina Finch, RN)2020 (Given - Provider: Citlaly Carr RN) 0616 (Given - Provider: Citlaly Carr RN)1200 (Not Given - Provider: Lavonne Rolon, RN - Reason: Order Discontinued - Comment: route changed) amoxicillin-clavulanate (Augmentin) tab 500 mg 500 mg, G Tube, TID(AM/NOON/HS), First dose (after last modification) on Tue05/06/23 at 1300, Last dose on Tue05/08/23 at 2200, For 8 doses 1225 (Given - Provider: Lavonne Rolon, RN) chlorHEXIDINE (Periogard) 0.12 % oral rinse 15 mL 15 mL, Oral mucosal membrane, BID (799,1999), First dose on Nunu 04/28/23 at 2014, Until Discontinued, Include oral/gum/tooth brushing with medication. Use prepackaged oral kit suction tooth brush if available. 825 (Given - Provider: Melissa Barakat RN)2033 (Given - Provider: Citlaly Carr RN) 105 (Given - Provider: Ondina Finch, JOHN - Comment: [facility])2019 (Given - Provider: Citlaly Carr RN) 0818 (Given - Provider: Lavonne Rolon, RN) Enoxaparin (Lovenox) inj 100 mg 100 mg, Subcutaneous, Q12H, First dose on Tue05/04/23 at 2100, Until Discontinued, If patient is on warfarin, inform provider if daily INR value is 2 or greater! 2034 (Given - Provider: Citlaly Carr RN) 105 (Given - Provider: Ondina Finch, RN)2020 (Given - Provider: Citlaly Carr RN) 0817 (Given - Provider: Lavonne Rolon, RN) melatonin tab 3 mg 3 mg, G Tube, HS, First dose (after last modification) on Tue05/04/23 at 2000, Until Discontinued 1999 (Not Given - Provider: Citlaly Carr RN - Reason: Refused-Notify Provider) 1999 (Not Given - Provider: Citlaly Carr RN - Reason: Refused-Notify Provider) Nutren 1.5 liquid 200 mL, Tube feed, Q6H, First dose on Tue05/04/23 at 1800, Until Discontinued 1713 (Given - Provider: Monica Cotter RN) 0000 (Not Given - Provider: Citlaly Carr RN - Reason: Refused-Notify Provider)0554 (Given - Provider: Citlaly Carr RN)1100 (Given - Provider: Ondina Finch RN)1843 (Given - Provider: Ondina Finch RN) 0048 (Given - Provider: Citlaly Carr RN)0616 (Given - Provider: Citlaly Carr RN)1241 (Given - Provider: Lavonne Rolon, RN)1745 (Given - Provider: Lavonne Rolon, RN) Oral Hygiene: Mouth Swab with dentifrice Oral, Q4H LIMITED (00;04;12;16), First dose on Tue04/29/23 at 0000, Until Discontinued, To be used with 1.5% hydrogen peroxide solution or 0.05% cetylpyridium chloride oral rinse 0000 (Given - Provider: Adrián Correa RN)0400 (Given - Provider: Adrián Correa RN)1200 (Given - Provider: Melissa Barakat RN)1600 (Not Given - Provider: Monica Cotter RN - Reason: Refused-Notify Provider) 0000 (Not Given - Provider: Citlaly Carr RN - Reason: Refused-Notify Provider)0400 (Not Given - Provider: Citlaly Carr RN - Reason: Refused-Notify Provider)1247 (Given - Provider: Ondina Finch RN)1600 (Not Given - Provider: Ondina Finch RN - Reason: Refused-Notify Provider - Comment: last kit given late) 0000 (Given - Provider: Citlaly Carr RN)0400 (Not Given - Provider: Citlaly Carr RN - Reason: Refused-Notify Provider)1242 (Given - Provider: Lavonne Rolon, JOHN)1600 (Not Given - Provider: Lavonne Rolon, JOHN - Reason: Other- Please add reason in Comments - Comment: PT BEING D/C) Piperacillin-Tazobactam (Zosyn) 4.5 g in 100 mL NSS ivpb (FOUR hour infusion) (CANCELED) IV Piggyback, 4.5 g, Q8HNOW, 15 doses, First dose on Tue05/02/23 at 0100, Last dose on Tue05/06/23 at 1700, Administer over 4 Hours, at 25 mL/hr 0040 (New Bag - Provider: Adrián Correa RN)0826 (New Bag - Provider: Melissa Barakat RN) Polyethylene Glycol 3350 (Miralax) oral powder 17 g 17 g (1 Packet), G Tube, Daily(AM), First dose (after last modification) on Tue05/04/23 at 0900, Until Discontinued, Mix in 8 oz of water, juice, soda, coffee, or tea. 0826 (Given - Provider: Melissa Barakat RN) 0900 (Not Given - Provider: Ondina Finch RN - Reason: Refused-Notify Provider - Comment: pt stated he just had a bowel movement) 0900 (Not Given - Provider: Lavonne Rolon RN - Reason: Refused-Notify Provider - Comment: ayan padron notified) senna-docusate (Senokot-S) 2 Tablet 2 Tablet, G Tube, BID (.AM/PM), First dose (after last modification) on Tue05/03/23 at 2100, Until Discontinued 08 (Given - Provider: Melissa Barakat RN)2100 (Not Given - Provider: Citlaly Carr RN - Reason: Refused-Notify Provider) 0900 (Not Given - Provider: Ondina Finch RN - Reason: Refused-Notify Provider - Comment: pt stated he just had a bowel movement)2099 (Not Given - Provider: Citlaly Carr RN - Reason: Refused-Notify Provider) 0900 (Not Given - Provider: Lavonne Rolon RN - Reason: Refused-Notify Provider - Comment: Ayan padron notified) sodium chloride 0.9 % flush peripheral uriel 3 mL 3 mL, IV Push, Q8H, First dose on Tue04/28/23 at 2200, Until Discontinued, Do not flush if lock, PICC, or central line not in place; IV infusing or unable to flush. 0600 (Given - Provider: Adrián Correa RN)1400 (Given - Provider: Melissa Barakat, RN)2033 (Given - Provider: Citlaly Carr RN) 0554 (Given - Provider: Citlaly Carr RN)1530 (Given - Provider: Ondina Finch, RN)2200 (Given - Provider: Citlaly Carr RN) 0616 (Given - Provider: Citlaly Carr, JOHN)1400 (Not Given - Provider: Lavonne Rolon RN - Reason: Other- Please add reason in Comments - Comment: PT BEING D/C) sodium PHOSphate 30 mmol in NSS 250 mL (NaPhos) ivpb (COMPLETED) 30 mmol, Peripheral IV, ONCE, 1 dose, On Tue05/05/23 at 1815 2008 (New Bag - Provider: Citlaly Carr RN) warfarin check daily dose (PHARMACIST MANAGED) [id number], First dose on Tue05/04/23 at 1500, Until Discontinued, Routine, Contact the pharmacy if there is not a warfarin dose entered by 1500 and document with whom it was discussed. 1500 (Order Check Addressed - Provider: Melissa Barakat RN) 1500 (Order Check Addressed - Provider: Ondina Finch, JOHN) 1500 (Order Check Addressed - Provider: Lavonne Rolon, JOHN) Warfarin Sodium (Coumadin) tab 10 mg (COMPLETED) 10 mg, PEG Tube, QPM-1999, First dose on Tue05/04/23 at 1999, Last dose on Tue05/04/23 at 1999, For 1 day, WASTE INFO: Return packaging and waste medication in zip lock bag to pharmacy - [facility] container. 2034 (Given - Provider: Citlaly Carr RN) Warfarin Sodium (Coumadin) tab 15 mg (COMPLETED) 15 mg, Oral, QPM-1999, First dose on Tue05/05/23 at 1999, Last dose on Tue05/05/23 at 1999, For 1 day, WASTE INFO: Return packaging and waste medication in zip lock bag to pharmacy - [facility] container. 2019 (Given - Provider: Citlaly Carr RN) Warfarin Sodium (Coumadin) tab 20 mg 20 mg, Oral, QPM-1999, First dose on Tue05/06/23 at 1999, Last dose on Tue05/06/23 at 2000, For 1 day, WASTE INFO: Return packaging and waste medication in zip lock bag to pharmacy - [facility] container. Continuous Medication Order 05/04/2023 05/05/2023 05/06/2023 hEParin 25,000 units in 250 mL (Xa-DVT/PE) infusion (CANCELED) Intravenous, at 0-28.2 mL/hr, Start heparin as soon as baseline labs are drawn. Please select this medication from the infusion pump library! Concentration: 100 units/mL Expires 96 hours after spiking on (date) at (hour) , TITRATE, Starting on Tue05/03/23 at 1830, Until Tue05/04/23 at 1509 0045 (Rate Verify - Provider: Adrián Correa RN)0630 (Rate Verify - Provider: Adrián Correa RN)0700 (Nurse Change - Provider: Adrián Correa, RN)0831 (New Bag - Provider: Melissa Barakat RN) hEParin 25,000 units in 250 mL (Xa-DVT/PE) infusion () Intravenous, at 0-28.2 mL/hr, Start heparin as soon as baseline labs are drawn. Please select this medication from the infusion pump library! Concentration: 100 units/mL Expires 96 hours after spiking on (date) at (hour) , TITRATE, Starting on Tue05/04/23 at 1600, Until Tue05/04/23 at 2059 1600 (Rate Verify - Provider: Melissa Barakat RN)1619 (Nurse Change - Provider: Monica Cotter, JOHN)1919 (Nurse Change - Provider: Monica Cotter, JOHN)2030 (Stopped - Provider: Citlaly Carr, JOHN) Nutren 1.5 liquid (CANCELED) 10 mL/hr, PEG Tube, CONTINUOUS, Starting on Tue05/04/23 at 0745, Until Tue05/04/23 at 1511 1000 (New Bag - Provider: Melissa Barakat, JOHN) PRN Medication Order 05/04/2023 05/05/2023 05/06/2023 HYDROmorphone (Dilaudid) inj 0.2 mg 0.2 mg, IV Push, Q4H PRN Pain, Mild, Pain, Moderate, Starting on Tue05/03/23 at 1825, Until Tue05/06/23 at 2241 HYDROmorphone (Dilaudid) inj 0.5 mg 0.5 mg, IV Push, Q4H PRN Pain, Severe, Starting on Tue05/03/23 at 1825, Until Tue05/06/23 at 2241 phenol (chlorASEPTIC) spray 3 Audubon 3 Audubon, Oral, Q2H PRN Sore throat, Starting on Tue04/29/23 at 1752, Until Tue05/06/23 at 2241, See nursing care plan 0622 (Given - Provider: Adrián Correa RN) documented in this encounter Advance Directives Latest Code Status on File Code Status Date Activated Date Inactivated Comments Full Code 04/28/2023 7:30 PM 05/06/2023 10:41 PM Question Answer Comments Discussion of Advance Directives occurred with: Not Discussed due to patient's condition Care Teams Senior Security Architect Relationship Specialty Start Date End Date Ena Solares DO [address] [place] [address] PCP - General Family Medicine 07/02/16 documented as of this encounter
--- OUTSIDE RECORDS SUMMARY | 2023-05-09 10:30 | External Medical Summary ---
Author Name Unknown Address Unknown Organization K01:LABORATORY C - [address] [place] [address] Laboratory Report Ordering Provider Test Date Status DARIREGHAYES 05/06/2023 07:39:00 Final Observation Date Value Abnormality Reference (Units ) Status Magnesium 05/06/2023 07:39:00 2.1 1.5-2.6 (m g/dL) Final Performing Location [facility] - [address] [place] [address]
--- OUTSIDE RECORDS SUMMARY | 2023-05-09 10:30 | External Medical Summary ---
Author Name Unknown Address Unknown Organization [id number]:[place] [facility] [place] [facility] [place] [address] [place] [address] Laboratory Report Ordering Provider Test Date Status THAIS CHAPIN 05/06/2023 07:39:00 Final Observation Date Value Abnormality Reference (Units ) Status Calcium.ionized [Moles/volume] in Serum or Plasma by Ion-selective membrane electrode (ISE) 05/06/2023 07:39:00 1.29 1.13-1.32 (mmol/L) Final This test was developed and its performance characteristics dtermined by [employer]. It has not been cleared or approved by the US Food and Drug Administration Performing Location LABORATORY [place] [address] [place] [address]
--- OUTSIDE RECORDS SUMMARY | 2023-05-09 10:30 | External Medical Summary ---
Author Name Unknown Address Unknown Organization [id number]:LABORATORY [facility] [place] - [facility] [address] [facility] [address] Laboratory Report Ordering Provider Test Date Status THAIS CHAPIN 05/05/2023 09:45:00 Final Observation Date Value Abnormality Reference (Units ) Status WBC, Total 05/05/2023 09:45:00 5.04 4.00-10.80 (K/uL) Final RBC 05/05/2023 09:45:00 4.23 4.50-5.25 (M/uL) Final Hemoglobin 05/05/2023 09:45:00 13.1 Below low normal 14.0-16.8 (g/dL) Final HCT 05/05/2023 09:45:00 40.1 40.0-48.4 (%) Final MCV 05/05/2023 09:45:00 94.8 82.0-99.5 (fL) Final MCH 05/05/2023 09:45:00 31.0 27.0-34.0 (pg) Final MCHC 05/05/2023 09:45:00 32.7 32.0-36.0 (g/dL) Final RDW 05/05/2023 09:45:00 12.3 11.5-15.5 (%) Final Platelets 05/05/2023 09:45:00 286 140-400 (K/uL) Final MPV 05/05/2023 09:45:00 9.5 6.6-11.1 (fL) Final Nucleated erythrocytes/100 leukocytes [Ratio] in Blood by Automated count 05/05/2023 09:45:00 0 <=0 (/100 WBCs) Final Performing Location LABORATORY [facility] [place] - [address] [place] [address]
--- OUTSIDE RECORDS SUMMARY | 2023-05-09 10:30 | External Medical Summary ---
Author Name Unknown Address Unknown Organization [id number]:[place] [facility] [place] [address] [place] [address] Laboratory Report Ordering Provider Test Date Status NEREIDA PAUL 05/06/2023 07:39:00 Final Warfarin Therapy
INR: 2 .0-3.0 conventional anticoagulation
INR: 2.5- 3.5 high intensity anticoagulation Observation Date Value Abnormality Reference (Units ) Status PT 05/06/2023 07:39:00 14.4 11.6-15.2 (seconds) Final INR 05/06/2023 07:39:00 1.1 0.8-1.2 Final Performing Location [facility] [place] [address] [place] [address]
--- OUTSIDE RECORDS SUMMARY | 2023-05-09 10:30 | External Medical Summary ---
Author Name Unknown Address Unknown Organization K01:LABORATORY [facility] [place] - [address] [place] [address] Laboratory Report Ordering Provider Test Date Status DARIREGHAYES 05/06/2023 07:39:00 Final Observation Date Value Abnormality Reference (Units ) Status Phosphate 05/06/2023 07:39:00 2.3 Below low normal 2.5 -4.8 (mg/dL) Final Performing Location [facility] - [address] [place] [address]
--- OUTSIDE RECORDS SUMMARY | 2023-05-09 10:30 | External Medical Summary ---
Author Name Unknown Address Unknown Organization K01:LABORATORY [facility] [place] - [facility] [place] [address] [place] [address] Laboratory Report Ordering Provider Test Date Status THAIS CHAPIN 05/06/2023 07:39:00 Final Observation Date Value Abnormality Reference (Units ) Status WBC, Total 05/06/2023 07:39:00 4.56 4.00-10.80 (K/uL) Final RBC 05/06/2023 07:39:00 4.06 4.50-5.25 (M/uL) Final Hemoglobin 05/06/2023 07:39:00 12.7 Below low normal 14.0-16.8 (g/dL) Final HCT 05/06/2023 07:39:00 38.2 Below low normal 40.0-48.4 (%) Final MCV 05/06/2023 07:39:00 94.1 82.0-99.5 (fL) Final MCH 05/06/2023 07:39:00 31.3 27.0-34.0 (pg) Final MCHC 05/06/2023 07:39:00 33.2 32.0-36.0 (g/dL) Final RDW 05/06/2023 07:39:00 12.5 11.5-15.5 (%) Final Platelets 05/06/2023 07:39:00 302 140-400 (K/uL) Final MPV 05/06/2023 07:39:00 9.4 6.6-11.1 (fL) Final Nucleated erythrocytes/100 leukocytes [Ratio] in Blood by Automated count 05/06/2023 07:39:00 0 <=0 (/100 WBCs) Final Performing Location LABORATORY [facility] [place] - [address] [place] [address]
--- OUTSIDE RECORDS SUMMARY | 2023-05-09 10:30 | External Medical Summary ---
Author Name Unknown Address Unknown Organization K01:[place]ORY [facility] [place] - [facility] [address] [place] [address] Laboratory Report Ordering Provider Test Date Status THAIS CHAPIN 05/06/2023 07:39:00 Final Observation Date Value Abnormality Reference (Units ) Status BUN 05/06/2023 07:39:00 11 6-20 (mg/dL) Final Creatinine 05/06/2023 07:39:00 0.8 0.6-1.2 (mg/dL) Final Glomerular filtration rate/1.73 sq M.predicted [Volume Rate/Area] in Serum, Plasma or Blood by Creatinine-based formula (CKD-EPI) 05/06/2023 07:39:00 >90 >=60 (mL/min) Final eGFR is calculated based on the CKD-EPI 2020 equation SODIUM 05/06/2023 07:39:00 138 135-146 (m mol/L) Final Potassium 05/06/2023 07:39:00 3.5 3.5-5.1 (m mol/L) Final Cl 05/06/2023 07:39:00 101 98-107 (mm ol/L) Final CO2 05/06/2023 07:39:00 28 22-32 (mmo l/L) Final Anion gap 05/06/2023 07:39:00 9 7-15 (mmol /L) Final Glucose 05/06/2023 07:39:00 127 Above high normal 70 -120 (mg/dL) Final Calcium 05/06/2023 07:39:00 9.3 8.4-10.2 ( mg/dL) Final Performing Location LAB[facility]ATORY [facility] [place] - [address] [place] [address]
--- OUTSIDE RECORDS SUMMARY | 2023-05-09 10:30 | External Medical Summary ---
Author Name Unknown Address Unknown Organization K01:LABORATORY [facility] [place] - [address] [place] [address] Laboratory Report Ordering Provider Test Date Status DARIREGHAYES 05/05/2023 09:45:00 Final Observation Date Value Abnormality Reference (Units ) Status Phosphate 05/05/2023 09:45:00 1.4 Below low normal 2.5 -4.8 (mg/dL) Final Performing Location LABORATORY [facility] - [address] [place] [address]
--- OUTSIDE RECORDS SUMMARY | 2023-05-09 10:31 | External Medical Summary ---
Author Name Unknown Address Unknown Organization K01:[place] [facility] [place] [facility] [address] [place] [address] Laboratory Report Ordering Provider Test Date Status BEVERLYNEREIDA 05/02/2023 21:24:00 Final Get Heparin, unfractionated (Xa) level 6 hours after start of infusion and 6 hours after each dose adjustment Observation Date Value Abnormality Reference (Units ) Status Heparin, unfractionated level 05/02/2023 21:24:00 0.19 Above high normal <0.10 (IU/mL) Final Unfractionated therapeutic r anges for Anti Xa activity:
For Cardiac/Neurologic treatment: 0.3 to 0.6 IU/mL.
For treatment of DVT or Pulmonary Embolism: 0.3 to 0.7 IU/mL. Performing Location [facility] [facility] [place] [facility] [address] [place] [address]
--- OUTSIDE RECORDS SUMMARY | 2023-05-09 10:31 | External Medical Summary ---
Author Name Unknown Address Unknown Organization K01:[place] [facility] [place] [facility] [address] [place] [address] Laboratory Report Ordering Provider Test Date Status THAIS CHAPIN 05/04/2023 05:54:00 Final Observation Date Value Abnormality Reference (Units ) Status WBC, Total 05/04/2023 05:54:00 6.89 4.00-10.80 (K/uL) Final RBC 05/04/2023 05:54:00 3.98 4.50-5.25 (M/uL) Final Hemoglobin 05/04/2023 05:54:00 12.4 Below low normal 14.0-16.8 (g/dL) Final HCT 05/04/2023 05:54:00 37.3 Below low normal 40.0-48.4 (%) Final MCV 05/04/2023 05:54:00 93.7 82.0-99.5 (fL) Final MCH 05/04/2023 05:54:00 31.2 27.0-34.0 (pg) Final MCHC 05/04/2023 05:54:00 33.2 32.0-36.0 (g/dL) Final RDW 05/04/2023 05:54:00 12.3 11.5-15.5 (%) Final Platelets 05/04/2023 05:54:00 235 140-400 (K/uL) Final MPV 05/04/2023 05:54:00 9.4 6.6-11.1 (fL) Final Nucleated erythrocytes/100 leukocytes [Ratio] in Blood by Automated count 05/04/2023 05:54:00 0 <=0 (/100 WBCs) Final Performing Location [facility] [place] [address] [place] [address]
--- OUTSIDE RECORDS SUMMARY | 2023-05-09 10:31 | External Medical Summary | Summary of Care ---
Author Name Unknown Organization [facility] Address [address] [place] [address] Phone [phone] Care Team Providers Care Helper Coordinator Name Role Phone Artemio Solares DO Primary Care Provider [phone] Encounter Details Date Type Department Care Team (Late st Contact Info) Description 05/04/2023 Documentation [facility] [address] [place], [place] [id number] Sangeetha López, JOHN Allergies Active Allergy Reactions Criticality Noted Date Comments Lactose Abdominal pain,Diarrhea Medium 04/30/2023 documented as of this encounter (statuses as of 05/04/2023) Medications Medication Sig Dispensed Refills Start Date [...] suction catheters 30 Each 5 04/28/2023 Active SURGICAL COMPRESSION STOCKING 20 to 30mm [...] as of this encounter (statuses as of 05/04/2023) Active Problems Problem Noted Date Diagnosed Date [...] as of this encounter (statuses as of 05/04/2023) Resolved Problems Problem Noted Date Diagnosed Date Resolved Date Acute deep vein thrombosis ( DVT) of proximal vein of right lower extremity 02/23/2023 03/08/2023 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 For head and neck MDC, this patient has been screened for possible clinical trials options for their diagnosis. 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 Patient screened by Sangeetha López RN [facility] 05/04/2023 1:30 PM Patients must have oropharynx cancer (AJCC 8) that is [id number] by immunohistochemistry OR p16 equivocal by IHC and HPV positive by in situ hybridization with the following criteria: <10 pack years, stage A4S8-Z5 or T1-3N2-3 documented in this encounter Plan of Treatment Upcoming Encounters Date Type Department Care Team (Latest Contact Info) Description 4 8:20 AM EST Anticoagulation Pharmacy, [facility] [address] [place] [address] Pharmacist1, [facility] [address] [place] [address] 4 1:00 PM EDT Hospital Encounter ENDO OSS[facility], Endoscopy Room [facility] [address] [place] [phone] Marcelino Smalls MD [address] [place] [address] 4 1:00 PM EDT - 4 1:30 PM EDT Surgery ENDO [facility], Endoscopy Room [facility] [address] [place] [phone] Marcelino Smalls MD [address] [place] [address] ESOPHAGOGASTRODUODENOSCOPY (EGD), FLEXIBLE, TRANSORAL, DIAGNOSTIC 4 8:45 AM EDT Office Visit Dermatology [facility] [address] [place] [address] David Washburn MD [address] [place] [address] 8:20 AM EST Office Visit Family [facility] [address] [place] [address] Artemio Solares DO [address] [place] [address] Scheduled Procedures Name Priority Associated Diagnoses Date/Ti [...] 04/2019, 06/20/2015, Additional history exists Diabetes Screening 05/04/2026 05/04/2023, 0 05/03/2023, 05/02/2023, Additional history exists DTaP,Tdap,and Td Vaccines (3 [...] Discussed due to patient's condition Care Teams Helper Coordinator Relationship Specialty Start Date End Date Artemio Solares DO [address] [place] [address] PCP - General Family Medicine 07/02/16 documented as of this encounter
--- OUTSIDE RECORDS SUMMARY | 2023-05-09 10:31 | External Medical Summary ---
Author Name Unknown Address Unknown Organization K01:LABORATORY C - [address] [place] [address] Laboratory Report Ordering Provider Test Date Status THAIS CHAPIN 05/03/2023 04:51:00 Final Observation Date Value Abnormality Reference (Units ) Status Magnesium 05/03/2023 04:51:00 2.1 1.5-2.6 (m g/dL) Final Performing Location [facility] - [address] [place] [address]
--- OUTSIDE RECORDS SUMMARY | 2023-05-09 10:31 | External Medical Summary | Summary of Care ---
Author Name Unknown Organization [facility] Address [address] [place] [address] Phone [phone] Care Team Providers Care Product Manager Name Role Phone WilliamArtemio simon Janet CHANDLER Primary Care Provider [phone] Reason for Visit * Reason Comments Research Screening Encounter Details Date Type Department Care Team (Late st Contact Info) Description 05/03/2023 Documentation Hematology Oncology [facility] [place] [address] [place] [address] [facility] Office Hem Onc [address] [place] [address] Allergies Active Allergy Reactions Criticality Noted Date Comments Lactose Abdominal pain,Diarrhea Medium 04/30/2023 documented as of this encounter (statuses as of 05/03/2023) Medications Medication Sig Dispensed Refills Start Date [...] as of this encounter (statuses as of 05/03/2023) Active Problems Problem Noted Date Diagnosed Date [...] as of this encounter (statuses as of 05/03/2023) Resolved Problems Problem Noted Date Diagnosed Date Resolved Date Acute deep vein thrombosis ( DVT) of proximal vein of right lower extremity 02/23/2023 03/08/2023 FACTOR V LEIDEN: heterozygote status 09/11/2003 07/02/2016 documented as of this encounter (statuses as of 05/03/2023) Immunizations Name Administration Dates Next Due COVID-19 [...] encounter Miscellaneous Notes * Research Note - Marivel Viramontes RN - 05/03/2023 11:49 AM EST At the request of Dr. Rodriguez and Head and Neck [facility], this patient has been screened for possible clinical trials options for their diagnosis. There is not enough information at this time to screen this patient for possible clinical trial options, will follow up. . Patient screened by JOHN Pantoja RN CRC[facility] Clinical Reasearch Coordinator II [facility] [email or web address] [phone] . documented in this encounter Plan of Treatment Upcoming Encounters Date Type Department Care Team (Latest Contact Info) Description 4 8:20 AM EST Anticoagulation Pharmacy, [facility] [place] [address] [place] [address] Pharmacist1, [facility] [address] [place] [address] 4 1:00 PM EDT Hospital Encounter ENDO [facility], Endoscopy Room [facility] [address] [place] [phone] Marcelino Smalls MD [address] [place] [address] 4 1:00 PM EDT - 4 1:30 PM EDT Surgery ENDO [facility], Endoscopy Room [facility] [address] [place] [phone] Marcelino Smalls MD [address] [place] [address] ESOPHAGOGASTRODUODENOSCOPY (EGD), FLEXIBLE, TRANSORAL, DIAGNOSTIC 4 8:45 AM EDT Office Visit Dermatology [facility] [place] [address] [place] [place] [address] David Washburn MD [address] [place] [address] 8:20 AM EST Office Visit Family [facility] [place] [address] [facility] [place] [address] Artemio Solares DO [address] [facility] [place] [address] Scheduled Procedures Name Priority Associated Diagnoses Date/Ti [...] 04/2019, 06/20/2015, Additional history exists Diabetes Screening 05/03/2026 05/03/2023, 0 05/02/2023, 05/01/2023, Additional history exists DTaP,Tdap,and Td Vaccines (3 [...] Discussed due to patient's condition Care Teams Product Manager Relationship Specialty Start Date End Date Artemio Solares DO [address] [place] [address] PCP - General Family Medicine 07/02/16 documented as of this encounter
--- OUTSIDE RECORDS SUMMARY | 2023-05-09 10:31 | External Medical Summary ---
Author Name Unknown Address Unknown Organization K01:LABORATORY [facility] [place] - [facility] [address] [place] [address] Laboratory Report Ordering Provider Test Date Status JARROD MCKEON 05/03/2023 23:52:00 Final Observation Date Value Abnormality Reference (Units ) Status Heparin, unfractionated level 05/03/2023 23:52:00 0.35 Above high normal <0.10 (IU/mL) Final Unfractionated therapeutic r anges for Anti Xa activity:
For Cardiac/Neurologic treatment: 0.3 to 0.6 IU/mL.
For treatment of DVT or Pulmonary Embolism: 0.3 to 0.7 IU/mL. Performing Location LABORATORY [facility] [place] - [address] [place] [address]
--- OUTSIDE RECORDS SUMMARY | 2023-05-09 10:31 | External Medical Summary ---
Author Name Unknown Address Unknown Organization K01:[place]ORY [facility] [place] [address] [place] [address] Laboratory Report Ordering Provider Test Date Status THAIS CHAPIN 05/03/2023 04:51:00 Final Observation Date Value Abnormality Reference (Units ) Status BUN 05/03/2023 04:51:00 12 6-20 (mg/dL) Final Creatinine 05/03/2023 04:51:00 0.9 0.6-1.2 (mg/dL) Final Glomerular filtration rate/1.73 sq M.predicted [Volume Rate/Area] in Serum, Plasma or Blood by Creatinine-based formula (CKD-EPI) 05/03/2023 04:51:00 >90 >=60 (mL/min) Final eGFR is calculated based on the CKD-EPI 2020 equation SODIUM 05/03/2023 04:51:00 135 135-146 (m mol/L) Final Potassium 05/03/2023 04:51:00 3.7 3.5-5.1 (m mol/L) Final Cl 05/03/2023 04:51:00 100 98-107 (mm ol/L) Final CO2 05/03/2023 04:51:00 25 22-32 (mmo l/L) Final Anion gap 05/03/2023 04:51:00 10 7-15 (mmol /L) Final Glucose 05/03/2023 04:51:00 99 70-120 (mg /dL) Final Calcium 05/03/2023 04:51:00 8.8 8.4-10.2 ( mg/dL) Final Performing Location LAB[facility]ATORY [facility] [place] - [address] [place] [address]
--- OUTSIDE RECORDS SUMMARY | 2023-05-09 10:31 | External Medical Summary ---
Author Name Unknown Address Unknown Organization K01:[place]ORY [facility] [place] [address] [place] [address] Laboratory Report Ordering Provider Test Date Status NEREIDA PAUL 05/04/2023 05:54:00 Final Warfarin Therapy
INR: 2 .0-3.0 conventional anticoagulation
INR: 2.5- 3.5 high intensity anticoagulation Observation Date Value Abnormality Reference (Units ) Status PT 05/04/2023 05:54:00 14.6 11.6-15.2 (seconds) Final INR 05/04/2023 05:54:00 1.1 0.8-1.2 Final Performing Location LABORATORY [facility] [place] [address] [place] [address]
--- OUTSIDE RECORDS SUMMARY | 2023-05-09 10:31 | External Medical Summary ---
Author Name Unknown Address Unknown Organization K01:[place] [facility] [place] [address] [place] [address] Laboratory Report Ordering Provider Test Date Status NEREIDA PAUL 05/03/2023 04:51:00 Final Warfarin Therapy
INR: 2 .0-3.0 conventional anticoagulation
INR: 2.5- 3.5 high intensity anticoagulation Observation Date Value Abnormality Reference (Units ) Status PT 05/03/2023 04:51:00 14.1 11.6-15.2 (seconds) Final INR 05/03/2023 04:51:00 1.1 0.8-1.2 Final Performing Location [place] [facility] [place] [address] [place] [address]
--- OUTSIDE RECORDS SUMMARY | 2023-05-09 10:31 | External Medical Summary ---
Author Name Unknown Address Unknown Organization K01:LAB[place]ATORY [facility] [place] [facility] [address] [place] [address] Laboratory Report Ordering Provider Test Date Status THAIS CHAPIN 05/03/2023 04:51:00 Final Observation Date Value Abnormality Reference (Units ) Status WBC, Total 05/03/2023 04:51:00 7.92 4.00-10.80 (K/uL) Final RBC 05/03/2023 04:51:00 3.91 4.50-5.25 (M/uL) Final Hemoglobin 05/03/2023 04:51:00 12.3 Below low normal 14.0-16.8 (g/dL) Final HCT 05/03/2023 04:51:00 36.8 Below low normal 40.0-48.4 (%) Final MCV 05/03/2023 04:51:00 94.1 82.0-99.5 (fL) Final MCH 05/03/2023 04:51:00 31.5 27.0-34.0 (pg) Final MCHC 05/03/2023 04:51:00 33.4 32.0-36.0 (g/dL) Final RDW 05/03/2023 04:51:00 12.4 11.5-15.5 (%) Final Platelets 05/03/2023 04:51:00 249 140-400 (K/uL) Final MPV 05/03/2023 04:51:00 9.8 6.6-11.1 (fL) Final Nucleated erythrocytes/100 leukocytes [Ratio] in Blood by Automated count 05/03/2023 04:51:00 0 <=0 (/100 WBCs) Final Performing Location LABORATORY [facility] [place] [address] [place] [address]
--- OUTSIDE RECORDS SUMMARY | 2023-05-09 10:31 | External Medical Summary | Summary of Care ---
Author Name Unknown Organization [facility] Address [address] [place] [address] Phone [phone] Care Team Providers Care Tipple Operator Name Role Phone HomeArtemio higgins Primary Care Provider [phone] Encounter Details Date Type Department Care Team (Late st Contact Info) Description 05/04/2023 Documentation Otolaryngology/Head & Neck/Facial Plastic Surgery [address] [place], [place] [id number] Amber Lees MD [address] [place] [address] Tongue mass* Allergies Active Allergy Reactions Criticality Noted Date [...] Description 4 8:20 AM EST Anticoagulation Pharmacy, [facility] [place] [address] [place], [place] [address] Pharmacist1, [facility] [address] [facility] [place] [address] 4 1:00 PM EDT Hospital Encounter ENDO OSSC, Endoscopy Room [facility] [address] [place], [place] [phone] Marcelino Smalls MD [address] [place] [address] 4 1:00 PM EDT - 4 1:30 PM EDT Surgery ENDO OSSC, Endoscopy Room [facility] [address] [place], [place] [phone] Marcelino Smalls MD [address] [place], [place] [address] ESOPHAGOGASTRODUODENOSCOPY (EGD), FLEXIBLE, TRANSORAL, DIAGNOSTIC 4 8:45 AM EDT Office [facility] [address] [facility] [place] [address] David Washburn MD [address] [facility] [place] [address] 4 8:20 AM EST Office Visit Family [facility] [address] [facility] [address] [place], [place] [address] Artemio Solares DO [address] [facility] [address] [place], [place] [address] Scheduled Procedures Name Priority Associated Diagnoses Date/Ti [...] Not on filedocumented as of this encounter Visit Diagnoses Diagnosis Tongue mass- Primary Swelling, mass, or lump in head and neck Dysphagia, unspecified type documented in this encounter Advance Directives Latest Code Status on File Code Status Date Activated Date Inactivated Comments Full Code 04/28/2023 7:30 PM Question Answer Comments Discussion of Advance Directives occurred with: Not Discussed due to patient's condition Care Teams Tipple Operator Relationship Specialty Start Date End Date Artemio Solares DO [address] [place] [address] PCP - General Family Medicine 07/02/16 documented as of this encounter
--- OUTSIDE RECORDS SUMMARY | 2023-05-09 10:31 | External Medical Summary | Summary of Care ---
Author Name Unknown Organization [facility] Address [address] [place] [address] Phone [phone] Care Team Providers Care Connection Worker Name Role Phone WilliamArtemio simon Janet CHANDLER Primary Care Provider [phone] Reason for Visit * Reason Comments Research Screening Encounter Details Date Type Department Care Team (Late st Contact Info) Description 05/03/2023 Documentation Hematology Oncology [facility] [place] [address] [place] [address] [facility] Office Hem Onc [address] [place] [address] Allergies Active Allergy Reactions Criticality [...] Viramontes RN - 05/03/2023 11:49 AM EST Images from the original note were not included. At the request of Dr. Rodriguez and [facility]ck [facility], this patient has been screened for possible clinical trials options for their diagnosis. Patient is eligible upon further review for [id number] RANDOMIZED PHASE II/III TRIAL OF SENTINEL LYMPH NODE BIOPSY VERSUS ELECTIVE NECK DISSECTION FOR EARLY-STAGE ORAL CAVITY CANCER (RADIATION THERAPY COMPONENT) Patient screened by JOHN Pantoja RN CRCII Clinical Reasearch Coordinator II [facility] [email or web address] [phone] . documented in this encounter Plan of Treatment Upcoming Encounters Date Type Department Care Team (Latest Contact Info) Description 4 8:20 AM EST Anticoagulation Pharmacy, [facility] [address] [place] [address] Pharmacist1, [facility] [address] [place] [address] 4 1:00 PM EDT Hospital Encounter ENDO OSSC, Endoscopy Room [facility] [address] [phone] Marcelino Smalls MD [address] [address] 4 1:00 PM EDT - 4 1:30 PM EDT Surgery ENDO OSS, Endoscopy Room [facility] [address] [place] [phone] Marcelino Smalls MD [address] [place] [address] ESOPHAGOGASTRODUODENOSCOPY (EGD), FLEXIBLE, TRANSORAL, DIAGNOSTIC 4 8:45 AM EDT Office Visit Dermatology [facility] [address] [facility] [address] [place], [place] [address] David Washburn MD [address] [facility] [place] [address] 4 8:20 AM EST Office Visit Family Practice [facility] [address] [facility] [place] [address] Artemio Solares DO [address] [facility] [place] [address] Scheduled Procedures Name Priority Associated Diagnoses Date/Ti [...] Additional history exists Lipid Panel 05/22/2025 05/22/2020, 07/04/2019, 06/20/2015, Additional history exists Diabetes Screening 05/04/2026 [...] Discussed due to patient's condition Care Teams Connection Worker Relationship Specialty Start Date End Date Artemio Solares DO [address] [place] [address] PCP - General Family Medicine 07/02/16 documented as of this encounter
--- OUTSIDE RECORDS SUMMARY | 2023-05-09 10:31 | External Medical Summary ---
Author Name Unknown Address Unknown Organization K01:LAB[place]ATORY [facility] [place] - [facility] [address] [place] [address] Laboratory Report Ordering Provider Test Date Status JARROD MCKEON 05/04/2023 05:54:00 Final Observation Date Value Abnormality Reference (Units ) Status Heparin, unfractionated level 05/04/2023 05:54:00 0.62 Above high normal <0.10 (IU/mL) Final Unfractionated therapeutic r anges for Anti Xa activity:
For Cardiac/Neurologic treatment: 0.3 to 0.6 IU/mL.
For treatment of DVT or Pulmonary Embolism: 0.3 to 0.7 IU/mL. Performing Location LABORATORY [facility] [place] - [address] [place] [address]
--- OUTSIDE RECORDS SUMMARY | 2023-05-09 10:31 | External Medical Summary ---
Author Name Unknown Address Unknown Organization K01:LABORATORY [facility] [place] [address] [place] [address] Laboratory Report Ordering Provider Test Date Status THAIS CHAPIN 05/04/2023 05:54:00 Final Observation Date Value Abnormality Reference (Units ) Status BUN 05/04/2023 05:54:00 14 6-20 (mg/dL) Final Creatinine 05/04/2023 05:54:00 0.9 0.6-1.2 (mg/dL) Final Glomerular filtration rate/1.73 sq M.predicted [Volume Rate/Area] in Serum, Plasma or Blood by Creatinine-based formula (CKD-EPI) 05/04/2023 05:54:00 >90 >=60 (mL/min) Final eGFR is calculated based on the CKD-EPI 2020 equation SODIUM 05/04/2023 05:54:00 137 135-146 (m mol/L) Final Potassium 05/04/2023 05:54:00 3.8 3.5-5.1 (m mol/L) Final Cl 05/04/2023 05:54:00 101 98-107 (mm ol/L) Final CO2 05/04/2023 05:54:00 25 22-32 (mmo l/L) Final Anion gap 05/04/2023 05:54:00 11 7-15 (mmol /L) Final Glucose 05/04/2023 05:54:00 96 70-120 (mg /dL) Final Calcium 05/04/2023 05:54:00 8.7 8.4-10.2 ( mg/dL) Final Performing Location LABORATORY [facility] [place] - [address] [place] [address]
--- OUTSIDE RECORDS SUMMARY | 2023-05-09 10:31 | External Medical Summary ---
Author Name Unknown Address Unknown Organization K01:[place] [facility] [place] [facility] [address] [place] [address] Laboratory Report Ordering Provider Test Date Status THAIS CHAPIN 05/05/2023 09:45:00 Final Observation Date Value Abnormality Reference (Units ) Status Calcium.ionized [Moles/volume] in Serum or Plasma by Ion-selective membrane electrode (ISE) 05/05/2023 09:45:00 1.31 1.13-1.32 (mmol/L) Final This test was developed and its performance characteristics dtermined by [employer]. It has not been cleared or approved by the [place] Food and Drug Administration Performing Location LABORATORY [place] [address] [place] [address]
--- OUTSIDE RECORDS SUMMARY | 2023-05-09 10:31 | External Medical Summary ---
Author Name Unknown Address Unknown Organization K01:LABORATORY [facility] - [address] [place] [address] Laboratory Report Ordering Provider Test Date Status THAIS CHAPIN 05/04/2023 05:54:00 Final Observation Date Value Abnormality Reference (Units ) Status Phosphate 05/04/2023 05:54:00 2.9 2.5-4.8 (m g/dL) Final Performing Location LABORATORY [facility] - [address] [place] [address]
--- OUTSIDE RECORDS SUMMARY | 2023-05-09 10:31 | External Medical Summary ---
Author Name Unknown Address Unknown Organization K01:[place] [facility] [place] [facility] [address] [place] [address] Laboratory Report Ordering Provider Test Date Status THAIS CHAPIN 05/03/2023 04:51:00 Final Observation Date Value Abnormality Reference (Units ) Status Calcium.ionized [Moles/volume] in Serum or Plasma by Ion-selective membrane electrode (ISE) 05/03/2023 04:51:00 1.26 1.13-1.32 (mmol/L) Final This test was developed and its performance characteristics dtermined by [employer]. It has not been cleared or approved by the US Food and Drug Administration Performing Location LABORATORY [place] [address] [place] [address]
--- OUTSIDE RECORDS SUMMARY | 2023-05-09 10:31 | External Medical Summary ---
Author Name Unknown Address Unknown Organization K01:LABORATORY [facility] - [address] [place] [address] Laboratory Report Ordering Provider Test Date Status THAIS CHAPIN 05/05/2023 09:45:00 Final Observation Date Value Abnormality Reference (Units ) Status Magnesium 05/05/2023 09:45:00 2.2 1.5-2.6 (m g/dL) Final Performing Location LABORATORY [facility] - [address] [place] [address]
--- OUTSIDE RECORDS SUMMARY | 2023-05-09 10:31 | External Medical Summary ---
Author Name Unknown Address Unknown Organization K01:LABORATORY [facility] - [address] [place] [address] Laboratory Report Ordering Provider Test Date Status DARIREGHAYES 05/04/2023 05:54:00 Final Observation Date Value Abnormality Reference (Units ) Status Magnesium 05/04/2023 05:54:00 2.2 1.5-2.6 (m g/dL) Final Performing Location LABORATORY [facility] - [address] [place] [address]
--- OUTSIDE RECORDS SUMMARY | 2023-05-09 10:31 | External Medical Summary ---
Author Name Unknown Address Unknown Organization K01:LABORATORY [facility] [place] - [facility] [address] [place] [address] Laboratory Report Ordering Provider Test Date Status THAIS CHAPIN 05/04/2023 05:54:00 Final Observation Date Value Abnormality Reference (Units ) Status Calcium.ionized [Moles/volume] in Serum or Plasma by Ion-selective membrane electrode (ISE) 05/04/2023 05:54:00 1.17 1.13-1.32 (mmol/L) Final This test was developed and its performance characteristics dtermined by [employer]. It has not been cleared or approved by the US Food and Drug Administration Performing Location LABORATORY [place] [address] [place] [address]
--- OUTSIDE RECORDS SUMMARY | 2023-05-09 10:31 | External Medical Summary ---
Author Name Unknown Address Unknown Organization K01:LABORATORY [facility] - [address] [place] [address] Laboratory Report Ordering Provider Test Date Status THAIS CHAPIN 05/03/2023 04:51:00 Final Observation Date Value Abnormality Reference (Units ) Status Phosphate 05/03/2023 04:51:00 2.8 2.5-4.8 (m g/dL) Final Performing Location LABORATORY [facility] - [address] [place] [address]
--- OUTSIDE RECORDS SUMMARY | 2023-05-09 10:31 | External Medical Summary ---
Author Name Unknown Address Unknown Organization K01:[place]ATORY [facility] [place] - [address] [place] [address] Laboratory Report Ordering Provider Test Date Status NEREIDA PAUL 05/05/2023 09:45:00 Final Warfarin Therapy
INR: 2 .0-3.0 conventional anticoagulation
INR: 2.5- 3.5 high intensity anticoagulation Observation Date Value Abnormality Reference (Units ) Status PT 05/05/2023 09:45:00 14.6 11.6-15.2 (seconds) Final INR 05/05/2023 09:45:00 1.1 0.8-1.2 Final Performing Location LAB[place]ATORY [facility] [place] - [address] [place] [address]
--- OUTSIDE RECORDS SUMMARY | 2023-05-09 10:31 | External Medical Summary ---
Author Name Unknown Address Unknown Organization K01:LABORATORY [facility] [place] [facility] [address] [place] [address] Laboratory Report Ordering Provider Test Date Status BEVERLYNEREIDA 05/03/2023 04:51:00 Final Get Heparin, unfractionated (Xa) level 6 hours after start of infusion and 6 hours after each dose adjustment Observation Date Value Abnormality Reference (Units ) Status Heparin, unfractionated level 05/03/2023 04:51:00 <0.10 <0.10 (IU/mL) Final Unfractionated therapeutic r anges for Anti Xa activity:
For Cardiac/Neurologic treatment: 0.3 to 0.6 IU/mL.
For treatment of DVT or Pulmonary Embolism: 0.3 to 0.7 IU/mL. Performing Location LABORATORY [facility] [place] [facility] [place] [address] [place] [address]
--- OUTSIDE RECORDS SUMMARY | 2023-05-09 10:31 | External Medical Summary ---
Author Name Unknown Address Unknown Organization K01:[place]ORY [facility] [place] [facility] [address] [place] [address] Laboratory Report Ordering Provider Test Date Status THAIS CHAPIN 05/05/2023 09:45:00 Final Observation Date Value Abnormality Reference (Units ) Status BUN 05/05/2023 09:45:00 12 6-20 (mg/dL) Final Creatinine 05/05/2023 09:45:00 0.8 0.6-1.2 (mg/dL) Final Glomerular filtration rate/1.73 sq M.predicted [Volume Rate/Area] in Serum, Plasma or Blood by Creatinine-based formula (CKD-EPI) 05/05/2023 09:45:00 >90 >=60 (mL/min) Final eGFR is calculated based on the CKD-EPI 2020 equation SODIUM 05/05/2023 09:45:00 137 135-146 (m mol/L) Final Potassium 05/05/2023 09:45:00 3.6 3.5-5.1 (m mol/L) Final Cl 05/05/2023 09:45:00 99 98-107 (mm ol/L) Final CO2 05/05/2023 09:45:00 30 22-32 (mmo l/L) Final Anion gap 05/05/2023 09:45:00 8 7-15 (mmol /L) Final Glucose 05/05/2023 09:45:00 131 Above high normal 70 -120 (mg/dL) Final Calcium 05/05/2023 09:45:00 9.4 8.4-10.2 ( mg/dL) Final Performing Location LAB[facility] [facility] [place] [address] [place] [address]
--- OUTSIDE RECORDS SUMMARY | 2023-05-09 10:32 | External Medical Summary ---
Author Name Unknown Address Unknown Organization K01:LABORATORY [facility] [place] - [facility] [address] [place] [address] Laboratory Report Ordering Provider Test Date Status NEREIDA PAUL 04/29/2023 15:52:00 Final Observation Date Value Abnormality Reference (Units ) Status Heparin, unfractionated level 04/29/2023 15:52:00 0.25 Above high normal <0.10 (IU/mL) Final Unfractionated therapeutic r anges for Anti Xa activity:
For Cardiac/Neurologic treatment: 0.3 to 0.6 IU/mL.
For treatment of DVT or Pulmonary Embolism: 0.3 to 0.7 IU/mL. Performing Location LABORATORY [facility] [place] - [address] [place] [address]
--- OUTSIDE RECORDS SUMMARY | 2023-05-09 10:32 | External Medical Summary ---
Author Name Unknown Address Unknown Organization K01:LABORATORY [facility] - [address] [place] [address] Laboratory Report Ordering Provider Test Date Status DARITHAIS Santana 05/02/2023 04:58:00 Final Observation Date Value Abnormality Reference (Units ) Status Magnesium 05/02/2023 04:58:00 2.1 1.5-2.6 (m g/dL) Final Performing Location LABORATORY [facility] - [address] [place] [address]
--- OUTSIDE RECORDS SUMMARY | 2023-05-09 10:32 | External Medical Summary ---
Author Name Unknown Address Unknown Organization K01:LABORATORY [facility] [place] - [facility] [address] [place] [address] Laboratory Report Ordering Provider Test Date Status THAIS CHAPIN 04/30/2023 06:01:00 Final Observation Date Value Abnormality Reference (Units ) Status Calcium.ionized [Moles/volume] in Serum or Plasma by Ion-selective membrane electrode (ISE) 04/30/2023 06:01:00 1.17 1.13-1.32 (mmol/L) Final This test was developed and its performance characteristics dtermined by [employer]. It has not been cleared or approved by the [place] Food and Drug Administration Performing Location LABORATORY [place] [address] [place] [address]
--- OUTSIDE RECORDS SUMMARY | 2023-05-09 10:32 | External Medical Summary ---
Author Name Unknown Address Unknown Organization K01:LABORATORY [facility] [place] [facility] [address] [place] [address] Laboratory Report Ordering Provider Test Date Status BRENT,ONURSAL 05/01/2023 05:12:00 Final Observation Date Value Abnormality Reference (Units ) Status Heparin, unfractionated level 05/01/2023 05:12:00 0.56 Above high normal <0.10 (IU/mL) Final Unfractionated therapeutic r anges for Anti Xa activity:
For Cardiac/Neurologic treatment: 0.3 to 0.6 IU/mL.
For treatment of DVT or Pulmonary Embolism: 0.3 to 0.7 IU/mL. Performing Location LABORATORY [facility] [place] - [address] [place] [address]
--- OUTSIDE RECORDS SUMMARY | 2023-05-09 10:32 | External Medical Summary ---
Author Name Unknown Address Unknown Organization K01:LABORATORY [facility] [place] [address] [place] [address] Laboratory Report Ordering Provider Test Date Status DARI,REGHAYES 04/30/2023 06:01:00 Final Observation Date Value Abnormality Reference (Units ) Status Phosphate 04/30/2023 06:01:00 2.0 Below low normal 2.5 -4.8 (mg/dL) Final Performing Location LABORATORY [facility] - [address] [place] [address]
--- OUTSIDE RECORDS SUMMARY | 2023-05-09 10:32 | External Medical Summary ---
Author Name Unknown Address Unknown Organization K01:LABORATORY [facility] [place] - [address] [place] [address] Laboratory Report Ordering Provider Test Date Status SOHEILA VELIZ 05/01/2023 20:07:26 Final Observation Date Value Abnormality Reference (Units ) Status Methicillin resistant Staphylococcus aureus (MRSA) DNA [Presence] in Nose by ADI with probe detection 05/01/2023 20:07:26 Negative Negative Final No Methicillin resistant Sta phylococcus aureus detected by PCR (amplified probe). Performing Location LABORATORY [facility] - [address] [place] [address]
--- OUTSIDE RECORDS SUMMARY | 2023-05-09 10:32 | External Medical Summary ---
Author Name Unknown Address Unknown Organization K01:[place] [facility] [place] [address] [place] [address] Laboratory Report Ordering Provider Test Date Status THAIS CHAPIN 04/30/2023 06:01:00 Final Observation Date Value Abnormality Reference (Units ) Status BUN 04/30/2023 06:01:00 10 6-20 (mg/dL) Final Creatinine 04/30/2023 06:01:00 0.9 0.6-1.2 (mg/dL) Final Glomerular filtration rate/1.73 sq M.predicted [Volume Rate/Area] in Serum, Plasma or Blood by Creatinine-based formula (CKD-EPI) 04/30/2023 06:01:00 >90 >=60 (mL/min) Final eGFR is calculated based on the CKD-EPI 2020 equation SODIUM 04/30/2023 06:01:00 133 Below low normal 135 -146 (mmol/L) Final Potassium 04/30/2023 06:01:00 4.1 3.5-5.1 (m mol/L) Final Cl 04/30/2023 06:01:00 99 98-107 (mm ol/L) Final CO2 04/30/2023 06:01:00 26 22-32 (mmo l/L) Final Anion gap 04/30/2023 06:01:00 8 7-15 (mmol /L) Final Glucose 04/30/2023 06:01:00 118 70-120 (mg /dL) Final Calcium 04/30/2023 06:01:00 8.7 8.4-10.2 ( mg/dL) Final Performing Location [place] [facility] [place] [address] [place] [address]
--- OUTSIDE RECORDS SUMMARY | 2023-05-09 10:32 | External Medical Summary ---
Author Name Unknown Address Unknown Organization K01:[place] [facility] [place] [facility] [place] [address] [place] [address] Laboratory Report Ordering Provider Test Date Status THAIS CHAPIN 05/02/2023 04:58:00 Final Observation Date Value Abnormality Reference (Units ) Status Calcium.ionized [Moles/volume] in Serum or Plasma by Ion-selective membrane electrode (ISE) 05/02/2023 04:58:00 1.18 1.13-1.32 (mmol/L) Final This test was developed and its performance characteristics dtermined by [employer]. It has not been cleared or approved by the US Food and Drug Administration Performing Location LABORATORY [place] [address] [place] [address]
--- OUTSIDE RECORDS SUMMARY | 2023-05-09 10:32 | External Medical Summary ---
Author Name Unknown Address Unknown Organization K01:LABORATORY [facility] [place] - [address] [facility] [address] [place] [address] Laboratory Report Ordering Provider Test Date Status NEREIDA PAUL 05/01/2023 09:45:25 Final Observation Date Value Abnormality Reference (Units) Status Bacteria identified in Specimen by Culture 05/01/2023 09:45:25 Moderate growth normal jose Final Gram Stain 05/01/2023 09:45:25 Purulent specimen, >25 neutrophils/low power microscopic field. Abnormal Final Gram Stain 05/01/2023 09:45:25 Many Polymorphonuclear leukocytes Abnormal Final Gram Stain 05/01/2023 09:45:25 Many Gram negative bacilli Abnormal Final Gram Stain 05/01/2023 09:45:25 Many Gram positive cocci Abnormal Final Gram Stain 05/01/2023 09:45:25 Occasional Gram positive bacilli Abnormal Final Test: Culture, Respiratory, Lower, Aerobic
Specimen Source: Tracheal Aspirate
Specimen Type: Lower Respiratory
Specimen Date: 05/01/2023 9:45 AM
Result Date: 05/03/2023 7:55 AM
Result Status: Final result
Abnormal: Yes
Resulting Lab: LABORATORY [facility]
[address] [facility] [address]
[place] [address]

CULTURE

Moderate growth normal jose

STAIN

Purulent specimen, >25 neutrophils/low power microscopic field.

Many Polymorphonuclear leukocytes

Many Gram negative bacilli

Many Gram positive cocci

Occasional Gram positive bacilli

null Performing Location LABORATORY [facility] [place] - [address] [facility] [address]
--- OUTSIDE RECORDS SUMMARY | 2023-05-09 10:32 | External Medical Summary ---
Author Name Unknown Address Unknown Organization K01:[place]ORY [facility] [place] - [facility] [place] [address] [place] [address] Laboratory Report Ordering Provider Test Date Status THAIS CHAPIN 05/02/2023 04:58:00 Final Observation Date Value Abnormality Reference (Units ) Status BUN 05/02/2023 04:58:00 10 6-20 (mg/dL) Final Creatinine 05/02/2023 04:58:00 0.9 0.6-1.2 (mg/dL) Final Glomerular filtration rate/1.73 sq M.predicted [Volume Rate/Area] in Serum, Plasma or Blood by Creatinine-based formula (CKD-EPI) 05/02/2023 04:58:00 >90 >=60 (mL/min) Final eGFR is calculated based on the CKD-EPI 2020 equation SODIUM 05/02/2023 04:58:00 137 135-146 (m mol/L) Final Potassium 05/02/2023 04:58:00 3.9 3.5-5.1 (m mol/L) Final Cl 05/02/2023 04:58:00 101 98-107 (mm ol/L) Final CO2 05/02/2023 04:58:00 25 22-32 (mmo l/L) Final Anion gap 05/02/2023 04:58:00 11 7-15 (mmol /L) Final Glucose 05/02/2023 04:58:00 113 70-120 (mg /dL) Final Calcium 05/02/2023 04:58:00 8.5 8.4-10.2 ( mg/dL) Final Performing Location LAB[place] [facility] [place] [address] [place] [address]
--- OUTSIDE RECORDS SUMMARY | 2023-05-09 10:32 | External Medical Summary ---
Author Name Unknown Address Unknown Organization K01:LABORATORY [facility] [place] - Formerly named [facility] [address] [place] [address] Laboratory Report Ordering Provider Test Date Status BEVERLYNEREIDA 05/02/2023 04:58:00 Final Get Heparin, unfractionated (Xa) level 6 hours after start of infusion and 6 hours after each dose adjustment Observation Date Value Abnormality Reference (Units ) Status Heparin, unfractionated level 05/02/2023 04:58:00 0.38 Above high normal <0.10 (IU/mL) Final Unfractionated therapeutic r anges for Anti Xa activity:
For Cardiac/Neurologic treatment: 0.3 to 0.6 IU/mL.
For treatment of DVT or Pulmonary Embolism: 0.3 to 0.7 IU/mL. Performing Location LABORATORY [facility] [place] - Formerly named [facility] [address] [place] [address]
--- OUTSIDE RECORDS SUMMARY | 2023-05-09 10:32 | External Medical Summary ---
Author Name Unknown Address Unknown Organization K01:[place]ORY [facility] [place] [address] [place] [address] Laboratory Report Ordering Provider Test Date Status NEREIDA PAUL 04/30/2023 06:01:00 Final Warfarin Therapy
INR: 2 .0-3.0 conventional anticoagulation
INR: 2.5- 3.5 high intensity anticoagulation Observation Date Value Abnormality Reference (Units ) Status PT 04/30/2023 06:01:00 15.2 11.6-15.2 (seconds) Final INR 04/30/2023 06:01:00 1.2 0.8-1.2 Final Performing Location [facility]ORY [facility] [place] [address] [place] [address]
--- OUTSIDE RECORDS SUMMARY | 2023-05-09 10:32 | External Medical Summary ---
Author Name Unknown Address Unknown Organization K01:[place]ORY [facility] [place] [facility] [address] [facility] [address] [facility] [address] Laboratory Report Ordering Provider Test Date Status NEREIDA PAUL 04/29/2023 15:52:00 Final Observation Date Value Abnormality Reference (Units ) Status WBC, Total 04/29/2023 15:52:00 13.29 Above high normal 4.00-10.80 (K/uL) Final RBC 04/29/2023 15:52:00 4.52 4.50-5.25 (M/uL) Final Hemoglobin 04/29/2023 15:52:00 14.2 14.0-16.8 (g/dL) Final HCT 04/29/2023 15:52:00 43.1 40.0-48.4 (%) Final MCV 04/29/2023 15:52:00 95.4 82.0-99.5 (fL) Final MCH 04/29/2023 15:52:00 31.4 27.0-34.0 (pg) Final MCHC 04/29/2023 15:52:00 32.9 32.0-36.0 (g/dL) Final RDW 04/29/2023 15:52:00 12.7 11.5-15.5 (%) Final Platelets 04/29/2023 15:52:00 220 140-400 (K/uL) Final MPV 04/29/2023 15:52:00 9.8 6.6-11.1 (fL) Final Nucleated erythrocytes/100 leukocytes [Ratio] in Blood by Automated count 04/29/2023 15:52:00 0 <=0 (/100 WBCs) Final Performing Location LAB[facility]ATORY [facility] [place] - [address] [place] [address]
--- OUTSIDE RECORDS SUMMARY | 2023-05-09 10:32 | External Medical Summary ---
Author Name Unknown Address Unknown Organization K01:LAB[place]ATORY [facility] [place] - [facility] [address] [place] [address] Laboratory Report Ordering Provider Test Date Status THAIS CHAPIN 05/01/2023 05:12:00 Final Observation Date Value Abnormality Reference (Units ) Status Calcium.ionized [Moles/volume] in Serum or Plasma by Ion-selective membrane electrode (ISE) 05/01/2023 05:12:00 1.16 1.13-1.32 (mmol/L) Final This test was developed and its performance characteristics dtermined by [employer]. It has not been cleared or approved by the US Food and Drug Administration Performing Location LABORATORY [place] [address] [place] [address]
--- OUTSIDE RECORDS SUMMARY | 2023-05-09 10:32 | External Medical Summary ---
Author Name Unknown Address Unknown Organization K01:[place] [facility] [place] [address] [place] [address] Laboratory Report Ordering Provider Test Date Status THAIS CHAPIN 05/01/2023 05:12:00 Final Observation Date Value Abnormality Reference (Units ) Status BUN 05/01/2023 05:12:00 9 6-20 (mg/dL) Final Creatinine 05/01/2023 05:12:00 0.8 0.6-1.2 (mg/dL) Final Glomerular filtration rate/1.73 sq M.predicted [Volume Rate/Area] in Serum, Plasma or Blood by Creatinine-based formula (CKD-EPI) 05/01/2023 05:12:00 >90 >=60 (mL/min) Final eGFR is calculated based on the CKD-EPI 2020 equation SODIUM 05/01/2023 05:12:00 136 135-146 (m mol/L) Final Potassium 05/01/2023 05:12:00 3.7 3.5-5.1 (m mol/L) Final Cl 05/01/2023 05:12:00 100 98-107 (mm ol/L) Final CO2 05/01/2023 05:12:00 26 22-32 (mmo l/L) Final Anion gap 05/01/2023 05:12:00 10 7-15 (mmol /L) Final Glucose 05/01/2023 05:12:00 104 70-120 (mg /dL) Final Calcium 05/01/2023 05:12:00 8.6 8.4-10.2 ( mg/dL) Final Performing Location [place] [facility] [place] [address] [place] [address]
--- OUTSIDE RECORDS SUMMARY | 2023-05-09 10:32 | External Medical Summary ---
Author Name Unknown Address Unknown Organization K01:LABORATORY [facility] [place] - [address] [place] [address] Laboratory Report Ordering Provider Test Date Status NEREIDA PAUL 05/02/2023 04:58:00 Final Warfarin Therapy
INR: 2 .0-3.0 conventional anticoagulation
INR: 2.5- 3.5 high intensity anticoagulation Observation Date Value Abnormality Reference (Units ) Status PT 05/02/2023 04:58:00 14.5 11.6-15.2 (seconds) Final INR 05/02/2023 04:58:00 1.1 0.8-1.2 Final Performing Location LABORATORY [facility] [place] - [address] [place] [address]
--- OUTSIDE RECORDS SUMMARY | 2023-05-09 10:32 | External Medical Summary ---
Author Name Unknown Address Unknown Organization K01:[place]ATORY [facility] [place] [address] [place] [address] Laboratory Report Ordering Provider Test Date Status DARIREGHAYES 05/01/2023 05:12:00 Final Observation Date Value Abnormality Reference (Units ) Status Phosphate 05/01/2023 05:12:00 2.4 Below low normal 2.5 -4.8 (mg/dL) Final Performing Location LABORATORY [facility] - [address] [place] [address]
--- OUTSIDE RECORDS SUMMARY | 2023-05-09 10:32 | External Medical Summary ---
Author Name Unknown Address Unknown Organization K01:[place] [facility] [place] [address] [facility] [address] [place] [address] Laboratory Report Ordering Provider Test Date Status DARITHAIS Santana 04/30/2023 06:01:00 Final Observation Date Value Abnormality Reference (Units ) Status Magnesium 04/30/2023 06:01:00 2.1 1.5-2.6 (m g/dL) Final Performing Location LABORATORY [facility] - [address] [place] [address]
--- OUTSIDE RECORDS SUMMARY | 2023-05-09 10:32 | External Medical Summary ---
Author Name Unknown Address Unknown Organization K01:LABORATORY [facility] [place] - [address] [place] [address] Laboratory Report Ordering Provider Test Date Status NEREIDA PAUL 04/29/2023 15:52:00 Final Warfarin Therapy
INR: 2 .0-3.0 conventional anticoagulation
INR: 2.5- 3.5 high intensity anticoagulation Observation Date Value Abnormality Reference (Units ) Status PT 04/29/2023 15:52:00 13.7 11.6-15.2 (seconds) Final INR 04/29/2023 15:52:00 1.1 0.8-1.2 Final Performing Location LABORATORY [facility] [place] - [address] [place] [address]
--- OUTSIDE RECORDS SUMMARY | 2023-05-09 10:32 | External Medical Summary ---
Author Name Unknown Address Unknown Organization K01:LABORATORY [address] [place] [address] Laboratory Report Ordering Provider Test Date Status THAIS CHAPIN 04/30/2023 06:01:00 Final Observation Date Value Abnormality Reference (Units ) Status WBC, Total 04/30/2023 06:01:00 11.06 Above high normal 4.00-10.80 (K/uL) Final RBC 04/30/2023 06:01:00 4.15 4.50-5.25 (M/uL) Final Hemoglobin 04/30/2023 06:01:00 13.1 Below low normal 14.0-16.8 (g/dL) Final HCT 04/30/2023 06:01:00 38.8 Below low normal 40.0-48.4 (%) Final MCV 04/30/2023 06:01:00 93.5 82.0-99.5 (fL) Final MCH 04/30/2023 06:01:00 31.6 27.0-34.0 (pg) Final MCHC 04/30/2023 06:01:00 33.8 32.0-36.0 (g/dL) Final RDW 04/30/2023 06:01:00 12.6 11.5-15.5 (%) Final Platelets 04/30/2023 06:01:00 213 140-400 (K/uL) Final MPV 04/30/2023 06:01:00 9.2 6.6-11.1 (fL) Final Nucleated erythrocytes/100 leukocytes [Ratio] in Blood by Automated count 04/30/2023 06:01:00 0 <=0 (/100 WBCs) Final Performing Location LAB[place]ORY [facility] [place] [address] [place] [address]
--- OUTSIDE RECORDS SUMMARY | 2023-05-09 10:32 | External Medical Summary ---
Author Name Unknown Address Unknown Organization K01:LABORATORY [facility] [place] - [address] [facility] [address] [place] [address] Laboratory Report Ordering Provider Test Date Status NEREIDA PAUL 04/30/2023 12:17:00 Final Observation Date Value Abnormality Reference (Units ) Status WBC, Total 04/30/2023 12:17:00 10.89 Above high normal 4.00-10.80 (K/uL) Final RBC 04/30/2023 12:17:00 4.25 4.50-5.25 (M/uL) Final Hemoglobin 04/30/2023 12:17:00 13.2 Below low normal 14.0-16.8 (g/dL) Final HCT 04/30/2023 12:17:00 40.1 40.0-48.4 (%) Final MCV 04/30/2023 12:17:00 94.4 82.0-99.5 (fL) Final MCH 04/30/2023 12:17:00 31.1 27.0-34.0 (pg) Final MCHC 04/30/2023 12:17:00 32.9 32.0-36.0 (g/dL) Final RDW 04/30/2023 12:17:00 12.6 11.5-15.5 (%) Final Platelets 04/30/2023 12:17:00 230 140-400 (K/uL) Final MPV 04/30/2023 12:17:00 9.6 6.6-11.1 (fL) Final Nucleated erythrocytes/100 leukocytes [Ratio] in Blood by Automated count 04/30/2023 12:17:00 0 <=0 (/100 WBCs) Final Performing Location LABORATORY [facility] [place] - [address] [place] [address]
--- OUTSIDE RECORDS SUMMARY | 2023-05-09 10:32 | External Medical Summary ---
Author Name Unknown Address Unknown Organization K01:[place] [facility] [place] [facility] [place] [address] [facility] [address] [place] [address] Laboratory Report Ordering Provider Test Date Status NEREIDA PAUL 04/30/2023 13:54:00 Final Get Heparin, unfractionated (Xa) level 6 hours after start of infusion and 6 hours after each dose adjustment Observation Date Value Abnormality Reference (Units ) Status Heparin, unfractionated level 04/30/2023 13:54:00 0.54 Above high normal <0.10 (IU/mL) Final Unfractionated therapeutic r anges for Anti Xa activity:
For Cardiac/Neurologic treatment: 0.3 to 0.6 IU/mL.
For treatment of DVT or Pulmonary Embolism: 0.3 to 0.7 IU/mL. Performing Location [place] [facility] [place] [facility] [place] [address] [place] [address]
--- OUTSIDE RECORDS SUMMARY | 2023-05-09 10:32 | External Medical Summary ---
Author Name Unknown Address Unknown Organization K01:LABORATORY [facility] - [address] [place] [address] Laboratory Report Ordering Provider Test Date Status THAIS CHAPIN 05/02/2023 04:58:00 Final Observation Date Value Abnormality Reference (Units ) Status Phosphate 05/02/2023 04:58:00 3.3 2.5-4.8 (m g/dL) Final Performing Location LABORATORY [facility] - [address] [place] [address]
--- OUTSIDE RECORDS SUMMARY | 2023-05-09 10:32 | External Medical Summary ---
Author Name Unknown Address Unknown Organization K01:LABORATORY [facility] [place] - [facility] [address] [place] [address] Laboratory Report Ordering Provider Test Date Status BRENT,ONURSAL 04/30/2023 00:54:00 Final Observation Date Value Abnormality Reference (Units ) Status Heparin, unfractionated level 04/30/2023 00:54:00 0.73 Above high normal <0.10 (IU/mL) Final Unfractionated therapeutic r anges for Anti Xa activity:
For Cardiac/Neurologic treatment: 0.3 to 0.6 IU/mL.
For treatment of DVT or Pulmonary Embolism: 0.3 to 0.7 IU/mL. Performing Location LABORATORY [facility] [place] - [address] [place] [address]
--- OUTSIDE RECORDS SUMMARY | 2023-05-09 10:32 | External Medical Summary ---
Author Name Unknown Address Unknown Organization K01:[place]ORY [facility] [place] [facility] [address] [facility] [address] [place] [address] Laboratory Report Ordering Provider Test Date Status THAIS CHAPIN 05/02/2023 04:58:00 Final Observation Date Value Abnormality Reference (Units ) Status WBC, Total 05/02/2023 04:58:00 8.85 4.00-10.80 (K/uL) Final RBC 05/02/2023 04:58:00 4.06 4.50-5.25 (M/uL) Final Hemoglobin 05/02/2023 04:58:00 12.8 Below low normal 14.0-16.8 (g/dL) Final HCT 05/02/2023 04:58:00 37.3 Below low normal 40.0-48.4 (%) Final MCV 05/02/2023 04:58:00 91.9 82.0-99.5 (fL) Final MCH 05/02/2023 04:58:00 31.5 27.0-34.0 (pg) Final MCHC 05/02/2023 04:58:00 34.3 32.0-36.0 (g/dL) Final RDW 05/02/2023 04:58:00 12.6 11.5-15.5 (%) Final Platelets 05/02/2023 04:58:00 225 140-400 (K/uL) Final MPV 05/02/2023 04:58:00 9.5 6.6-11.1 (fL) Final Nucleated erythrocytes/100 leukocytes [Ratio] in Blood by Automated count 05/02/2023 04:58:00 0 <=0 (/100 WBCs) Final Performing Location LABORATORY [facility] [place] [address] [place] [address]
--- OUTSIDE RECORDS SUMMARY | 2023-05-09 10:32 | External Medical Summary ---
Author Name Unknown Address Unknown Organization K01:LABORATORY [facility] [place] - [facility] [address] [facility] [address] [place] [address] Laboratory Report Ordering Provider Test Date Status THAIS CHAPIN 05/01/2023 05:12:00 Final Observation Date Value Abnormality Reference (Units ) Status WBC, Total 05/01/2023 05:12:00 9.36 4.00-10.80 (K/uL) Final RBC 05/01/2023 05:12:00 4.23 4.50-5.25 (M/uL) Final Hemoglobin 05/01/2023 05:12:00 13.2 Below low normal 14.0-16.8 (g/dL) Final HCT 05/01/2023 05:12:00 39.7 Below low normal 40.0-48.4 (%) Final MCV 05/01/2023 05:12:00 93.9 82.0-99.5 (fL) Final MCH 05/01/2023 05:12:00 31.2 27.0-34.0 (pg) Final MCHC 05/01/2023 05:12:00 33.2 32.0-36.0 (g/dL) Final RDW 05/01/2023 05:12:00 12.7 11.5-15.5 (%) Final Platelets 05/01/2023 05:12:00 214 140-400 (K/uL) Final MPV 05/01/2023 05:12:00 9.4 6.6-11.1 (fL) Final Nucleated erythrocytes/100 leukocytes [Ratio] in Blood by Automated count 05/01/2023 05:12:00 0 <=0 (/100 WBCs) Final Performing Location LABORATORY [facility] [place] - [address] [place] [address]
--- OUTSIDE RECORDS SUMMARY | 2023-05-09 10:32 | External Medical Summary ---
Author Name Unknown Address Unknown Organization K01:LABORATORY [facility] - [address] [place] [address] Laboratory Report Ordering Provider Test Date Status DARIREGHAYES 05/01/2023 05:12:00 Final Observation Date Value Abnormality Reference (Units ) Status Magnesium 05/01/2023 05:12:00 2.1 1.5-2.6 (m g/dL) Final Performing Location LABORATORY [facility] - [address] [place] [address]
--- OUTSIDE RECORDS SUMMARY | 2023-05-09 10:32 | External Medical Summary ---
Author Name Unknown Address Unknown Organization K01:LABORATORY [facility] [place] - [facility] [address] [place] [address] Laboratory Report Ordering Provider Test Date Status BRENT,ONURSAL 04/30/2023 07:34:00 Final Observation Date Value Abnormality Reference (Units ) Status Heparin, unfractionated level 04/30/2023 07:34:00 0.66 Above high normal <0.10 (IU/mL) Final Unfractionated therapeutic r anges for Anti Xa activity:
For Cardiac/Neurologic treatment: 0.3 to 0.6 IU/mL.
For treatment of DVT or Pulmonary Embolism: 0.3 to 0.7 IU/mL. Performing Location LABORATORY [facility] [place] - [address] [place] [address]
--- OUTSIDE RECORDS SUMMARY | 2023-05-09 10:32 | External Medical Summary ---
Author Name Unknown Address Unknown Organization K01:[place] [facility] [place] [address] [place] [address] Laboratory Report Ordering Provider Test Date Status NEREIDA PAUL 05/01/2023 05:12:00 Final Warfarin Therapy
INR: 2 .0-3.0 conventional anticoagulation
INR: 2.5- 3.5 high intensity anticoagulation Observation Date Value Abnormality Reference (Units ) Status PT 05/01/2023 05:12:00 14.2 11.6-15.2 (seconds) Final INR 05/01/2023 05:12:00 1.1 0.8-1.2 Final Performing Location [place] [facility] [place] [address] [place] [address]
--- OUTSIDE RECORDS SUMMARY | 2023-05-09 10:32 | External Medical Summary ---
Author Name Unknown Address Unknown Organization K01:LABORATORY [facility] - [address] [place] [address] Laboratory Report Ordering Provider Test Date Status NEREIDA PAUL 04/29/2023 15:52:00 Final Anticoagulation may affect t esting. Refer to [employer] for a list of effects. Observation Date Value Abnormality Reference (Units ) Status aPTT panel - Platelet poor plasma 04/29/2023 15:52:00 35 21-38 (seconds) Final Performing Location LABORATORY [facility] - [address] [place] [address]
--- OUTSIDE RECORDS SUMMARY | 2023-05-09 10:33 | External Medical Summary ---
Author Name Unknown Address Unknown Organization K01:LABORATORY [facility] [place] [facility] [place] [address] [facility] [place] [address] Laboratory Report Ordering Provider Test Date Status ARRON TORRES 04/28/2023 19:38:00 Final Observation Date Value Abnormality Reference (Units ) Status Lactic Acid 04/28/2023 19:38:00 1.0 0.4-2.0 (mmol/L) Final Performing Location LABOR[place]ORY [facility] [place] [place] [address] [facility] [address]
--- OUTSIDE RECORDS SUMMARY | 2023-05-09 10:33 | External Medical Summary ---
Author Name Unknown Address Unknown Organization K01:LABORATORY [facility] [place] - [address] [place] [address] Laboratory Report Ordering Provider Test Date Status THAIS CHAPIN 04/29/2023 04:36:00 Final Observation Date Value Abnormality Reference (Units ) Status BUN 04/29/2023 04:36:00 11 6-20 (mg/dL) Final Creatinine 04/29/2023 04:36:00 0.8 0.6-1.2 (mg/dL) Final Glomerular filtration rate/1.73 sq M.predicted [Volume Rate/Area] in Serum, Plasma or Blood by Creatinine-based formula (CKD-EPI) 04/29/2023 04:36:00 >90 >=60 (mL/min) Final eGFR is calculated based on the CKD-EPI 2020 equation SODIUM 04/29/2023 04:36:00 135 135-146 (m mol/L) Final Potassium 04/29/2023 04:36:00 4.3 3.5-5.1 (m mol/L) Final Cl 04/29/2023 04:36:00 99 98-107 (mm ol/L) Final CO2 04/29/2023 04:36:00 24 22-32 (mmo l/L) Final Anion gap 04/29/2023 04:36:00 12 7-15 (mmol /L) Final Glucose 04/29/2023 04:36:00 125 Above high normal 70 -120 (mg/dL) Final Calcium 04/29/2023 04:36:00 8.9 8.4-10.2 ( mg/dL) Final Performing Location LABORATORY [facility] [place] - [address] [place] [address]
--- OUTSIDE RECORDS SUMMARY | 2023-05-09 10:33 | External Medical Summary | Summary of Care ---
Author Name Unknown Organization [facility] Address [address] [place] [address] Phone [phone] Care Team Providers Care Decorating Consultant Name Role Phone Artemio Solares DO Primary Care Provider [phone] Reason for Visit * Reason Onset Date Comments dysphagia 04/28/2023 Encounter Details Date Type Department Care Team (Late st Contact Info) Description 04/28/2023 Telephone Otolaryngology/Head & Neck/Facial Plastic Surgery [address] [place] [facility] [place] [address] Kaci Rodriguez MD [address] [place] [address] dysphagia Allergies No known active allergiesdocumented as of this encounter (statuses as of 04/28/2023) Medications Medication Sig Dispensed Refills Start Date End Date Status SURGICAL COMPRESSION STOCKING 20 to 30mm knee high. 0 02/10/2022 Active Warfarin Sodium 5 MG Oral Tablet (Coumadin) Take 1-2 Tablets by mouth every evening. Or as directed by warfarin clinic 60 Tablet 5 02/23/2023 Active Enoxaparin Sodium 100 MG/ML Injection Solution Prefilled Syringe (Lovenox)Indications: Heterozygous factor V Leiden mutation (HCC) Inject 100 mg under the skin in the morning and 100 mg before bedtime. 10 mL 0 04/26/2023 Active documented as of this encounter (statuses as of 04/28/2023) Active Problems Problem Noted Date Diagnosed Date Other vascular myelopathies 02/23/2023 Heterozygous factor V [...] as of this encounter (statuses as of 04/28/2023) Resolved Problems Problem Noted Date Diagnosed Date Resolved Date Acute deep vein thrombosis ( DVT) of proximal vein of right lower extremity 02/23/2023 03/08/2023 FACTOR V LEIDEN: heterozygote status 09/11/2003 07/02/2016 documented as of this encounter (statuses as of 04/28/2023) Immunizations Name Administration Dates Next Due COVID-19 [...] Never Alcohol Use Standard Drinks/Week Comments Yes 0 (1 standard drink = 0.6 oz pur [...] on file documented as of this encounter Miscellaneous Notes * Telephone Encounter - Brandee Quezada RN - 04/28/2023 3:42 PM EST Pt's calling and states her is having difficulty swallowing water and choking. He feels like he can't breathe when he is swallowing with the coughing and choking. I told patient's to come to our ED in [place]. They are currently staying in the [facility] in [place]. I told to not let him have anything by mouth. She will bring him to the ED now. documented in this encounter Plan of Treatment Upcoming Encounters Date Type Department Care Team (Latest Contact Info) Description 4 10:15 AM EST Office Visit Otolaryngology/ Head & Neck/Facial Plastic Surgery [address] [place] [facility] [address] Kaci Rodriguez MD [address] [place] [address] 4 8:20 AM EST Anticoagulation Pharmacy, [facility] 200 [facility] [place] [address] Pharmacist1, [facility] 200 [facility] [place] [address] 4 1:00 PM EDT Hospital Encounter ENDO OSS[facility], Endoscopy Room [facility] [address] [place] [phone] Marcelino Smalls MD [address] [place] [address] 4 1:00 PM EDT - 4 1:30 PM EDT Surgery ENDO OSS[facility], Endoscopy Room [facility] [address] [place] [phone] Marcelino Smalls MD [address] [place] [address] ESOPHAGOGASTRODUODENOSCOPY (EGD), FLEXIBLE, TRANSORAL, DIAGNOSTIC 4 8:45 AM EDT Office Visit Dermatology [facility] 200 [facility] [address] [place] [address] David Washburn MD 200 [facility] [place] [address] 4 8:20 AM EST Office Visit Family Practice [facility] 200 [facility] [place] [address] Artemio Solares DO 200 [facility] [place] [address] Scheduled Procedures Name Priority Associated Diagnoses Date/Ti [...] 04/2019, 06/20/2015, Additional history exists Diabetes Screening 02/23/2026 02/23/2023, 0 10/30/2019, 06/20/2015, Additional history exists DTaP,Tdap,and Td Vaccines (3 [...] Not on filedocumented as of this encounter Care Teams Decorating Consultant Relationship Specialty Start Date End Date Artemio Solares DO [address] [place] [address] PCP - General Family Medicine 07/02/16 documented as of this encounter
--- OUTSIDE RECORDS SUMMARY | 2023-05-09 10:33 | External Medical Summary ---
Author Name Unknown Address Unknown Organization K01:LAB[facility]ATORY [facility] - [address] [place] [address] Laboratory Report Ordering Provider Test Date Status THAIS CHAPIN 04/29/2023 04:36:00 Final Observation Date Value Abnormality Reference (Units ) Status Phosphate 04/29/2023 04:36:00 3.0 2.5-4.8 (m g/dL) Final Performing Location [facility] - [address] [place] [address]
--- OUTSIDE RECORDS SUMMARY | 2023-05-09 10:33 | External Medical Summary | Summary of Care ---
Author Name Unknown Organization [facility] Address [address] [facility] [address] Phone [phone] Care Team Providers Care Communications Operator Name Role Phone Artemio Solares DO Primary Care Provider [phone] Reason for Visit * Precert (Within 10 days (routine)) - Authorized Specialty Diagnoses / Procedures Referred By Contac t Referred To Contact Radiology Diagnoses Tongue mass Procedures CT NECK W CONTRAST Yamel Carrera MD [address] [facility] [address] Referral ID Status Reason Start Date Expiration Date V isits Requested Visits Authorized [id number] Authorized 04/26/[phone] Encounter Details Date Type Department Care Team (Latest Contact Info) Description 04/27/2023 12:37 PM EST - 04/27/2023 11:59 PM EST Hospital Encounter Radiology, [facility] [address] [facility] [place] [id number] Arrived Discharge Disposition: Home - Self Care Allergies No known active allergiesdocumented as of [...] on file documented as of this encounter Plan of Treatment Upcoming Encounters Date Type Department Care Team (Latest Contact Info) Description 4 10:15 AM EST Office Visit Otolaryngology/ Head & Neck/Facial Plastic Surgery [address] [facility] [place] [address] Kaci Rodriguez MD [address] [facility] [place] [address] 4 8:20 AM EST Anticoagulation Pharmacy, [facility] 200 [facility] [place] [address] Pharmacist1, [facility] [address] [place] [address] 4 1:00 PM EDT Hospital Encounter ENDO OSSC, Endoscopy Room [facility] [address] [place] [phone] Marcelino Smalls MD [address] [place] [address] 4 1:00 PM EDT - 4 1:30 PM EDT Surgery ENDO OSSC, Endoscopy Room [facility] [address] [place] [phone] Marcelino Smalls MD [address] [place] [address] ESOPHAGOGASTRODUODENOSCOPY (EGD), FLEXIBLE, TRANSORAL, DIAGNOSTIC 4 8:45 AM EDT Office Visit Dermatology [facility] 200 [facility], [place] [address] David Washburn MD 200 [facility] [place] [address] 4 8:20 AM EST Office Visit Family Practice [facility] [address] [facility] [place] [address] Artemio Solares DO 200 [facility] [place] [address] Scheduled Procedures Name Priority Associated Diagnoses Date/Ti [...] Additional history exists Lipid Panel 05/22/2025 05/22/2020, 10/10, 06/20/2015, Additional history exists Diabetes Screening 02/23/2026 [...] Procedure Name Priority Date/Time Associated Diagnosis Comments CT NECK W CONTRAST Routine 04/27/2023 1: 50 PM EST Tongue mass documented in this encounter Administered Medications Inactive Administered Medications - up to 3 most recent administrations Medication Order MAR Action Action Date Dose Rate Site Ioversol (Optiray 320) inj 100 mL 100 mL, Intravenous, ONCE, On Tue04/27/23 at 1353, For 1 dose, Radiology Medication Routing (Non-IR) Given 04/27/2023 1:53 PM EST 100 mL documented in this encounter Care Teams Communications Operator Relationship Specialty Start Date End Date Artemio Solares DO [address] [place] [address] PCP - General Family Medicine 07/02/16 documented as of this encounter
--- OUTSIDE RECORDS SUMMARY | 2023-05-09 10:33 | External Medical Summary ---
Author Name Unknown Address Unknown Organization : Laboratory Report Ordering Provider Test Date Status BRENTONURSKACY 04/28/2023 18:01:01 Final Observation Date Value Abnormality Reference (Units ) Status Glucose Point of Care 04/28/2023 18:01:01 101 70-120 (mg/dL) Final Performing Location
--- OUTSIDE RECORDS SUMMARY | 2023-05-09 10:33 | External Medical Summary ---
Author Name Unknown Address Unknown Organization [id number]:[facility] [address] [facility] [address] [place] [address] Laboratory Report Ordering Provider Test Date Status THAIS CHAPIN 04/29/2023 04:36:00 Final Observation Date Value Abnormality Reference (Units ) Status WBC, Total 04/29/2023 04:36:00 12.34 Above high normal 4.00-10.80 (K/uL) Final RBC 04/29/2023 04:36:00 4.45 4.50-5.25 (M/uL) Final Hemoglobin 04/29/2023 04:36:00 13.9 Below low normal 14.0-16.8 (g/dL) Final HCT 04/29/2023 04:36:00 41.5 40.0-48.4 (%) Final MCV 04/29/2023 04:36:00 93.3 82.0-99.5 (fL) Final MCH 04/29/2023 04:36:00 31.2 27.0-34.0 (pg) Final MCHC 04/29/2023 04:36:00 33.5 32.0-36.0 (g/dL) Final RDW 04/29/2023 04:36:00 12.3 11.5-15.5 (%) Final Platelets 04/29/2023 04:36:00 253 140-400 (K/uL) Final MPV 04/29/2023 04:36:00 9.4 6.6-11.1 (fL) Final Nucleated erythrocytes/100 leukocytes [Ratio] in Blood by Automated count 04/29/2023 04:36:00 0 <=0 (/100 WBCs) Final Performing Location [facility] [place] [address] [place] [address]
--- OUTSIDE RECORDS SUMMARY | 2023-05-09 10:33 | External Medical Summary ---
Author Name Unknown Address Unknown Organization K01:LABORATORY [facility] [place] - Formerly named [facility] [address] [facility] [address] [facility] [place] [address] Laboratory Report Ordering Provider Test Date Status ARRON TORRES 04/28/2023 19:38:00 Final Observation Date Value Abnormality Reference (Units ) Status WBC, Total 04/28/2023 19:38:00 6.17 4.00-10.80 (K/uL) Final RBC 04/28/2023 19:38:00 4.28 4.50-5.25 (M/uL) Final Hemoglobin 04/28/2023 19:38:00 13.2 Below low normal 14.0-16.8 (g/dL) Final HCT 04/28/2023 19:38:00 40.4 40.0-48.4 (%) Final MCV 04/28/2023 19:38:00 94.4 82.0-99.5 (fL) Final MCH 04/28/2023 19:38:00 30.8 27.0-34.0 (pg) Final MCHC 04/28/2023 19:38:00 32.7 32.0-36.0 (g/dL) Final RDW 04/28/2023 19:38:00 12.5 11.5-15.5 (%) Final Platelets 04/28/2023 19:38:00 233 140-400 (K/uL) Final MPV 04/28/2023 19:38:00 9.4 6.6-11.1 (fL) Final Nucleated erythrocytes/100 leukocytes [Ratio] in Blood by Automated count 04/28/2023 19:38:00 0 <=0 (/100 WBCs) Final Performing Location LABORATORY [facility] [place] - [address] [facility] [address]
--- OUTSIDE RECORDS SUMMARY | 2023-05-09 10:33 | External Medical Summary ---
Author Name Unknown Address Unknown Organization K01:[facility] [place] [address] [facility] [address] [facility] [address] Laboratory Report Ordering Provider Test Date Status YONG SANTOS 04/28/2023 18:18:07 Final SCREENING Observation Date Value Abnormality Reference (Units ) Status SARS Coronavirus 2 04/28/2023 18:18:07 Negative N egative Final 2019 Novel Coronavirus not d etected.

This express test was developed and its performance characteristics determined by [employer]. It has not been cleared or approved [...] (RT-PCR) test, or a Centers for Disease Control-acceptable equivalent. The test is performed in a high complexity Clinical Laboratory Improvement Amendments-(CLIA) certified laboratory. The test is acceptable for SARS-CoV-2 diagnosis, surveillance, and travel within the [place] and to most countries. Please check with local testing authorities about requirements before travel.

The validation of bronchial specimens, tracheal aspirates, and sputum for this assay was developed and performance characteristics determined by [employer]. The validation of alternate specimen types has not been cleared or approved by the U.S. Food and Drug Administration (FDA). It has been determined that such clearance is not necessary. Performing Location [facility] [place] [address] [facility] [address]
--- OUTSIDE RECORDS SUMMARY | 2023-05-09 10:33 | External Medical Summary ---
Author Name Unknown Address Unknown Organization K01:LABORATORY [facility] [place] - [address] [place] [address] Laboratory Report Ordering Provider Test Date Status ARRON TORRES 04/28/2023 19:38:00 Final Observation Date Value Abnormality Reference (Units ) Status Phosphate 04/28/2023 19:38:00 2.8 2.5-4.8 (m g/dL) Final Performing Location [facility] - [address] [place] [address]
--- OUTSIDE RECORDS SUMMARY | 2023-05-09 10:33 | External Medical Summary ---
Author Name Unknown Address Unknown Organization K01:LABORATORY [facility] [place] [place] - [address] [facility] [address] [place] [address] Laboratory Report Ordering Provider Test Date Status DARIREGHAYES 04/29/2023 04:36:00 Final Observation Date Value Abnormality Reference (Units ) Status Magnesium 04/29/2023 04:36:00 2.1 1.5-2.6 (m g/dL) Final Performing Location [facility] - [address] [place] [address]
--- OUTSIDE RECORDS SUMMARY | 2023-05-09 10:33 | External Medical Summary ---
Author Name Unknown Address Unknown Organization K01:[facility] [place] [facility] [place] [address] [place] [address] Laboratory Report Ordering Provider Test Date Status THAIS CHAPIN 04/29/2023 04:36:00 Final Observation Date Value Abnormality Reference (Units ) Status Calcium.ionized [Moles/volume] in Serum or Plasma by Ion-selective membrane electrode (ISE) 04/29/2023 04:36:00 1.16 1.13-1.32 (mmol/L) Final This test was developed and its performance characteristics dtermined by [employer]. It has not been cleared or approved by the US Food and Drug Administration Performing Location LABORATORY [place] [address] [place] [address]
--- OUTSIDE RECORDS SUMMARY | 2023-05-09 10:33 | External Medical Summary ---
Author Name Unknown Address Unknown Organization K01:[facility] [place] [address] [facility] [address] [place] [address] Laboratory Report Ordering Provider Test Date Status ARRON TORRES 04/28/2023 19:38:00 Final Observation Date Value Abnormality Reference (Units ) Status Magnesium 04/28/2023 19:38:00 1.9 1.5-2.6 (m g/dL) Final Performing Location [facility] - [address] [place] [address]
--- OUTSIDE RECORDS SUMMARY | 2023-05-09 10:33 | External Medical Summary ---
Author Name Unknown Address Unknown Organization K01:LABORATORY [facility] [place] - [address] [place] [address] Laboratory Report Ordering Provider Test Date Status ARRON TORRES 04/28/2023 19:38:00 Final Observation Date Value Abnormality Reference (Units ) Status BUN 04/28/2023 19:38:00 13 6-20 (mg/dL) Final Creatinine 04/28/2023 19:38:00 0.9 0.6-1.2 (mg/dL) Final Glomerular filtration rate/1.73 sq M.predicted [Volume Rate/Area] in Serum, Plasma or Blood by Creatinine-based formula (CKD-EPI) 04/28/2023 19:38:00 >90 >=60 (mL/min) Final eGFR is calculated based on the CKD-EPI 2020 equation SODIUM 04/28/2023 19:38:00 138 135-146 (m mol/L) Final Potassium 04/28/2023 19:38:00 4.0 3.5-5.1 (m mol/L) Final Cl 04/28/2023 19:38:00 102 98-107 (mm ol/L) Final CO2 04/28/2023 19:38:00 24 22-32 (mmo l/L) Final Anion gap 04/28/2023 19:38:00 12 7-15 (mmol /L) Final Glucose 04/28/2023 19:38:00 123 Above high normal 70 -120 (mg/dL) Final Calcium 04/28/2023 19:38:00 8.8 8.4-10.2 ( mg/dL) Final Performing Location LABORATORY [facility] - [address] [place] [address]
--- OUTSIDE RECORDS SUMMARY | 2023-05-09 10:34 | External Medical Summary | Summary of Care ---
Author Name Unknown Organization [facility] Address [address] [facility] [place] [address] Phone [phone] Care Team Providers Care Yardage Tufting Machine Operator Name Role Phone Artemio Solares DO Primary Care Provider [phone] Reason for Visit * Reason Onset Date Comments Advice 04/26/2023 Encounter Details Date Type Department Care Team (Late st Contact Info) Description 04/26/2023 Telephone Family Practice [facility] [place] 200 [facility] [place] [address] Artemio Solares DO 200 [facility] [place] [address] Advice Allergies No known active allergiesdocumented as of this encounter (statuses as of 04/26/2023) Medications Medication Sig Dispensed Refills Start Date End Date Status SURGICAL COMPRESSION STOCKING 20 to 30mm knee high. 0 02/10/2022 Active Warfarin Sodium 5 MG Oral Tablet (Coumadin) Take 1-2 Tablets by mouth every evening. Or as directed by warfarin clinic 60 Tablet 5 02/23/2023 Active Enoxaparin Sodium 100 MG/ML Injection Solution Prefilled Syringe (Lovenox)Indicatio ns:Heterozygous factor V Leiden mutation (HCC) Inject 100 mg under the skin in the morning and 100 mg before bedtime. 10 mL 0 04/15/2023 04/26/2023 Discontinued (Refill) documented as of this encounter (statuses as of 04/26/2023) Active Problems Problem Noted Date Diagnosed Date [...] as of this encounter (statuses as of 04/26/2023) Resolved Problems Problem Noted Date Diagnosed Date Resolved Date Acute deep vein thrombosis ( DVT) of proximal vein of right lower extremity 02/23/2023 03/08/2023 FACTOR V LEIDEN: heterozygote status 09/11/2003 07/02/2016 documented as of this encounter (statuses as of 04/26/2023) Immunizations Name Administration Dates Next Due COVID-19 [...] encounter Miscellaneous Notes * Telephone Encounter - Ondina Jesus LPN - 04/26/2023 4:30 PM EST Called patient and . Eloisa did call them. Right now Eloisa suggested he stay on the lovenox, until they find out what ENT wants to do about the biopsy. Depends on how soon it is going to be. [facility]'t [facility] at [place]. Said the referral would either have to be [facility] or [facility]. They will go to whichever has the first appt. If we need to fax a referral to [facility] Fax for [facility] is [phone] and phone is [phone] Patient would like a phone call when referral(s) sent. Given the number for ENT scheduling. She will try and call them tomorrow. * Telephone Encounter - Yamel Carrera MD - 04/26/2023 3:19 PM EST Covering for Dr. Solares. If he was originally supposed to go back to Warfarin today, that should be fine. I wouldn't continue the Lovenox or hold Warfarin just in anticipation for ENT biopsy. Will forward to Eloisa for inputas well. * Telephone Encounter - Taylor Lucas, ELEAZAR - 04/26/2023 2:31 PM EST Good afternoon, Received a call from Tootie, patient's , she was calling to find out if Jacob should start backup on Warfarin Sodium 5 MG Oral Tablet (Coumadin) or should he stay on Enoxaparin Sodium 100 MG/ML Injection Solution Prefilled Syringe (Lovenox) If he is to stay on Lovenox then a new script should be called in. He only has 5 shots left. Tootie would like for someone to call her or Jacob so they would know how to proceed. Pharmacy updated and verified. Please advise. If there are any questions, or concerns please call Tootie at [phone]. Thank you. ELEAZAR Lees documented in this encounter Plan of Treatment Upcoming Encounters Date Type Department Care Team (Latest Contact Info) Description 4 8:20 AM EST Anticoagulation Pharmacy, [facility] [place] 200 [facility] [place] [address] Pharmacist1, [facility] 200 [facility] [place] [address] 4 1:00 PM EDT Hospital Encounter ENDO OSSC, Endoscopy Room [facility] [address] [place] [phone] Marcelino Smalls MD [address] [place] [address] 4 1:00 PM EDT - 4 1:30 PM EDT Surgery ENDO OSSC, Endoscopy Room [facility] [address] [place] [phone] Marcelino Smalls MD [address] [place] [address] ESOPHAGOGASTRODUODENOSCOPY (EGD), FLEXIBLE, TRANSORAL, DIAGNOSTIC 4 8:45 AM EDT Office Visit Dermatology [employer] 200 [facility] [place] [address] David Washburn MD 200 [facility] [place] [address] 4 8:20 AM EST Office Visit Family Practice [facility] [place] [address] [place], [place] [address] Artemio Solares DO [address] [place], [place] [address] Scheduled Procedures Name Priority Associated Diagnoses Date/Ti [...] 0704/2019, 06/20/2015, Additional history exists Diabetes Screening 02/23/2026 [...] filedocumented as of this encounter Care Teams Yardage Tufting Machine Operator Relationship Specialty Start Date End Date Artemio Solares DO [address] [place] [address] PCP - General Family Medicine 07/02/16 documented as of this encounter
--- OUTSIDE RECORDS SUMMARY | 2023-05-09 10:34 | External Medical Summary ---
Author Name Unknown Address Unknown Organization K01:LABORATORY [facility] [place] - 100 [facility] [place] [address] Laboratory Report Ordering Provider Test Date Status YONG SANTOS 04/28/2023 17:49:00 Final Observation Date Value Abnormality Reference (Units ) Status BUN 04/28/2023 17:49:00 12 6-20 (mg/dL) Final Creatinine 04/28/2023 17:49:00 0.9 0.6-1.2 (mg/dL) Final Glomerular filtration rate/1.73 sq M.predicted [Volume Rate/Area] in Serum, Plasma or Blood by Creatinine-based formula (CKD-EPI) 04/28/2023 17:49:00 89 >=60 (mL/min) Final eGFR is calculated based on the CKD-EPI 2020 equation SODIUM 04/28/2023 17:49:00 136 135-146 (m mol/L) Final Potassium 04/28/2023 17:49:00 3.7 3.5-5.1 (m mol/L) Final Cl 04/28/2023 17:49:00 101 98-107 (mm ol/L) Final CO2 04/28/2023 17:49:00 26 22-32 (mmo l/L) Final Anion gap 04/28/2023 17:49:00 9 7-15 (mmol /L) Final Glucose 04/28/2023 17:49:00 101 70-120 (mg /dL) Final Albumin 04/28/2023 17:49:00 4.2 3.8-5.0 (g /dL) Final AST (Aspartate aminotransferase) 04/28/2023 17:49:00 41 10-50 (U/L) Final Alk Phos 04/28/2023 17:49:00 68 35-130 (U/ L) Final Bilirubin, Total 04/28/2023 17:49:00 0.5 <=1 .2 (mg/dL) Final Calcium 04/28/2023 17:49:00 9.4 8.4-10.2 ( mg/dL) Final Protein 04/28/2023 17:49:00 7.7 6.0-8.3 (g /dL) Final ALT (Alanine aminotransferase) 04/28/2023 17:49:00 49 10-50 (U/L) Final Performing Location LABORATORY [facility] [place] - [address] [facility] [address]
--- OUTSIDE RECORDS SUMMARY | 2023-05-09 10:34 | External Medical Summary | Summary of Care ---
Author Name Unknown Organization [facility] Address [address] [facility] [place] [address] Phone [phone] Care Team Providers Care Idea Worker Name Role Phone Artemio Solares DO Primary Care Provider [phone] Encounter Details Date Type Department Care Team (Late st Contact Info) Description 04/27/[address] [facility] [address] [place] [address] Artemio Solares DO 200 [facility] [place] [address] Allergies No known active allergiesdocumented as of this encounter (statuses as of 04/27/2023) Medications Medication Sig Dispensed Refills Start Date [...] as of this encounter (statuses as of 04/27/2023) Active Problems Problem Noted Date Diagnosed Date [...] as of this encounter (statuses as of 04/27/2023) Resolved Problems Problem Noted Date Diagnosed Date Resolved Date Acute deep vein thrombosis ( DVT) of proximal vein of right lower extremity 02/23/2023 03/08/2023 FACTOR V LEIDEN: heterozygote status 09/11/2003 07/02/2016 documented as of this encounter (statuses as of 04/27/2023) Immunizations Name Administration Dates Next Due COVID-19 [...] Care Team (Latest Contact Info) Description 4 1:00 PM EST Imaging Radiology [address] [place] [address] 4 8:20 AM EST Anticoagulation Pharmacy, [facility] [address] [address] Pharmacist1, [facility] [address] [place] [address] [address] 4 1:00 PM EDT Hospital Encounter ENDO [facility], Endoscopy Room [facility] [address] [place] [phone] Marcelino Smalls MD [address] [place] [address] 4 1:00 PM EDT - 4 1:30 PM EDT Surgery ENDO [facility], Endoscopy Room [facility] [address] [place] [phone] Marcelino Smalls MD [address] [place] [address] ESOPHAGOGASTRODUODENOSCOPY (EGD), FLEXIBLE, TRANSORAL, DIAGNOSTIC 4 8:45 AM EDT Office Visit Dermatology [facility] [address] [address] David Washburn MD [address] [address] 4 8:20 AM EST Office Visit Family Practice [facility] [address] [address] Artemio Solares, DO 200 [facility] [place] [address] Scheduled Procedures Name Priority Associated Diagnoses Date/Ti [...] Procedure Name Priority Date/Time Associated Diagnosis Comments UPPER ENDOSCOPY, OUTSIDE PROCEDURE Routine 04/26/2023 documented in this encounter Results * UPPER ENDOSCOPY, OUTSIDE PROCEDURE (04/26/2023) 04/26/2023 History Per Patient [facility] Organization Address City/State/ZIP Co de Phone Number OUTSIDE LAB (SEE SCANNED REPORT) documented in this encounter Care Teams Idea Worker Relationship Specialty Start Date End Date Artemio Solares DO [address] [place] [address] PCP - General Family Medicine 07/02/16 documented as of this encounter
--- OUTSIDE RECORDS SUMMARY | 2023-05-09 10:34 | External Medical Summary | Summary of Care ---
Author Name Unknown Organization [facility] Address [address] [place] [address] Phone [phone] Care Team Providers Care Sheet Heater Name Role Phone Artemio Solares DO Primary Care Provider [phone] Reason for Visit * Reason Onset Date Comments Test Results 04/28/2023 Unexpected or In determinate Result Encounter Details Date Type Department Care Team (Late st Contact Info) Description 04/28/2023 Telephone Laboratory, [place] [address] [place] [address] Yamel Carrera MD 200 [place] [address] Test Results (Unexpected or Indeterminate ... Allergies No known active allergiesdocumented as of [...] encounter Miscellaneous Notes * Telephone Encounter - Karen Cervantes OSA - 04/28/2023 12:20 PM EST Hello- The radiologist discovered an unexpected or indeterminate finding on [place] ([id number]) and asks that you review the following report. Study Type:CT NECK W CONTRAST Date of Study: 04/27/2023 IMPRESSION: 4 cm mass of the dorsal tongue protruding into the valleculae. Large necrotic level 1 lymph nodes, likely metastatic.. Biopsy recommend. Please respond to this encounter to acknowledge receipt of this message and take responsibility to ensure this report is reviewed. Thank you, Karen Cervantes, ELEAZAR Client Service Rep [facility] documented in this encounter Plan of Treatment Upcoming Encounters Date Type Department Care Team (Latest Contact Info) Description 4 10:15 AM EST Office Visit Otolaryngology/ Head & Neck/Facial Plastic Surgery [address] [place] [address] Kaci Rodriguez MD [address] [place] [address] 4 8:20 AM EST Anticoagulation Pharmacy, [facility] 200 [facility] [place] [address] Pharmacist1, [facility] 200 [facility] [place] [address] 4 1:00 PM EDT Hospital Encounter ENDO [facility], Endoscopy Room [facility] [address] [place] [phone] Marcelino Smalls MD [address] [place] [address] 4 1:00 PM EDT - 04/01/202 4 1:30 PM EDT Surgery ENDO [facility], Endoscopy Room [facility] [address] [place] [phone] Marcelino Smalls MD [address] [place] [address] ESOPHAGOGASTRODUODENOSCOPY (EGD), FLEXIBLE, TRANSORAL, DIAGNOSTIC 4 8:45 AM EDT Office Visit Dermatology [facility] 200 [facility] [place] [address] David Washburn MD 200 [facility] [place] [address] 4 8:20 AM EST Office Visit Family Practice [facility] 200 [facility] [place] [address] Artemio Solares DO [address] [place] [address] Scheduled Procedures Name Priority Associated Diagnoses Date/Ti [...] filedocumented as of this encounter Care Teams Sheet Heater Relationship Specialty Start Date End Date Artemio Solares DO [address] [place] [address] PCP - General Family Medicine 07/02/16 documented as of this encounter
--- OUTSIDE RECORDS SUMMARY | 2023-05-09 10:34 | External Medical Summary | Summary of Care ---
Author Name Unknown Organization [facility] Address [address] [facility] [address] Phone [phone] Care Team Providers Care Javascript Application Developer Name Role Phone Artemio Solares DO Primary Care Provider [phone] Reason for Visit * Reason Onset Date Comments Medication Question 04/27/2023 Encounter Details Date Type Department Care Team (Late st Contact Info) Description 04/27/2023 Telephone Pharmacy Call Center [phone] [place] [address] Pharmacist1, [facility] 200 [facility] [place] [address] Medication Question Allergies No known active allergiesdocumented as of [...] encounter Miscellaneous Notes * Telephone Encounter - Ildefonso Munoz RPh - 04/27/2023 8:27 AM EST Patient Phone Numbers Caller's name: George Preferred call back number(OFFICE NUMBER FOR ): [phone] Reason for call: Medication question: Pt calling to ask Eloisa if he should take 1 or 2 shots of lovenox today? Please return his call. Spoke to George and he will follow the bridge protocol and do one injection tonight. Spoke to George 04/27 at 3:30 PM. He [place] [facility] [place], [place] and will be having a nasogastric EGD with possible biopsy. He will hold Lovenox 04/28 in PM and 04/29 in AM. He will resume Lovenox 04/29 in PM and complete bridge if biopsy done. He will resume Coumadin 04/29 and take 15mg 04/29 and 04/30 then resume 10 mg every Sun, Nunu; 7.5 mg all other days. If biopsy not done he will remain on Lovenox until biopsy scheduled starting with PM dose 04/29. Ildefonso Shipley RPh, CACP, CDE Clinical Pharmacist [facility] 04/27/2023, 8:31 AM * Telephone Encounter - Juliana Amador refinish technician - 04/27/2023 8:07 AM EST Caller's name: George Preferred call back number(OFFICE NUMBER FOR ): [phone] Reason for call: Medication question: Pt calling to ask Eloisa if he should take 1 or 2 shots of lovenox today? Please return his call. Thank you, Juliana Amador Line Up Examiner [facility] 04/27/2023,8:08 AM documented in this encounter Plan of Treatment Upcoming Encounters Date Type Department Care Team (Latest Contact Info) Description 4 10:15 AM EST Office Visit Otolaryngology/ Head & Neck/Facial Plastic Surgery [address] [place] [address] Kaci Rodriguez MD [address] [place] [address] 4 8:20 AM EST Anticoagulation Pharmacy, [facility] [place] 200 [facility] [place] [address] Pharmacist1, [facility] [place] [address] 4 1:00 PM EDT Hospital Encounter ENDO [facility], Endoscopy Room [facility] [address] [place] [address] Marcelino Smalls MD [address] [place] [address] 4 1:00 PM EDT - 4 1:30 PM EDT Surgery ENDO [facility], Endoscopy Room [facility] [address] [place] [phone] Marcelino Smalls MD [address] [place] [address] ESOPHAGOGASTRODUODENOSCOPY (EGD), FLEXIBLE, TRANSORAL, DIAGNOSTIC 4 8:45 AM EDT Office Visit Dermatology [facility] [place] [address] [address] David Washburn MD 200 [facility] [place] [address] 4 8:20 AM EST Office Visit Family Practice [facility] [address] [address] Artemio Solares, [address] [address] Scheduled Procedures Name Priority Associated Diagnoses Date/Ti [...] 07/04/2019, 06/20/2015, Additional history exists Diabetes Screening 02/23/2026 [...] as of this encounter Visit Diagnoses Diagnosis Heterozygous factor V Leiden mutation (HCC)- Primary Primary hypercoagulable state Dysphagia, unspecified type documented in this encounter Care Teams Javascript Application Developer Relationship Specialty Start Date End Date Artemio Solares DO [address] [place] [address] PCP - General Family Medicine 07/02/16 documented as of this encounter
--- OUTSIDE RECORDS SUMMARY | 2023-05-09 10:34 | External Medical Summary ---
Author Name Unknown Address Unknown Organization [id number]:LABORATORY [facility] - [address] [facility] [place] [address] Laboratory Report Ordering Provider Test Date Status YONG SANTOS 04/28/2023 17:49:00 Final Observation Date Value Abnormality Reference (Units ) Status SYNC LEUKOCYTES IN BLOOD BY AUTOMATED COUNT 04/28/2023 17:49:00 9.52 4.00-10.80 (K/uL) Final Segs 04/28/2023 17:49:00 64.1 40.0-75.0 (%) Final Lymphs % 04/28/2023 17:49:00 24.9 18.0-42.0 (%) Final Monos 04/28/2023 17:49:00 9.1 1.0-11.0 (%) Final Eosinophils 04/28/2023 17:49:00 1.3 0.0-6.0 (%) Final Basos 04/28/2023 17:49:00 0.3 0.0-2.0 (%) Final Immature Granulocyte, Percent 04/28/2023 17:49:00 0.3 0.0-2.0 (%) Final Absolute Segs 04/28/2023 17:49:00 6.10 1.80-7.70 (K/uL) Final Lymphs, absolute 04/28/2023 17:49:00 2.37 1.00-4.80 (K/ul) Final Monos, Abs 04/28/2023 17:49:00 0.87 0.00-1.10 (K/uL) Final Eos, Abs 04/28/2023 17:49:00 0.12 0.00-0.70 (K/uL) Final Basos, Abs 04/28/2023 17:49:00 0.03 0.00-0.20 (K/uL) Final Immature Granulocytes, Number 04/28/2023 17:49:00 0.03 0.00-0.20 (K/uL) Final Performing Location LABORATORY [facility] - [facility] [place] [address]
--- OUTSIDE RECORDS SUMMARY | 2023-05-09 10:34 | External Medical Summary ---
Author Name Unknown Address Unknown Organization K01:[facility]ORY [facility] - [facility] [address] Laboratory Report Ordering Provider Test Date Status YONG SANTOS 04/28/2023 17:49:00 Final Observation Date Value Abnormality Reference (Units ) Status WBC, Total 04/28/2023 17:49:00 9.52 4.00-10.80 (K/uL) Final RBC 04/28/2023 17:49:00 4.78 4.50-5.25 (M/uL) Final Hemoglobin 04/28/2023 17:49:00 15.0 14.0-16.8 (g/dL) Final HCT 04/28/2023 17:49:00 45.3 40.0-48.4 (%) Final MCV 04/28/2023 17:49:00 94.8 82.0-99.5 (fL) Final MCH 04/28/2023 17:49:00 31.4 27.0-34.0 (pg) Final MCHC 04/28/2023 17:49:00 33.1 32.0-36.0 (g/dL) Final RDW 04/28/2023 17:49:00 12.6 11.5-15.5 (%) Final Platelets 04/28/2023 17:49:00 304 140-400 (K/uL) Final MPV 04/28/2023 17:49:00 10.0 6.6-11.1 (fL) Final Nucleated erythrocytes/100 leukocytes [Ratio] in Blood by Automated count 04/28/2023 17:49:00 0 <=0 (/100 WBCs) Final Performing Location LABORATORY [facility] - [address] [place] [address]
--- OUTSIDE RECORDS SUMMARY | 2023-05-09 10:34 | External Medical Summary ---
Author Name Unknown Address Unknown Organization K01:[facility]ORY [facility] - [address] [place] [address] Laboratory Report Ordering Provider Test Date Status YONG SANTOS 04/28/2023 17:49:00 Final Warfarin Therapy
INR: 2 .0-3.0 conventional anticoagulation
INR: 2.5- 3.5 high intensity anticoagulation Observation Date Value Abnormality Reference (Units ) Status PT 04/28/2023 17:49:00 13.1 11.6-15.2 (seconds) Final INR 04/28/2023 17:49:00 1.0 0.8-1.2 Final Performing Location LAB[facility]ORY [facility] - [address] [place] [address]
--- OUTSIDE RECORDS SUMMARY | 2023-05-09 10:34 | External Medical Summary | Summary of Care ---
Author Name Unknown Organization [facility] Address [address] [facility] [address] Phone [phone] Care Team Providers Care Child Psychiatrist Name Role Phone Ena Solares DO Primary Care Provider [phone] Reason for Referral * Precert (Within 10 days (routine)) - Authorized Specialty Diagnoses / Procedures Referred By Tesha rand Referred To Contact Radiology Diagnoses Tongue mass Procedures CT NECK W CONTRAST Yamel Carrera MD [address] [place] [address] Referral ID Status Reason Start Date Expiration Date V isits Requested Visits Authorized [id number] Authorized 04/26/2023 999 999 * Evaluate & Treat - Unlimited Visits (Within 3 days (urgent)) - Authorized Specialty Diagnoses / Procedures Referred By Tesha rand Referred To Contact Otolaryngology Diagnoses Tongue mass Abnormal endoscopy of upper gastrointestinal tract Ena Solares DO [address] [place] [address] Referral ID Status Reason Start Date Expiration Date Visits Requested Visits Authorized [id number] Authorized Specialty Services Required 04/26/2023 999 999 Question Answer Referral Priority Within 3 days (urgent) Where should this appointment be scheduled? [facility] Reason for Referral Thyroid/Parathyroid/Oral Lesions/Head/Neck/Cancer Conditions Specific Condition: Head/Neck/Oral Lesion Encounter Details Date Type Department Care Team (Late st Contact Info) Description 04/26/2023 Telephone Family Practice [facility] [place] [address] [place], [place] [address] Ena Solares, 200 [facility] [place], [place] [address] Allergies No known active allergiesdocumented as of [...] as of this encounter Miscellaneous Notes * Addendum Note - Ena Solares DO - 04/27/2023 1:47 PM ESTAddended by: ENA SOLARES on: 04/27/2023 01:47 PM Modules accepted: Orders * Telephone Encounter - Yamel Carrera MD - 04/26/2023 3:[address] ordered, needs scheduled * Telephone Encounter - Veena Street LPN - 04/26/2023 2:02 PM EST Received EGD results- per Melissa Alaniz and Denise Dumont MD- PCP should order CT Neck with contrast. Then [place] [facility] Head [place] Neck- Dr. Rodriguez or Dr. Goodson. * Telephone Encounter - Veena Street LPN - 04/26/2023 11:31 AM EST Called patient has not read his MYG. Had EGD at [facility], patient is going to call and have reports faxed directly to ENT for review. * Telephone Encounter - Camelia Martínez OSA - 04/26/2023 10:15 AM EST Urgent referral for pt states: Associated Diagnoses Tongue mass [K14.8] - Primary Abnormal endoscopy of upper gastrointestinal tract [R93.3] Please review & advise. * Telephone Encounter - [place]na Solares DO - 04/26/2023 9:25 AM EST I was contacted by GI that Jacob has a mass on th back of his tongue found on scope. They asked meto put in an ENT referral. Please call to schedule with ENT soon. documented in this encounter Plan of Treatment Upcoming Encounters Date Type Department Care Team (Latest Contact Info) Description 4 8:20 AM EST Anticoagulation Pharmacy, [place] [facility] [place] 200 [facility] [place] [address] Pharmacist1, [facility] 200 [facility] [place] [address] 4 1:00 PM EDT Hospital [facility] [address] [place] [phone] Marcelino Smalls MD [address] [place] [address] 4 1:00 PM EDT - 4 1:30 PM EDT Surgery [facility], [facility] [address] [place] [address] Marcelino Smalls MD [address] [place] [address] ESOPHAGOGASTRODUODENOSCOPY (EGD), FLEXIBLE, TRANSORAL, DIAGNOSTIC 4 8:45 AM EDT Office Visit Dermatology [facility] [place] [address] [place] [address] David Washburn MD [address] [place] [address] 4 8:20 AM EST Office Visit Family Practice [facility] [place] [address] [place] [address] Ena Solares, DO 200 [facility] [place] [address] Pending Results Name Type Priority Associated Diagnoses Date /Time CT NECK W CONTRAST Medical Imaging Routine Tongue mass 04/27/2023 1:21 PM EST Scheduled Procedures Name Priority Associated Diagnoses Date/Ti vt ESOPHAGOGASTRODUODENOSCOPY ( EGD), FLEXIBLE, TRANSORAL, DIAGNOSTIC Dysphagia, unspecified type 07/11/2023 1:00 PM EDT COLONOSCOPY FLEXIBLE PROXIMA L DIAGNOSTIC Recall History of colon polyps Scheduled Referrals Name Type Priority Associated Diagnoses Orde r Schedule OTOLARYNGOLOGY REFERRAL OP Referral Within 3 days (urgent) Tongue mass Abnormal endoscopy of upper gastrointestinal tract Ordered: 04/26/2023 Health Maintenance Due Date Last Done Comments [...] mass, or lump in head and neck Abnormal endoscopy of upper gastrointestinal tract Dysphagia, unspecified type documented in this encounter Care Teams Child Psychiatrist Relationship Specialty Start Date End Date Ena Solares DO [address] [place], [place] [address] PCP - General Family Medicine 07/02/16 documented as of this encounter
--- OUTSIDE RECORDS SUMMARY | 2023-05-09 10:34 | External Medical Summary ---
Author Name Unknown Address Unknown Organization K01:[facility]ATORY [facility] - [address] [place] [address] Laboratory Report Ordering Provider Test Date Status YONG SANTOS 04/28/2023 17:49:00 Final Observation Date Value Abnormality Reference (Units ) Status ABO 04/28/2023 17:49:00 O Final RH 04/28/2023 17:49:00 Positive Final RED BLOOD CELL ANTIBODY SCREEN 04/28/2023 17:49:00 Negative Final SPECIMEN EXPIRATION DATE 04/28/2023 17:49:00 05/01/2023 23:59 Final Performing Location LAB[facility]ORY [facility] - [address] [place] [address]
--- OUTSIDE RECORDS SUMMARY | 2023-05-09 10:34 | External Medical Summary | Summary of Care ---
Author Name Unknown Organization [facility] Address [address] [facility] [address] Phone [phone] Care Team Providers Care Subway Conductor Name Role Phone Ena Solares DO Primary Care Provider [phone] Reason for Referral * Precert (Within 10 days (routine)) - Authorized Specialty Diagnoses / Procedures Referred By Tesha rand Referred To Contact Radiology Diagnoses Tongue mass Procedures CT NECK W CONTRAST Yamel Carrera MD 200 [place] [address] Referral ID Status Reason Start Date Expiration Date V isits Requested Visits Authorized [id number] Authorized 04/26/2023 999 999 * Evaluate & Treat - Unlimited Visits (Within 3 days (urgent)) - Authorized Specialty Diagnoses / Procedures Referred By Tesha rand Referred To Contact Otolaryngology Diagnoses Tongue mass Abnormal endoscopy of upper gastrointestinal tract Ena Solares DO 200 [place] [address] Referral ID Status Reason Start Date Expiration Date Visits Requested Visits Authorized [id number] Authorized Specialty Services Required 04/26/2023 999 999 Question Answer Referral Priority Within 3 days (urgent) Where should this appointment be scheduled? [facility] Reason for Referral Thyroid/Parathyroid/Oral Lesions/Head/Neck/Cancer Conditions Specific Condition: Head/Neck/Oral Lesion Encounter Details Date Type Department Care Team (Late st Contact Info) Description 04/26/2023 Telephone Family Practice [facility] [place] [address] [place], [place] [address] Ena Solares, 200 [facility] [place], [place] [address] Allergies No known active allergiesdocumented as of [...] Neck with contrast. Then have appointment at [facility] ENT Head and Neck- Dr. oRdriguez or Dr. Goodson. * Telephone Encounter - Veena Street LPN - 04/26/2023 11:31 AM EST Called patient has not read his MYG. Had EGD at [facility], patient is going to call and [...] Department Care Team (Latest Contact Info) Description 10:15 AM EST Office Visit Otolaryngology/ Head & Neck/Facial Plastic Surgery [address] [place] [address] Kaci Rodriguez MD [address] [place] [address] 4 8:20 AM EST Anticoagulation Pharmacy, [facility] [place] 200 [facility] [place] [address] Pharmacist1, [facility] 200 [facility] [place] [address] 4 1:00 PM EDT Hospital Encounter ENDO [facility], Endoscopy Room [facility] [address] [place] [phone] Marcelino Smalls MD [address] [place], [place] [address] 4 1:00 PM EDT - 4 1:30 PM EDT Surgery ENDO [facility], Endoscopy Room [facility] [address] [place] [phone] Marcelino Smalls MD [address] [place], [place] [address] ESOPHAGOGASTRODUODENOSCOPY (EGD), FLEXIBLE, TRANSORAL, DIAGNOSTIC 4 8:45 AM EDT Office Visit [facility] 200 [facility] [place] [address] David Washburn MD 200 [facility] [place] [address] 4 8:20 AM EST Office Visit Family Practice [facility] [place] [address] [place] [address] Ena Solares, 200 [place] [address] Scheduled Procedures Name Priority Associated Diagnoses Date/Ti [...] EST Tongue mass documented in this encounter Results * CT NECK W CONTRAST (04/27/2023 1:50 PM EST) Anatomical Region Laterality Modality Neck, Head, Sinus Computed Tomog yahir 04/28/2023 10:5 2 AM EST Narrative 04/28/2023 10:49 AM EST EXAM: CT NECK W CONTRAST-04/27/2023 1:50 pm HISTORY Tongue mass seen on EGD COMPARISON: None. TECHNIQUE: 1 mm thick axial scans obtained through the neck with intravenous contrast. Sagittal and coronal reconstructions. FINDINGS: ORBITS AND SKULL BASE: The visualized intracranial and intraorbital contents are normal. SINUSES AND MASTOIDS: The paranasal sinuses and mastoid air cells are well aerated. NASOPHARYNX/NASAL CAVITY: Nasal cavity and nasopharynx are widely patent. SUPRAHYOID NECK: 4 cm, slightly hyperdense mass in the dorsal tongue protruding into the oropharynx, obliterating the valleculae. The oral cavity, parapharyngeal space and retropharyngeal space are normal. INFRAHYOID NECK: The epiglottis is displaced by base of tongue mass. The hypopharynx, supraglottis, glottis, cervical esophagus, and trachea are normal. GLANDS: The parotid and submandibular glands are normal. Thyroid is grossly unremarkable by CT evaluation. LYMPH NODES: Enlarged level 2 lymph nodes, up to 3.8 x 2.7 cm on the right and 3.5 x 2.1 cm on the left, with necrotic centers. THORACIC INLET: The pulmonary apices and superior mediastinum are normal. VASCULATURE: The arterial and venous vessels opacify normally. MUSCULOSKELETAL: Degenerative changes in the cervical spine, with prominent endplate spurs at C6-7. SUPERFICIAL SOFT TISSUES: Unremarkable. IMPRESSION: 4 cm mass of the dorsal tongue protruding into the valleculae. Large necrotic level 1 lymph nodes, likely metastatic.. Biopsy recommend. Procedure Note Tiffanie Kidd MD - 04/28/2023 EXAM: CT NECK W CONTRAST-04/27/2023 1:50 pm HISTORY Tongue mass seen on EGD COMPARISON: None. TECHNIQUE: 1 mm thick axial scans obtained through the neck with intravenouscontrast. Sagittal and coronal reconstructions. FINDINGS: ORBITS AND SKULL BASE: The visualized intracranial and intraorbitalcontents are normal. SINUSES AND MASTOIDS: The paranasal sinuses and mastoid air cells are wellaerated. NASOPHARYNX/NASAL CAVITY: Nasal cavity and nasopharynx are widelypatent. SUPRAHYOID NECK: 4 cm, slightly hyperdense mass in the dorsal tongueprotruding into the oropharynx, obliterating the valleculae. The oralcavity, parapharyngeal space and retropharyngeal space are normal. INFRAHYOID NECK: The epiglottis is displaced by base of tongue mass. Thehypopharynx, supraglottis, glottis, cervical esophagus, and trachea arenormal. GLANDS: The parotid and submandibular glands are normal. Thyroid isgrossly unremarkable by CT evaluation. LYMPH NODES: Enlarged level 2 lymph nodes, up to 3.8 x 2.7 cm on the rightand 3.5 x 2.1 cm on the left, with necrotic centers. THORACIC INLET: The pulmonary apices and superior mediastinum arenormal. VASCULATURE: The arterial and venous vessels opacify normally. MUSCULOSKELETAL: Degenerative changes in the cervical spine, withprominent endplate spurs at C6-7. SUPERFICIAL SOFT TISSUES: Unremarkable. IMPRESSION: 4 cm mass of the dorsal tongue protruding into the valleculae. Largenecrotic level 1 lymph nodes, likely metastatic.. Biopsy recommend. Yamel Carrera MD RAD CT documented in this encounter Visit Diagnoses Diagnosis Tongue mass- Primary Swelling, mass, or lump in head and neck Abnormal endoscopy of upper gastrointestinal tract Dysphagia, unspecified type documented in this encounter Care Teams Subway Conductor Relationship Specialty Start Date End Date Ena Solares DO [address] [place] [address] PCP - General Family Medicine 07/02/16 documented as of this encounter
--- OUTSIDE RECORDS SUMMARY | 2023-05-09 10:34 | External Medical Summary | Summary of Care ---
Author Name Unknown Organization [facility] Address [address] [facility] [place] [address] Phone [phone] Care Team Providers Care Postdoctoral Research Associate Name Role Phone Artemio Solares DO Primary Care Provider [phone] Reason for Visit * Reason Onset Date Comments Medication Question 04/27/2023 Encounter Details Date Type Department Care Team (Late st Contact Info) Description 04/27/2023 Telephone Pharmacy Call Center [address] [place] [address] Pharmacist1, [facility] 200 [facility] [place] [address] Medication Question Allergies No known active allergiesdocumented [...] Preferred call back number(OFFICE NUMBER FOR ): [phone] Reason for call: Medication question: Pt calling to ask Eloisa if he should take 1 or 2 shots of lovenox today? Please return his call. Spoke to George and he will follow the bridge protocol and do one injection tonight. Ildefonso Shipley RPh, CACP, CDE Clinical Pharmacist [facility] 04/27/2023, 8:31 AM * Telephone Encounter - Juliana Amador PHARM Tech - 04/27/2023 8:07 AM EST Caller's name: George Preferred call back number(OFFICE NUMBER FOR ): [phone] Reason for call: Medication question: Pt calling to ask Eloisa if he should take 1 or 2 shots of lovenox today? Please return his call. Thank you, Juliana Amador Bill Checker [facility] 04/27/2023,8:08 AM documented in this encounter Plan of Treatment Upcoming Encounters Date Type Department Care Team (Latest Contact Info) Description 1:15 PM EST Appointment Radiology, [address] [place] [address] 8:20 AM EST Anticoagulation Pharmacy, [place] [address] [place] [address] Pharmacist1, [facility] [address] [place] [address] 4 1:00 PM EDT Hospital Encounter ENDO [facility], Endoscopy Room [facility] [address] [place], [place] [phone] Marcelino Smalls MD [address] [place], [place] [address] 4 1:00 PM EDT - 4 1:30 PM EDT Surgery ENDO [facility], Endoscopy Room [facility] [address] [place], [place] [phone] Marcelino Smalls MD [address] [place] [address] ESOPHAGOGASTRODUODENOSCOPY (EGD), FLEXIBLE, TRANSORAL, DIAGNOSTIC 4 8:45 AM EDT Office Visit Dermatology [facility] [address] [place] [address] David Washburn MD [address] [place] [address] 4 8:20 AM EST Office Visit Family Practice [facility] [address] [place] [address] Artemio Solares, 200 [facility] [place] [address] Scheduled Procedures Name Priority Associated Diagnoses Date/Ti [...] type documented in this encounter Care Teams Postdoctoral Research Associate Relationship Specialty Start Date End Date Artemio Solares DO [address] [place] [address] PCP - General Family Medicine 07/02/16 documented as of this encounter
--- OUTSIDE RECORDS SUMMARY | 2023-05-09 10:34 | External Medical Summary | Summary of Care ---
Author Name Unknown Organization [facility] Address [address] [facility] [address] Phone [phone] Care Team Providers Care Information Technology Audit Manager Name Role Phone Artemio Solares DO Primary Care Provider [phone] Reason for Referral * Precert (Within 10 days (routine)) - Authorized Specialty Diagnoses / Procedures Referred By Tesha rand Referred To Contact Radiology Diagnoses Tongue mass Procedures CT NECK W CONTRAST Yamel Carrera MD 200 [place] [address] Referral ID Status Reason Start Date Expiration Date V isits Requested Visits Authorized [id number] Authorized 04/26/2023 999 999 * Evaluate & Treat - Unlimited Visits (Within 3 days (urgent)) - Authorized Specialty Diagnoses / Procedures Referred By Tesha rand Referred To Contact Otolaryngology Diagnoses Tongue mass Abnormal endoscopy of upper gastrointestinal tract Artemio Solares DO 200 [place] [address] Referral ID Status Reason Start Date Expiration Date Visits Requested Visits Authorized [id number] Authorized Specialty Services Required 04/26/2023 999 999 Question Answer Referral Priority Within 3 days (urgent) Where should this appointment be scheduled? [facility] Reason for Referral Thyroid/Parathyroid/Oral Lesions/Head/Neck/Cancer Conditions Specific Condition: Head/Neck/Oral Lesion Encounter Details Date Type Department Care Team (Late st Contact Info) Description 04/26/2023 Telephone Family Practice [facility] [place] [address] [place], [place] [address] Artemio Solares, 200 [facility] [place], [place] [address] Allergies No known active allergiesdocumented as of [...] encounter Miscellaneous Notes * Telephone Encounter - Yamel Carrera MD - 04/26/2023 3:[address] ordered, needs scheduled * Telephone Encounter - Veena Street LPN - 04/26/2023 2:02 PM EST Received EGD results- per Melissa Alaniz and Denise Dumont MD- PCP should order CT Neck with contrast. Then have appointment at [facility] ENT Head and Neck- Dr. Rodriguez or Dr. Goodson. * Telephone Encounter - Veena Street LPN - 04/26/2023 11:31 AM EST Called patient has not read his MYG. Had EGD at [facility], patient is going to call and have reports faxed directly to ENT for review. * Telephone Encounter - Camelia Martínez OSA - 04/26/2023 10:15 AM EST Urgent referral for pt states: Associated Diagnoses Tongue mass [K14.8] - Primary Abnormal endoscopy of upper gastrointestinal tract [R93.3] Please review & advise. * Telephone Encounter - Artemio Solares DO - 04/26/2023 9:25 AM EST I was contacted by GI that Jacob has a mass on th back of his tongue found on scope. They asked meto put in an ENT referral. Please call to schedule with ENT soon. documented in this encounter Plan of Treatment Upcoming Encounters Date Type Department Care Team (Latest Contact Info) Description 4 1:15 PM EST Appointment Radiology, [facility] [address] [place] [address] 4 8:20 AM EST Anticoagulation Pharmacy, [place] Lopez 200 [facility] [place] [address] Pharmacist1, [facility] 200 [facility] [place] [address] 4 1:00 PM EDT Hospital Encounter ENDO [facility], Endoscopy Room [facility] [address] [place] [phone] Marcelino Smalls MD [address] [place] [address] 4 1:00 PM EDT - 4 1:30 PM EDT Surgery ENDO [facility], Endoscopy Room [facility] [address] [place] [address] Marcelino Smalls MD [address] [place] [address] ESOPHAGOGASTRODUODENOSCOPY (EGD), FLEXIBLE, TRANSORAL, DIAGNOSTIC 4 8:45 AM EDT Office Visit Dermatology [facility] [address] [place] [address] David Washburn MD 200 [facility] [place] [address] 4 8:20 AM EST Office Visit Family Practice [facility] [address] [place] [address] Artemio Solares, 200 [facility] [place] [address] Scheduled Orders Name Type Priority Associated Diagnoses Orde r Schedule CT NECK W CONTRAST Medical Imaging Routine Tongue mass Ordered: 04/26/2023 Scheduled Procedures Name Priority Associated Diagnoses Date/Ti [...] type documented in this encounter Care Teams Information Technology Audit Manager Relationship Specialty Start Date End Date Artemio Solares DO [address] [place] [address] PCP - General Family Medicine 07/02/16 documented as of this encounter
--- OUTSIDE RECORDS SUMMARY | 2023-05-09 10:34 | External Medical Summary | Summary of Care ---
Author Name Unknown Organization [facility] Address [address] [facility] [place] [address] Phone [phone] Care Team Providers Care Cane Weigher Name Role Phone Artemio Solares DO Primary Care Provider [phone] Reason for Visit * Reason Onset Date Comments Advice 04/28/2023 Fax Otolaryngolo gy Referral Encounter Details Date Type Department Care Team (Late st Contact Info) Description 04/28/2023 Telephone Family Practice [facility] [place] 200 [facility] [place] [address] Artemio Solares DO 200 [facility] [place] [address] Advice (Fax Otolaryngology Referral) Allergies No known active allergiesdocumented as of [...] Telephone Encounter - Razia Castaneda OSA - 04/28/2023 9:39 AM EST Printed and faxed * Telephone Encounter - Real Gresham OSA - 04/28/2023 8:14 AM EST Zuleyka with [facility] calling and requesting that the patient's Otolaryngology referral be faxed to [facility] please. Fax #: [phone] documented in this encounter Plan of Treatment Upcoming Encounters Date Type Department Care Team (Latest Contact Info) Description 4 10:15 AM EST Office Visit Otolaryngology/ Head & Neck/Facial Plastic Surgery [address] [facility] [place] [address] Kaci Rodriguez MD [address] [place] [address] 4 8:20 AM EST Anticoagulation Pharmacy, [place] [employer] 200 [facility] [place] [address] Pharmacist1, [facility] 200 [facility] [place] [address] 4 1:00 PM EDT Hospital Encounter [facility]O [facility], Endoscopy Room [facility] [address] [place] [phone] Marcelino Smalls MD [address] [place] [address] 4 1:00 PM EDT - 4 1:30 PM EDT Surgery ENDO [facility], Endoscopy Room [facility] [address] [place] [phone] Marcelino Smalls MD [address] [place] [address] ESOPHAGOGASTRODUODENOSCOPY (EGD), FLEXIBLE, TRANSORAL, DIAGNOSTIC 4 8:45 AM EDT Office Visit Dermatology [facility] [address] [facility] [address] [place] [address] David Washburn MD 200 [facility] [place] [address] 4 8:20 AM EST Office Visit Family Practice [facility] 200 [facility] [place] [address] Artemio Solares, DO 200 [facility] [place] [address] Scheduled Procedures Name Priority Associated Diagnoses Date/Ti [...] filedocumented as of this encounter Care Teams Cane Weigher Relationship Specialty Start Date End Date Artemio Solares DO [address] [place] [address] PCP - General Family Medicine 07/02/16 documented as of this encounter
--- OUTSIDE RECORDS SUMMARY | 2023-05-09 10:34 | External Medical Summary | Summary of Care ---
Author Name Unknown Organization [facility] Address [address] [facility] [place] [address] Phone [phone] Care Team Providers Care Splicing Machine Operator Name Role Phone Artemio Solares DO Primary Care Provider [phone] Reason for Visit * Reason Onset Date Comments Appointment 04/27/2023 Encounter Details Date Type Department Care Team (Late st Contact Info) Description 04/27/2023 Telephone Family Practice [facility] [place] 200 [facility] [place] [address] Artemio Solares DO 200 [facility] [place] [address] Appointment Allergies No known active allergiesdocumented as of [...] encounter Miscellaneous Notes * Telephone Encounter - Diamante Aranda OSA - 04/27/2023 8:40 AM EST Spouse Tootie, had called our office, after hours last evening, and [facility] to schedule patient, for appointment for biopsy of mass. The referral was placed by Artemio Solares. I called and spoke to Tootie this morning. I informed her that we could not do the procedure here, and that it would need to be done at the main hospital at [facility]. I told her that Tammy Tang can assist her getting Jacob scheduled. Tootie asked for the direct number for Tammy Tang. I gave her the number and also transferred Tootie to Tammy's office phone. I also sent message to Tammy in teams and she replied that she was not at her desk at the time of call, and that she would return call to the patient.. Thank you in advance documented in this encounter Plan of Treatment Upcoming Encounters Date Type Department Care Team (Latest Contact Info) Description 4 1:15 PM EST Appointment Radiology, [facility] 400 [facility] [place] [address] 4 8:20 AM EST [facility] [place] 200 [facility] [place] [address] Pharmacist1, [facility] [address] [place] [place] [address] 4 1:00 PM EDT Hospital Encounter [facility]O [facility], Endoscopy Room [facility] [address] [place] [phone] Marcelino Smalls MD 132 [place] [address] 4 1:00 PM EDT - 4 1:30 PM EDT Surgery ENDO [facility], Endoscopy Room [facility] [address] [place] [phone] Marcelino Smalls MD [address] [place] [address] ESOPHAGOGASTRODUODENOSCOPY (EGD), FLEXIBLE, TRANSORAL, DIAGNOSTIC 4 8:45 AM EDT Office Visit Dermatology [facility] 200 [facility] [place] [address] David Washburn MD 200 [facility] [place] [address] 4 8:20 AM EST Office Visit Family Practice [facility] [address] [facility] [address] [place], [place] [address] Artemio Solares, [address] [place] [address] Scheduled Procedures Name Priority Associated Diagnoses Date/Ti [...] filedocumented as of this encounter Care Teams Splicing Machine Operator Relationship Specialty Start Date End Date Artemio Solares DO [address] [place] [address] PCP - General Family Medicine 07/02/16 documented as of this encounter
--- OUTSIDE RECORDS SUMMARY | 2023-05-09 10:34 | External Medical Summary | Summary of Care ---
Author Name Unknown Organization [facility] Address [address] [place] [address] Phone [phone] Care Team Providers Care Bone Tender Name Role Phone Artemio Solares DO Primary Care Provider [phone] Reason for Visit * Reason Onset Date Comments Test Results 04/28/2023 Unexpected or In determinate Result Encounter Details Date Type Department Care Team (Late st Contact Info) Description 04/28/2023 Telephone Laboratory, [place] [address] [place] [address] Yamel Carrera MD 200 [place] [address] Test Results (Unexpected or Indeterminate ... Allergies [...] Telephone Encounter - Yamel Carrera MD - 04/28/2023 12:55 PM EST Results reviewed and patient informed * Telephone Encounter - Karen Cervantes OSA - 04/28/2023 12:20 PM EST Hello- The radiologist discovered an unexpected or indeterminate finding on Jacob Sheldon T[place] IV ([id number]) and asks that you review the following [...] Thank you, Karen Cervantes, ELEAZAR Client Service [facility] documented in this encounter Plan of Treatment Upcoming Encounters Date Type Department Care Team (Latest Contact Info) Description 4 10:15 AM EST Office Visit Otolaryngology/ Head & Neck/Facial Plastic Surgery [address] [facility] [place] [address] Kaci Rodriguez MD [address] [place] [address] 4 8:20 AM EST Anticoagulation Pharmacy, [place] 200 [facility] [place] [address] Pharmacist1, [facility] 200 [facility] [place] [address] 4 1:00 PM EDT Hospital Encounter ENDO [facility], Endoscopy Room [facility] [address] [place] [phone] Marcelino Smalls MD [address] [place] [address] 4 1:00 PM EDT - 4 1:30 PM EDT Surgery ENDO [facility], Endoscopy Room [facility] [address] [place] [phone] Marcelino Smalls MD [address] [place] [address] ESOPHAGOGASTRODUODENOSCOPY (EGD), FLEXIBLE, TRANSORAL, DIAGNOSTIC 4 8:45 AM EDT Office Visit Dermatology [facility] 200 [facility] [place] [address] David Washburn MD 200 [facility] [place] [address] 4 8:20 AM EST Office Visit Family Practice [facility] [place] [address] [facility] [address] [place], [place] [address] Artemio Solares DO [address] [facility] [place] [address] Scheduled Procedures Name Priority Associated Diagnoses Date/Ti [...] filedocumented as of this encounter Care Teams Bone Tender Relationship Specialty Start Date End Date Artemio Solares DO [address] [place] [address] PCP - General Family Medicine 07/02/16 documented as of this encounter
--- OUTSIDE RECORDS SUMMARY | 2023-05-09 10:34 | External Medical Summary ---
Author Name Unknown Address Unknown Organization K01:[facility] - [address] [place] [address] Laboratory Report Ordering Provider Test Date Status YONG SANTOS 04/28/2023 17:49:00 Final Observation Date Value Abnormality Reference (Units ) Status ABO 04/28/2023 17:49:00 O Final RH 04/28/2023 17:49:00 Positive Final Performing Location [facility] - [address] [place] [address]
--- OUTSIDE RECORDS SUMMARY | 2023-05-09 10:34 | External Medical Summary | Summary of Care ---
Author Name Unknown Organization [facility] Address [address] [place] [address] Phone [phone] Care Team Providers Care Bid Analyst Name Role Phone Artemio Solares DO Primary Care Provider [phone] Reason for Visit * Reason Onset Date Comments Referral 04/27/2023 transfer of records 04/27/2023 Encounter Details Date Type Department Care Team (Late st Contact Info) Description 04/27/2023 Telephone Otolaryngology/Head & Neck/Facial Plastic Surgery [address] [place] [address] Tammy Tang RN [address] [address] Referral; transfer of records Allergies No known active allergiesdocumented as of [...] encounter Miscellaneous Notes * Telephone Encounter - Tammy Tang RN - 04/27/2023 3:03 PM EST Returned call to patient and to schedule an appointment with Dr. Rodriguez. Appointment accepted 04/29/23 at 10:15 am in [place]. Directions to clinic provided. Per , BOT mass was found during upper GI procedure yesterday at [facility]. Called [facility] Medical Records to request Endoscopy report be faxed to ENT. Tammy Tang PhD RN special service officer Otolaryngology * Telephone Encounter - Maranda Rosales OSA - 04/27/2023 9:16 AM EST called back - patient is on blood thinners and is currently off from last procedure so they are asking about biopsy date so coumadin clinic can advise on restart or keep off for biopsy [phone] * Telephone Encounter - Tammy Tang RN - 04/27/2023 8:46 AM EST VM received from patient's to schedule patient with head and neck in [place]. Referral for new tongue lesion. Order was placed for CT neck by PCP and scheduled for 04/29/23 at [facility]. Will return call to patient/ to schedule. Tammy Tang PhD RN special service officer Otolaryngology documented in this encounter Plan of Treatment Upcoming Encounters Date Type Department Care Team (Latest Contact Info) Description 10:15 AM EST Office Visit Otolaryngology/ Head & Neck/Facial Plastic Surgery [address] [place] [address] Kaci Rodriguez MD [address] [place] [address] 4 8:20 AM EST Anticoagulation Pharmacy, [facility] [place] [address] [place] [address] [address], [facility] [address] [place] [address] 4 1:00 PM EDT Hospital Encounter ENDO [facility], Endoscopy Room [facility] [address] [place] [address] Marcelino Smalls MD [address] [place] [address] 4 1:00 PM EDT - 4 1:30 PM EDT Surgery ENDO [facility], Endoscopy Room [facility] [address] [place] [address] Marcelino Smalls MD [address] [place], [place] [address] ESOPHAGOGASTRODUODENOSCOPY (EGD), FLEXIBLE, TRANSORAL, DIAGNOSTIC 4 8:45 AM EDT Office Visit Dermatology [facility] [place] 200 [facility] [place] [address] David Washburn MD [address] [place] [address] 4 8:20 AM EST Office Visit Family Practice [facility] [place] [address] [facility] [place] [address] Artemio Solares, 200 [facility] [place] [address] Scheduled Procedures Name Priority Associated Diagnoses Date/Ti [...] filedocumented as of this encounter Care Teams Bid Analyst Relationship Specialty Start Date End Date Artemio Solares DO [address] [place] [address] PCP - General Family Medicine 07/02/16 documented as of this encounter
--- OUTSIDE RECORDS SUMMARY | 2023-05-09 10:34 | External Medical Summary | Summary of Care ---
Author Name Unknown Organization [facility] [address] [facility] [address] Phone [phone] Care Team Providers Care Design Technician Name Role Phone Artemio Solares DO Primary Care Provider [phone] Reason for Referral * Precert (Within 10 days (routine)) - Authorized Specialty Diagnoses / Procedures Referred By Tesha rand Referred To Contact Radiology Diagnoses Tongue mass Procedures CT NECK W CONTRAST Yamel Carrera MD [address] [place] [address] Referral ID Status Reason Start Date Expiration Date V isits Requested Visits Authorized [id number] Authorized 04/26/2023 999 999 * Evaluate & Treat - Unlimited Visits (Within 3 days (urgent)) - Authorized Specialty Diagnoses / Procedures Referred By Tesha rand Referred To Contact Otolaryngology Diagnoses Tongue mass Abnormal endoscopy of upper gastrointestinal tract Artemio Solares DO [address] [place] [address] Referral ID Status Reason Start Date Expiration Date Visits Requested Visits Authorized [id number] Authorized Specialty Services Required 04/26/2023 999 999 Question Answer Referral Priority Within 3 days (urgent) Where should this appointment be scheduled? [facility] Reason for Referral Thyroid/Parathyroid/Oral Lesions/Head/Neck/Cancer Conditions Specific Condition: Head/Neck/Oral Lesion Encounter Details Date Type Department Care Team (Late st Contact Info) Description 04/26/2023 Telephone Family Practice [facility] [place] [address] [place], [place] [address] Artemio Solares, 200 [facility] [place], [place] [address] Allergies No known active allergiesdocumented as of [...] Neck with contrast. Then have appointment at [facility] ENT Head and Neck- Dr. Rodriguez or Dr. Goodson. * Telephone Encounter - Veena Street LPN - 04/26/2023 11:31 AM EST Called patient has not read his MYG. Had EGD at [facility], patient is going to call and have [...] Description 4 1:15 PM EST Appointment Radiology, [facility] [address] [place] [address] 4 8:20 AM EST Anticoagulation Pharmacy, [place] 200 [facility] [place] [address] Pharmacist1, [facility] 200 [facility] [place] [address] 4 1:00 PM EDT Hospital Encounter ENDO [facility], Endoscopy Room [facility] [address] [place] [phone] Marcelino Smalls MD [address] [place] [address] 4 1:00 PM EDT - 4 1:30 PM EDT Surgery ENDO [facility], Endoscopy Room [facility] [address] [place] [address] Marcelino Smalls MD [address] [place] [address] ESOPHAGOGASTRODUODENOSCOPY (EGD), FLEXIBLE, TRANSORAL, DIAGNOSTIC 4 8:45 AM EDT Office Visit Dermatology [facility] [address] [place] [address] David Washburn MD 200 [facility] [place] [address] 4 8:20 AM EST Office Visit Family Practice [facility] [address] [place] [address] Artemio Solares, 200 [facility] [place] [address] Scheduled Orders Name Type Priority Associated Diagnoses [...] type documented in this encounter Care Teams Design Technician Relationship Specialty Start Date End Date Artemio Solares DO [address] [place] [address] PCP - General Family Medicine 07/02/16 documented as of this encounter
--- OUTSIDE RECORDS SUMMARY | 2023-05-09 10:35 | External Medical Summary | Summary of Care ---
Author Name Unknown Organization [facility] Address [address] [facility] [place] [address] Phone [phone] Care Team Providers Care Heavy Threader Name Role Phone Artemio Solares DO Primary Care Provider [phone] Reason for Visit * Reason Onset Date Comments Other 03/04/2023 Encounter Details Date Type Department Care Team (Late st Contact Info) Description 03/04/2023 Telephone Pharmacy, [facility] [place] 200 [facility] [place] [address] Pharmacist1, [facility] [address] Other Allergies No known active allergiesdocumented as of this encounter (statuses as of 03/04/2023) Medications Medication Sig Dispensed Refills Start Date End Date Status SURGICAL COMPRESSION STOCKING 20 to 30mm knee high. 0 02/10/2022 Active acetaZOLAMIDE 125 MG Oral Tablet (Diamox) Take 1 Tablet by mouth in the morning and 1 Tablet before bedtime. 30 Tablet 0 09/13/2022 Active Fluorouracil 5 % External Cream (Efudex) Apply to left forearm site twice daily x 2-3 weeks 40 g 0 09/17/2022 Active Enoxaparin Sodium 100 MG/ML Injection Solution Prefilled Syringe (Lovenox) Inject 100 mg under the skin in the morning and 100 mg before bedtime. 20 mL 1 02/23/2023 Active Warfarin Sodium 5 MG Oral Tablet (Coumadin) Take 1-2 Tablets by mouth every evening. Or as directed by warfarin clinic 60 Tablet 5 02/23/2023 Active documented as of this encounter (statuses as of 03/04/2023) Active Problems Problem Noted Date Diagnosed Date Other vascular myelopathies 02/23/2023 Acute deep vein thrombosis ( DVT) of proximal vein of right lower extremity 02/23/2023 Heterozygous factor V Leiden mutation 05/23/2020 Dyslipidemia, goal LDL below 100 04/29/2020 TUBULAR ADENOMA POLYP OF COLON 10/16/2008 Benign neoplasm of colon 10/15/2008 Overview: adenomatous and hyperplastic polyps, mild to moderate diverticulosis left colonrepeat 3yrs ADVANCE DIRECTIVE INFORMATION 09/16/2005 Overview: Pt will supply copy of his living will LUMB-LUMBOSAC DISC DEGEN 05/31/2002 Sciatica 02/01/2001 documented as of this encounter (statuses as of 03/04/2023) Resolved Problems Problem Noted Date Diagnosed Date Resolved Date FACTOR V LEIDEN: heterozygote status 09/11/2003 07/02/2016 documented as of this encounter (statuses as of 03/04/2023) Immunizations Name Administration Dates Next Due COVID-19 mRNA, LNP-s, No Pre serve, 2-Dose Series (Moderna) 06/08/2020,05/04/2020 COVID-19, mRNA, LNP-s, PF, B ooster, 100mcg/0.5mg (Moderna) 02/09/2021 Pneumococcal Conjugate Vaccine, 20-valent (Prevn ar20) 11/16/2021 SEASONAL INFLUENZA, PF, 6 M & Above, IM , (FLULAVAL or FLUZONE) 12/16/2020,01/03/2020 Seasonal Influenza, Quadrivalent Hd (Fluzone Hd) [...] Date Recorded PHQ Adult Total Score 0 03/03/2022 Sex and Gender Information Value Date Recorded Sex Assigned at Male 08/30/2022 2:09 PM EDT Gender Identity Male 08/30/2022 2:09 PM EDT Sexual Orientation Straight 08/30/2022 2: 09 PM EDT Job Start Date Occupation Industry Not on file Not on file Not on file documented as of this encounter Miscellaneous Notes * Telephone Encounter - Ildefonso Munoz RPh - 03/04/2023 11:36 AM EST Patient Phone Numbers Patient instructed to take Warfarin 7.5mg today. Ildefonso Shipley RPh, KIRSTIN, KELINE Clinical Pharmacist [facility] 03/04/2023, 11:37 AM * Telephone Encounter - Juliana Amador OSA - 03/04/2023 11:16 AM EST Caller's name: Jacob Cantu call back number(OFFICE NUMBER FOR ): [phone] Reason for call: Patient calling to ask [facility] if he is to take Warfarin today? Please advise and return his call. Thank you, Juliana Amador Customer Service Security Officer [facility] 03/04/2023,11:16 AM documented in this encounter Plan of Treatment Upcoming Encounters Date Type Department Care Team (Late st Contact Info) Description 03/08/2023 11:00 AM EST Office Visit Family Practice [place] [address] [place] [address] [address] Artemio Solares DO [address] [place] [address] [address] 03/11/2023 8:50 AM EST Anticoagulation Pharmacy, [place] [address] [address] Pharmacist1, [facility] [address] [place] [address] 01/23/2024 8:45 AM EDT Office Visit Dermatology [place] 200 [facility] [place] [address] David Washburn MD 200 [facility] [place] [address] Scheduled Procedures Name Priority Associated Diagnoses Date/Ti me COLONOSCOPY FLEXIBLE PROXIMAL DIAGNOSTIC Recall History of colon polyps Health Maintenance Due Date Last Done Comments COVID-19 Vaccine ( season) 2022 02/09/2021, 06/08/2020, 05/04/2020 Depression Screening 03/03/2023 03/03/2022 COLONOSCOPY-EVERY 3 YRS AGES 18-100 04/19/2025 04/19/2022, [...] filedocumented as of this encounter Care Teams Heavy Threader Relationship Specialty Start Date End Date Artemio Solares DO [address] [place], [place] [phone] PCP - General Family Medicine 07/02/16 documented as of this encounter
--- OUTSIDE RECORDS SUMMARY | 2023-05-09 10:35 | External Medical Summary ---
Author Name Unknown Address Unknown Organization K09:[facility] [place] [id number] Laboratory Report Ordering Provider Test Date Status KAVEH GUZMAN 03/04/2023 09:04:00 Final Therapeutic ranges for non-o perative patients:
Prophylaxsis/treatment of DVT: (Range:2.0-3.0)
Treatment of pulmonary embolism:(Range:2.0-3.0)
Prevention of systemic embolism from:
-tissue heart valves
-acute myocardial infarction
-valvular heart disease
-atrial fibrillation
(Range: 2.0-3.0)
Mechanical prosthetic valves: (Range: 2.5-3.5) Observation Date Value Abnormality Reference (Units ) Status INR in Capillary blood by Coagulation assay 03/04/2023 09:04:00 2.6 (INR) Final Performing Location [facility] [place] [id number]
--- OUTSIDE RECORDS SUMMARY | 2023-05-09 10:35 | External Medical Summary ---
Author Name Unknown Address Unknown Organization K09:[facility] [place] [id number] Laboratory Report Ordering Provider Test Date Status KAVEH GUZMAN 02/28/2023 08:57:57 Final Therapeutic ranges for non-o perative patients:
Prophylaxsis/treatment of DVT: (Range:2.0-3.0)
Treatment of pulmonary embolism:(Range:2.0-3.0)
Prevention of systemic embolism from:
-tissue heart valves
-acute myocardial infarction
-valvular heart disease
-atrial fibrillation
(Range: 2.0-3.0)
Mechanical prosthetic valves: (Range: 2.5-3.5) Observation Date Value Abnormality Reference (Units ) Status INR in Capillary blood by Coagulation assay 02/28/2023 08:57:57 2.2 (INR) Final Performing Location [facility] [place] [id number]
--- OUTSIDE RECORDS SUMMARY | 2023-05-09 10:35 | External Medical Summary | Summary of Care ---
Author Name Unknown Organization [facility] Address [address] [facility] [place] [address] Phone [phone] Care Team Providers Care Bed Control Specialist Name Role Phone Artemio Solares DO Primary Care Provider [phone] Reason for Visit * Reason Onset Date Comments Medication Problem 04/15/2023 Encounter Details Date Type Department Care Team (Late st Contact Info) Description 04/15/2023 Telephone Pharmacy, [facility] [place] [facility] [place] [address] Pharmacist1, [facility] 200 [facility] [place] [address] Medication Problem Allergies No known active allergiesdocumented as of this encounter (statuses as of 04/15/2023) Medications Medication Sig Dispensed Refills Start Date [...] mg before bedtime. 10 mL 0 04/15/2023 Active Enoxaparin Sodium 100 MG/ML Injection Solution Prefilled Syringe (Lovenox)Indicatio ns:Heterozygous factor V Leiden mutation (HCC) Inject 100 mg under the skin in the morning and 100 mg before bedtime. 10 mL 0 04/14/2023 04/15/2023 Discontinued (Refill) documented as of this encounter (statuses as of 04/15/2023) Active Problems Problem Noted Date Diagnosed Date [...] as of this encounter (statuses as of 04/15/2023) Resolved Problems Problem Noted Date Diagnosed Date Resolved Date Acute deep vein thrombosis ( DVT) of proximal vein of right lower extremity 02/23/2023 03/08/2023 FACTOR V LEIDEN: heterozygote status 09/11/2003 07/02/2016 documented as of this encounter (statuses as of 04/15/2023) Immunizations Name Administration Dates Next Due COVID-19 [...] Telephone Encounter - Ildefonso Munoz RPh - 04/15/2023 1:06 PM EST Rx sent to [facility].. Ildefonso Shipley RPh, KIRSTIN, CDE Clinical Pharmacist [facility] 04/15/2023, 1:07 PM * Telephone Encounter - Nohemy Tafoya PHARM Tech - 04/15/2023 10:43 AM EST Caller's name: soledad Cantu call back number(OFFICE NUMBER FOR ): [phone] Reason for call: please resend lovenox to the pharmacy listed below. Thank you, Nohemy Tafoya Parts Department Manager [facility]acy Services ([facility]) (Formerly Telepharmacy) 04/15/2023,10:43 AM documented in this encounter Plan of Treatment Upcoming Encounters Date Type Department Care Team (Latest Contact Info) Description 4 8:20 AM EST Anticoagulation Pharmacy, [place] [address] [place] [address] Pharmacist1, [facility] [address] [place] [address] [address] 4 1:00 PM EDT Hospital Encounter ENDO [facility], Endoscopy Room [facility] [address] [facility] [place] [phone] Marcelino Smalls MD [address] [place] [address] 4 1:00 PM EDT - 4 1:30 PM EDT Surgery ENDO O[facility], Endoscopy Room [facility] [address] [place], [place] [address] Marcelino Smalls MD [address] [place] [address] ESOPHAGOGASTRODUODENOSCOPY (EGD), FLEXIBLE, TRANSORAL, DIAGNOSTIC 4 8:45 AM EDT Office Visit Dermatology [facility] 200 [facility] [place] [address] David Washburn MD 200 [facility] [place] [address] 4 8:20 AM EST Office Visit Family Practice [facility] [address] [facility] [address] [place], [place] [address] Artemio Solares, DO [address] [facility] [place] [address] Scheduled Procedures Name Priority Associated Diagnoses Date/Ti [...] Diagnoses Diagnosis Heterozygous factor V Leiden mutation (HCC) Primary hypercoagulable state Dysphagia, unspecified type documented in this encounter Care Teams Bed Control Specialist Relationship Specialty Start Date End Date Artemio Solares DO [address] [place] [address] PCP - General Family Medicine 07/02/16 documented as of this encounter
--- OUTSIDE RECORDS SUMMARY | 2023-05-09 10:35 | External Medical Summary ---
Author Name Unknown Address Unknown Organization K[facility] [place] [address] [place] [address] Laboratory Report Ordering Provider Test Date Status KAMINI LEON 03/29/2023 15:07:13 Final Observation Date Value Abnormality Reference (Units ) Status TSH 03/29/2023 15:07:13 3.71 0.27-4.20 (uIU/mL) Final Performing Location [facility] [place] [address] [place] [address]
--- OUTSIDE RECORDS SUMMARY | 2023-05-09 10:35 | External Medical Summary | Summary of Care ---
Author Name Unknown Organization [facility] Address [address] [address] , [place] Care Team Providers Care Reducing Machine Operator Name Role Phone HomeArtemio higgins Primary Care Provider [phone] Reason for Visit * Reason Onset Date Comments Advice 03/11/2023 Encounter Details Date Type Department Care Team (Late st Contact Info) Description 03/11/2023 Telephone Pharmacy, [facility] [place] [address] [facility] [place] [address] Pharmacist1, [facility] [address] Advice Allergies No known active allergiesdocumented as of this encounter (statuses as of 03/11/2023) Medications Medication Sig Dispensed Refills Start Date End Date Status SURGICAL COMPRESSION STOCKING 20 to 30mm knee high. 0 02/10/2022 Active Warfarin Sodium 5 MG Oral Tablet (Coumadin) Take 1-2 Tablets by mouth every evening. Or as directed by warfarin clinic 60 Tablet 5 02/23/2023 Active documented as of this encounter (statuses as of 03/11/2023) Active Problems Problem Noted Date Diagnosed Date [...] as of this encounter (statuses as of 03/11/2023) Resolved Problems Problem Noted Date Diagnosed Date Resolved Date Acute deep vein thrombosis ( DVT) of proximal vein of right lower extremity 02/23/2023 03/08/2023 FACTOR V LEIDEN: heterozygote status 09/11/2003 07/02/2016 documented as of this encounter (statuses as of 03/11/2023) Immunizations Name Administration Dates Next Due COVID-19 [...] Notes * Telephone Encounter - Ildefonso Munoz RP - 03/11/2023 1:37 PM EST [employer] application completed and faxed. Ildefonso Shipley RPh, CACP, CDE Clinical Pharmacist [facility] 03/11/2023, 1:37 PM * Telephone Encounter - Jeane Feng, feeder driver - 03/11/2023 10:38 AM EST Caller's name: Jacob Preferred call back number(OFFICE NUMBER FOR ): [phone] Reason for call: patient states he tried to order an [employer] home machine online but he was told that you will need to call [employer] [facility] [address] the order for him. Jeane Feng MA Leasing Sales Consultant I [facility]acy Services ([facility]PS) (formerly Telepharmacy) [phone] [facility] [phone] [place] [phone] ext [phone] documented in this encounter Plan of Treatment Upcoming Encounters Date Type Department Care Team (Late st Contact Info) Description 04/29/2023 8:00 AM EST Anticoagulation Pharmacy, [facility] [place] [address] [address] Pharmacist1, [facility] [address] [place] [address] 01/23/2024 8:45 AM EDT Office Visit Dermatology [facility] [place] [address] [place] [address] [address] David Washburn MD [address] [address] 03/09/2024 8:20 AM EST Office Visit Family Practice [facility] [place] [address] [address] Artemio Solares, DO [address] [place] [address] Scheduled Procedures Name Priority Associated Diagnoses Date/Ti [...] filedocumented as of this encounter Care Teams Reducing Machine Operator Relationship Specialty Start Date End Date Artemio Solares DO [address] [place] [address] PCP - General Family Medicine 07/02/16 documented as of this encounter
--- OUTSIDE RECORDS SUMMARY | 2023-05-09 10:35 | External Medical Summary | Summary of Care ---
Author Name Unknown Organization [facility] Address [address] [facility] [place] [address] Phone [phone] Care Team Providers Care Refractory Worker Name Role Phone Artemio Solares DO Primary Care Provider [phone] Reason for Visit * Reason Comments Dosage Adjustment In Person (Anticoag Cl inic) Encounter Details Date Type Department Care Team (Latest Contact Info) Description 02/28/2023 8:50 AM EST Anticoagulation Pharmacy, [facility] [address] [facility] [place] [address] Pharmacist1, [facility] [address] [facility] [place] [address] Heterozygous factor V Leiden mutation (HCC)*; Acute deep vein thrombosis (DVT) of proximal vein of right lower extremity (HCC); Anticoagulation management encounter; meterman current use of anticoagulant therapy Allergies No known active allergiesdocumented as of this encounter (statuses as of 02/28/2023) Medications Medication Sig Dispensed Refills Start Date [...] as of this encounter (statuses as of 02/28/2023) Active Problems Problem Noted Date Diagnosed Date [...] as of this encounter (statuses as of 02/28/2023) Resolved Problems Problem Noted Date Diagnosed Date Resolved Date FACTOR V LEIDEN: heterozygote status 09/11/2003 07/02/2016 documented as of this encounter (statuses as of 02/28/2023) Immunizations Name Administration Dates Next Due COVID-19 [...] on file documented as of this encounter Progress Notes * Melody Yousif RPh - 02/28/2023 8:51 AM EST Medication Therapy Disease Management - Anticoagulation Patient: Jacob Tipton IV | : 1955 Subjective Patient-Reported Symptoms: Patient Findings Positives: Other complaints (Informed pt to stop Lovenox today as INR is therapeutic. Pt took last dose this AM.) Negatives: Signs/symptoms of thrombosis, Signs/symptoms of bleeding, Change in health, Change in alcohol use, Change in activity, Upcoming invasive procedure, Missed doses, Extra doses, Change in medications, Change in diet/appetite, Bruising Objective Current Warfarin Dose As of 02/28/2023 Warfarin maintenance plan: No maintenance plan INR Result As of 02/28/2023 INR goal: 2.0-3.0 INR used for dosin.2 (02/28/2023) Assessment & Plan Warfarin Plan As of 02/28/2023 Full warfarin instructions: 02/28: 10 mg; 03/01: 10 mg; 03/02: 7.5 mg; 03/03: 7.5 mg Next INR check: 03/04/2023 Repeat PT/INR in 4 day(s) Weekly dose: not established Educated pt regarding indication for warfarin, drug interactions, food interactions, consistency with diet, and side effects. Additional Dosing Information: Description April - week vacation May-June- vacation in [place] Melody Yousif RPh Clinical Pharmacist 02/28/2023, 8:51 AM documented in this encounter Plan of Treatment Upcoming Encounters Date Type Department Care Team (Late st Contact Info) Description 03/04/2023 9:00 AM EST Anticoagulation Pharmacy, [facility] [address] [facility] [place] [address] Pharmacist1, [facility] [address] [facility] [place] [address] 03/08/2023 11:00 AM EST Office Visit Family Practice [facility] [address] [facility] [place] [address] Artemio Solares, [address] [facility] [place] [address] 01/23/2024 8:45 AM EDT Office Visit Dermatology [facility] [address] [facility] [place] [address] David Washburn MD [address] [facility] [place] [address] Scheduled Procedures Name Priority Associated Diagnoses Date/Ti [...] Procedure Name Priority Date/Time Associated Diagnosis Comments INR FINGERSTICK, POINT OF CARE STAT 02/28/2023 8:57 AM EST Heterozygous factor V Leiden mutation (HCC) Anticoagulation management encounter custodial current use of anticoagulant therapy documented in this encounter Results * INR FINGERSTICK, POINT OF CARE (02/28/2023 8:57 AM EST) Fingerstick INR 2.2 INR 9:00 AM EST [facility] 56-02 Blood 02/28/2023 8:57 AM EST 02/28/2023 9:00 AM EST Narrative [facility] 56-02 - 02/28/2023 9:00 AM EST Therapeutic ranges for non-operative patients: Prophylaxsis/treatment of DVT: (Range:2.0-3.0) Treatment of pulmonary embolism:(Range:2.0-3.0) Prevention of systemic embolism from: -tissue heart valves -acute myocardial infarction -valvular heart disease -atrial fibrillation (Range: 2.0-3.0) Mechanical prosthetic valves: (Range: 2.5-3.5) Serena English [facility] LAB POINT OF C ARE TEST DOCKED DEVICE UNSOLICITED RESULTS [facility] 56-[address] [place] [address] documented in this encounter Visit Diagnoses Diagnosis Heterozygous factor V Leiden mutation (HCC)- Primary Primary hypercoagulable state Acute deep vein thrombosis (DVT) of proximal vein of right lower extremity (HCC) Anticoagulation management encounter Encounter for therapeutic drug monitoring custodial current use of anticoagulant therapy documented in this encounter Care Teams Refractory Worker Relationship Specialty Start Date End Date Artemio Solares DO [facility] [place] [address] PCP - General Family Medicine 07/02/16 documented as of this encounter"
--- OUTSIDE RECORDS SUMMARY | 2023-05-09 10:35 | External Medical Summary | Summary of Care ---
Author Name Unknown Organization [facility] Address [address] [facility] [address] Phone [phone] Care Team Providers Care Clinical Nurse Educator Name Role Phone Artemio Solares DO Primary Care Provider [phone] Reason for Visit * Reason Onset Date Comments Procedure 04/18/2023 Encounter Details Date Type Department Care Team (Late st Contact Info) Description 04/18/2023 Telephone Pharmacy Call Center [address] [place] [address] Pharmacist1, [facility] 200 [facility] [place] [address] Procedure Allergies No known active allergiesdocumented as of this encounter (statuses as of 04/18/2023) Medications Medication Sig Dispensed Refills Start Date [...] before bedtime. 10 mL 0 04/15/2023 Active documented as of this encounter (statuses as of 04/18/2023) Active Problems Problem Noted Date Diagnosed Date [...] as of this encounter (statuses as of 04/18/2023) Resolved Problems Problem Noted Date Diagnosed Date Resolved Date Acute deep vein thrombosis ( DVT) of proximal vein of right lower extremity 02/23/2023 03/08/2023 FACTOR V LEIDEN: heterozygote status 09/11/2003 07/02/2016 documented as of this encounter (statuses as of 04/18/2023) Immunizations Name Administration Dates Next Due COVID-19 [...] encounter Miscellaneous Notes * Telephone Encounter - Rafal Mancilla RPh - 04/18/2023 12:31 PM EST Refaxed today. Rafal Mancilla PharmD, BCACP, [facility] Clinical Pharmacist 04/18/2023, 12:31 PM Electronically signed by Rafal Mancilla [facility], located [facility] at 04/18/2023 12:33 PM EST * Telephone Encounter - Tena Starkey PHARM Tech - 04/18/2023 11:44 AM EST Caller's name: Brii Preferred call back number(OFFICE NUMBER FOR ): [phone] Reason for call: Pt having upper endoscopy on 04/26/2023 and will need Coumadin instructions for same. Pt will need to hold his Coumadin for 5 days prior to the procedure. Estephania ryder [place] would alsolike these instructions sent to them at (fax)[phone]. Please Advise. Thank you, Tena Starkey Reverberatory Furnace Supervisor [facility] ([facility]) (formerly Telepharmacy) 04/18/2023,11:45 AM documented in this encounter Plan of Treatment Upcoming Encounters Date Type Department Care Team (Latest Contact Info) Description 4 8:20 AM EST Anticoagulation Pharmacy, State [place] Lopez 200 [facility] [place] [address] Pharmacist1, [facility] 200 [facility] [place] [address] 4 1:00 PM EDT Hospital Encounter ENDO [facility], Endoscopy Room [facility] [address] [place] [phone] Marcelino mSalls MD [address] [place] [address] 4 1:00 PM EDT - 4 1:30 PM EDT Surgery ENDO [facility], Endoscopy Room [facility] [address] [place] [phone] Marcelino Smalls MD [address] [place] [address] ESOPHAGOGASTRODUODENOSCOPY (EGD), FLEXIBLE, TRANSORAL, DIAGNOSTIC 4 8:45 AM EDT Office Visit Dermatology [facility] [place] [address] [facility] [address] [place] [address] David Washburn MD [address] [facility] [place] [address] 4 8:20 AM EST Office Visit Family Practice [facility] [place] [address] [facility] [place] [address] Artemio Solares, [address] [facility] [place] [address] Scheduled Procedures Name Priority Associated Diagnoses Date/Ti [...] type documented in this encounter Care Teams Clinical Nurse Educator Relationship Specialty Start Date End Date Artemio Solares DO [address] [place] [address] PCP - General Family Medicine 07/02/16 documented as of this encounter
--- OUTSIDE RECORDS SUMMARY | 2023-05-09 10:35 | External Medical Summary | Summary of Care ---
Author Name Unknown Organization [facility] Address [address] Care Team Providers Care Flight Control Specialist Name Role Phone HomeArtemio higgins Primary Care Provider [phone] Reason for Visit * Reason Onset Date Comments Procedure 04/14/2023 Fax 04/14/2023 Encounter Details Date Type Department Care Team (Late st Contact Info) Description 04/14/2023 Telephone Pharmacy, [facility] [place] [address] [facility] [place] [address] Pharmacist1, [facility] [address] [facility] [place] [address] Procedure; Fax Allergies No known active allergiesdocumented as of this encounter (statuses as of 04/14/2023) Medications Medication Sig Dispensed Refills Start Date [...] mg before bedtime. 10 mL 0 04/14/2023 Active documented as of this encounter (statuses as of 04/14/2023) Active Problems Problem Noted Date Diagnosed Date [...] as of this encounter (statuses as of 04/14/2023) Resolved Problems Problem Noted Date Diagnosed Date Resolved Date Acute deep vein thrombosis ( DVT) of proximal vein of right lower extremity 02/23/2023 03/08/2023 FACTOR V LEIDEN: heterozygote status 09/11/2003 07/02/2016 documented as of this encounter (statuses as of 04/14/2023) Immunizations Name Administration Dates Next Due COVID-19 [...] Telephone Encounter - Ildefonso Munoz RPh - 04/14/2023 1:56 PM EST Patient Phone Numbers Spoke to the patient and his at 1:57 PM. Patient is having an EGD on 04/26/23. Patient has FVL and recent DVT (6 weeks ago) and requires lovenox bridging. Patient will take their last dose of coumadin 04/20/23. The patient will start oxzhyis399ig subQ q12 hours on 04/23 at 8 am. They will take the last lovenox injection at 8 am the day before the procedure. The patient will restart Lovenox 100mg subQ q12 hours on 04/27 at 8 PM with last dose on 04/29. They will take 15mg of coumadin on 04/26 and 04/27, and 20 mg on 04/28 , then resume current dose of 10 mg every Sun, Nunu; 7.5 mg all other days. Repeat pt/inr on 05/10 at 8:20 AM. Patient self-administered own LMWH injection 6 weeks ago without incident. No ADR reported. Actual Body Weight 108.9kg [place] Body Weight 84 kg Adjusted Body Weight 94kg Labs Drawn 02/23/23 SCR 1.0 CrCl 111.9 ml/min HgB 15.4 Platelets 274 [facility] endoscopy dept calling request the pt to stop the Warfarin 5 days before his procedure, which is Apr 26. Caller is asking if documentation stating that is ok can be faxed to # [phone] Faxed 04/14/23 Ildefonso Shipley RPh Clinical Pharmacist [facility] Therapy Management [facility] 04/14/2023, 1:56 PM * Telephone Encounter - Sol Osborne CPhT - 04/14/2023 1:24 PM EST [facility] endoscopy dept calling request the pt to stop the Warfarin 5 days before his procedure, which is Apr 26. Caller is asking if documentation stating that is ok can be faxed to # [phone]. Please advise. Thank you, Rafaela Osborne Bunch Breaker Machine Operator I [facility] ([facility]) (Formerly Telepharmacy) 04/14/2023,1:26 PM * Telephone Encounter - Jeane Feng, diet assistant - 04/14/2023 10:52 AM EST Caller's name: Jacob Cantu call back number(OFFICE NUMBER FOR ): [phone] Reason for call: I called patient today to reschedule his upcoming appointment, due to scheduling change, patient states he is having an EGD on 04/26/2023 and was told to hold the warfarin five days prior, told patient you would call him back and you would reschedule the appointment, thank you. Jeane Feng MA Bunch Breaker Machine Operator I [facility] ([facility]) (formerly Telepharmacy) [address] [facility] [address] [place] [address] ext [phone] documented in this encounter Plan of Treatment Upcoming Encounters Date Type Department Care Team (Latest Contact Info) Description 4 8:20 AM EST Anticoagulation Pharmacy, State [place] Lopez 200 [facility] [place] [address] Pharmacist1, [facility] [address] [facility] [place] [address] 4 1:00 PM EDT Hospital Encounter ENDO [facility], Endoscopy Room [facility] [address] [place] [phone] Marcelino Smalls MD [address] [place] [address] 4 1:00 PM EDT - 4 1:30 PM EDT Surgery ENDO [facility], Endoscopy Room [facility] [address] [place] [phone] Marcelino Smalls MD [address] [place] [address] ESOPHAGOGASTRODUODENOSCOPY (EGD), FLEXIBLE, TRANSORAL, DIAGNOSTIC 4 8:45 AM EDT Office Visit Dermatology [facility] 200 [facility] [place] [address] David Washburn MD 200 [facility] [place] [address] 4 8:20 AM EST Office Visit Family Practice [facility] 200 [facility] [place] [address] Artemio Solares, 200 [facility] [place] [address] Scheduled Procedures Name Priority Associated Diagnoses Date/Ti [...] type documented in this encounter Care Teams Flight Control Specialist Relationship Specialty Start Date End Date Artemio Solares DO [address] [place] [address] PCP - General Family Medicine 07/02/16 documented as of this encounter
--- OUTSIDE RECORDS SUMMARY | 2023-05-09 10:35 | External Medical Summary | Summary of Care ---
Author Name Unknown Organization [facility] Address [address] [facility] [place] [address] Phone [phone] Care Team Providers Care Clinical Psychology Professor Name Role Phone Artemio Solares DO Primary Care Provider [phone] Reason for Visit * Reason Onset Date Comments Medication Problem 04/15/2023 Encounter Details Date Type Department Care Team (Late st Contact Info) Description 04/15/2023 Telephone Pharmacy Call Center [address] [place] [address] Pharmacist1, [facility] 200 [facility] [place] [address] Medication Problem Allergies No known active allergiesdocumented [...] Encounter - Ildefonso Munoz RPh - 04/15/2023 2:59 PM EST Patient Phone Numbers Spoke to George at 3:00 PM and gave him message [place] [employer] [facility] confirmed receiving script. E-Prescribing Status: Receipt confirmed by pharmacy (04/15/2023 1:06 PM EST) Ildefonso Shipley RPh, CACP, CDE Clinical Pharmacist [facility] Therapy Management [facility] 04/15/2023, 3:00 PM * Telephone Encounter - Juliana Amador PHARM Tech - 04/15/2023 1:38 PM EST Caller's name: Tootie Preferred call back number(OFFICE NUMBER FOR ): [phone] Reason for call: Pts calling to let [facility] know the prescription wasn't sent to Esther jefferson for the Enoxaparin she said the instructions were sent but not the prescription [phone]. Please advise. Thank you, Juliana Amador Machine Adjuster Leader [facility] 04/15/2023,1:39 PM documented in this encounter Plan of Treatment Upcoming Encounters Date Type Department Care Team (Latest Contact Info) Description 4 8:20 AM EST Anticoagulation Pharmacy, State Austin Lopez [address] [place] [address] [address] Pharmacist1, [facility] [address] [place] [address] [address] 4 1:00 PM EDT Hospital Encounter ENDO OSS[facility], Endoscopy Room OSS 132 [facility] [place] [phone] Marcelino Smalls MD [address] [place] [address] 4 1:00 PM EDT - 4 1:30 PM EDT Surgery ENDO OSS, Endoscopy Room OSS [address] [place] [phone] Marcelino Smalls MD [address] [place] [address] ESOPHAGOGASTRODUODENOSCOPY (EGD), FLEXIBLE, TRANSORAL, DIAGNOSTIC 4 8:45 AM EDT Office Visit Dermatology [facility] 200 [facility] [address] [place] [address] David Washburn MD 200 [facility] [place] [address] 4 8:20 AM EST Office Visit Family Practice [facility] 200 [facility] [place] [address] Artemio Solares, DO 200 [facility] [place], [place] [address] Scheduled Procedures Name Priority Associated Diagnoses Date/Ti [...] filedocumented as of this encounter Care Teams Clinical Psychology Professor Relationship Specialty Start Date End Date Artemio Solares DO [address] [place] [address] PCP - General Family Medicine 07/02/16 documented as of this encounter
--- OUTSIDE RECORDS SUMMARY | 2023-05-09 10:35 | External Medical Summary | Summary of Care ---
Author Name Unknown Organization [facility] Address [address] [facility] [place] [address] Phone [phone] Care Team Providers Care Inorganic Chemistry Professor Name Role Phone Artemio Solares DO Primary Care Provider [phone] Reason for Visit * Reason Comments Dosage Adjustment In Person (Anticoag Cl inic) Encounter Details Date Type Department Care Team (Latest Contact Info) Description 03/04/2023 9:00 AM [facility] Anticoagulation Pharmacy, [facility] 200 [facility] [place] [address] Pharmacist1, [facility] 200 [facility] [place] [address] Heterozygous factor V Leiden mutation (HCC)*; Acute deep vein thrombosis (DVT) of proximal vein of right lower extremity (HCC); Anticoagulation management encounter; termination clerk current use of anticoagulant therapy Allergies No [...] as of this encounter Progress Notes * Ildefonso Munoz RPh - 03/04/2023 9:01 AM EST Medication Therapy Disease Management - Anticoagulation Jacob Tipton PRABHU 1955 Description April - week vacation May-June- vacation in [place] Patient Findings Negatives: Signs/symptoms of thrombosis, Signs/symptoms of bleeding, Change in health, Change in alcohol use, Change in activity, Upcoming invasive procedure, Missed doses, Extra doses, Change in medications, Change in diet/appetite, Bruising INR Result As of 03/04/2023 INR goal: 2.0-3.0 INR used for dosin.6 (03/04/2023) Warfarin Plan As of 03/04/2023 Full warfarin instructions: 10 mg every Sun, Nunu; 7.5 mg all other days Next INR check: 03/11/2023 Repeat PT/INR in 1 week(s) Weekly dose: not changed Ildefonso Shipley RPh, CACP, CDE Clinical Pharmacist [facility] 03/04/2023 9:07 AM documented in this encounter Plan of Treatment Upcoming Encounters Date Type Department Care Team (Late st Contact Info) Description 03/08/2023 11:00 AM EST Office Visit Family Practice [place] 200 [facility] [place] [address] Artemio Solares DO 200 [facility] [place] [address] 03/11/2023 8:50 AM EST Anticoagulation Pharmacy, [facility] [place] 200 [facility] [place] [address] Pharmacist1, [facility] 200 [facility] [place] [address] 01/23/2024 8:45 AM EDT [facility] [place] 200 [facility] [place] [address] David Washburn MD 200 [facility] [place] [address] Scheduled Procedures Name Priority Associated Diagnoses Date/Ti [...] Comments INR FINGERSTICK, POINT OF CARE STAT 03/04/2023 9:04 AM EST Heterozygous factor V Leiden mutation (HCC) Anticoagulation management encounter halfway current use of anticoagulant therapy documented in this encounter Results * INR FINGERSTICK, POINT OF CARE (03/04/2023 9:04 AM EST) Fingerstick INR 2.6 INR 9:05 AM EST [facility] 56-02 Blood 03/04/2023 9:04 AM EST 03/04/2023 9:05 AM EST Narrative [facility] 56-02 - 03/04/2023 9:05 AM EST Therapeutic ranges for non-operative patients: Prophylaxsis/treatment of DVT: (Range:2.0-3.0) Treatment of pulmonary embolism:(Range:2.0-3.0) Prevention of systemic embolism from: -tissue heart valves -acute myocardial infarction -valvular heart disease -atrial fibrillation (Range: 2.0-3.0) Mechanical prosthetic valves: (Range: 2.5-3.5) Serena English [facility] LAB POINT OF C ARE TEST DOCKED DEVICE UNSOLICITED RESULTS [facility] 56[facility]02 [facility] [address] documented in this encounter Visit Diagnoses Diagnosis Heterozygous factor V Leiden mutation (HCC)- Primary Primary hypercoagulable state Acute deep vein thrombosis (DVT) of proximal vein of right lower extremity (HCC) Anticoagulation management encounter Encounter for therapeutic drug monitoring termination clerk current use of anticoagulant therapy documented in this encounter Care Teams Inorganic Chemistry Professor Relationship Specialty Start Date End Date Artemio Solares DO 200 [facility] [place] [address] PCP - General Family Medicine 07/02/16 documented as of this encounter
--- OUTSIDE RECORDS SUMMARY | 2023-05-09 10:35 | External Medical Summary | Summary of Care ---
Author Name Unknown Organization [facility] Address [address] [facility] [place] [address] Phone [phone] Care Team Providers Care Fruit Canner Name Role Phone Artemio Solares DO Primary Care Provider [phone] Reason for Visit * Reason Comments Dosage Adjustment In Person (Anticoag Cl inic) Encounter Details Date Type Department Care Team (Latest Contact Info) Description 03/11/2023 8:50 AM EST Anticoagulation Pharmacy, [facility] 200 [facility] [place] [address] Pharmacist1, [facility] 200 [facility] [place] [address] Heterozygous factor V Leiden mutation (HCC)*; Anticoagulation management encounter; custodial current use of anticoagulant therapy Allergies No [...] Progress Notes * Ildefonso Munoz RPh - 03/11/2023 8:53 AM EST Medication Therapy Disease Management - Anticoagulation Jacob Tipton IV 1955 Description April - week vacation May-June- vacation in [place] Patient Findings Negatives: Signs/symptoms of thrombosis, Signs/symptoms of bleeding, Change in health, Change in alcohol use, Change in activity, Upcoming invasive procedure, Missed doses, Extra doses, Change in medications, Change in diet/appetite, Bruising INR Result As of 03/11/2023 INR goal: 2.0-3.0 INR used for dosin.5 (03/11/2023) Warfarin Plan As of 03/11/2023 Full warfarin instructions: 10 mg every Sun, Nunu; 7.5 mg all other days No change documented: Ildefonso Munoz RPh Next INR check: 04/29/2023 Repeat PT/INR in 6 week(s) Weekly dose: not changed Ildefonso Shipley RPh, CACP, CDE Clinical Pharmacist [facility] 03/11/2023 8:59 AM documented in this encounter Plan of Treatment Upcoming Encounters Date Type Department Care Team (Late st Contact Info) Description 04/29/2023 8:00 AM EST [facility] [place] [address] [address] Pharmacist1, [facility] [address] [place] [address] [address] 01/23/2024 8:45 AM EDT [facility] [place] [address] [address] David Washburn MD [address] [address] 03/09/2024 8:20 AM EST Office Visit Family Practice [employer] [address] [address] Artemio Solares, DO [address] [address] Scheduled Procedures Name Priority Associated Diagnoses Date/Ti [...] Comments INR FINGERSTICK, POINT OF CARE STAT 03/11/2023 8:56 AM EST Heterozygous factor V Leiden mutation (HCC) Anticoagulation management encounter window machine operator current use of anticoagulant therapy documented in this encounter Results * INR FINGERSTICK, POINT OF CARE (03/11/2023 8:56 AM EST) Fingerstick INR 2.5 INR 8:58 AM EST [facility] 56- Blood 03/11/2023 8:56 AM EST 03/11/2023 8:58 AM EST Narrative [facility] 56- - 03/11/2023 8:58 AM EST Therapeutic ranges for non-operative patients: Prophylaxsis/treatment of DVT: (Range:2.0-3.0) Treatment of pulmonary embolism:(Range:2.0-3.0) Prevention of systemic embolism from: -tissue heart valves -acute myocardial infarction -valvular heart disease -atrial fibrillation (Range: 2.0-3.0) Mechanical prosthetic valves: (Range: 2.5-3.5) Serena English [facility] POINT OF C ARE TEST DOCKED DEVICE UNSOLICITED RESULTS [facility]- [facility] [address] documented in this encounter Visit Diagnoses Diagnosis Heterozygous factor V Leiden mutation (HCC)- Primary Primary hypercoagulable state Anticoagulation management encounter Encounter for therapeutic drug monitoring custodial current use of anticoagulant therapy documented in this encounter Care Teams Fruit Canner Relationship Specialty Start Date End Date [facility]emio Solares DO [facility] [address] PCP - General Family Medicine 07/02/16 documented as of this encounter
--- OUTSIDE RECORDS SUMMARY | 2023-05-09 10:35 | External Medical Summary | Summary of Care ---
Author Name Unknown Organization [facility] Address [address] [facility] [place] [address] Phone [phone] Care Team Providers Care Camp Tender Name Role Phone Artemio Solares DO Primary Care Provider [phone] Reason for Visit * Reason Onset Date Comments Advice 04/26/2023 Encounter Details Date Type Department Care Team (Late st Contact Info) Description 04/26/2023 Telephone Family Practice [facility] [place] 200 [facility] [place] [address] Artemio Solares DO 200 [facility] [place] [address] Advice Allergies No known active allergiesdocumented as [...] inputas well. * Telephone Encounter - Taylor Lucas OSA - 04/26/2023 2:31 PM EST Good afternoon, [...] questions, or concerns please call Tootie at [phone]. Thank you. ELEAZAR Lees documented in this encounter Plan of Treatment Upcoming Encounters Date Type Department Care Team (Latest Contact Info) Description 4 8:20 AM EST Anticoagulation Pharmacy, [facility] 200 [facility] [place] [address] Pharmacist1, [facility] 200 [facility] [place] [address] 4 1:00 PM EDT Hospital Encounter ENDO [facility], Endoscopy Room [facility] [address] [facility] [place] [phone] Marcelino Smalls MD [address] [place] [address] 4 1:00 PM EDT - 4 1:30 PM EDT Surgery ENDO [facility], Endoscopy Room [facility] [address] [place] [phone] Marcelino Smalls MD [address] [place] [address] ESOPHAGOGASTRODUODENOSCOPY (EGD), FLEXIBLE, TRANSORAL, DIAGNOSTIC 4 8:45 AM EDT Office Visit Dermatology [facility] [place] 200 [facility] [place] [address] David Washburn MD 200 [facility] [place] [address] 4 8:20 AM EST Office Visit Family Practice [facility] [place] [address] [facility] [address] [place], [place] [address] Artemio Solares, [address] [facility] [place] [address] Scheduled Procedures Name Priority Associated Diagnoses Date/Ti [...] filedocumented as of this encounter Care Teams Camp Tender Relationship Specialty Start Date End Date Artemio Solares DO [address] [place] [address] PCP - General Family Medicine 07/02/16 documented as of this encounter
--- OUTSIDE RECORDS SUMMARY | 2023-05-09 10:35 | External Medical Summary | Summary of Care ---
Author Name Unknown Organization [facility] Address [address] [facility] [place] [address] Phone [phone] Care Team Providers Care Nonprofit Financial Controller Name Role Phone Artemio Solares DO Primary Care Provider [phone] Reason for Visit * Reason Onset Date Comments Other 04/26/2023 Encounter Details Date Type Department Care Team (Late st Contact Info) Description 04/26/2023 Telephone Pharmacy Call Center [phone] [place] [address] Pharmac[address], [facility] 200 [facility] [place] [address] Other Allergies No known active allergiesdocumented as [...] before bedtime. 10 mL 0 04/26/2023 Active Enoxaparin Sodium 100 MG/ML Injection Solution [...] 2:09 PM EDT Sexual Orientation Straight 08/30/2022 2 :09 PM EDT Job Start Date Occupation Industry Not on file Not on file Not on file documented as of this encounter Miscellaneous Notes * Telephone Encounter - Ildefonso Munoz RPh - 04/26/2023 3:39 PM EST Patient Phone Numbers Good afternoon, Received a call from Tootie, [...] questions, or concerns please call Tootie at [phone]. If he was originally supposed to go back to Warfarin today, that should be fine. I wouldn't continue the Lovenox or hold Warfarin just in anticipation for ENT biopsy. Will forward to Eloisa for inputas well. Note Spoke to George and Tootie, Biopsy date not scheduled yet. As soon as date scheduled they will contact me. If >10 days will restart Warfarin and bridge again. [facility] for 10 more syringes. Ildefonso Shipley RPh, CACP, CDE Clinical Pharmacist Medication Therapy Management Clinic 04/26/2023, 3:50 PM * Telephone Encounter - Juliana Amador PHARM Tech - 04/26/2023 3:12 PM EST Caller's name: Jacob Preferred call back number(OFFICE NUMBER FOR ): [phone] Reason for call: Pt calling to speak with Eloisa about the procedure he just had done. They may have to do a biopsy so he's asking if he should just stay on lovenox until they do the biopsy. Please advise and return his call. Thank you, Juliana Amador [employer] Conservation Laborer [facility] 04/26/2023,3:12 PM documented in this encounter Plan of Treatment Upcoming Encounters Date Type Department Care Team (Latest Contact Info) Description 4 8:20 AM EST [facility]tico[facility] Pharm[facility], [facility] [place] 200 [facility] [place] [address] Pharmacist[address], [facility] [address] [place] [address] [place] [address] 4 1:00 PM EDT Hospital Encounter ENDO [facility], Endoscopy Room [facility] [address] [place] [phone] Marcelino Smalls MD [address] [place] [address] 4 1:00 PM EDT - 4 1:30 PM EDT Surgery ENDO [facility], Endoscopy Room [facility] [address] [place] [phone] Marcelino Smalls MD [address] [place] [address] ESOPHAGOGASTRODUODENOSCOPY (EGD), FLEXIBLE, TRANSORAL, DIAGNOSTIC 4 8:45 AM EDT [facility] 200 [facility] [place] [address] David Washburn MD 200 [facility] [place] [address] 4 8:20 AM EST Office Visit Family Practice [employer] [address] [place] [address] Artemio Solares DO [address] [facility] [place] [address] Scheduled Procedures Name Priority Associated Diagnoses Date/Ti [...] type documented in this encounter Care Teams Nonprofit Financial Controller Relationship Specialty Start Date End Date Artemio Solares DO [address] [place] [address] PCP - General Family Medicine 07/02/16 documented as of this encounter
--- OUTSIDE RECORDS SUMMARY | 2023-05-09 10:35 | External Medical Summary ---
Author Name Unknown Address Unknown Organization K09:[facility] [place] [address] Laboratory Report Ordering Provider Test Date Status KAMINI LEON 03/29/2023 15:07:13 Final Observation Date Value Abnormality Reference (Units ) Status SYNC LEUKOCYTES IN BLOOD BY AUTOMATED COUNT 03/29/2023 15:07:13 9.48 4.00-10.80 (K/uL) Final Segs 03/29/2023 15:07:13 61.5 40.0-75.0 (%) Final Lymphs % 03/29/2023 15:07:13 26.1 18.0-42.0 (%) Final Monos 03/29/2023 15:07:13 10.2 1.0-11.0 (%) Final Eosinophils 03/29/2023 15:07:13 2.0 0.0-6.0 (%) Final Basos 03/29/2023 15:07:13 0.2 0.0-2.0 (%) Final Absolute Segs 03/29/2023 15:07:13 5.83 1.80-7.70 (K/uL) Final Lymphs, absolute 03/29/2023 15:07:13 2.47 1.00-4.80 (K/ul) Final Monos, Abs 03/29/2023 15:07:13 0.97 0.00-1.10 (K/uL) Final Eos, Abs 03/29/2023 15:07:13 0.19 0.00-0.70 (K/uL) Final Basos, Abs 03/29/2023 15:07:13 0.02 0.00-0.20 (K/uL) Final Performing Location [facility] [place] [address]
--- OUTSIDE RECORDS SUMMARY | 2023-05-09 10:35 | External Medical Summary | Summary of Care ---
Author Name Unknown Organization [facility] Address [address] [facility] [place] [address] Phone [phone] Care Team Providers Care Front End Software Developer Name Role Phone Artemio Solares DO Primary Care Provider [phone] Reason for Visit * Reason Comments Outpatient Testing Encounter Details Date Type Department Care Team (Late st Contact Info) Description 03/29/2023 3:10 PM EST Laboratory Laboratory [facility] [address] [place] [phone] [facility] [address] [place] [address] Dysphagia, unspecified type; Hoarse voice quality Allergies No known active allergiesdocumented as of this encounter (statuses as of 03/29/2023) Medications Medication Sig Dispensed Refills Start Date End Date Status SURGICAL COMPRESSION STOCKING 20 to 30mm knee high. 0 02/10/2022 Active Warfarin Sodium 5 MG Oral Tablet (Coumadin) Take 1-2 Tablets by mouth every evening. Or as directed by warfarin clinic 60 Tablet 5 02/23/2023 Active documented as of this encounter (statuses as of 03/29/2023) Active Problems Problem Noted Date Diagnosed Date [...] as of this encounter (statuses as of 03/29/2023) Resolved Problems Problem Noted Date Diagnosed Date Resolved Date Acute deep vein thrombosis ( DVT) of proximal vein of right lower extremity 02/23/2023 03/08/2023 FACTOR V LEIDEN: heterozygote status 09/11/2003 07/02/2016 documented as of this encounter (statuses as of 03/29/2023) Immunizations Name Administration Dates Next Due COVID-19 [...] Description 04/29/2023 8:00 AM EST Anticoagulation Pharmacy, [facility] [place] 200 [facility] [place] [address] Pharmacist1, [facility] 200 [facility] [place] [address] 01/23/2024 8:45 AM EDT Office Visit Dermatology [facility] [place] 200 [facility] [place] [address] David Washburn MD 200 [facility] [place] [address] 03/09/2024 8:20 AM EST Office Visit Family Practice [facility] [place] 200 [facility] [place] [address] Artemio Solares DO 200 [facility] [place] [address] Pending Results Name Type Priority Associated Diagnoses Date /Time TSH WITH FREE T4 IF INDICATED Lab Routine Dysphagia, unspecified type Hoarse voice quality 03/29/2023 3:07 PM EST Scheduled Procedures Name Priority Associated [...] Procedure Name Priority Date/Time Associated Diagnosis Comments DIFFERENTIAL, AUTOMATED Routine 03/29/2023 3:07 PM EST Dysphagia, unspecified type Hoarse voice quality CBC Routine 03/29/2023 3:07 PM EST Dysphagia, unspecified type Hoarse voice quality CBC Routine 03/29/2023 3:07 PM EST Dysphagia, unspecified type Hoarse voice quality documented in this encounter Results * DIFFERENTIAL, AUTOMATED (03/29/2023 3:07 PM EST) WBC 9.48 4.00 - 10.80 K/uL 03/29/2023 3:11 PM EST [facility] 56-02 Neutrophils % 61.5 40.0 - 75.0 % 03/29/2023 3:11 PM EST [facility] 56-02 Lymphocytes % 26.1 18.0 - 42.0 % 03/29/2023 3:11 PM EST [facility] 56-02 Monocytes % 10.2 1.0 - 11.0 % 03/29/2023 3:11 PM EST [facility] 56-02 Eosinophils % 2.0 0.0 - 6.0 % 03/29/2023 3:11 PM EST [facility] 56-02 Basophils % 0.2 0.0 - 2.0 % 03/29/2023 3:11 PM EST [facility] 56-02 Absolute Neutrophils 5.83 1.80 - 7.70 K/uL 03/29/2023 3:11 PM EST [facility] 56- Absolute Lymphocytes 2.47 1.00 - 4.80 K/ul 03/29/2023 3:11 PM EST [facility] 56- Absolute Monocytes 0.97 0.00 - 1.10 K/uL 03/29/2023 3:11 PM EST [facility] 56- Absolute Eosinophils 0.19 0.00 - 0.70 K/uL 03/29/2023 3:11 PM EST [facility] 56- Absolute Basophils 0.02 0.00 - 0.20 K/uL 03/29/2023 3:11 PM [facility] 56- Blood Venous blood specimen / Unknown Venipuncture / Unknown 03/29/2023 3:07 PM EST 03/29/2023 3:07 PM EST Lety Mejía PA-C LAB BLOOD ORD ERABLES [facility] 56- [address] [place], [place] [id number] * CBC (03/29/2023 3:07 PM EST) WBC 9.48 4.00 - 10.80 K/uL 03/29/2023 3:11 PM [facility] 56 RBC 4.96 4.50 - 5.25 M/uL 03/29/2023 3:11 PM [facility] 56- HGB 15.4 14.0 - 16.8 g/dL 03/29/2023 3:11 PM [facility] 56- HCT 46.2 40.0 - 48.4 % 03/29/2023 3:11 PM [facility] 56- MCV 93.1 82.0 - 99.5 fL 03/29/2023 3:11 PM [facility] 56- MCH 31.0 27.0 - 34.0 pg 03/29/2023 3:11 PM [facility] 56- MCHC 33.3 32.0 - 36.0 g/dL 03/29/2023 3:11 PM [facility] 56- RDW 12.9 11.5 - 15.5 % 03/29/2023 3:11 PM EST [facility] 56- PLT 274 140 - 400 K/uL 03/29/2023 3:11 PM [facility] 56- MPV 9.5 6.6 - 11.1 fL 03/29/2023 3:11 PM EST [facility] 56-02 Blood Venous blood specimen / Unknown Venipuncture / Unknown 03/29/2023 3:07 PM EST 03/29/2023 3:07 PM EST Lety Mejía PA-C LAB BLOOD ORD ERABLES [facility] 56 [facility] [address] documented in this encounter Visit Diagnoses Diagnosis Dysphagia, unspecified type Hoarse voice quality Dysphonia documented in this encounter Care Teams Front End Software Developer Relationship Specialty Start Date End Date Artemio Solares DO [facility] [address] PCP - General Family Medicine 07/02/16 documented as of this encounter
--- OUTSIDE RECORDS SUMMARY | 2023-05-09 10:35 | External Medical Summary | Summary of Care ---
Author Name Unknown Organization [facility] Address [address] [facility] [address] Phone [phone] Care Team Providers Care Fuse Spooler Name Role Phone Artemio Solares DO Primary Care Provider [phone] Reason for Referral * Precert (Within 10 days (routine)) - Authorized Specialty Diagnoses / Procedures Referred By Tesha rand Referred To Contact Radiology Diagnoses Tongue mass Procedures CT NECK W CONTRAST Yamel Carrera MD 200 [facility] [place] [address] Referral ID Status Reason Start Date Expiration Date V isits Requested Visits Authorized [id number] Authorized 04/26/2023 999 999 * Evaluate & Treat - Unlimited Visits (Within 3 days (urgent)) - Authorized Specialty Diagnoses / Procedures Referred By Tesha rand Referred To Contact Otolaryngology Diagnoses Tongue mass Abnormal endoscopy of upper gastrointestinal tract Artemio Solares DO 200 [place] [address] Referral ID Status Reason Start Date Expiration Date Visits Requested Visits Authorized [id number] Authorized Specialty Services Required 04/26/2023 999 999 Question Answer Referral Priority Within 3 days (urgent) Where should this appointment be scheduled? [facility] Reason for Referral Thyroid/Parathyroid/Oral Lesions/Head/Neck/Cancer Conditions Specific Condition: Head/Neck/Oral Lesion Encounter Details Date Type Department Care Team (Late st Contact Info) Description 04/26/2023 Telephone Family Practice [facility] [place] [address] [place], [place] [address] Artemio Solares, 200 [facility] [place], [place] [address] Allergies No known active allergiesdocumented as of [...] Neck with contrast. Then have appointment at [facility] Head [facility]- Dr. Rodriguez or Dr. Goodson. * Telephone Encounter - Veena Street LPN - 04/26/2023 11:31 AM EST Called patient has not read his MYG. Had EGD at [facility], patient is going to call and [...] Description 4 8:20 AM EST Anticoagulation Pharmacy, [facility] [place] 200 [place] [address] Pharmacist1, [facility] 200 [facility] [place] [address] 4 1:00 PM EDT Hospital Encounter ENDO [facility], Endoscopy Room [facility] [address] [place] [phone] Marcelino Smalls MD [address] [place] [address] 4 1:00 PM EDT - 4 1:30 PM EDT Surgery ENDO [facility], Endoscopy Room [facility] [address] [place] [phone] Marcelino Smalls MD [address] [place] [address] ESOPHAGOGASTRODUODENOSCOPY (EGD), FLEXIBLE, TRANSORAL, DIAGNOSTIC 4 8:45 AM EDT Office Visit Dermatology [facility] [address] [place] [address] David Washburn MD [address] [place] [address] 4 8:20 AM EST Office Visit Family Practice [facility] [address] [place], [place] [address] Artemio Solares, [address] [place] [address] Scheduled Orders Name Type Priority Associated Diagnoses [...] type documented in this encounter Care Teams Fuse Spooler Relationship Specialty Start Date End Date Artemio Solares DO [address] [place] [address] PCP - General Family Medicine 07/02/16 documented as of this encounter
--- OUTSIDE RECORDS SUMMARY | 2023-05-09 10:35 | External Medical Summary | Summary of Care ---
Author Name Unknown Organization [facility] Address [address] [facility] [place] [address] Phone [phone] Care Team Providers Care Stringing Machine Operator Name Role Phone SujathaMisaelyousif Gonzales DO Primary Care Provider [phone] Reason for Referral * Ancillary Services (Within 10 days (routine)) - Authorized Specialty Diagnoses / Procedures Referred By Tesha rand Referred To Contact Gastroenterology Diagnoses Dysphagia, unspecified type Hoarse voice quality Lety Mejía PA-C [address] [place] [address] [address] Referral ID Status Reason Start Date Expiration Date Visits Requested Visits Authorized [id number] Authorized Ancillary Services Required 3 [phone] Question Answer Referral Priority Within 10 days (routine) Where should this appointment be scheduled? Jasmin Comments Upper Endoscopy ASGE Guidelines Dysphagia or odynophagia ADDITIONAL INFORMATION 1. Is the patient on Coumadin? Yes--Coumadin MAY be stopped for 5 days 2. Is the patient on Pradaxa? No Reason for Visit * Reason Comments Laryngitis Encounter Details Date Type Department Care Team (Late st Contact Info) Description 03/29/2023 2:20 PM EST Office Visit Family Practice [facility] [address] [place] [address] [address] Lety Mejía PA-C [address] [place] [address] [address] Dysphagia, unspecified type*; Hoarse voice quality Allergies No known active [...] Answered Alcohol Use Standard Drinks/Week Comments Yes 0 [...] Sign Reading Time Taken Comments Blood Pressure 111/64 03/29/2023 2:31 PM EST Pulse 75 03/29/2023 2:31 PM EST Temperature 36.3 C (97.4 F) 03/29/2023 2:31 PM ES T Respiratory Rate 16 03/29/2023 2:31 PM EST Oxygen Saturation 98% 03/29/2023 2:31 PM EST Inhaled Oxygen Concentration - - Weight 108.9 kg (240 lb) 03/29/2023 2:31 PM EST Height - - Body Mass Index 30.16 10/22/2022 10:32 AM EDT documented in this encounter Progress Notes * Lety Mejía PA-C - 03/29/2023 3:06 PM EST Subjective Jacob Tipton IV is a 67 year old male that presents for Laryngitis 67 y/o male presents c/o dysphagia and hoarse voice. Pt reports this has been ongoing since mid-February and is worsening. He has had a few instances of choking on food/food getting stuck when swallowing recently. He states the hoarse voice lasts all day, seems to be worse in the morning. Sometimeswater helps. Doesn't have too much of a sore throat. Chronic PND that is always there. He has neverhad GERD symptoms, no chest pain, abdominal pain. Dad had "nodules" on voice box. He denies weight loss, fevers, chills, chest pain, SOB, nausea, vomiting, diarrhea. Allergies and medications reviewed. Objective BP 111/64 | Pulse 75 | Temp 36.3 C (97.4 F) | Resp 16 | Wt 108.9 kg (240 lb) | SpO2 98% | BMI 30.16 kg/m | BSA 2.4 m Body mass index is 30.16 kg/m. BP Readings from Last 3 Encounters: 03/29/23 111/64 03/08/23 116/76 02/23/23 110/58 Wt Readings from Last 3 Encounters: 03/29/23 108.9 kg (240 lb) 03/08/23 109.2 kg (240 lb 12.8 oz) 02/23/23 108.9 kg (240 lb) Physical Exam Vitals and nursing note reviewed. Constitutional: General: He is not in acute distress. Appearance: Normal appearance. HENT: Head: Normocephalic and atraumatic. Right Ear: Tympanic membrane, ear canal and external ear normal. Left Ear: Tympanic membrane, ear canal and external ear normal. Nose: Nose normal. Mouth/Throat: Mouth: Mucous membranes are moist. Pharynx: No oropharyngeal exudate or posterior oropharyngeal erythema. Eyes: General: No scleral icterus. Conjunctiva/sclera: Conjunctivae normal. Pupils: Pupils are equal, round, and reactive to light. Cardiovascular: Rate and Rhythm: Normal rate and regular rhythm. Heart sounds: No murmur heard. No friction rub. No gallop. Pulmonary: Effort: Pulmonary effort is normal. Breath sounds: Normal breath sounds. No stridor. No wheezing, rhonchi or rales. Musculoskeletal: Cervical back: Neck supple. Lymphadenopathy: Cervical: No cervical adenopathy. Skin: General: Skin is warm and dry. Findings: No rash. Neurological: General: No focal deficit present. Mental Status: He is alert and oriented to person, place, and time. Psychiatric: Mood and Affect: Mood normal. Behavior: Behavior normal. Assessment and plan 1. Dysphagia, unspecified type - TSH WITH FREE T4 IF INDICATED; Future - CBC WITH WBC DIFFERENTIAL; Future - UPPER ENDOSCOPY GI REFERRAL OP 2. Hoarse voice quality - TSH WITH FREE T4 IF INDICATED; Future - CBC WITH WBC DIFFERENTIAL; Future - UPPER ENDOSCOPY GI REFERRAL OP -likely esophageal stricture with possible GERD component based on symptoms -will get labs as ordered to make sure -EGD referral placed- Per Dr. Solares Ok to stop coumadin for 5 days -if symptoms persist, will then refer pt to ENT for further eval -he is in agreement with this plan -to ER with acute worsening symptoms Follow up Follow Up: Return if symptoms worsen or fail to improve. Total time today including reviewing chart before the visit, pertinent labs, imaging reports, face to face time, and documentation time was 20 minutes. The above was discussed and understanding was expressed. Lety Mejía PA-C * Kellen Huang RN - 03/29/2023 2:30 PM EST Has had hoarseness since 03/04/23. documented in this encounter Plan of Treatment Upcoming Encounters Date Type Department Care Team (Late st Contact Info) Description 04/29/2023 8:00 AM EST [facility] [address] [facility] [place] [address] Pharmacist1, [facility] [address] [facility] [place] [address] 01/23/2024 8:45 AM EDT Office [facility] 200 [facility] [place] [address] David Washburn MD [address] [facility] [place] [address] 03/09/2024 8:20 AM EST [facility] [employer] [facility] [address] [facility] [place] [address] Artemio Solares DO [address] [facility] [place] [address] Pending Results Name Type Priority Associated Diagnoses Date /Time TSH WITH FREE T4 IF INDICATED Lab Routine Dysphagia, unspecified type Hoarse voice quality 03/29/2023 3:07 PM EST Scheduled Orders Name Type Priority Associated Diagnoses Orde r Schedule TSH WITH FREE T4 IF INDICATED Lab Routine Dysphagia, unspecified type Hoarse voice quality Expected: 03/29/2023 (Approximate), Expires: 03/28/2024 Scheduled Procedures Name Priority Associated Diagnoses Date/Ti me COLONOSCOPY FLEXIBLE PROXIMAL DIAGNOSTIC Recall History of colon polyps Scheduled Referrals Name Type Priority Associated Diagnoses Orde r Schedule UPPER ENDOSCOPY GI REFERRAL OP Referral Within 10 days (routine) Dysphagia, unspecified type Hoarse voice quality Ordered: 03/29/2023 Health Maintenance Due Date Last Done Comments [...] as of this encounter Visit Diagnoses Diagnosis Dysphagia, unspecified type- Primary Hoarse voice quality Dysphonia documented in this encounter Care Teams Stringing Machine Operator Relationship Specialty Start Date End Date Artemio Solares DO [facility] [place] [address] PCP - General Family Medicine 07/02/16 documented as of this encounter
--- OUTSIDE RECORDS SUMMARY | 2023-05-09 10:35 | External Medical Summary | Summary of Care ---
Author Name Unknown Organization [facility] Address [address] [facility] [place] [address] Phone [phone] Care Team Providers Care Obgyn Hospitalist Physician Name Role Phone Artemio Solares DO Primary Care Provider [phone] Reason for Visit * Reason Comments Physical-Exam Encounter Details Date Type Department Care Team (Late st Contact Info) Description 03/08/2023 11:00 AM EST Office Visit Family Practice [facility] [place] [address] [facility] [place] [address] Artemio Solares DO 200 [facility] [place] [address] Routine medical exam*; Heterozygous factor V Leiden mutation (HCC); Dyslipidemia, goal LDL below 100 Allergies No known active allergiesdocumented as of this encounter (statuses as of 03/08/2023) Medications Medication Sig Dispensed Refills Start Date End Date Status SURGICAL COMPRESSION STOCKING 20 to 30mm knee high. 0 02/10/2022 Active Warfarin Sodium 5 MG Oral Tablet (Coumadin) Take 1-2 Tablets by mouth every evening. Or as directed by warfarin clinic 60 Tablet 5 02/23/2023 Active acetaZOLAMIDE 125 MG Oral Tablet (Diamox) Take 1 Tablet by mouth in the morning and 1 Tablet before bedtime. 30 Tablet 0 09/13/2022 03/08/2023 Discontinued (Medication List Clean Up) Fluorouracil 5 % External Cream (Efudex) Apply to left forearm site twice daily x 2-3 weeks 40 g 0 09/17/2022 03/08/2023 Discontinued (End of Procedure) Enoxaparin Sodium 100 MG/ML Injection Solution Prefilled Syringe (Lovenox) Inject 100 mg under the skin in the morning and 100 mg before bedtime. 20 mL 1 02/23/2023 03/08/2023 Discontinued (End of Procedure) documented as of this encounter (statuses as of 03/08/2023) Active Problems Problem Noted Date Diagnosed Date [...] as of this encounter (statuses as of 03/08/2023) Resolved Problems Problem Noted Date Diagnosed Date Resolved Date Acute deep vein thrombosis ( DVT) of proximal vein of right lower extremity 02/23/2023 03/08/2023 FACTOR V LEIDEN: heterozygote status 09/11/2003 07/02/2016 documented as of this encounter (statuses as of 03/08/2023) Immunizations Name Administration Dates Next Due COVID-19 [...] Sign Reading Time Taken Comments Blood Pressure 116/76 03/08/2023 11:06 AM EST Pulse 82 03/08/2023 11:06 AM EST Temperature 35.6 C (96.1 F) 03/08/2023 1 1:06 AM EST Respiratory Rate 18 03/08/2023 11:0 6 AM EST Oxygen Saturation 96% 03/08/2023 11: 06 AM EST Inhaled Oxygen Concentration - - Weight 109.2 kg (240 lb 12.8 oz) 2022 11:06 AM EST Height - - Body Mass Index 30.26 10/22/2022 10:32 AM EDT documented in this encounter Progress Notes * Artemio Solares, - 03/08/2023 11:27 AM EST Subjective: Jacob Tipton IV is a 67 year old male. Chief Complaint Patient presents with Physical-Exam HPI: Pt here for a physical. Recent DVT found. On Coumadin currently. He had an issue with his heel initially. Was sitting a little more. Not a lot more than normal. No flights or long car trips. He pushed himself further on a walk. PMHx, PSHx, SHx, FHx, Medications, and Allergies fully reviewed Flu and RSV shots done. Stays active. Gets out walking everyday. Less red meat and more healthy choices. BP great today;. Retired in June. Doing less dangerous things. Less crazy things. Less logging or [place]. Staying steady with his diet. Planning some road travel next year. Wants to avoid being in the car too long. Always active. Flu and RSV shots done. 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 Or as directedby warfarin clinic 60 Tablet 5 SURGICAL COMPRESSION STOCKING 20 to 30mm knee high. No current facility-administered medications for this visit. Review of patient's allergies indicates: No Known Allergies OBJECTIVE: BP 116/76 | Pulse 82 | Temp 35.6 C (96.1 F) (Tympanic) | Resp 18 | Wt 109.2 kg (240 lb 12.8 oz)| SpO2 96% | BMI 30.26 kg/m | BSA 2.4 m Estimated body mass index is 30.26 kg/m as calculated from the following: Height as of 10/22/22: 1.9 m (6' 2.8"). Weight as of this encounter: 109.2 kg (240 lb 12.8 oz). BP Readings from Last 3 Encounters: 03/08/23 116/76 02/23/23 110/58 10/22/22 118/69 Wt Readings from Last 3 Encounters: 03/08/23 109.2 kg (240 lb 12.8 oz) 02/23/23 108.9 kg (240 lb) 10/22/22 111.5 kg (245 lb 13 oz) ROS: General: No change in weight, No weakness, No fatigue and No fevers, sweats, or chills Head: No significant headache and No recent significant head injury Eyes: No recent significant change in vision, No eye pain, redness, discharge, or excessive tearing, No diplopia and No h/o cataracts or glaucoma Ears: No recent change in hearing, No tinnitus or vertigo, No ear pain and No ear discharge Nose: No h/o frequent colds or sinusitis, No nasal stuffiness, No h/o hay fever and No significant epistaxis Throat/Oropharynx: No teeth or gum problems, No bleeding gums, No tongue complaints, No sore throatand No recent change in voice or hoarseness Neck: No complaint of lumps in neck, No swollen glands, No recent swelling in thyroid area and No significant pain in neck Respiratory: No cough, sputum, or hemoptysis, No wheezing, No shortness of breath and No recent change in breathing Cardiac: No chest pain, No shortness of breath, No dyspnea on exertion, No orthopnea, No paroxysmalnocturnal dyspnea, No edema, No palpitations and No syncope Gastrointestinal: No dysphagia, No significant heartburn, No significant change in appetite, No nausea, vomiting, diarrhea, or constipation, No hematemesis, No blood in stools or black tarry stools, No abdominal bloating or early satiety and No abdominal pain Urinary: No urinary frequency, No dysuria, No hematuria, No urinary urgency, No polyuria, No nocturia, No incontinence, No hesitancy and No sensation of incomplete voiding Musculoskeletal: No joint pain or stiffness, No arthritis, No backache, No muscle pains or cramps and No joint swelling Hematologic: No anemia, No easy bruising or abnormal bleeding and No history of transfusion Neurologic: No fainting or blackouts, No seizures, No paralysis or focal weakness, No numbness or tingling, No tremors and No significant problems with memory PHYSICAL EXAM: General: alert, healthy and no distress Head: Normocephalic, No masses, lesions, tenderness or abnormalities Ears: External ears normal, Canals clear, TM's Normal Nose: no mucosal erythema, no mucosal edema, no purulent discharge Oropharynx: no exudate, no erythema, lips, buccal mucosa, and tongue normal and mucous membranes are moist Neck: supple, no adenopathy, no bruits, thyroid normal size, non-tender, without nodularity Heart: regular rate & rhythm, no murmurs and no gallops Lungs: chest symmetric with normal AP diameter, no chest deformities noted, no chest wall tenderness, lungs clear to auscultation Abdomen: abdomen soft, non-tender, normal bowel sounds and no masses or organomegaly Extremities: less than 2 second capillary refill, no joint deformities, effusion, or inflammation ASSESSMENT/Plan Routine medical exam (Primary) Heterozygous factor V Leiden mutation (HCC) Dyslipidemia, goal LDL below 100 I spent a total of 30 minutes on the date of service in preparation, delivery, and documentation ofthe care provided to this patient, excluding any time spent on the performance of any procedure or separately billable services. Dental and sun care discussed along with weight. Plan with coumadin discussed. We discussed increased risk for recurrent clot due to FVL. With shared decision making we went with coumadin for life. The above was discussed and understanding was expressed. Artemio Solares DO documented in this encounter Nursing Notes * Natalia Weems LPN - 03/08/2023 11:06 AM EST Jacob Tipton IV presents for annual physical exam. Medications & HM reviewed. documented in this encounter Plan of Treatment Upcoming Encounters Date Type Department Care Team (Late st Contact Info) Description 03/11/2023 8:50 AM EST Anticoagulation Pharmacy, [facility] [address] [address] Pharmacist1, [facility] [address] [place] [address] 01/23/2024 8:45 AM EDT Office Visit Dermatology [facility] [address] [address] David Washburn MD [facility] [place] [address] 03/09/2024 8:20 AM EST Office Visit Family Practice [facility] [place] [address] [address] Artemio Solares DO [address] [address] Scheduled Procedures Name Priority Associated Diagnoses Date/Ti [...] as of this encounter Visit Diagnoses Diagnosis Routine medical exam- Primary Routine general medical examination at a health care facility Heterozygous factor V Leiden mutation (HCC) Primary hypercoagulable state Dyslipidemia, goal LDL below 100 Other and unspecified hyperlipidemia documented in this encounter Care Teams Obgyn Hospitalist Physician Relationship Specialty Start Date End Date Artemio Solares DO [address] [place] [address] PCP - General Family Medicine 07/02/16 documented as of this encounter
--- OUTSIDE RECORDS SUMMARY | 2023-05-09 10:35 | External Medical Summary ---
Author Name Unknown Address Unknown Organization K09:[facility] [place] [address] Laboratory Report Ordering Provider Test Date Status KAVEH GUZMAN 03/11/2023 08:56:07 Final Therapeutic ranges for non-o perative patients:
Prophylaxsis/treatment of DVT: (Range:2.0-3.0)
Treatment of pulmonary embolism:(Range:2.0-3.0)
Prevention of systemic embolism from:
-tissue heart valves
-acute myocardial infarction
-valvular heart disease
-atrial fibrillation
(Range: 2.0-3.0)
Mechanical prosthetic valves: (Range: 2.5-3.5) Observation Date Value Abnormality Reference (Units ) Status INR in Capillary blood by Coagulation assay 03/11/2023 08:56:07 2.5 (INR) Final Performing Location [facility] [place] [address]
--- OUTSIDE RECORDS SUMMARY | 2023-05-09 10:35 | External Medical Summary ---
Author Name Unknown Address Unknown Organization K09:[facility] [place] [place] [address] Laboratory Report Ordering Provider Test Date Status KAMINI LEON 03/29/2023 15:07:13 Final Observation Date Value Abnormality Reference (Units ) Status WBC, Total 03/29/2023 15:07:13 9.48 4.00-10.8 0 (K/uL) Final RBC 03/29/2023 15:07:13 4.96 4.50-5.25 (M/uL) Final Hemoglobin 03/29/2023 15:07:13 15.4 14.0-16.8 (g/dL) Final HCT 03/29/2023 15:07:13 46.2 40.0-48.4 (%) Final MCV 03/29/2023 15:07:13 93.1 82.0-99.5 (fL) Final MCH 03/29/2023 15:07:13 31.0 27.0-34.0 (pg) Final MCHC 03/29/2023 15:07:13 33.3 32.0-36.0 (g/dL) Final RDW 03/29/2023 15:07:13 12.9 11.5-15.5 (%) Final Platelets 03/29/2023 15:07:13 274 140-400 (K /uL) Final MPV 03/29/2023 15:07:13 9.5 6.6-11.1 ( fL) Final Performing Location [facility] [place] [address]
--- OUTSIDE RECORDS SUMMARY | 2023-05-09 10:35 | External Medical Summary | Summary of Care ---
Author Name Unknown Organization [facility] Address [address] [facility] [place] [address] Phone [phone] Care Team Providers Care Tile Shader Name Role Phone Artemio Solares DO Primary Care Provider [phone] Reason for Visit * Reason Onset Date Comments Fax 04/05/2023 Faxed upper gi r eferral to [phone] [facility] Encounter Details Date Type Department Care Team (Late st Contact Info) Description 04/05/2023 Telephone Family Practice [facility] [place] [address] [facility] [place] [address] Artemio Solares DO [address] [facility] [place] [address] Fax (Faxed upper gi referral to [phone]... Allergies No known active allergiesdocumented as of this encounter (statuses as of 04/05/2023) Medications Medication Sig Dispensed Refills Start Date End Date Status SURGICAL COMPRESSION STOCKING 20 to 30mm knee high. 0 02/10/2022 Active Warfarin Sodium 5 MG Oral Tablet (Coumadin) Take 1-2 Tablets by mouth every evening. Or as directed by warfarin clinic 60 Tablet 5 02/23/2023 Active documented as of this encounter (statuses as of 04/05/2023) Active Problems Problem Noted Date Diagnosed Date [...] as of this encounter (statuses as of 04/05/2023) Resolved Problems Problem Noted Date Diagnosed Date Resolved Date Acute deep vein thrombosis ( DVT) of proximal vein of right lower extremity 02/23/2023 03/08/2023 FACTOR V LEIDEN: heterozygote status 09/11/2003 07/02/2016 documented as of this encounter (statuses as of 04/05/2023) Immunizations Name Administration Dates Next Due COVID-19 [...] encounter Miscellaneous Notes * Telephone Encounter - Miguelina Cary OSA - 04/05/2023 12:28 PM EST Faxed upper gi referral to [phone] [facility] documented in this encounter Plan of Treatment Upcoming Encounters Date Type Department Care Team (Latest Contact Info) Description 4 8:00 AM EST Anticoagulation Pharmacy, [place] [employer] 200 [facility] [place] [address] Pharmacist1, [facility] [address] [facility] [place] [address] 4 1:00 PM EDT Hospital Encounter ENDO OSS[facility], Endoscopy Room [facility] [address] [place] [phone] Marcelino Smalls MD [address] [place] [address] 4 1:00 PM EDT - 4 1:30 PM EDT Surgery ENDO O[facility]C, Endoscopy Room [facility] [address] [place] [phone] Marcelino Smalls MD [address] [place] [address] ESOPHAGOGASTRODUODENOSCOPY (EGD), FLEXIBLE, TRANSORAL, DIAGNOSTIC 4 8:45 AM EDT Office Visit Dermatology [facility] [address] [place] [address] [address] David Washburn MD 200 [place] [address] 4 8:20 AM EST Office Visit Family Practice [place] [facility] [address] [place] [address] Artemio Solares DO [address] [facility] [place] [address] Scheduled Procedures Name Priority Associated Diagnoses Date/Ti [...] filedocumented as of this encounter Care Teams Tile Shader Relationship Specialty Start Date End Date Artemio Solares DO [address] [place], [place] [id number] PCP - General Family Medicine 07/02/16 documented as of this encounter
--- OUTSIDE RECORDS SUMMARY | 2023-05-09 10:36 | External Medical Summary ---
Author Name Unknown Address Unknown Organization K09:[facility] [place] [address] Laboratory Report Ordering Provider Test Date Status KAVEH GUZMAN 02/25/2023 08:47:33 Final Warfarin Therapy
INR: 2 .0-3.0 conventional anticoagulation
INR: 2.5- 3.5 high intensity anticoagulation Observation Date Value Abnormality Reference (Units ) Status PT 02/25/2023 08:47:33 16.2 Above high normal 11 .6-15.2 (seconds) Final INR 02/25/2023 08:47:33 1.3 Above high normal 0. 8-1.2 Final Performing Location [facility] [place] [address]
--- OUTSIDE RECORDS SUMMARY | 2023-05-09 10:36 | External Medical Summary | Summary of Care ---
Author Name Unknown Organization [facility] Address [address] [facility] [place] [address] Phone [phone] Care Team Providers Care Data Entry Email Processor Name Role Phone Artemio Solares DO Primary Care Provider [phone] Reason for Visit * Reason Comments Outpatient Testing Encounter Details Date Type Department Care Team (Late st Contact Info) Description 02/23/2023 2:00 PM EST Laboratory Laboratory, [facility] [address] [phone] [facility] [address] [address] Heterozygous factor V Leiden mutation (HCC); Anticoagulation management encounter; regional intermodal truck driver current use of anticoagulant therapy Allergies No known active allergiesdocumented as of this encounter (statuses as of 02/23/2023) Medications Medication Sig Dispensed Refills Start Date [...] as of this encounter (statuses as of 02/23/2023) Active Problems Problem Noted Date Diagnosed Date [...] as of this encounter (statuses as of 02/23/2023) Resolved Problems Problem Noted Date Diagnosed Date Resolved Date FACTOR V LEIDEN: heterozygote status 09/11/2003 07/02/2016 documented as of this encounter (statuses as of 02/23/2023) Immunizations Name Administration Dates Next Due COVID-19 [...] Care Team (Late st Contact Info) Description 02/25/2023 5:30 PM EST Anticoagulation Pharmacy, [facility] [address] [facility] [place] [address] Pharmacist1, [facility] [address] [facility] [place] [address] 03/08/2023 11:00 AM EST Office Visit Family Practice [facility] [address] [facility] [place] [address] Artemio Solares DO [address] [facility] [place] [address] 01/23/2024 8:45 AM EDT Office Visit Dermatology [facility] [address] [facility] [place] [address] David Washburn MD [address] [facility] [place] [address] Pending Results Name Type Priority Associated Diagnoses Date /Time BASIC METABOLIC PANEL Lab Routine Heterozygous factor V Leiden mutation (HCC) 02/23/2023 1:42 PM EST PT INR Lab Routine Heterozygous factor V Leiden mutation (HCC) Anticoagulation management encounter residential current use of anticoagulant therapy 02/23/2023 1:42 PM EST Scheduled Procedures Name Priority Associated Diagnoses Date/Ti me COLONOSCOPY FLEXIBLE PROXIMAL DIAGNOSTIC Recall History of colon polyps Health Maintenance Due Date Last Done Comments Diabetes Screening 10/29/2022 10/30/2019, 0 06/20/2015, 01/24/2010, Additional history exists COVID-19 Vaccine ( season) 2022 02/09/2021, 06/08/2020, 05/04/2020 Depression Screening 03/03/2023 03/03/2022 COLONOSCOPY-EVERY 3 YRS AGES 18-100 04/19/2025 04/19/2022, 04/19/2022, 06/24/2015, Additional history exists Lipid Panel 05/22/2025 05/22/2020, 10/10, 06/20/2015, Additional history exists DTaP,Tdap,and Td Vaccines [...] V Leiden mutation (HCC) Primary hypercoagulable state Anticoagulation management encounter Encounter for therapeutic drug monitoring residential current use of anticoagulant therapy documented in this encounter Care Teams Data Entry Email Processor Relationship Specialty Start Date End Date Artemio Solares DO [address] [place] [address] PCP - General Family Medicine 07/02/16 documented as of this encounter
--- OUTSIDE RECORDS SUMMARY | 2023-05-09 10:36 | External Medical Summary | Summary of Care ---
Author Name Unknown Organization [facility] Address [address] [facility] [place] [address] Phone [phone] Care Team Providers Care Retirement Administrator Name Role Phone Artemio Solares DO Primary Care Provider [phone] Reason for Visit * Reason Comments Dosage Adjustment Via Phone (anticoag Cl inic) Encounter Details Date Type Department Care Team (Latest Contact Info) Description 02/25/2023 5:30 PM EST Anticoagulation Pharmacy, [facility] [place] [address] Pharmacist1, [facility] [address] [facility] [place] [address] Heterozygous factor V Leiden mutation (HCC)*; Acute deep vein thrombosis (DVT) of proximal vein of right lower extremity (HCC) Allergies No known active allergiesdocumented as of this encounter (statuses as of 02/25/2023) Medications Medication Sig Dispensed Refills Start Date [...] as of this encounter (statuses as of 02/25/2023) Active Problems Problem Noted Date Diagnosed Date [...] as of this encounter (statuses as of 02/25/2023) Resolved Problems Problem Noted Date Diagnosed Date Resolved Date FACTOR V LEIDEN: heterozygote status 09/11/2003 07/02/2016 documented as of this encounter (statuses as of 02/25/2023) Immunizations Name Administration Dates Next Due COVID-19 [...] Progress Notes * Ildefonso Munoz RPh - 02/25/2023 12:30 PM EST Images from the original note were not included. Medication Therapy Disease Management - Anticoagulation Jacob Tipton IV 1955 Description Lovenox 100 mg q12 hours until INR therapeutic Patient Findings Positives: Extra doses (Patient was taking Coumadin twice daily with Lovenox so he has received 20mg daily the past 2 days instead of 10mg.) Negatives: Signs/symptoms of thrombosis, Signs/symptoms of bleeding, Change in health, Change in alcohol use, Change in activity, Upcoming invasive procedure, Missed doses, Change in medications, Change in diet/appetite, Bruising INR Result As of 02/25/2023 INR goal: 2.0-3.0 INR used for dosin.3 (02/25/2023) Continue Lovenox until Tuesday morning. Warfarin Plan As of 02/25/2023 Full warfarin instructions: 02/25: 10 mg; 02/26: 7.5 mg; 02/27: 5 mg Next INR check: 02/28/2023 Repeat PT/INR in 3 day(s) Weekly dose: not established yet Ildefonso Shipley RPh, CACP, CDE Clinical Pharmacist Medication Therapy Management Clinic 02/25/2023 12:43 PM documented in this encounter Plan of Treatment Upcoming Encounters Date Type Department Care Team (Late st Contact Info) Description 02/28/2023 8:50 AM EST Anticoagulation Pharmacy, [address] [place] [address] Pharmacist1, [facility] [address] [facility] [place] [address] 03/08/2023 11:00 AM EST Office Visit Family Practice [facility] [place] [address] [facility] [place] [address] Artemio Solares DO 200 [facility] [place] [address] 01/23/2024 8:45 AM EDT Office [facility] [address] [facility] [place] [address] David Washburn MD [address] [facility] [place] [address] Scheduled Procedures Name Priority Associated Diagnoses Date/Ti [...] proximal vein of right lower extremity (HCC) documented in this encounter Care Teams Retirement Administrator Relationship Specialty Start Date End Date Artemio Solares DO [address] [place] [address] PCP - General Family Medicine 07/02/16 documented as of this encounter
--- OUTSIDE RECORDS SUMMARY | 2023-05-09 10:36 | External Medical Summary ---
Author Name Unknown Address Unknown Organization [facility] [address] [place] [id number] Laboratory Report Ordering Provider Test Date Status KAVEH GUZMAN 02/23/2023 13:42:51 Final Observation Date Value Abnormality Reference (Units ) Status BUN 02/23/2023 13:42:51 17 6-20 (mg/dL) Final Creatinine 02/23/2023 13:42:51 1.0 0.6-1.2 (mg/dL) Final Glomerular filtration rate/1.73 sq M.predicted [Volume Rate/Area] in Serum, Plasma or Blood by Creatinine-based formula (CKD-EPI) 02/23/2023 13:42:51 84 >=60 (mL/min) Final eGFR is calculated based on the CKD-EPI 2020 equation SODIUM 02/23/2023 13:42:51 139 135-146 (m mol/L) Final Potassium 02/23/2023 13:42:51 4.3 3.5-5.1 (m mol/L) Final Cl 02/23/2023 13:42:51 101 98-107 (mm ol/L) Final CO2 02/23/2023 13:42:51 27 22-32 (mmo l/L) Final Anion gap 02/23/2023 13:42:51 11 7-15 (mmol /L) Final Glucose 02/23/2023 13:42:51 105 70-120 (mg /dL) Final Calcium 02/23/2023 13:42:51 9.8 8.4-10.2 ( mg/dL) Final Performing Location [facility] [address] [place] [id number]
--- OUTSIDE RECORDS SUMMARY | 2023-05-09 10:36 | External Medical Summary | Summary of Care ---
Author Name Unknown Organization [facility] Address [address] [address] Phone [phone] Care Team Providers Care Account Manager Sales Representative Name Role Phone Artemio Solares DO Primary Care Provider [phone] Reason for Visit * Reason Comments Leg Pain R calf pain radiatin g up to R inner thigh, Fam hx of Fear Factor 5, would like to get an US of leg Encounter Details Date Type Department Care Team (Late st Contact Info) Description 02/23/2023 11:20 AM EST Office Visit Family Practice [facility] [address] [place] [address] Angie Morillo DO [address] [place] [address] Pain of right lower extremity*; Heterozygous factor V Leiden mutation (HCC) Allergies No known active allergiesdocumented as [...] 2-3 weeks 40 g 0 09/17/2022 Active documented as of this encounter (statuses [...] Sign Reading Time Taken Comments Blood Pressure 110/58 02/23/2023 11:19 AM EST Pulse 68 02/23/2023 11:19 AM EST Temperature 36.7 C (98.1 F) 02/23/2023 11:[address] Respiratory Rate 16 02/23/2023 11:19 AM EST Oxygen Saturation - - Inhaled Oxygen Concentration - - Weight 108.9 kg (240 lb) 02/23/2023 11:19 AM EST Height - - Body Mass Index 30.16 10/22/2022 10:32 AM EDT documented in this encounter Progress Notes * Angie Morillo, DO - 02/23/2023 11:22 AM EST Subjective: Jacob Tipton IV is a 67 year old male. Chief Complaint Patient presents with Leg Pain R calf pain radiating up to R inner thigh, Fam hx of Fear Factor 5, would like to get an US of leg There are no exam notes on file for this visit. HPI: This is a 67 year old male with PMHx as below presents with acute illness Pain in R calf radiating to upper thigh Hx of neurogenic claudication and clotting disorder VSS Health Maintenance Due Topic Date Due Diabetes Screening 10/29/2022 COVID-19 Vaccine ( season) 2022 Depression Screening 03/03/2023 Patient Active Problem List Diagnosis Code Sciatica M54.30 LUMB-LUMBOSAC DISC DEGEN M51.37 ADVANCE DIRECTIVE INFORMATION TUBULAR ADENOMA POLYP OF COLON D12.6 Benign neoplasm of colon D12.6 Dyslipidemia, goal LDL below 100 E78.5 Heterozygous factor V Leiden mutation (HCC) D68.51 Current Outpatient Medications Medication Sig Dispense Refill SURGICAL COMPRESSION STOCKING 20 to 30mm knee high. acetaZOLAMIDE 125 MG Oral Tablet (Diamox) Take 1 Tablet by mouth in the morning and 1 Tablet beforebedtime. 30 Tablet 0 Fluorouracil 5 % External Cream (Efudex) Apply to left forearm site twice daily x 2-3 weeks 40 g 0 No current facility-administered medications for this visit. Past Medical History: Diagnosis Date Benign neoplasm of colon 10/15/08 adenomatous and hyperplastic polyps, mild to moderate diverticulosis left colonrepeat 3yrs Fracture of navicular bone of right wrist 02/2012 right wrist Past Surgical History: Procedure Laterality Date BACK/FLANK SUBQ TUMOR REMOVAL, UNDER 3 CM N/A 10/22/2022 EXCISION SOFT TISSUE TUMOR BACK OR FLANK performed by Gloria Parish MD at OR [facility] COLONOSCOPY W/ LESION REMOVAL, SNARE 10/15/08 done adenomatous and hyperplastic polyps, mild to moderate diverticulosis left colonrepeat 3yrs COLONOSCOPY, DIAGNOSTIC (RECTUM) 06/24/2015 normal, repeat 5 yrs/COLONOSCOPY FLEXIBLE PROXIMAL DIAGNOSTIC performed by Lamar Brown DO at ENDOSCOPY [facility] COLONOSCOPY, DIAGNOSTIC (RECTUM) 04/19/2022 benign adenomatous polyps, repeat 3 yrs / COLONOSCOPY FLEXIBLE PROXIMAL DIAGNOSTIC performed by Marcelino Smalls MD at ENDOSCOPY [facility] REMOVE LUMBAR SPINE LAMINA, 1 SEG 02/09/2001 Lumbar laminectomy REMOVE LUMBAR SPINE LAMINA, 1 SEG 04/11/1975 Lumbar laminectomy- Dr. Jimenez Review of patient's allergies indicates: No Known Allergies Family History Problem Relation Age of Onset Arthritis Mother age 72 Asthma Brother Asthma Brother Asthma Brother No Past Hx Brother Asthma Sister No Past Hx Sister Heart Disorder Father Heart arrhythmia-atrial fibrillation- age 79 Family Status Relation Status Mo (Not Specified) Bro (Not Specified) Bro (Not Specified) Bro (Not Specified) Bro (Not Specified) Sis (Not Specified) Sis (Not Specified) Fa (Not Specified) Social History Socioeconomic History Marital status: Spouse name: Leticia Number of children: 3 Years of education: Not on file Highest education level: Not on file Occupational History Occupation: Sales - travelling Comment: [employer] Occupation: [employer] Tobacco Use Smoking status: Never Smokeless tobacco: Never Vaping Use Vaping Use: Never used Substance and Sexual Activity Alcohol use: Yes Comment: rare Drug use: No Sexual activity: Yes Other Topics Concern Not on file Social History Narrative Originally from [place] [place] [facility]. Lived in [place] for a period. with 3 kids - Oncology nurse at [employer], son going into the [employer], and one at [employer]. Social Determinants of Health Financial Resource Strain: Not on file Food Insecurity: Not on file Transportation Needs: Not on file Physical Activity: Not on file Stress: Not on file Social Connections: Not on file Intimate Partner Violence: Not on file Housing Stability: Not on file Review of Systems: As per HPI all other ROS negative. Wt Readings from Last 3 Encounters: 02/23/23 108.9 kg (240 lb) 10/22/22 111.5 kg (245 lb 13 oz) 09/14/22 111.7 kg (246 lb 3.2 oz) Results for orders placed or performed in visit on 01/11/23 SURGICAL PATHOLOGY Result Value Ref Range Final Diagnosis A. Skin, left upper arm, shave: Benign angioma B. Skin, right neck, shave: Benign angioma and adjacent melanocytic nevus C. Skin, central back, shave: Basal cell carcinoma, nodular and pigmented Seborrheic keratosis Clinical History See Order Comments Order Comments A. Left upper arm - 4mm red papule - favor irritated angioma B. Right neck - 4mm red papule - favor irritated angioma C. Central back - blue/black/red papule - r/o atypical melanocytic proliferation Gross Description A. Skin. Received in formalin with a container labeled with "Jacob [employer] (VIC) IV", "[id number]", "1955" and " left upper arm". Received is a 0.7 x 0.5 cm skin shave. The skin surface has a lyn to pink to jacobo slightly raised slightly rough, shiny, mottled nodule measuring 0.4 x 0.3 cm, which extends to the closest margin. The underlying tissue is inked. The specimen is bisected and submitted in cassette A1. Gross By: MD High Skin. Received in formalin with a container labeled with "Jacob [employer] (VIC) IV", "[id number]", "1955" and " right neck". Received is a 0.6 x 0.6 cm skin shave. The skin surface has a lyn to dark brown, slightly raised slightly rough, fleshy, dull papule measuring 0.4 x 0.3 cm which extends to the closest margin. The underlying tissue is inked. The specimen is bisected and submitted in cassette B1. Gross By: MD Tucker Skin. Received in formalin with a container labeled with "Jacob [employer] (VIC) IV", "[id number]", "1955" and " central back". Received is a 0.9 x 0.7 cm skin shave. The skin surface has a lyn to pink to jacobo, slightly raised, shiny, slightly rough, firm, scaly nodule measuring 0.5 x 0.4 cm, which extends to the closest margin. The underlying tissue is inked. The specimen is trisected and submitted in cassette C1. Gross By: Sign Out Location Pathologist sign out performed at [facility] ([facility])[address] [address]. Photographic images and diagrams represent hernández findings in this case; they are not intended to replace a complete review of the final diagnostic report. The following statement applies to Flow Cytometry, Histology, In situ Hybridization Assays and Molecular Genetics. This test was developed and performed at [facility] and its performance characteristics determined by [facility] [employer] It has not been cleared or approved by the U.S. Food and Drug Administration. The FDA has determined that such clearance or approval is not necessary. This test is used for clinical purposes. It should not be regarded as investigationalor for research. Special stains, including histochemical stains, and studies using immunologic and ALONSO methodology (where applicable) are performed with appropriate positive and negative control reactions. OBJECTIVE: Physical Exam: BP 110/58 (BP Site: Left Arm, BP Position: Sitting, BP Cuff Size: Large) | Pulse 68 | Temp 36.7 C(98.1 F) (Tympanic) | Resp 16 | Wt 108.9 kg (240 lb) | BMI 30.16 kg/m | BSA 2.4 m General: alert, healthy, and no distress Heart: regular rate & rhythm, no murmur, and no gallops Lungs: lungs clear to auscultation Extremities: no joint deformities, effusion, or inflammation, no edema. Pos TTP inner R thigh. Pain of right lower extremity (Primary) - VASC DUPLEX VENOUS LE UNILAT Heterozygous factor V Leiden mutation (HCC) - VASC DUPLEX VENOUS LE UNILAT Angie Morillo DO documented in this encounter Plan of Treatment Upcoming Encounters Date Type Department Care Team (Late st Contact Info) Description 02/23/2023 1:00 PM EST Imaging Vascular Lab, [facility] [place] [address] [facility] [place] [address] Arrived 03/08/2023 11:00 AM EST Office Visit Family Practice [facility] [place] [address] [place] [address] Artemio Solares DO 200 [facility] [place] [address] 01/23/2024 8:45 AM EDT Office Visit Dermatology [facility] [place] [address] [place] [address] David Washburn MD [address] [place] [address] Pending Results Name Type Priority Associated Diagnoses Date /Time VASC DUPLEX VENOUS LE UNILAT Medical Imaging STAT Pain of right lower extremity Heterozygous factor V Leiden mutation (HCC) 02/23/2023 11:37 AM EST Scheduled Procedures Name Priority Associated Diagnoses [...] as of this encounter Visit Diagnoses Diagnosis Pain of right lower extremity- Primary Heterozygous factor V Leiden mutation (HCC) Primary hypercoagulable state documented in this encounter Care Teams Account Manager Sales Representative Relationship Specialty Start Date End Date Artemio Solares DO [address] [place] [address] PCP - General Family Medicine 07/02/16 documented as of this encounter
--- OUTSIDE RECORDS SUMMARY | 2023-05-09 10:36 | External Medical Summary | Summary of Care ---
Author Name Unknown Organization [facility] Address [address] [facility] [address] Phone [phone] Care Team Providers Care Orthotic And Prosthetic Technician Name Role Phone Artemio Solares DO Primary Care Provider [phone] Reason for Visit * Reason Onset Date Comments Health Maintenance 11/16/2022 Encounter Details Date Type Department Care Team Description 11/16/2022 Telephone Family Practice [facility] [address] [facility] [place] [address] Artemio Solares DO [address] [facility] [place] [address] Health Maintenance Allergies No known active allergiesdocumented as of this encounter (statuses as of 11/16/2022) Medications Medication Sig Dispensed Refills Start Date [...] as of this encounter (statuses as of 11/16/2022) Active Problems Problem Noted Date Heterozygous factor V Leiden mutation Dyslipidemia, goal LDL below 100 021 TUBULAR ADENOMA POLYP OF COLON 9 Benign neoplasm of colon 10/15/2008 Overview: adenomatous and hyperplastic polyps, mild to moderate diverticulosis left colonrepeat 3yrs ADVANCE DIRECTIVE INFORMATION 09/16/2005 Overview: Pt will supply copy of his living will LUMB-LUMBOSAC DISC DEGEN 05/31/2002 Sciatica 02/01/2001 documented as of this encounter (statuses as of 11/16/2022) Resolved Problems Problem Noted Date Resolved Date FACTOR V LEIDEN: heterozygote status 09/11/2003 07/02/2016 documented as of this encounter (statuses as of 11/16/2022) Immunizations Name Administration Dates Next Due COVID-19 mRNA, LNP-s, No Pre serve, 2-Dose Series (Moderna) 06/08/2020,05/04/2020 Covid-19 Mrna, Lnp-s, No Preserve, Booster (Mode rna) 02/09/2021 Pneumococcal Conjugate Vaccine, 20-valent (Prevn ar20) 11/16/2021 Seasonal Influenza, Quadrivalent Hd (Fluzone Hd) 12/26/2021 Seasonal Influenza, Quadriva lent, No Preserve, 6 Mons & Above, IM 12/16/2020,01/03/2020 TDAP (age 10 and older)(Boostrix) 07/21/2018 TDAP (age 11 and older)(Adacel) 08/19/2008 Zoster Vaccine Recombinant (Shingrix) 07/14/2020 ,03/19/2020 documented as of this encounter Social History Tobacco Use Types Packs/Day Years Used Date Smoking Tobacco: Never Smokeless Tobacco: Never Alcohol Use Standard Drinks/Week Comments Yes 0 (1 standard drink = 0.6 oz pur e alcohol) rare Sex Assigned at Date Recorded Male 08/30/2022 2:09 PM E DT Job Start Date Occupation Industry Not on file Not on file Not on file documented as of this encounter Miscellaneous Notes * Telephone Encounter - Aparna Childers LPN - 11/16/2022 8:41 AM EDT Care Gaps Comprehensive Care Outreach Last Office/Telemedicine Visit: 03/03/2022 (in office), Visit date not found (telemedicine) Next Office Visit: 03/04/2023 Hemoglobin AIC Results: No results found for: HEMOGLOBIN A1C Reviewed Health Maintenance below: Health Maintenance Topic Date Due COVID-19 Vaccine (4 - Moderna series) 04/06/2021 Diabetes Screening 10/29/2022 Influenza Vaccine (FLU shot) (1) 12/10/2022 Depression Screening, Annual for Pts 12 and Over 03/03/2023 labs Add lipid Care Gap Outreach Action Taken: Unable to reach documented in this encounter Plan of Treatment Upcoming Encounters Date Type Specialty Care Team Description 01/11/2023 Office Visit Dermatology David Washburn MD 200 [facility] [place] [address] 03/04/2023 Office Visit Family Medicine Artemio Solares DO [address] [facility] [place] [address] Scheduled Procedures Name Priority Associated Diagnoses Date/Ti me COLONOSCOPY FLEXIBLE PROXIMAL DIAGNOSTIC Recall History of colon polyps Health Maintenance Due Date Last Done Comments COVID-19 Vaccine (4 - Moderna series) 04/06/2021 02/09/2021, 06/08/2020, 05/04/2020 Diabetes Screening 10/29/2022 10/30/2019, 0 06/20/2015, 01/24/2010, Additional history exists Influenza Vaccine (FLU shot) (#1) 2022 12/26/2021, 12/16/2020, 01/03/2020 Depression Screening, Annual for Pts 12 and Over 03/03/2023 03/03/2022 COLONOSCOPY-EVERY 3 YRS AGES 18-100 04/19/2025 04/19/2022, 04/19/2022, 06/24/2015, Additional history exists Lipid Panel 05/22/2025 05/22/2020, 10/10, 06/20/2015, Additional history exists DTaP,Tdap,and Td Vaccines (3 - Td or Tdap) 07/21/2028 07/21/2018, 08/19/2008, 11/27/1997 Zoster Vaccines Completed 07/14/2020, 03/19/2020 Pneumococcal Vaccine: 65+ Years Completed 11/16/2021 COLONOSCOPY-EVERY 5 YRS AGES 18-100 Discontinued 04/19/2022, 04/19/2022, 06/24/2015, Additional history exists GARDASIL-HPV IMMUNIZATION SERIES Aged [...] filedocumented as of this encounter Care Teams Orthotic And Prosthetic Technician Relationship Specialty Start Date End Date Artemio Solares, DO [address] [place] [address] PCP - General Family Medicine 07/02/16 documented as of this encounter
--- OUTSIDE RECORDS SUMMARY | 2023-05-09 10:36 | External Medical Summary | Summary of Care ---
Author Name Unknown Organization [facility] Address [address] [facility] [place] [address] Phone [phone] Care Team Providers Care Single Resource Boss Name Role Phone Artemio Solares DO Primary Care Provider [phone] Reason for Referral * Evaluate & Treat - Unlimited Visits (Within 3 days (urgent)) - Authorized Specialty Diagnoses / Procedures Referred By Contac t Referred To Contact ANTI-COAG CLINIC / Pharmacy Diagnoses Acute deep vein thrombosis (DVT) of proximal vein of right lower extremity (HCC) Heterozygous factor V Leiden mutation (HCC) Angie Méndez DO [address] [place] [address] Referral ID Status Reason Start Date Expiration Date Visits Requested Visits Authorized [id number] Authorized Specialty Services Required 3 08/22/2023 99 99 Question Answer Referral Priority Within 3 days (urgent) Where should this appointment be scheduled? Jasmin Comments Indication for Anticoagulation: Diagnosis: R LE DVT Relevant History: factor V leiden def Initiation date of anticoagulation: 02/23/2023. Expected duration of Anticoagulation therapy: Lifetime Target INR range (indicate desired range): Treatment of DVT 2.0 - 3.0 Referral for Low Molecular Weight Therapy: Treatment of DVT (1mg/kg ABW q 12 hrs) Minimum frequency patient should be seen in person for medication management: as appropriate per clinical condition and patient status By my signature, I understand that my patient Jacob Tipton IV will have his medication therapy managed by the [facility] ([facility]) per established policies, procedures, and protocols. I also certify that this referral may serve as an initiation of service for the management of drug therapy in the above noted patient. [facility] providers will be responsible for scheduling patient visits, obtaining appropriate laboratory studies, and adjusting medication management therapy per patient's need, in addition to those roles spelled out in the clinic policy, procedures, and drug management protocols. I understand that the service provided by the [facility] is voluntary and have informed patient that they can refuse the service at their discretion. I am aware that the [facility] will provide me with a copy of the patient encounter via my [employer]. I authorize the [facility] to carry out these activities on my behalf. I consider this program to be a necessary part of the patient's medical care. Angie Méndez DO Reason for Visit * Reason Onset Date Comments Test Results 02/23/2023 Encounter Details Date Type Department Care Team (Late st Contact Info) Description 02/23/2023 Telephone [facility] [address] [place] [id number] Angie Méndez DO [address] [place] [address] Test Results Allergies No known active allergiesdocumented as of [...] encounter Miscellaneous Notes * Telephone Encounter - Angie Méndez DO - 02/23/2023 12:18 PM EST Pos DVT RLE Coag referral placed documented in this encounter Plan of Treatment Upcoming Encounters Date Type Department Care Team (Latest Contact Info) Description 02/23/2023 1:00 PM EST Imaging Vascular Lab, [facility] 2nd Floor, [place] [address] [facility] [place] [address] Arrived 02/23/2023 1:00 PM EST Anticoagulation Pharmacy, [facility] [address] [facility] [place] [address] [place] [address] Heterozygous factor V Leiden mutation (HCC)*; Anticoagulation management encounter; regional intermodal truck driver current use of anticoagulant therapy 03/08/2023 11:00 AM EST Office Visit Family Practice [facility] [address] [facility] [place] [address] Artemio Solares DO [address] [facility] [place] [address] 01/23/2024 8:45 AM EDT Office Visit Dermatology [facility] [address] [facility] [place] [address] David Washburn MD [address] [facility] [place] [address] Scheduled Procedures Name Priority Associated Diagnoses Date/Ti me COLONOSCOPY FLEXIBLE PROXIMAL DIAGNOSTIC Recall History of colon polyps Scheduled Referrals Name Type Priority Associated Diagnoses Orde r Schedule ANTI-COAGULATION REFERRAL OP Referral Within 3 days (urgent) Acute deep vein thrombosis (DVT) of proximal vein of right lower extremity (HCC) Heterozygous factor V Leiden mutation (HCC) Ordered: 02/23/2023 Health Maintenance Due Date Last Done Comments [...] as of this encounter Visit Diagnoses Diagnosis Acute deep vein thrombosis (DVT) of proximal vein of right lower extremity (HCC)- Primary Heterozygous factor V Leiden mutation (HCC) Primary hypercoagulable state Heterozygous factor V Leiden mutation (HCC)- Primary Primary hypercoagulable state Anticoagulation management encounter Encounter for therapeutic drug monitoring regional intermodal truck driver current use of anticoagulant therapy documented in this encounter Care Teams Single Resource Boss Relationship Specialty Start Date End Date Artemio Solares DO [address] [place] [address] PCP - General Family Medicine 07/02/16 documented as of this encounter
--- OUTSIDE RECORDS SUMMARY | 2023-05-09 10:36 | External Medical Summary | Summary of Care ---
Author Name Unknown Organization [facility] Address [address] [facility] [place] [address] Phone [phone] Care Team Providers Care Wax Pumper Name Role Phone Artemio Solares DO Primary Care Provider [phone] Reason for Visit * Reason Onset Date Comments Order Request 02/19/2023 Encounter Details Date Type Department Care Team (Late st Contact Info) Description 02/19/2023 Telephone Family Practice [facility] [place] [address] [facility] [place] [address] Artemio Solares DO [address] [facility] [place] [address] Order Request Allergies No known active allergiesdocumented as of this encounter (statuses as of 02/21/2023) Medications Medication Sig Dispensed Refills Start Date [...] as of this encounter (statuses as of 02/21/2023) Active Problems Problem Noted Date Diagnosed Date Heterozygous factor V Leiden mutation 05/23/2020 Dyslipidemia, goal LDL below 100 04/29/2020 TUBULAR ADENOMA POLYP OF COLON 10/16/2008 Benign neoplasm of colon 10/15/2008 Overview: adenomatous and hyperplastic polyps, mild to moderate diverticulosis left colonrepeat 3yrs ADVANCE DIRECTIVE INFORMATION 09/16/2005 Overview: Pt will supply copy of his living will LUMB-LUMBOSAC DISC DEGEN 05/31/2002 Sciatica 02/01/2001 documented as of this encounter (statuses as of 02/21/2023) Resolved Problems Problem Noted Date Diagnosed Date Resolved Date FACTOR V LEIDEN: heterozygote status 09/11/2003 07/02/2016 documented as of this encounter (statuses as of 02/21/2023) Immunizations Name Administration Dates Next Due COVID-19 [...] encounter Miscellaneous Notes * Telephone Encounter - Natalia Weems LPN - 02/21/2023 5:18 PM EST Please see my g message dated 02/18/23. PCP recommended an office visit. * Telephone Encounter - Lucero Bruno OSA - 02/19/2023 9:23 AM EST Per patient he has a standing order with for an ultrasound on his foot if he feels he has a blood clot, can you please give him a call thank you documented in this encounter Plan of Treatment Upcoming Encounters Date Type Department Care Team (Late st Contact Info) Description 03/08/2023 11:00 AM EST Office Visit Family Practice [facility] [address] [facility] [place] [address] Artemio Solares, [address] [facility] [place] [address] 01/23/2024 8:45 AM EDT Office Visit Dermatology [facility] [address] [facility] [place] [address] David Washburn MD [address] [facility] [place] [address] Scheduled Procedures Name Priority Associated Diagnoses Date/Ti [...] filedocumented as of this encounter Care Teams Wax Pumper Relationship Specialty Start Date End Date Aretmio Solares DO [address] [place] [address] PCP - General Family Medicine 07/02/16 documented as of this encounter
--- OUTSIDE RECORDS SUMMARY | 2023-05-09 10:36 | External Medical Summary | Summary of Care ---
Author Name Unknown Organization [facility] Address [address] [facility] [place] [address] Phone [phone] Care Team Providers Care Dietitian Therapeutic Name Role Phone Ena Jean DO Primary Care Provider [phone] Reason for Visit * Reason Comments Follow Up 3 month follow up. A reas of concern on his left zoroastrianism (6 months), right neck (1 year) and left bicep (1 year). Encounter Details Date Type Department Care Team Description 01/11/2023 Office Visit Dermatology [facility] [place] [address] [facility] [place] [address] David Washburn MD [address] [facility] [place] [address] Skin neoplasm*; Scar; Hemangioma of skin; Actinic keratosis Allergies No known active allergiesdocumented as of this encounter (statuses as of 01/11/2023) Medications Medication Sig Dispensed Refills Start Date [...] as of this encounter (statuses as of 01/11/2023) Active Problems Problem Noted Date Heterozygous factor V Leiden mutation 02 /03/2021 Dyslipidemia, goal LDL below 100 021 TUBULAR ADENOMA POLYP OF COLON 9 Benign neoplasm of colon 10/15/2008 Overview: adenomatous and hyperplastic polyps, mild to moderate diverticulosis left colonrepeat 3yrs ADVANCE DIRECTIVE INFORMATION 09/16/2005 Overview: Pt will supply copy of his living will LUMB-LUMBOSAC DISC DEGEN 05/31/2002 Sciatica 02/01/2001 documented as of this encounter (statuses as of 01/11/2023) Resolved Problems Problem Noted Date Resolved Date FACTOR V LEIDEN: heterozygote status 09/11/2003 07/02/2016 documented as of this encounter (statuses as of 01/11/2023) Immunizations Name Administration Dates Next Due COVID-19 [...] as of this encounter Progress Notes * David Washburn MD - 01/11/2023 11:28 AM EDT SUBJECTIVE: Chief Complaint: Chief Complaint Patient presents with Follow Up 3 month follow up. Areas of concern on his left zoroastrianism (6 months), right neck (1 year) and left bicep (1 year). HPI: Jacob Tipton IV is a 67 year old male seen for follow up of a spot on left forearm. Hypertrophic AK treated with efudex, healed well, no concerns about it Does have two bothersome spots that are itchy, get caught on clothing. Located on left arm and right shoulder/neck. Bothersome OBJECTIVE: GEN: Healthy, alert, no distress, appears oriented, pleasant, and cooperative SKIN: Problem focused exam reveals: A. Left upper arm - 4mm red papule - favor irritated angioma B. Right neck - 4mm red papule - favor irritated angioma C. Central back - blue/black/red papule - r/o atypical melanocytic proliferation Left forehead - x2 gritty erythematous macules/papules Left arm with well healed scar ASSESSMENT/PLAN: Skin neoplasm(s) - shave removal of following lesions as they are painful, bothersome A. Left upper arm - 4mm red papule - favor irritated angioma B. Right neck - 4mm red papule - favor irritated angioma Procedure - Shave Removal x2 Shave of the lesion(s) noted above to remove and confirm diagnosis. The procedure, risks, benefits,alternatives and expected outcomes were discussed with the patient and consent was obtained. Time out called. Patient identified, procedure verified, site identified and verified. Patient and staff present in agreement. Area prepped with alcohol and anesthetized with 0.5% lidocaine with epinephrineat 1:200,000 concentration. Shave(s) of lesion performed. 20% AlCl and bandaging applied. Specimen(s) sent to pathology. Patient instructed in routine post-op care. - Shave biopsy of the following lesion(s) C. Central back - blue/black/red papule - r/o atypical melanocytic proliferation Procedure - Tangential biopsy of skin Biopsy by shave was recommended for the lesion(s) noted above to establish and confirm diagnosis. The procedure, risks, benefits, alternatives and expected outcomes were discussed with the patient and consent was obtained. Time out called. Patient identified, procedure verified, site(s) identified and verified. Patient and staff present in agreement. Area prepped with alcohol and anesthetized using 0.5% lidocaine with epinephrine at 1:200,000 concentration. Biopsy of lesion(s) performed. 20% AlCl and bandaging applied. Specimen(s) sent to pathology. Patient instructed in routine post-op care. Actinic keratosis -The diagnosis and malignant potential of the lesion was explained. Treatment options were reviewedincluding cryotherapy, topical medications, and observation. All questions were addressed. Procedure - Cryotherapy (Premalignant Destruction) -The patient would like to proceed with cryosurgery;Cryosurgery explained to the patient, consent obtained, patient, site and procedure verified, and then cryotherapy was performed with Liquid Nitrogen via cryo spray unit to 2 lesions. Location noted in physical exam. Post op course explained. -Discussed that if any of these lesions fail to completely resolve after treatment patient should call me for re-evaluation Scar, history of actinic keratosis - well healed scar, no evidence of recurrence - f/u in 1 year for skin check David Washburn MD Ref: SELF[[id number]] NO STRE[address] ADDRESS AVAILABLE None (office) None (fax) PCP: E[place] [place] [address] [phone] documented in this encounter Nursing Notes * AURELIO Gardner - 01/11/2023 11:03 AM EDT Patient identified by name and date of . Do you have any concerns about pain management for today's visit? No Living Will or Advance Directive for Health Care as noted on problem list. [facility] is a way you can talk to your provider online through e-mail. Would you like to sign up? I can activate it for you? ALREADY ACTIVE. Chief Complaint Patient presents with Follow Up 3 month follow up. Areas of concern on his left zoroastrianism (6 months), right neck (1 year) and left bicep (1 year). documented in this encounter Miscellaneous Notes * Addendum Note - David Washburn MD - 01/11/2023 12:57 PM EDTAddended by: DAVID WAHSBURN on: 01/11/2023 12:57 PM Modules accepted: Orders documented in this encounter Plan of Treatment Upcoming Encounters Date Type Specialty Care Team Description 03/04/2023 Office Visit Family Medicine Ena Jean DO [address] [facility] [place] [address] 01/23/2024 Office Visit Dermatology David Washburn MD [address] [place] [address] Pending Results Name Type Priority Associated Diagnoses Date /Time SURGICAL PATHOLOGY Pathology Routine Skin neoplasm 01/11/2023 12:57 PM EDT Scheduled Procedures Name Priority Associated Diagnoses Date/Ti [...] as of this encounter Visit Diagnoses Diagnosis Skin neoplasm- Primary Neoplasm of unspecified nature of bone, soft tissue, and skin Scar Scar condition and fibrosis of skin Hemangioma of skin Hemangioma of skin and subcutaneous tissue Actinic keratosis documented in this encounter Care Teams Dietitian Therapeutic Relationship Specialty Start Date End Date Ena Jean, DO [address] [place] [address] PCP - General Family Medicine 07/02/16 documented as of this encounter
--- OUTSIDE RECORDS SUMMARY | 2023-05-09 10:36 | External Medical Summary | Summary of Care ---
Author Name Unknown Organization [facility] Address [address] [facility] [place] [address] Phone [phone] Care Team Providers Care Truck Safety Inspector Name Role Phone Artemio Solares DO Primary Care Provider [phone] Reason for Visit * Reason Comments Dosage Adjustment In Person (Anticoag Cl inic) * Evaluate & Treat - Unlimited Visits (Within 3 days (urgent)) - Authorized Specialty Diagnoses / Procedures Referred By Tesha rand Referred To Contact ANTI-COAG CLINIC / Pharmacy Diagnoses Acute deep vein thrombosis (DVT) of proximal vein of right lower extremity (HCC) Heterozygous factor V Leiden mutation (HCC) Angie Morillo DO [address] [place] [id number] Referral ID Status Reason Start Date Expiration Date Visits Requested Visits Authorized [id number] Authorized Specialty Services Required 3 08/22/2023 99 99 Encounter Details Date Type Department Care Team (Latest Contact Info) Description 02/23/2023 1:00 PM EST Anticoagulation Pharmacy, [facility] [address] [place] [address] [facility] [address] [place] [address] Heterozygous factor V Leiden mutation (HCC)*; Anticoagulation management encounter; USP current use of anticoagulant therapy; Acute deep vein thrombosis (DVT) of proximal [...] as of this encounter Progress Notes * Serena English, [facility] - 02/23/2023 12:19 PM EST Medication Therapy Disease Management - Anticoagulation Patient: Jacob Tipton IV | : 1955 Subjective Patient-Reported Symptoms: Patient Findings Negatives: Signs/symptoms of thrombosis, Signs/symptoms of bleeding, Change in health, Change in alcohol use, Change in activity, Upcoming invasive procedure, Missed doses, Extra doses, Change in medications, Change in diet/appetite, Bruising Objective Current Warfarin Dose As of 02/23/2023 Warfarin maintenance plan: No maintenance plan INR Result As of 02/23/2023 INR goal: 2.0-3.0 INR used for dosing: Assessment & Plan Warfarin Plan As of 02/23/2023 Full warfarin instructions: 02/23: 10 mg; 02/24: 10 mg Next INR check: 02/25/2023 Repeat PT/INR in 2 day(s) Weekly dose: not changed Additional Dosing Information: Description Lovenox 100 mg q12 hours until INR therapeutic Serena English [facility] Clinical Pharmacist 02/23/2023, 1:48 PM documented in this encounter Plan of Treatment Upcoming Encounters Date Type Department Care Team (Late st Contact Info) Description 02/25/2023 5:30 PM EST Anticoagulation Pharmacy, [facility] [place] [address] [facility] [place] [address] Pharmacist1, [facility] [address] [facility] [place] [address] 03/08/2023 11:00 AM EST Office Visit Family Practice [facility] [place] [address] [facility] [place] [address] Artemio Solares, DO [address] [facility] [place] [address] 01/23/2024 8:45 AM EDT Office Visit Dermatology [facility] [place] [address] [facility] [place] [address] David Washburn MD [address] [facility] [place] [address] Pending Results Name Type Priority Associated Diagnoses Date /Time BASIC METABOLIC PANEL Lab Routine Heterozygous factor V Leiden mutation (HCC) 02/23/2023 1:42 PM EST PT INR Lab Routine Heterozygous factor V Leiden mutation (HCC) Anticoagulation management encounter intermediate accountant current use of anticoagulant therapy 02/23/2023 1:42 PM EST Scheduled Orders Name Type Priority Associated Diagnoses Orde r Schedule BASIC METABOLIC PANEL Lab Routine Heterozygous factor V Leiden mutation (HCC) Expected: 02/23/2023 (Approximate), Expires: 02/24/2024 PT INR Lab Routine Heterozygous factor V Leiden mutation (HCC) Anticoagulation management encounter intermediate accountant current use of anticoagulant therapy 26 Occurrences starting 02/23/2023 until 02/23/2024 INR FINGERSTICK, POINT OF CARE Point of Care Testing - Unsolicited Results STAT Heterozygous factor V Leiden mutation (HCC) Anticoagulation management encounter USP current use of anticoagulant therapy Every 2 Weeks for 26 Occurrences starting 02/23/2023 until 02/24/2024 Scheduled Procedures Name Priority Associated Diagnoses Date/Ti [...] management encounter Encounter for therapeutic drug monitoring USP current use of anticoagulant therapy Acute deep vein thrombosis (DVT) of proximal vein of right lower extremity (HCC) documented in this encounter Care Teams Truck Safety Inspector Relationship Specialty Start Date End Date Artemio Solares DO [address] [place], [place] [address] [address] PCP - General Family Medicine 07/02/16 documented as of this encounter"
--- OUTSIDE RECORDS SUMMARY | 2023-05-09 10:36 | External Medical Summary ---
Author Name Unknown Address Unknown Organization [facility] [address] [place] [id number] Laboratory Report Ordering Provider Test Date Status KAVEH GUZMAN 02/23/2023 13:42:51 Final Warfarin Therapy
INR: 2 .0-3.0 conventional anticoagulation
INR: 2.5- 3.5 high intensity anticoagulation Observation Date Value Abnormality Reference (Units ) Status PT 02/23/2023 13:42:51 13.1 11.6-15.2 (seconds) Final INR 02/23/2023 13:42:51 1.0 0.8-1.2 Final Performing Location [facility] [address] [place] [id number]
--- OUTSIDE RECORDS SUMMARY | 2023-05-09 10:36 | External Medical Summary | Summary of Care ---
Author Name Unknown Organization [facility] Address [address] [facility] [address] Phone [phone] Care Team Providers Care Tufting Machine Fixer Name Role Phone Artemio Solares DO Primary Care Provider [phone] Reason for Visit * Reason Onset Date Comments Appointment 01/13/2023 Encounter Details Date Type Department Care Team Description 01/13/2023 Telephone Dermatology [facility] 200 [facility] [place] [address] David Washburn MD [address] [place] [address] Appointment (/) Allergies No known active allergiesdocumented as of this encounter (statuses as of 01/13/2023) Medications Medication Sig Dispensed Refills Start Date [...] as of this encounter (statuses as of 01/13/2023) Active Problems Problem Noted Date Heterozygous factor [...] as of this encounter (statuses as of 01/13/2023) Resolved Problems Problem Noted Date Resolved Date FACTOR V LEIDEN: heterozygote status 09/11/2003 07/02/2016 documented as of this encounter (statuses as of 01/13/2023) Immunizations Name Administration Dates Next Due COVID-19 [...] encounter Miscellaneous Notes * Telephone Encounter - ELEAZAR Kunz - 01/13/2023 11:26 AM EDT Patient returned call and scheduled appointment. * Telephone Encounter - ELEAZAR Kunz - 01/13/2023 10:38 AM EDT Called patient, left message to return call. * Telephone Encounter - ELEAZAR Kunz - 01/13/2023 10:38 AM EDT ----- Message from David Washburn MD sent at 01/13/2023 8:47 AM EDT ----- Please bring back for curettage of BCC on central back Spoke with patient regarding results. Agreeable to curettage of BCC on central back A. Skin, left upper arm, shave: Benign angioma B. Skin, right neck, shave: Benign angioma and adjacent melanocytic nevus C. Skin, central back, shave: Basal cell carcinoma, nodular and pigmented Seborrheic keratosis documented in this encounter Plan of Treatment Upcoming Encounters Date Type Specialty Care Team Description 02/07/2023 Office Visit Dermatology David Washburn MD [address] [facility] [address] [place] [address] 03/04/2023 Office Visit Family Medicine Artemio Solares DO [address] [place] [address] 01/23/2024 Office Visit Dermatology David Washburn MD [address] [place] [address] [address] Scheduled Procedures Name Priority Associated Diagnoses Date/Ti [...] filedocumented as of this encounter Care Teams Tufting Machine Fixer Relationship Specialty Start Date End Date Artemio Solares, DO [address] [place] [address] PCP - General Family Medicine 07/02/16 documented as of this encounter
--- OUTSIDE RECORDS SUMMARY | 2023-05-09 10:36 | External Medical Summary | Summary of Care ---
Author Name Unknown Organization [facility] Address [address] [facility] [place] [address] Phone [phone] Care Team Providers Care Label Press Operator Name Role Phone Ena Jean DO Primary Care Provider [phone] Reason for Visit * Reason Comments Follow Up 3 month follow up. A reas of concern on his left mormon (6 months), right neck (1 year) and left bicep (1 year). Encounter Details Date Type Department Care Team Description 01/11/2023 Office Visit Dermatology [facility] [place] [address] [facility] [place] [address] David Washburn MD 200 [facility] [place] [address] Skin neoplasm*; Scar; Hemangioma of skin; Actinic [...] up. Areas of concern on his left mormon (6 months), right neck (1 year) and [...] for skin check David Washburn MD Ref: [id number]] [address] ADDRESS AVAILABLE None (office) None (fax) PCP: [place] [address] [phone] documented in this encounter Nursing Notes * AURELIO Gardner - 01/11/2023 11:03 AM EDT Patient identified by name and date of . Do you have any concerns about pain management for today's visit? No Living Will or Advance Directive for Health Care as noted on problem list. [facility] is a way you can talk to your provider online through e-mail. Would you like to sign up? I can activate it for you? ALREADY ACTIVE. Chief Complaint Patient presents with Follow Up 3 month follow up. Areas of concern on his left mormon (6 months), right neck (1 year) and left bicep (1 year). documented in this encounter Miscellaneous Notes * Addendum Note - David Washburn MD - 01/11/2023 12:57 PM EDTAddended by: DAVID WASHBURN on: 01/11/2023 12:57 PM Modules accepted: Orders documented in this encounter Plan of Treatment Upcoming Encounters Date Type Specialty Care Team Description 03/04/2023 Office Visit Family Medicine Ena Jean DO 200 [facility] [place] [address] 01/23/2024 Office Visit Dermatology David Washburn MD 200 [facility] [place] [address] Pending Results Name Type Priority Associated Diagnoses [...] keratosis documented in this encounter Care Teams Label Press Operator Relationship Specialty Start Date End Date Ena Jean, DO 200 [place] [address] PCP - General Family Medicine 07/02/16 documented as of this encounter
--- OUTSIDE RECORDS SUMMARY | 2023-05-09 10:36 | External Medical Summary | Summary of Care ---
Author Name Unknown Organization [facility] Address [address] [facility] [place] [address] Phone [phone] Care Team Providers Care Caser In Name Role Phone Artemio Solares DO Primary Care Provider [phone] Reason for Visit * Reason Comments Leg Pain R calf pain radiatin g up to R inner thigh, Fam hx of Fear Factor 5, would like to get an US of leg Encounter Details Date Type Department Care Team (Late st Contact Info) Description 02/23/2023 11:20 AM EST Office Visit Family Practice [facility] [address] [place] [address] Angie Morillo DO [address] [place] [address] Pain of right lower extremity*; Heterozygous factor V Leiden mutation (HCC); Other vascular myelopathies (HCC) Allergies No known active allergiesdocumented as [...] this encounter Progress Notes * Angie Morillo, - 02/23/2023 11:22 AM EST Subjective: Jacob [...] performed by Gloria Parish MD at OR [facility] COLONOSCOPY W/ LESION REMOVAL, SNARE 10/15/08 done adenomatous and hyperplastic polyps, mild to moderate diverticulosis left colonrepeat 3yrs COLONOSCOPY, DIAGNOSTIC (RECTUM) 06/24/2015 normal, repeat 5 yrs/COLONOSCOPY FLEXIBLE PROXIMAL DIAGNOSTIC performed by Lamar Brown DO at ENDOSCOPY [facility] COLONOSCOPY, DIAGNOSTIC (RECTUM) 04/19/2022 benign adenomatous polyps, repeat 3 yrs / COLONOSCOPY FLEXIBLE PROXIMAL DIAGNOSTIC performed by Marcelino Smalls MD at ENDOSCOPY [facility] REMOVE LUMBAR SPINE LAMINA, 1 SEG 02/09/2001 [...] Occupational History Occupation: Sales - travelling Comment: [employer] 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 Lived in [place] for a period. with 3 kids - Oncology nurse at [employer] [employer], son going into [employer], and one at [place]. Social Determinants of Health Financial Resource Strain: [...] formalin with a container labeled with "Jacob Sheldon Tipton IV", "[id number]", "1955" and " left upper arm". Received [...] formalin with a container labeled with "Jacob Tipton IV", "[id number]", "1955" and " right neck". Received is [...] formalin with a container labeled with "Jacob Tipton IV", "[id number]", "1955" and " central back". Received is [...] Out Location Pathologist sign out performed at [facility] ([facility] [address] [place] [id number]. Photographic images and diagrams represent hernández findings in this case; they are not intended to replace a complete review of the final diagnostic report. The following statement applies to Flow Cytometry, Histology, In situ Hybridization Assays and Molecular Genetics. This test was developed and performed at [facility] and its performance characteristics determined by [facility]. It has not been cleared or approved [...] Description 02/25/2023 5:30 PM EST Anticoagulation Pharmacy, [facility] [place] [address] [facility] [place] [address] Pharmacist1, [facility] [address] [place] [address] 03/08/2023 11:00 AM EST Office Visit Family Practice [facility] [place] [address] [facility] [place] [address] Artemio Solares DO [address] [facility] [place] [address] 01/23/2024 8:45 AM EDT Office Visit Dermatology [facility] [place] [address] [facility] [place] [address] David Washburn MD [address] [facility] [place] [address] Scheduled Procedures Name Priority Associated Diagnoses Date/Ti me COLONOSCOPY FLEXIBLE PROXIMAL DIAGNOSTIC Recall History of colon polyps Health Maintenance Due Date Last Done Comments Diabetes Screening 10/29/2022 10/30/2019, 0 06/20/2015, 01/24/2010, Additional history exists COVID-19 Vaccine (2022- season) 2022 02/09/2021, 06/08/2020, 05/04/2020 Depression Screening 03/03/2023 03/03/2022 COLONOSCOPY-EVERY 3 YRS AGES 18-100 04/19/2025 04/19/2022, 04/19/2022, 06/24/2015, Additional history exists Lipid Panel 05/22/2025 05/22/2020, 07/2 04/2019, 06/20/2015, Additional history exists DTaP,Tdap,and Td Vaccines [...] Procedure Name Priority Date/Time Associated Diagnosis Comments VASC DUPLEX VENOUS LE UNILAT STAT 02/23/2023 12:13 PM EST Pain of right lower extremity Heterozygous factor V Leiden mutation (HCC) documented in this encounter Results * VASC DUPLEX VENOUS LE UNILAT (02/23/2023 12:13 PM EST) Anatomical Region Laterality Modality Lower Extremity, Vascular Ultras ound Narrative 02/23/2023 1:42 PM EST VASCULAR LAB RESULTS DATE OF EXAMINATION: 02/23/23 INDICATION: Pain in right leg This is an interpretation of an [facility] PHYSICIAN REPORT: LOWER EXTREMITY VENOUS DUPLEX EXAMINATION Immediately before proceeding with the vascular lab procedure reported below, the identity of the patient, the correct exam and the correct procedural site were identified. Color flow Doppler, spectral analysis, and transducer compression techniques were applied during this ultrasound image examination. RIGHT LOWER EXTREMITY On duplex examination the femoral vein in the thigh and popliteal vein are all free of internal echoes and demonstrate normal transducer compressibility during jacobo scale imaging and normal respiratory and augmentation response during Doppler interrogation. The posterior tibial veins and peroneal veins demonstrate no evidence of thrombosis. Right common femoral vein has continuous flow, is partly compressible and echogenic. The right great saphenous vein has no flow with echoes noted in the thigh, has no flow with echoes noted in the calf. The contralateral common femoral vein is patent and free of internal echoes. CONCLUSIONS: Acute deep venous thrombosis in the right lower extremity in the segments as noted above. Superficial thrombophlebitis of the great saphenous vein from calf to groin and also within sapheno-femoral junction. Preliminary report was given to Dr. Angie Morillo on 02/23/2023 at 12:13 pm via [employer] . Angie Morillo DO RAD VASCULAR documented in this encounter Visit Diagnoses Diagnosis Pain of right lower extremity- Primary Heterozygous factor V Leiden mutation (HCC) Primary hypercoagulable state Other vascular myelopathies (HCC) documented in this encounter Care Teams Caser In Relationship Specialty Start Date End Date Artemio Solares DO [address] [place] [address] [place] [address] PCP - General Family Medicine 07/02/16 documented as of this encounter
--- OUTSIDE RECORDS SUMMARY | 2023-05-09 10:36 | External Medical Summary | Summary of Care ---
Author Name Unknown Organization [facility] Address [address] [facility] [place] [address] Phone [phone] Care Team Providers Care Brokerage Branch Manager Name Role Phone Artemio Solares DO Primary Care Provider [phone] Reason for Visit * Reason Comments Outpatient Testing Encounter Details Date Type Department Care Team (Late st Contact Info) Description 02/25/2023 9:20 AM EST Laboratory Laboratory [facility] [address] [place] [id number] [facility] [address] [place] [address] Heterozygous factor V Leiden mutation (HCC); Anticoagulation management encounter; custodial current use of [...] Description 02/25/2023 5:30 PM EST Anticoagulation Pharmacy, [facility] 200 [facility] [place] [address] Pharmacist1, [facility] [address] [place] [address] 03/08/2023 11:00 AM EST Office Visit Family Practice [facility] [place] [address] [facility] [place] [address] Artemio Solares, DO 200 [facility] [place] [address] 01/23/2024 8:45 AM EDT Office Visit Dermatology [facility] [address] [place] [address] [address] David Washburn MD 200 [facility] [place] [address] Pending Results Name Type Priority Associated Diagnoses Date /Time PT INR Lab Routine Heterozygous factor V Leiden mutation (HCC) Anticoagulation management encounter custodial current use of anticoagulant therapy 02/25/2023 8:47 AM EST Scheduled Procedures Name Priority Associated [...] therapy documented in this encounter Care Teams Brokerage Branch Manager Relationship Specialty Start Date End Date Artemio Solares DO [address] [place] [address] PCP - General Family Medicine 07/02/16 documented as of this encounter
--- OUTSIDE RECORDS SUMMARY | 2023-05-09 10:36 | External Medical Summary | Summary of Care ---
Author Name Unknown Organization [facility] Address [address] [place] [address] Phone [phone] Care Team Providers Care Footwear Sales Leader Name Role Phone Artemio Solares DO Primary Care Provider [phone] Reason for Visit * Reason Comments Follow Up Patient is here to eddie laureano BCC curetted on his back. Encounter Details Date Type Department Care Team (Late st Contact Info) Description 02/07/2023 4:15 PM EDT Office Visit Dermatology [facility] [place] [address] [facility] [place] [address] David Washburn MD 200 [facility] [place] [address] BCC (basal cell carcinoma), back* Allergies No known active allergiesdocumented as of this encounter (statuses as of 02/07/2023) Medications Medication Sig Dispensed Refills Start Date [...] as of this encounter (statuses as of 02/07/2023) Active Problems Problem Noted Date Diagnosed Date [...] as of this encounter (statuses as of 02/07/2023) Resolved Problems Problem Noted Date Diagnosed Date Resolved Date FACTOR V LEIDEN: heterozygote status 09/11/2003 07/02/2016 documented as of this encounter (statuses as of 02/07/2023) Immunizations Name Administration Dates Next Due COVID-19 [...] Progress Notes * David Washburn MD - 02/07/2023 4:10 PM EDT SUBJECTIVE: HPI: Jacob Tipton IV is a 67 year old male who presents today for elective curettage of basal cellcarcinoma on the back. Prior biopsy results from Skin, central back, shave: Basal cell carcinoma, nodular and pigmented Seborrheic keratosis: ALLERG Y: Patient has no known allergies. OBJECT MIKAYLA: General: Patient is alert and oriented and in no apparent distress. Skin: Problem focused exam reveals: Central back with 5mm well healed scar ASSESS MENT / PLAN: 1. basal cell carcinoma -For elective curettage today. -For details refer to Procedure Note below. PROCEDURE NOTE Procedure - Curettage (Malignant Destruction) Curette of the lesion noted above to destroy lesion. The procedure, risks, benefits, alternatives and expected outcomes were discussed with the patient and consent was obtained. Time out called. Patient identified, procedure verified, site identified and verified. Patient and staff present in agreement. Area prepped with alcohol and anesthetized with 0.5% lidocaine with epinephrine at 1:200,000 concentration. Curette of lesion performed. 20% AlCl and bandaging applied. Patient instructed in routine post-op care. Size of lesion: 5mm Size of wound after currettage: 13mm -Pt tolerated the procedure well and was discharged to home under the care of self. The patient was encouraged to contact me with any further questions or concerns. David Washburn MD 02/07/2023 4:12 PM documented in this encounter Nursing Notes * Lydia Teixeira LPN - 02/07/2023 4:03 PM EDT Patient identified by name and date of . Do you have any concerns about pain management for today's visit? No Living Will or Advance Directive for Health Care as noted on problem list. [facility] is a way you can talk to your provider online through e-mail. Would you like to sign up? I can activate it for you? ALREADY ACTIVE Chief Complaint Patient presents with Follow Up Patient is here to have BCC curetted on his back. documented in this encounter Plan of Treatment Upcoming Encounters Date Type Department Care Team (Late st Contact Info) Description 03/04/2023 10:00 AM EST Office Visit Family Practice [facility] [address] [place] [address] Artemio Solares, DO 200 [facility] [place] [address] 01/23/2024 8:45 AM EDT Office Visit Dermatology [facility] [address] [place] [address] David Washburn MD 200 [facility] [place] [address] Scheduled Procedures Name Priority Associated Diagnoses Date/Ti [...] as of this encounter Visit Diagnoses Diagnosis BCC (basal cell carcinoma), back- Primary documented in this encounter Care Teams Footwear Sales Leader Relationship Specialty Start Date End Date Artemio Solares DO [address] [place] [address] PCP - General Family Medicine 07/02/16 documented as of this encounter
--- OUTSIDE RECORDS SUMMARY | 2023-05-09 10:36 | External Medical Summary | Summary of Care ---
Author Name Unknown Organization [facility] Address [address] [facility] [address] Phone [phone] Care Team Providers Care Juice Mixer Name Role Phone Artemio Solares DO Primary Care Provider [phone] Reason for Visit * Reason Onset Date Comments Health Maintenance 11/03/2022 Encounter Details Date Type Department Care Team Description 11/03/2022 Telephone Family Practice [facility] 200 [facility] [place] [address] Artemio Solares DO 200 [facility] [place] [address] Health Maintenance Allergies No known active allergiesdocumented [...] Telephone Encounter - Aparna Childers LPN - 11/03/2022 8:39 AM EDT error documented in this encounter Plan of Treatment Upcoming Encounters Date Type Specialty Care Team Description 01/11/2023 Office Visit Dermatology David Washburn MD 200 [facility] [place], [place] [address] 03/04/2023 Office Visit Family Medicine Artemio Solares DO [address] [place], [place] [address] Scheduled Procedures Name Priority Associated Diagnoses Date/Ti [...] filedocumented as of this encounter Care Teams Juice Mixer Relationship Specialty Start Date End Date Artemio Solares, DO 200 [place] [address] PCP - General Family Medicine 07/02/16 documented as of this encounter
--- OUTSIDE RECORDS SUMMARY | 2023-05-09 10:36 | External Medical Summary | Summary of Care ---
Author Name Unknown Organization [facility] Address [address] [address] , [place] Care Team Providers Care Account General Manager Name Role Phone HomeArtemio higgins Primary Care Provider [phone] Reason for Visit * Reason Onset Date Comments Advice 02/24/2023 Encounter Details Date Type Department Care Team (Late st Contact Info) Description 02/24/2023 Telephone Pharmacy, [facility] [place] [address] [facility] [place] [address] Pharmacist1, [facility] [address] [address] Advice Allergies No known active allergiesdocumented as of this encounter (statuses as of 02/24/2023) Medications Medication Sig Dispensed Refills Start Date [...] as of this encounter (statuses as of 02/24/2023) Active Problems Problem Noted Date Diagnosed Date [...] as of this encounter (statuses as of 02/24/2023) Resolved Problems Problem Noted Date Diagnosed Date Resolved Date FACTOR V LEIDEN: heterozygote status 09/11/2003 07/02/2016 documented as of this encounter (statuses as of 02/24/2023) Immunizations Name Administration Dates Next Due COVID-19 [...] Telephone Encounter - Ildefonso Munoz RPh - 02/24/2023 11:31 AM EST Patient Phone Numbers Caller's name: Jacob Preferred call back number(OFFICE NUMBER FOR ): [phone] Reason for call: requesting a call from Serena stating he got the Lovenox 100mg syringes, but if he needs more, the Good RX coupon you printed off was for 40mg syrines, if he needs more syringes he would like to get them from [facility] stating they are cheaper than [facility]. Spoke to George and explained we will get him a new GoodRx card for Lovenox 100mg if more Lovenox needed after INR tomorrow. He has 5 days of Lovenox 100mg (q12h #10) which was started 02/23. Ildefonso Shipley RPh, CACP, CDE Clinical Pharmacist [facility] 02/24/2023, 11:34 AM * Telephone Encounter - Jeane Feng, sheeter helper - 02/24/2023 11:12 AM EST Caller's name: Jacob Preferred call back number(OFFICE NUMBER FOR ): [phone] Reason for call: requesting a call from Serena stating he got the Lovenox 100mg syringes, but if he needs more, the Good RX coupon you printed off was for 40mg syrines, if he needs more syringes he would like to get them from [facility] stating they are cheaper than [facility]. Jeane Feng MA Grocery Cashier I [facility] ([facility]) [address] [facility] [address] [place] [address] ext [phone] documented in this encounter Plan of Treatment Upcoming Encounters Date Type Department Care Team (Late st Contact Info) Description 02/25/2023 5:30 PM EST Anticoagulation Pharmacy, [facility] [place] 200 [facility] [place] [address] Pharmacist1, [facility] [address] [place] [address] 03/08/2023 11:00 AM EST Office Visit Family Practice [facility] [place] 200 [facility] [place] [address] Artemio Solares, DO 200 [facility] [place] [address] 01/23/2024 8:45 AM EDT Office Visit Dermatology [facility] [place] 200 [facility] [place] [address] David Washburn MD 200 [facility] [place] [address] Scheduled Procedures Name Priority Associated Diagnoses Date/Ti [...] (HCC) documented in this encounter Care Teams Account General Manager Relationship Specialty Start Date End Date Artemio Solares DO [address] [place] [address] PCP - General Family Medicine 07/02/16 documented as of this encounter
--- OUTSIDE RECORDS SUMMARY | 2023-05-09 10:36 | External Medical Summary | Summary of Care ---
Author Name Unknown Organization [facility] Address [address] [address] Phone [phone] Care Team Providers Care Land Title Examiner Name Role Phone Artemio Solares DO Primary Care Provider [phone] Reason for Visit * Reason Comments Leg Pain R calf pain radiatin g up to R inner thigh, Fam hx of Fear Factor 5, would like to get an US of leg Encounter Details Date Type Department Care Team (Late st Contact Info) Description 02/23/2023 11:20 AM EST Office Visit Family Practice [facility] [address] [place] [address] Angie Morillo DO [address] [place] [address] Pain of right lower extremity*; Heterozygous factor [...] performed by Gloria Parish MD at OR [facility] COLONOSCOPY W/ LESION REMOVAL, SNARE 10/15/08 done adenomatous and hyperplastic polyps, mild to moderate diverticulosis left colonrepeat 3yrs COLONOSCOPY, DIAGNOSTIC (RECTUM) 06/24/2015 normal, repeat 5 yrs/COLONOSCOPY FLEXIBLE PROXIMAL DIAGNOSTIC performed by Lamar Brown DO at ENDOSCOPY [facility] COLONOSCOPY, DIAGNOSTIC (RECTUM) 04/19/2022 benign adenomatous polyps, repeat 3 yrs / COLONOSCOPY FLEXIBLE PROXIMAL DIAGNOSTIC performed by Marcelino Smalls MD at ENDOSCOPY [facility] REMOVE LUMBAR SPINE LAMINA, 1 SEG 02/09/2001 [...] on file Social History Narrative Originally from [facility]. Lived in [place] for a period. with 3 kids - Oncology nurse at [place], son going into [employer], and one at [place]. Social Determinants of Health Financial Resource Strain: [...] container labeled with "Jacob Sheldon Tipton IV", "[id number]", "1955" and " left upper arm". Received is a 0.7 x 0.5 cm skin shave. The skin surface has a lyn to pink to jaocbo slightly raised slightly rough, shiny, mottled nodule measuring 0.4 x 0.3 cm, which extends to the closest margin. The underlying tissue is inked. The specimen is bisected and submitted in cassette A1. Gross By: MD High Skin. Received in formalin with a container labeled with "Jacob Tipton IV", "[id number]", "1955" and " right neck". Received is [...] a container labeled with "Jacob Tipton IV", "[id number]", "1955" and " central back". Received is [...] Out Location Pathologist sign out performed at [facility] ([facility] [address] [place] [address]. Photographic images and diagrams represent hernández findings in this case; they are not intended to replace a complete review of the final diagnostic report. The following statement applies to Flow Cytometry, Histology, In situ Hybridization Assays and Molecular Genetics. This test was developed and performed at [facility] and its performance characteristics determined by [facility] [employer] It has not been cleared or approved [...] Description 02/25/2023 5:30 PM EST Anticoagulation Pharmacy, [facility] [place] [address] [facility] [place] [address] Pharmacist1, [facility] [address] [place] [address] 03/08/2023 11:00 AM EST Office Visit Family Practice [facility] [place] [address] [facility] [place] [address] Artemio Solares DO [address] [facility] [place] [address] 01/23/2024 8:45 AM EDT Office Visit Dermatology [facility] [place] [address] [facility] [place] [address] David Washburn MD [address] [facility] [place] [address] Scheduled Procedures Name Priority Associated Diagnoses Date/Ti [...] an interpretation of an [facility]. PHYSICIAN REPORT: LOWER EXTREMITY VENOUS DUPLEX [...] Morillo on 02/23/2023 at 12:13 pm via [employer] . Angie Morillo DO RAD VASCULAR documented in this encounter Visit Diagnoses Diagnosis Pain of right lower extremity- Primary Heterozygous factor V Leiden mutation (HCC) Primary hypercoagulable state Other vascular myelopathies (HCC) documented in this encounter Care Teams Land Title Examiner Relationship Specialty Start Date End Date Artemio Solares DO [address] [place] [address] [place] [address] PCP - General Family Medicine 07/02/16 documented as of this encounter
--- OUTSIDE RECORDS SUMMARY | 2023-05-09 10:36 | External Medical Summary | Summary of Care ---
Author Name Unknown Organization [facility] Address [address] [facility] [place] [address] Phone [phone] Care Team Providers Care Councilman Name Role Phone Artemio Solares DO Primary Care Provider [phone] Reason for Visit * Reason Onset Date Comments Medication Administration 12/16/2022 Flu an d/or Pneumo Inj Encounter Details Date Type Department Care Team Description 12/16/2022 Immunization Ancillary [facility] [address] [facility] [place] [address] Sp, [facility] [address] [facility] [place] [address] Need for prophylactic vaccination and inoculation against influenza* Allergies No known active allergiesdocumented as of this encounter (statuses as of 12/16/2022) Medications Medication Sig Dispensed Refills Start Date [...] as of this encounter (statuses as of 12/16/2022) Active Problems Problem Noted Date Heterozygous factor [...] as of this encounter (statuses as of 12/16/2022) Resolved Problems Problem Noted Date Resolved Date FACTOR V LEIDEN: heterozygote status 09/11/2003 07/02/2016 documented as of this encounter (statuses as of 12/16/2022) Immunizations Name Administration Dates Next Due COVID-19 mRNA, LNP-s, No Pre serve, 2-Dose Series (Moderna) 06/08/2020,05/04/2020 Covid-19 Mrna, Lnp-s, No Preserve, Booster (Mode rna) 02/09/2021 Pneumococcal Conjugate Vaccine, 20-valent (Prevn ar20) 11/16/2021 Seasonal Influenza, PF, 6 mo ns & Above, IM , (Flulaval) 12/16/2020,01/03/2020 Seasonal Influenza, Quadrivalent Hd (Fluzone Hd) [...] as of this encounter Progress Notes * Natalia Weems LPN - 12/16/2022 12:34 PM EDT PRE - ADMINISTRATION DOCUMENTATION Are you experiencing any cold symptoms or fever? No Have you had Guillain-[place]e Syndrome (an illness that causes paralysis) within the last 6 weeks? No Have you had the flu shot in the past? YES Have you ever had a reaction to the flu shot? No Natalia Weems LPN, 12/16/2022 12:34 PM Immunization Administration Documentation Time Out Procedure Performed: Yes Patient Identified (Ask Name/Date of ): Yes Does the patient have a fever greater than 101 degrees today? No Patient allergic to latex? No VFC Stock: No Immunization(s) verified: Yes, Immunization Name: Flu, VIS Sheet(s) given: Yes Verified Side and Site: Yes Verified Shot(s) with Parent(s)/Patient: Yes documented in this encounter Plan of Treatment Upcoming Encounters Date Type Specialty Care Team Description 01/11/2023 Office Visit Dermatology David Washburn MD [address] [facility] [place] [address] 03/04/2023 Office Visit Family Medicine Artemio Solares DO [address] [facility] [place] [address] Scheduled Procedures Name Priority Associated Diagnoses Date/Ti me COLONOSCOPY FLEXIBLE PROXIMAL DIAGNOSTIC Recall History of colon polyps Health Maintenance Due Date Last Done Comments COVID-19 Vaccine (4 - Moderna series) 04/06/2021 02/09/2021, 06/08/2020, 05/04/2020 Diabetes Screening 10/29/2022 10/30/2019, 0 06/20/2015, 01/24/2010, Additional history exists Depression Screening, Annual for Pts 12 and [...] as of this encounter Visit Diagnoses Diagnosis Need for prophylactic vaccination and inoculation against influenza- Primary documented in this encounter Care Teams Councilman Relationship Specialty Start Date End Date Artemio Solares, DO [address] [place] [address] PCP - General Family Medicine 07/02/16 documented as of this encounter
[2023-05-09 10:41] LABS: Alanine Aminotransferase 317 U/L (7-52); Albumin Globulin Ratio 1.2 (0.9-2); Alkaline Phosphatase 55 U/L (34-104); Anion Gap 7 (3-11); Aspartate Aminotransferase 232 U/L (13-39); BUN Creatinine Ratio 21.6 (10-20); Bilirubin,Total 0.4 mg/dl (0.2-1.0); Blood Urea Nitrogen 16 mg/dl (6-23); Carbon Dioxide 28 mmol/L (21-32); Chloride 102 mmol/L (98-107); Est GFR (African American) 111.4 ml/min; Est GFR (Non-African American) 96.1 ml/min; Globulin 3.4 gm/dl (2.5-4.0); Glucose 102 mg/dl (70-99(Fasting)); Lipase 26 U/L (11-82); Potassium 4.2 mmol/L (3.5-5.1); Sodium 137 mmol/L (136-145); Total Protein 7.4 gm/dl (6.0-8.3)
[2023-05-09] MEDS: OPTIRAY 320 500ml IV ONE (10:58)
--- NOTE | 2023-05-09 11:26 | CT Scan Report ---
ABDOMEN AND PELVIS CT WITH IV CONTRAST CT DOSE: 1482.71 mGy.cm HISTORY: Status post placement of a PEG tube PEG tube placed bleedidng out and around TECHNIQUE: Multiaxial CT images of the abdomen and pelvis were performed following the IV administrat ion of 84 cc of Optiray, A dose lowering technique was utilized adhering to the principles of ALARA. COMPARISON STUDY: None. FINDINGS: Mild cardiomegaly. No acute lower thoracic abnormality. Mild linear subsegmental bibasilar atelectasis versus scarring. No free air. Unremarkable spleen, pancreas and adrenal glands. 2.5 cm le ft hepatic lobe cyst. Additional probable cyst in the right hepatic lobe measuring 10 mm. Patency of the hepatic and portal veins. Unremarkable gallbladder. Unremarkable kidneys. No hydronephrosis. Mild nonspecific urinary bladder wall thickening with partia l distention. Unremarkable prostate. Small fat filled left inguinal hernia. Atherosclerosis of the ao rta without aneurysm. There is no lymphadenopathy. A gastrostomy tube is in place which demonstrates satisfactory positioning. No fluid collections of t he abdominal wall. No bowel obstruction, bowel wall thickening, mesenteric inflammation or ascites. M ild to moderate fecal retention. Normal appendix. Tiny fat filled umbilical hernia. There is no acute fracture. IMPRESSION: 1. No acute intra-abdominal or intrapelvic abnormality. 2. Satisfactory positioning of the gastrostomy tube. 3. No bowel obstruction or bowel wall thickening. 4. Additional findings as above. ACT 112: Negative or not required by law. The above report was generated using voice recognition software. It may contain grammatical, syntax o r spelling errors. Electronically signed by: Osmar Aguilar M.D. 05/09/2023 11:24 AM
--- NOTE | 2023-05-09 12:47 | History & Physical Report ---
Date of Service May 09, 2023 Assessment & Plan (1) Postoperative hemorrhage involving digestive system: (2) Oropharyngeal carcinoma: (3) S/P percutaneous endoscopic gastrostomy (PEG) tube placement: (4) Status post tracheostomy: (5) MTHFR mutation: (6) VTE (venous thromboembolism): Plan [place] [facility] [place] and PEG for ongoing dysphagia related to new diagnosis of oropharyngeal cancer. On lovenox to warfarin bridge with h/o VTE and MTHFR mutation. INR today is 1.3 (restarted warfarin on 05/07). Last dose of Lovenox was last evening. Holding all anticoagulation until bleeding has stopped-likely overnight. Consider restarting with heparin challenge prior to sending him back home, with ultimate transition back to warfarin. Pt felt bloated recently and may have had some blood enter the stomach. PPI added by GI and NPO after MN in case of scope. For now there is no blood per rectum, and in this scenario, some would be expected to come through. Would consider EGD if he became HD unstable, which he is currently not, or if his H/H dropped significantly. H/H is currently normal. Clears ordered by GI for now. Consulted cement kiln operator to assist with nutrition options- coordinated care via phone. Cont PEG management per GI team. DVT proph-SCDs/ambulation Full Code Dispo-to floor overnight. If bleeding calms down overnight, possibly to home in 1-2 days. Per outpatient record review, official tumor board recommendation is adjuvant chemoradiation. Close followup with Oncology and ENT needed post discharge. I spent a total of75 minutes coordinating, documenting, and providing care for this patient excluding time spent in the performance of separately billed services Tata Tolbert DO [facility] Hospitalist History of Present Illness Chief Complaint: bleeding from PEG site Primary Care Provider: Artemio Solares DO 67 y/o male with PMHx of Factor V Leiden (on Coumadin) was admitted on 04/28/2023 for progressive dysphagia, odynophagia, choking and difficulty with breathing while lying down. Last month he was admitted to ICU and underwent emergent tracheostomy by ENT for obstructing posterior tongue mass with biopsy. Subsequently had PEG placed for worsening dysphagia. Hospital course was complicated by PNA for which patient was treated with IV abx and transitioned to PO Augmentin on 05/04 to complete course. He was transferred to [facility] for setup of services and titration of tube feeds. 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 ENT with plans to perform trach change POD #5-7. He was sent home on tube feeds, but was unable to secure Nutren, as he was informed his insurance wouldn't cover this. He has since been using Boost, Ensure and other OTC products. In the background of these issues he has a h/o FVL and was restarted on coumadin with a Lovenox bridge. He did recently have an acute DVT on the right leg seen on 02/23/23. INR today is 1.3 Today there is blood soaked gauze over the PEG. No clear trauma to PEG site, but patient isn't sure if he bumped it. He has noted some bloating and indigestion in the past couple of days. Suspects maybe could have been blood in stomach from the bleeding but no noted blood per rectum. OVert bleeding started today. Reports some diarrhea, and is concerned for c diff so we can screen for this. Patient is also on augmentin with reportedly 3 doses left to treat a pneumonia from last admission. Pt denies any abdominal pain currently. ER physician increased the tension around the bumper per [place] [facility] [place] GI physician later came by bedside and is managing the PEG at this point. Currently the bleeding has stopped. Pt is able to whisper with the trach in place. He denies any other issues. and son are at bedside and assist with history. They state he has been doing Boost shakes QID but they are somewhat confused on how to feed him. I reached out to the cement kiln operator to help guide this. Currently clears diet per GI. Allergies Allergy/AdvReac Type Severity Reaction Status Date / Time lactose AdvReac Unknown Verified 05/09/23 14:34 Home Medications Medication Instructions Recorded Confirmed Type amoxicillin 500 mg-potassium 1 tab feeding tube TID 05/09/23 05/09/23 History clavulanate 125 mg tablet enoxaparin 100 mg/mL subcutaneous 100 mg subcut BID 05/09/23 05/09/23 History syringe nutritional supplements 1 ea feeding tube TID 05/09/23 05/09/23 History warfarin 5 mg tablet 7.5 mg PO DAILY 05/09/23 05/09/23 History Past Med/Surg History Medical History (Updated 05/09/23 @ 16:37 by Tata Tolbert DO) Oropharyngeal carcinoma Airway obstruction Acute respiratory failure Dyslipidemia VTE (venous thromboembolism) MTHFR mutation Esophageal cancer Surgical History (Updated 05/09/23 @ 14:39 by Tata Tolbert DO) Status post tracheostomy S/P percutaneous endoscopic gastrostomy (PEG) tube placement Previous back surgery Family History (Updated 05/09/23 @ 14:15 by Tata Tolbert DO) Mother Cancer Father Colorectal cancer Social History (Updated 05/09/23 @ 14:15 by Tata Tolbert DO) Smoking Status: Unknown if ever smoked Do You Dip or Chew Tobacco: No; Tobacco Cessation Education Requested by Patient: No Hx Alcohol Use: No Hx Substance Use: No Preferred Language: Yakut Feels Safe at Home: Yes Physical Exam Physical Exam: CONSTITUTIONAL: WNWD, vitals as above, generally well-appearing, NAD EYES: pupils are round and qequal bilaterally, normal conjunctivae, no scleral icterus ENT: external ear and nose normal, oropharynx clear, MMM NECK: tracheostomy in place. RESPIRATORY: clear to auscultation bilaterally, no crackles, rales or wheezes, normal respiratory effort CARDIOVASCULAR: regular rate and rhythm, S1 and 2 heard without murmurs, gallops or rubs, no JVD, no peripheral edema CHEST: inspection of chest was normal GASTROINTESTINAL: soft, nontender, ND, no guarding, PEG in place, gauze overing site-coagulated blood around the bumper without active bleeding. Some ecchymosis in lower abdomen from recent hospitalization and lovenox injections that are in various stages of healing. MUSCULOSKELETAL: strength 5/5 throughout, head is normocephalic and atraumatic, SKIN: warm and dry NEUROLOGIC: CN 2-12 grossly intact, no sensory deficit, normal cognition, speaks in a whisper without issues through the trach, no tremor PSYCHIATRIC: alert cooperative and oriented to person, place and time. Euthymic mood, makes good eye contact, language grossly intact, recent and remote memory grossly intact. Results & Data Results & Data Vital Signs (Past 12 Hours) Vital Signs Temp Pulse Pulse Resp BP BP Pulse Ox 05/09/23 12:41 68 22 117/68 97 05/09/23 10:18 68 05/09/23 10:14 66 20 95 05/09/23 09:15 36.7 C 84 18 113/72 96 O2 Del Method 05/09/23 12:41 Room Air 05/09/23 10:18 05/09/23 10:14 Room Air 05/09/23 09:15 Room Air Laboratory Results Short CBC 05/09/23 Range/Units 10:10 WBC 6.44 (4.8-10.8) K/ul Hgb 13.9 L (14.0-18.0) g/dl Hct 42.1 (42.0-52.0) % Plt Count 335 (130-400) K/uL BMP 05/09/23 10:10 Sodium 137 Potassium 4.2 Chloride 102 Carbon Dioxide 28 BUN 16 Creatinine 0.74 Glucose 102 H Calcium 10.0 Liver Function 05/09/23 Range/Units 10:10 Total Bilirubin 0.4 (0.2-1.0) mg/dl AST 232 H (13-39) U/L ALT 317 H (7-52) U/L Alkaline Phosphatase 55 (34-104) U/L Albumin 4.0 (3.4-5.0) gm/dl Diagnostic Findings Abdomen/Pelvis CT 05/09/23 09:[address] WITH IV CONTRAST CT DOSE: 1482.71 mGy.cm HISTORY: Status post placement of a PEG tube PEG tube placed bleedidng out and around TECHNIQUE: Multiaxial CT images of the abdomen and pelvis were performed following the IV administration of 84 cc of Optiray, A dose lowering technique was utilized adhering to the principles of ALARA. COMPARISON STUDY: None. FINDINGS: Mild cardiomegaly. No acute lower thoracic abnormality. Mild linear subsegmental bibasilar atelectasis versus scarring. No free air. Unremarkable spleen, pancreas and adrenal glands. 2.5 cm left hepatic lobe cyst. Additional probable cyst in the right hepatic lobe measuring 10 mm. Patency of the hepatic and portal veins. Unremarkable gallbladder. Unremarkable kidneys. No hydronephrosis. Mild nonspecific urinary bladder wall thickening with partial distention. Unremarkable prostate. Small fat filled left inguinal hernia. Atherosclerosis of the aorta without aneurysm. There is no lymphadenopathy. A gastrostomy tube is in place which demonstrates satisfactory positioning. No fluid collections of the abdominal wall. No bowel obstruction, bowel wall thickening, mesenteric inflammation or ascites. Mild to moderate fecal retention. Normal appendix. Tiny fat filled umbilical hernia. There is no acute fracture. IMPRESSION: 1. No acute intra-abdominal or intrapelvic abnormality. 2. Satisfactory positioning of the gastrostomy tube. 3. No bowel obstruction or bowel wall thickening. 4. Additional findings as above. ACT 112: Negative or not required by law. The above report was generated using voice recognition software. It may contain grammatical, syntax or spelling errors. Electronically signed by: Osmar Aguilar M.D. 05/09/2023 11:24 AM Medications Administered Current Inpatient Medications Acetaminophen (Acetaminophen 325 Mg Tab) 650 mg PO Q4H PRN PRN Reason: Pain or Fever Stop: 06/08/23 13:35 Amoxicillin/Clavulanate Potassium (Amoxicillin/Clavulanate 500 Mg Tab) 1 tab PO TIDM KORI; Protocol Stop: 05/10/23 12:01 Pantoprazole Sodium 40 mg/ (Syringe) 10 mls @ 5 mls/min IV BID KORI Stop: 06/08/23 20:59 Potassium Chloride/Dextrose/Sod Cl (D5w And 1/2nss + 20meq Kcl) 20 meq in 1,000 mls @ 100 mls/hr IV .Q10H KORI; Protocol Stop: 05/10/23 10:44 Miscellaneous (Patient's Height Needed) 1 each N/A NOW STA Stop: 05/09/23 14:37 (1) Postoperative hemorrhage involving digestive system Procedure type: digestive system Qualified Code(s): K91.840 - Postprocedural hemorrhage of a digestive system organ or structure following a digestive system procedure
[2023-05-09 13:11] LABS: INR 1.3 (0.9-1.1); Prothrombin Time 14.3 Seconds (9.0-12.0)
[2023-05-09] MEDS ORDERED: ACETAMINOPHEN 325 MG TAB PO PRN (13:36)
--- NOTE | 2023-05-09 14:07 | Consultation ---
Date of Consultation May 09, 2023 History of Present Illness Attending Physician: Tata Tolbert DO History of Present Illness Bleeding from PEG tube. Pt with recent dx of cancer at base of tongue, s/p PEG and trach placement at [facility] [place] by IR 4-5 days ago, on Lovenox for Factor 5 leiden + history of DVT, now presents complaining of blood soaking shirt at PEG ostomy site. He denies epistaxis or spitting up blood, denies trauma to PEG. He has been using PEG without difficulty. ER doc inflated balloon with 5 extra CCs. HEENT: No blood in mouth or nose. Trach in place without bleeding. Abd: Bandage covering PEG soaked with red blood. Clotted blood at site of PEG tube insertion without active bleeding. PEG tube anchors remain in place. No tenderness at PEG. Bumper is at 5 cm. He has light coffee grounds return when PEG is flushed and aspirated. A/P: Recent PEG placement PEG site bleeding On Lovenox - PEG bumper was tightened to 4 cm. Hold Lovenox. I suspect his bleeding will resolve spontaneously. Twice daily PPI. If bleeding continues, can consider EGD although would prefer to defer this given recent trach. Allergies Allergy/AdvReac Type Severity Reaction Status Date / Time Milk Containing Products Allergy Intermediate Gastrointestinal Unverified 05/09/23 11:48 (Dairy) Upset Home Medications Medication Instructions Recorded Confirmed Type amoxicillin 500 mg-potassium 1 tab feeding tube TID 05/09/23 05/09/23 History clavulanate 125 mg tablet enoxaparin 100 mg/mL subcutaneous 100 mg subcut BID 05/09/23 05/09/23 History syringe nutritional supplements 1 ea feeding tube TID 05/09/23 05/09/23 History warfarin 5 mg tablet 7.5 mg PO DAILY 05/09/23 05/09/23 History Patient History Social History Smoking Status: Unknown if ever smoked Preferred Language: Senegalese Feels Safe at Home: Yes Results & Data Vital Signs (Past 12 Hours) Vital Signs Temp Pulse Pulse Resp BP BP Pulse Ox 05/09/23 13:41 64 16 119/70 96 05/09/23 13:41 05/09/23 12:41 68 22 117/68 97 05/09/23 10:18 68 05/09/23 10:14 66 20 95 05/09/23 09:15 36.7 C 84 18 113/72 96 Pulse Ox O2 Del Method O2 Del Method 05/09/23 13:41 Room Air 05/09/23 13:41 96 Room Air 05/09/23 12:41 Room Air 05/09/23 10:18 05/09/23 10:14 Room Air 05/09/23 09:15 Room Air
[2023-05-09] MEDS ORDERED: Patient's HEIGHT Needed STA (14:36)
[2023-05-09 14:44] LABS: Appearance Urine Clear (Clear); Bilirubin Urine Negative (Negative); Blood Urine Negative (Negative); Color Urine Yellow; Glucose Urine UA Negative (Negative); Ketones Urine Negative (Negative); Leukocyte Esterase Urine Negative (Negative); Nitrite Urine Negative (Negative); Protein Urine Negative (Negative); Specific Gravity Urine > 1.045 (1.000-1.030); Urobilinogen Urine Negative (Negative); pH Urine 8.5 (4.5-7.5)
[2023-05-09] MEDS: D5W AND 1/2NSS + 20MEQ KCL 20 MEQ/1,000 ML BAG IV SCH (15:38)
[2023-05-09] MEDS: AMOXICILLIN/CLAVULANATE 500 MG TAB PO SCH (17:54)
[2023-05-09] MEDS: PANTOprazole 40 MG in SYRINGE 0 ML IV SCH (21:57)
[2023-05-10 06:25] LABS: Hematocrit (blood only) 35.9 % (42.0-52.0); Hemoglobin 12.3 g/dl (14.0-18.0); Mean Corpuscular Hgb Conc 34.3 g/dL (32.0-36.0); Mean Corpuscular Volume 90.4 fL (80.0-100.0); Mean Platelet Volume 9.6 fL (9.4-12.4); Platelet Count 328 K/uL (130-400); RDW Coefficient of Variation 12.5 % (11.5-14.5); RDW Standard Deviation 41.1 fL (36.4-46.3); Red Blood Count 3.97 M/uL (4.70-6.10)
[2023-05-10 06:35] LABS: INR 1.4 (0.9-1.1); Prothrombin Time 14.6 Seconds (9.0-12.0)
[2023-05-10 06:37] LABS: BUN Creatinine Ratio 13.9 (10-20); Creatinine Clr Calc Pharmacy 118.3 ml/min; Est GFR (African American) 108.5 ml/min; Est GFR (Non-African American) 93.6 ml/min; Potassium 4.2 mmol/L (3.5-5.1)
--- NOTE | 2023-05-10 11:40 | Hospitalist Progress Note ---
Date of Service May 10, 2023 Assessment & Plan (1) Oropharyngeal carcinoma: (2) MTHFR mutation: (3) Status post tracheostomy: (4) S/P percutaneous endoscopic gastrostomy (PEG) tube placement: (5) Postoperative hemorrhage involving digestive system: Plan This is a 67 yr old M who was hospitalized 04/28 to 05/06 at [facility] due to progressive dysphagia, odynophagia, choking difficulty breathing that occurred x 1 month. He was admitted to ICU and underwent emergent tracheostomy by ENT for obstructing posterior tongue mass. He also subsequently had a PEG tube placed. 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 He currently has been on Lovenox/Coumadin bridge. He presented to ED on 05/09 secondary to bleeding from PEG tube site. His INR on admission was 1.3. His Lovenox has been held and he was evaluated by GI. Postoperative hemorrhage involving digestive system Oropharyngeal CA - Poorly differentiated carcinoma, consistent with HPV mediated squamous cell Status post PEG tube placement Status post tracheostomy Patient admitted to medical Continue to hold Lovenox/Coumadin Per GI - feels bleeding has stopped, ok to resume clear liquids, tube feeds H&H stable at 12.3 and INR 1.4 Consult dietitian to assist with tube feed - will resume a continuous feed and titrate from there Pt is not able to tolerate much by mouth, will consult PROSTHETIC DENTIST to assess safety of swallowing once established will need scripts written for patient to be discharged with appropriate supplies and feedings as this did not occur after discharge from [facility] Consult Rad Onc Dr. Robledo to assist in plan of care Consult Heme/Onc to assist in establishing plan of care for newly dx ca MTHFR mutation hx of VTE lovenox/coumadin on hold due to bleeding at PEG site resume at discretion of GI Pneumonia, POA pt completing course of Augmentin on 05/10 from hospitalization at [facility] Will d/c augmentin and fininsh course with IV zosyn while NPO DVT ppx: SCDS, per GI ok to resume anticoag tomorrow FULL CODE PCP: Aden Solares Dispo: admit to med/surg, CM on board, discussed with александр, pt needs home nursing, feeding tube supplies, tube feeds and establishment with local onc services, per request [facility]/Dr. Bryce Robledo consulted Pt was seen and examined in collaboration with Dr. Garcia, please see addendum A total of 65 minutes was spent coordinating, documenting, and providing care for this patient excluding time spent in the performance of separately billed services. This included personally viewing all current laboratories and imaging studies, medication reconciliation, outpatient chart review, and discussion with specialists. Admission and Anticipated Discharge Date Admission Date: May 09, 2023 Supervising Physician Co-Signing Physician Notes delayed entry date of service noted above Attending Addendum: care coordinated with LORI Tai please refer to her notes for full details, I agree with her notes patient seen and examined, records reviewed by myself as well diagnoses and plan of care as per LORI Garcia MD Subjective Patient was seen and examined in room 305 Follow-up oropharyngeal CA status post trach and PEG placement. and son are at bedside who also help elicit history. Of significance patient was hospitalized 04/28 to 05/06 at [facility] due to progressive dysphagia, odynophagia, choking difficulty breathing that occurred x 1 month. He was admitted to ICU and underwent tracheostomy by ENT for obstructing posterior tongue mass. He also subsequently had a PEG tube placed. His hospital course was complicated by pneumonia requiring IV antibiotic treatment with transition to oral Augmentin at discharge. He underwent biopsy of mass by ENT on 04/28/2023 which revealed squamous cell carcinoma at base of tongue. He was placed on humidification via trach collar at 5 L. It is recommended that patient be discharged on Nutren 2.0 at 250 mL 5 times daily; however, family states that insurance did not cover this and therefore he did not have any tube feeds while at home. They were trying to adjust using [id number] boost supplements. They are requesting nutrition consult and evaluation. They also state they were discharged without home nursing as they were told that this was unable to be set up for them. He also does not have any feeding tube supplies. He represented to ED yesterday secondary to bleeding from PEG tube site. His INR yesterday was 1.3. He is on warfarin due to history of factor V Leiden. At discharge she was placed on Lovenox Coumadin bridge due to his subtherapeutic INR. Family is very frustrated with lack of support after being discharged home. They are also hopeful to get urgent referrals to radiation oncology as well as oncologist as this has not yet been established. Pt has not been able to tolerate much by mouth since D/C home. He also hasn't had tube feeds as after discharged they were called and told insurance wouldn't cover it and when they went to purchase they were unable to find in stock. In ED he was seen and evaluated by GI due to bleeding from PEG tube. His PEG bumper was tightened. His Lovenox has been held and it is felt that the bleeding will resolve spontaneously. He is awaiting GI evaluation at 11 this morning. He currently denies any pain. He denies fever, chills, sweats, lightheadedness, dizziness, chest pain, shortness of breath, nausea or vomiting. He did have a bowel movement this morning and states that his bowels have been loose. He continues to have cough and has been suctioning. He denies purulent sputum. Review of Systems Review of Systems: All systems reviewed & are unremarkable except as noted in HPI & below Physical Exam Physical Exam: Gen: WD/WN, M, NAD, A&O x3 HEENT: Normocephalic, atraumatic, conjunctivae moist, sclerae anicteric, mucous membranes moist. + trach with collar in place Lung: Clear to Auscultation bilaterally, no wheezes/rales/rhonchi Heart: Regular rate, regular rhythm, no murmurs, rubs, or gallops Abdomen: Soft, NT, ND +BS x 4, + PEG dressing with serosang drainage, Extremities: No edema Skin: Warm, no rash, negative turgor. Results & Data Results & Data Vital Signs (Past 12 Hours) Vital Signs Temp Pulse Resp BP Pulse Ox O2 Del Method 05/10/23 08:44 36.4 C L 65 17 118/73 95 Trach Collar Laboratory Results Short CBC 05/10/23 Range/Units 05:30 WBC 6.80 (4.8-10.8) K/ul Hgb 12.3 L (14.0-18.0) g/dl Hct 35.9 L (42.0-52.0) % Plt Count 328 (130-400) K/uL BMP 05/10/23 05:30 Sodium 135 L Potassium 4.2 Chloride 103 Carbon Dioxide 27 BUN 11 Creatinine 0.79 Glucose 103 H Calcium 9.0 Urine 05/09/23 Range/Units 14:32 Urine Color Yellow Urine Appearance Clear (Clear) Urine pH 8.5 H (4.5-7.5) Ur Specific Olden > 1.045 H (1.000-1.030) Urine Protein Negative (Negative) Urine Glucose (UA) Negative (Negative) Medications Administered Current Inpatient Medications Acetaminophen (Acetaminophen 325 Mg Tab) 650 mg PO Q4H PRN PRN Reason: Pain or Fever Stop: 06/08/23 13:35 Amoxicillin/Clavulanate Potassium (Amoxicillin/Clavulanate 500 Mg Tab) 1 tab PO TIDM KORI; Protocol Stop: 05/10/23 12:01 Last Admin: 05/09/23 17:54 Dose: 1 tab Pantoprazole Sodium 40 mg/ (Syringe) 10 mls @ 5 mls/min IV BID KORI Stop: 06/08/23 20:59 Last Admin: 05/10/23 08:47 Dose: 5 mls/min (5) Postoperative hemorrhage involving digestive system Procedure type: digestive system Qualified Code(s): K91.840 - Postprocedural hemorrhage of a digestive system organ or structure following a digestive system procedure
--- NOTE | 2023-05-10 11:41 | Radiation OncologyConsultation ---
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 HPV mediated. He been having issues with swallowing. He had difficulty with choking. He developed hoarseness of the voice in August to mid January. This progressed to the point that he could only speak in a whisper. He sought evaluation and on ENT examination was found to have a mass at the base of the tongue. He then was biopsied and this revealed the squamous cell carcinoma. He required an emergent tracheotomy. Patient undergone CT scanning which shows necrotic level 1 lymph nodes. There has been recommendation for radiation oncology consultation as well as medical oncology consultations. These were in the process of being set up. Because of poor nutrition a PEG tube was placed. Unfortunately yesterday he developed bleeding around the PEG tube site. He presented to the emergency room and was admitted. Plan ATTENDING ADDENDUM Assessment: Mr. Tipton is a 67-year-old gentleman who presents with locally advanced oropharyngeal cancer (SCC, HPV positive, Base of Tongue, [id number], stage II). The patient was initially evaluated at [facility] and was seen by Dr. Rodriguez from ENT. The recommendations for [facility] were for primary chemotherapy with radiation therapy. The patient did have a feeding tube placed by [facility] and he was having a complication related to bleeding and was admitted to the hospital for further workup and evaluation. The patient was seen by Dr. Smalls from gastroenterology who did amend the issue. During this inpatient mission, the patient has requested to be seen by both medical oncology and radiation oncology to expedite treatment planning. The patient has requested that his care be provided by [facility] Department of radiation oncology and [facility]. The patient has been seen by Dr. Killian from medical oncology was recommended primary chemotherapy with radiation therapy. Now seen the patient in consultation to discuss role of radiation therapy. Recommendation: Concurrent chemotherapy with radiation therapy. Plan: 1. CT simulation for treatment planning for radiation therapy. IV contrast. 2. PET/CT scan. 3. Speech pathology. 4. Wireless Team Member. 5. Dental evaluation scheduled already. Patient unlikely to require dental extractions. 6. Coordinate chemotherapy with radiation therapy. 7. Continue follow-up with ENT. 8. Patient and family encouraged to call us with any further questions or concerns. Rationale/Explanation of Treatment: I have explained the indications, alternatives, benefits, risks and side effects of radiation therapy. I have explained the most common side effects including but are not limited to skin erythema, skin break down, hair loss, fibrosis, adhesion development, heart failure and heart disease, esophagitis, esophageal stenosis, bowel obstruction, urinary symptoms, thyroid disorders, mucositis, nausea, vomiting, diarrhea, anemia, fatigue, carotid artery stenosis and development of secondary mal ignancy. Additionally, patients suffer may have xerostomia, stomatitis, glossitis, dysphagia, aspiration, mandibular osteoradionecrosis, mucocutaneous fistula formation, lymphedema in the neck, pharyngeal edema, mucositis, loss of taste. I have explained the CT simulation process and treatment planning. I explained what to expect before, during and after treatment on a regular basis. History of Present Illness Reason for Consultation: Squamous cell carcinoma of the tongue Requesting Physician: Jose Luis Garcia MD Attending Physician: Jose Luis Garcia MD History of Present Illness Mid January patient developed issues with choking with swallowing and hoarseness of the voice. His voice is steadily became more affected till he can only speak in a whisper. He has been having difficulty with swallowing and has had a 10 pound weight loss. 04/26/2023. ENT evaluation at [facility] outpatient setting. NPL examination reveals a mass of the tongue. 04/27/2023. CT of the neck. 4 cm mass of the dorsal tongue protruding into the vallecula. Large necrotic level 1 lymph nodes, likely metastatic. 04/28/2023. Emergency room evaluation admission at [facility]. Emergent tracheotomy with direct laryngoscopy and biopsies (Dr. Rodriguez). Path report reveals: Base of tongue, biopsy: Poorly differentiated carcinoma, consistent with HPV m ediated squamous cell carcinoma. 05/03/2023. Placement of PEG tube. During his admission he was seen by speech therapy and dietitian. He was followed by ENT. Patient was instructed to see the dentist. He was scheduled to be seen on 05/09/2023. 05/09/2023. Patient developed bleeding around the PEG tube site. He is on anticoagulation because of his history of factor V Leiden. The bleeding could not be stopped at home and he presented to the emergency room. 05/09/2023. CT of the abdomen and pelvis. 1. No acute intra-abdominal or intrapelvic abnormality. 2. Satisfactory positioning of the gastrostomy tube. 3. No bowel obstruction or bowel wall thickening. 05/09/2023. Gastroenterology consultation (Dr. Smalls). Patient evaluated and the bumper to the PEG tube was tightened. He will continue to be observed for any further bleeding. 05/10/2023. Medical oncology consultation. Inpatient. Dr. Killian. Recommendation is for consideration of chemotherapy and radiation therapy. R adiation oncology input appreciated. 05/10/2023. Radiation oncology consultation. Patient does have minimal cough. Patient has some discomfort with swallowing. Patient is reliant feeding tube. Allergies Allergy/AdvReac Type Severity Reaction Status Date / Time lactose AdvReac Unknown Verified 05/09/23 14:34 Home Medications Medication Instructions Recorded Confirmed Type amoxicillin 500 mg-potassium 1 tab feeding tube TID 05/09/23 05/09/23 History clavulanate 125 mg tablet enoxaparin 100 mg/mL subcutaneous 100 mg subcut BID 05/09/23 05/09/23 History syringe nutritional supplements 1 ea feeding tube TID 05/09/23 05/09/23 History warfarin 5 mg tablet 7.5 mg PO DAILY 05/09/23 05/09/23 History Patient History Medical History (Updated 05/09/23 @ 16:37 by Tata Tolbert DO) Oropharyngeal carcinoma Airway obstruction Acute respiratory failure Dyslipidemia VTE (venous thromboembolism) MTHFR mutation Esophageal cancer Surgical History (Updated 05/09/23 @ 14:39 by Tata Tolbert DO) Status post tracheostomy S/P percutaneous endoscopic gastrostomy (PEG) tube placement Previous back surgery Family History (Updated 05/09/23 @ 14:15 by Tata Tolbert DO) Mother Cancer Father Colorectal cancer Social History (Updated 05/09/23 @ 14:15 by Tata Tolbert DO) Smoking Status: Never smoker Second Hand Exposure: No; Do You Dip or Chew Tobacco: No; Tobacco Cessation Education Requested by Patient: No Hx Alcohol Use: Yes Alcohol type: beer and wine Hx Substance Use: No Preferred Language: Mauritian Communication Ability: Effective Patient Information Coordinator Required: No Beliefs That Will Affect Care: None Current Living Situation: Spouse Other Information That Helps Us Care for You: No Feels Safe at Home: Yes Safety Concerns: Feels Safe At This Time Assistive Devices: Walker and Other Radiation History Diagnosis: Oropharynx. Base of the tongue. SCC. HPV mediated. cT3N2c. Stage II. Treatment: None. Review of Systems Review of Systems: 13 point review of systems completed. P atient's only symptoms are related to the history of present illness other than he has had diarrhea over the past few weeks. Physical Exam Constitutional: WD/WN, vitals as above Eyes: PERRL, conjunctivae normal, anicteric sclerae ENMT: Ears: no hearing impairment Oropharyngeal exam. Mass of base of tongue is not visible on oral exam. Neck: trachea midline, no thyromegaly Respiratory: normal respiratory effort, lungs clear to auscultation Cardiovascular: RRR, no murmur, no edema Gastrointestinal (Abdomen): normal bowel sounds, soft, nontender, no hepatosplenomegaly Skin: no rashes, warm and dry Psychiatric: A+Ox3, euthymic affect Results (Rad Onc) Pathology Results: were reviewed and pertinent findings noted in HPI Imaging Studies: were reviewed and pertinent findings noted in HPI Time Spent Midlevel I spent [15] minutes in preparation for this follow up evaluation including reviewing all the clinical records, reviewing laboratory studies, pathology reports and imaging results. I spent [20] minutes with direct face to face interaction with the patient and/or family including performing a physical exam and answering all questions. I spent [10] minutes documenting this patient's visit. Attending I spent 25 minutes in preparation for this consultation including reviewing all the clinical records, reviewing laboratory studies, pathology reports and imaging results. I spent 40 minutes with direct face to face interaction with the patient and/or family including performing a physical exam and answering all questions. I spent 20 minutes documenting this patient's visit. PG Care Time/CCT Total # of Minutes Spent Total Time Spent with Patient: Total time spent is greater than 50% in coordination of care (as documented) at patient's floor/unit and/or counseling patient: [place] [address] INT INP/OBS CARE 3/75MIN Patient Type New History Expanded Problem Focused Exam Problem Focused Medical Decision Making High Complexity Diagnoses Oropharyngeal carcinoma C10.9
[2023-05-10] MEDS ORDERED: D5W AND 1/2NSS + 20MEQ KCL 20 MEQ/1,000 ML BAG IV SCH (12:15)
[2023-05-10] MEDS: PIPERACILLIN/TAZOBACTAM 4.5 GM in DEXTROSE 5% MINI-B 100 ML IV ONE (13:54)
[2023-05-10] MEDS: D5W AND NSS 1,000 ML IV SCH (13:55)
--- NOTE | 2023-05-10 14:37 | Oncology Consultation ---
Date of Consultation May 10, 2023 Assessment & Plan (1) Oropharyngeal carcinoma: (2) Status post tracheostomy: (3) S/P percutaneous endoscopic gastrostomy (PEG) tube placement: Plan - Had an extensive discussion today with patient, and son. Explained to him that given locally advanced oropharyngeal carcinoma, agree with tumor board recommendations at [facility] for definitive/concurrent chemoradiation treatment with weekly cisplatin. He has good renal function and performance status and should be able to tolerate treatment with weekly cisplatin. Will coordinate with radiation oncology regarding when to start treatment. Thank you for this consult. Oncology will sign off at this time to follow-up with patient upon discharge. 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 He also has a history of lower extremity DVT and reported history of factor V Leiden mutation for which he is currently on Coumadin. He presented with bleeding from around site of PEG tube insertion. Oncology was consulted to discuss treatment options for locally advanced HPV associated oropharyngeal carcinoma. Allergies Allergy/AdvReac Type Severity Reaction Status Date / Time lactose AdvReac Unknown Verified 05/09/23 14:34 Home Medications Medication Instructions Recorded Confirmed Type amoxicillin 500 mg-potassium 1 tab feeding tube TID 05/09/23 05/09/23 History clavulanate 125 mg tablet enoxaparin 100 mg/mL subcutaneous 100 mg subcut BID 05/09/23 05/09/23 History syringe nutritional supplements 1 ea feeding tube TID 05/09/23 05/09/23 History warfarin 5 mg tablet 7.5 mg PO DAILY 05/09/23 05/09/23 History Patient History Medical History (Updated 05/09/23 @ 16:37 by Tata Tolbert DO) Oropharyngeal carcinoma Airway obstruction Acute respiratory failure Dyslipidemia VTE (venous thromboembolism) MTHFR mutation Esophageal cancer Surgical History (Updated 05/09/23 @ 14:39 by Tata Tolbert DO) Status post tracheostomy S/P percutaneous endoscopic gastrostomy (PEG) tube placement Previous back surgery Family History (Updated 05/09/23 @ 14:15 by Tata Tolbert DO) Mother Cancer Father Colorectal cancer Social History (Updated 05/09/23 @ 14:15 by Tata Tolbert, DO) Smoking Status: Never smoker Second Hand Exposure: No; Do You Dip or Chew Tobacco: No; Tobacco Cessation Education Requested by Patient: No Hx Alcohol Use: Yes Alcohol type: beer and wine Hx Substance Use: No Preferred Language: Kyrgyz Communication Ability: Effective Veteran Appeals Reviewer Required: No Beliefs That Will Affect Care: None Current Living Situation: Spouse Other Information That Helps Us Care for You: No Feels Safe at Home: Yes Safety Concerns: Feels Safe At This Time Assistive Devices: Walker and Other Results & Data Vital Signs (Past 12 Hours) Vital Signs Temp Pulse Resp BP Pulse Ox O2 Del Method 05/10/23 14:00 36.6 C 64 17 115/68 97 Room Air 05/10/23 08:44 36.4 C L 65 17 118/73 95 Trach Collar
[2023-05-10] MEDS: NUTREN LIQD 2.0 1,000 ML BAG PEG SCH (17:59)
[2023-05-10] MEDS: TUBE FEEDING WATER FLUSH GT SCH (17:59)
[2023-05-10] MEDS: PROSOURCE NO CARB 30 ML/PKT PEG SCH (20:00)
[2023-05-10] MEDS: PIPERACILLIN/TAZOBACTAM 4.5 GM in DEXTROSE 5% MINI-B 100 ML IV SCH (20:02)
[2023-05-11 06:19] LABS: Basophils # (auto) 0.02 K/uL (0.00-0.20); Basophils % (auto) 0.3 %; Eosinophils # (auto) 0.16 K/uL (0.00-0.50); Eosinophils % (auto) 2.2 %; Hematocrit (blood only) 35.8 % (42.0-52.0); Hemoglobin 12.3 g/dl (14.0-18.0); Immature Granulocytes # (auto) 0.04 K/uL (0.01-0.20); Immature Granulocytes % (auto) 0.5 %; Lymphocytes # (auto) 1.69 K/uL (1.20-3.40); Lymphocytes % (auto) 22.9 %; Mean Corpuscular Hemoglobin 31.1 pg (25.0-34.0); Mean Corpuscular Hgb Conc 34.4 g/dL (32.0-36.0); Mean Corpuscular Volume 90.6 fL (80.0-100.0); Mean Platelet Volume 9.8 fL (9.4-12.4); Monocytes # (auto) 0.78 K/uL (0.11-0.59); Monocytes % (auto) 10.6 %; Neutrophils # (auto) 4.69 K/uL (1.40-6.50); Neutrophils % (auto) 63.5 %; Platelet Count 315 K/uL (130-400); RDW Coefficient of Variation 12.7 % (11.5-14.5); RDW Standard Deviation 41.8 fL (36.4-46.3); Red Blood Count 3.95 M/uL (4.70-6.10); White Blood Count 7.38 K/ul (4.8-10.8)
[2023-05-11 06:22] LABS: Albumin Globulin Ratio 1.2 (0.9-2); Albumin Level 3.5 gm/dl (3.4-5.0); BUN Creatinine Ratio 14.8 (10-20); Bilirubin,Total 0.4 mg/dl (0.2-1.0); Calcium 9.1 mg/dl (8.6-10.3); Creatinine Clr Calc Pharmacy 106.2 ml/min; Est GFR (African American) 103.7 ml/min; Est GFR (Non-African American) 89.5 ml/min; Globulin 2.9 gm/dl (2.5-4.0); Magnesium 1.9 mg/dl (1.7-2.4); Potassium 4.1 mmol/L (3.5-5.1); Total Protein 6.4 gm/dl (6.0-8.3)
[2023-05-11 06:30] LABS: INR 1.4 (0.9-1.1); Prothrombin Time 15.2 Seconds (9.0-12.0)
[2023-05-11] MEDS ORDERED: ENOXAPARIN 1 MG/KG SQ SCH (09:00)
[2023-05-11] MEDS: ENOXAPARIN 100 MG/1ML SYR SQ SCH (10:11)
--- NOTE | 2023-05-11 10:33 | Fluoroscopy Report ---
FL video swallow CLINICAL HISTORY: assess for aspiration TECHNIQUE: Video fluoroscopy of the pharyngeal region was performed as barium mixtures of varying con sistencies were administered to the patient by the speech pathologist. A formal esophagram was not pe rformed. Comparison: None available at the time of this dictation. FINDINGS: Total fluoroscopy time: 1.21 minutes. Radiation dose: 8.40 mGy. Trace aspiration was seen with thin liquids and nectar consistency barium. There was no laryngeal ves tibular penetration or susana tracheal aspiration. Pooling of barium was noted in the bilateral pirifo rm sinuses and valleculae. IMPRESSION: No evidence of aspiration. Please see the speech pathology report for further details. ACT 112: Negative or not required by law. Electronically signed by: Maged Winters M.D. 05/11/2023 10:32 AM
--- NOTE | 2023-05-11 11:50 | Hospitalist Progress Note ---
Date of Service May 11, 2023 Assessment & Plan (1) Oropharyngeal carcinoma: (2) MTHFR mutation: (3) Factor V Leiden: (4) Status post tracheostomy: (5) S/P percutaneous endoscopic gastrostomy (PEG) tube placement: (6) Postoperative hemorrhage involving digestive system: (7) Transaminitis: Plan This is a 67 yr old M who was hospitalized 04/28 to 05/06 at [facility] [place] due to progressive dysphagia, odynophagia, choking difficulty breathing that occurred x 1 month. He was admitted to ICU and underwent emergent tracheostomy by ENT for obstructing posterior tongue mass. He also subsequently had a PEG tube placed. 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 He currently has been on Lovenox/Coumadin bridge. He presented to ED on 05/09 secondary to bleeding from PEG tube site. His INR on admission was 1.3. His Lovenox has been held and he was evaluated by GI. Postoperative hemorrhage involving digestive system Oropharyngeal CA - Poorly differentiated carcinoma, consistent with HPV mediated squamous cell Status post PEG tube placement Status post tracheostomy Patient admitted to medical Per GI - feels bleeding has stopped, tolerating clear liquids and tube feeds thus far No recurrence of bleeding H&H stable at 12.3 and INR 1.4 Resume Lovenox therapeutic dose BID and warfarin bridge until INR > 2 monitor peg site for bleeding Consult dietitian to assist with tube feed - will resume a continuous feed and titrate from there Pt is not able to tolerate much by mouth, will consult DITCHER OPERATOR to assess safety of swallowing Video swallow study to occur today patient is only able to tolerate clears due to aspiration risk and unable to sustain caloric intake this way; therefore requiring peg tube feedings It is expected with radiation therapy that patient will have further impairment in swallowing Initial script for tube feeding was written - may need further once specific r egimen determined CM working hard on home nursing - family really needs assistance with close following of trach/peg until they are more comfortable Appreciate assistance and recommendations from Rad/Onc and Heme/Onc to establish plan of care Discussed with RT - pt to be evaluated for passy harsha valve Factor V Leiden def MTHFR mutation hx of VTE lovenox/coumadin on hold due to bleeding at PEG site resume at discretion of GI Transaminitis noted on admission no abd pain ALT 317>261 and [id number] obtain RUQ US, Acute hep panel - discussed with SAADIA Garcia and she agrees CT a/p: 1. No acute intra-abdominal or intrapelvic abnormality.2. Satisfactory positioning of the gastrostomy tube.3. No bowel obstruction or bowel wall thickening.4. Additional findings as above Pneumonia, POA Completed course of antibiotic resolved DVT ppx: Lovenox/Warfarin bridge FULL CODE PCP: Aden Solares Dispo: admit to med/surg, CM on board to assistance with Dispo and home health/tube feeding assistance Pt was seen and examined in collaboration with Dr. Lopes please see addendum A total of 55 minutes was spent coordinating, documenting, and providing care for this patient excluding time spent in the performance of separately billed services. This included personally viewing all current laboratories and imaging studies, medication reconciliation, outpatient chart review, and discussion with specialists. Admission and Anticipated Discharge Date Admission Date: May 09, 2023 Supervising Physician Co-Signing Physician Notes I have seen and discussed the case with the collaborating WAI. I agree with the above H&P. I have reviewed and confirmed the patients medical history, the findings on physical examination, and the patients diagnosis and treatment plan with Zaire CARRENO and agree with the information documented. In short, Mr. Tipton is a 67 year old gentleman with MTHFR on AC, factor V leiden, and orophargyngeal squamous cell carcnioma who is admitted due to acute blood loss from from PEG site as well as inability to cover tube feeds after discharge from recent hospitalization. GI evaluated patient on 05/09 and tightened PEG site bumper with planned continuation of PPI. EGD deferred given recent trach. Patient with stable hemoglobin, therefore lovenox bridging started today 05/11, with plans to trend hgb and INR. Labs notable for transaminitis, however, no clear eitology as CT without overt lesions. Patient very pleasant and conversational this morning at bedisde No over concerns on exam. long discussion had over patient's existing anxieties, including prolonged hospitalization and delayed treatments. Plan for US abd. Trend LFTS. Follow CBC in am and INR. Rest of plan as above. I spent a total of 25 minutes coordinating, documenting, and providing care for this patient excluding time spent in the performance of separately billed services. All of the aforementioned completed while collaborating with the assigned physician certified surgical assistant for a full treatment plan Subjective Patient was seen and examined in room 305 Follow-up oropharyngeal CA status post trach and PEG placement. 05/10/23 Of significance patient was hospitalized 04/28 to 05/06 at [facility] [place] due to progressive dysphagia, odynophagia, choking difficulty breathing that occurred x 1 month. He was admitted to ICU and underwent tracheostomy by ENT for obstructing posterior tongue mass. He also subsequently had a PEG tube placed. His hospital course was complicated by pneumonia requiring IV antibiotic treatment with transition to oral Augmentin at discharge. He underwent biopsy of mass by ENT on 04/28/2023 which revealed squamous cell carcinoma at base of tongue. He was placed on humidification via trach collar at 5 L. It is recommended that patient be discharged on Nutren 2.0 at 250 mL 5 times daily; however, family states that insurance did not cover this and therefore he did not have any tube feeds while at home. They were trying to adjust using [id number] boost supplements. They are requesting nutrition consult and evaluation. They also state they were discharged without home nursing as they were told that this was unable to be set up for them. He also does not have any feeding tube supplies. He represented to ED yesterday secondary to bleeding from PEG tube site. His INR yesterday was 1.3. He is on warfarin due to history of factor V Leiden. At discharge she was placed on Lovenox Coumadin bridge due to his subtherapeutic INR. Family is very frustrated with lack of support after being discharged home. They are also hopeful to get urgent referrals to radiation oncology as well as oncologist as this has not yet been established. 05/11/23: Pt is in better spirits today. He has been ambulating the halls with assistance. He is happy with progress made thus far. He had a coughing fit this morning and that scares him so he is trying to work on deep breathing. So far he is tolerating tube feeds and no further bleeding from peg tube site. He denies f/c/s, chest pain, sob, n/v/d. He is urinating and moving bowels with out difficultly. Review of Systems Review of Systems: All systems reviewed & are unremarkable except as noted in HPI & below Physical Exam Physical Exam: Gen: WD/WN, M, NAD, A&O x3 HEENT: Normocephalic, atraumatic, conjunctivae moist, sclerae anicteric, mucous membranes moist. + trach Lung: Clear to Auscultation bilaterally, no wheezes/rales/rhonchi Heart: Regular rate, regular rhythm, no murmurs, rubs, or gallops Abdomen: Soft, NT, ND +BS x 4, + PEG no surrounding drainage or eythema Extremities: No edema Skin: Warm, no rash, negative turgor. Results & Data Results & Data Vital Signs (Past 12 Hours) Vital Signs Pulse Resp BP Pulse Ox O2 Del Method 05/11/23 09:02 71 18 98/59 L 94 Room Air Laboratory Results Short CBC 05/11/23 Range/Units 05:25 WBC 7.38 (4.8-10.8) K/ul Hgb 12.3 L (14.0-18.0) g/dl Hct 35.8 L (42.0-52.0) % Plt Count 315 (130-400) K/uL BMP 05/11/23 05:25 Sodium 136 Potassium 4.1 Chloride 104 Carbon Dioxide 26 BUN 13 Creatinine 0.88 Glucose 113 H Calcium 9.1 Liver Function 05/11/23 Range/Units 05:25 Total Bilirubin 0.4 (0.2-1.0) mg/dl AST 123 H (13-39) U/L ALT 261 H (7-52) U/L Alkaline Phosphatase 53 (34-104) U/L Albumin 3.5 (3.4-5.0) gm/dl I have independently reviewed and interpreted patient's labs including CBC, CMP, PT/INR Medications Administered Current Inpatient Medications Acetaminophen (Acetaminophen 325 Mg Tab) 650 mg PO Q4H PRN PRN Reason: Pain or Fever Stop: 06/08/23 13:35 Enoxaparin Sodium (Enoxaparin 100 Mg/1ml Syr) 100 mg SQ Q12 KORI Stop: 06/10/23 08:59 Last Admin: 05/11/23 10:11 Dose: 100 mg Pantoprazole Sodium 40 mg/ (Syringe) 10 mls @ 5 mls/min IV BID KORI Stop: 06/08/23 20:59 Last Admin: 05/11/23 08:08 Dose: 5 mls/min Nutritional Formula (Nutren Liqd 2.0 1,000 Ml Bag) 0 ml PEG .See Protocol KORI; Protocol Stop: 06/09/23 14:29 Last Admin: 05/10/23 17:59 Dose: 1,000 ml Nutritional Formula (Prosource No Carb 30 Ml/Pkt) 30 ml PEG BID [facility] Stop: 06/09/23 20:59 Last Admin: 05/11/23 07:59 Dose: 30 ml Sterile Water (Tube Feeding Water Flush) 250 ml GT Q4H [facility] Stop: 06/09/23 14:29 Last Admin: 05/11/23 10:12 Dose: Not Given Warfarin Sodium (Warfarin Sod 7.5 Mg Tab) 7.5 mg PO DAILY@1600 [facility] Stop: 06/10/23 15:59 (6) Postoperative hemorrhage involving digestive system Procedure type: digestive system Qualified Code(s): K91.840 - Postprocedural hemorrhage of a digestive system organ or structure following a digestive system procedure
[2023-05-11] MEDS: WARFARIN SOD 7.5 MG TAB PO SCH (16:04)
--- NOTE | 2023-05-11 17:31 | Ultrasound Report ---
US abdomen limited CLINICAL HISTORY: elevated lfts TECHNIQUE: Multiple real-time sonographic images of the right upper quadrant were obtained. Comparison: Comparison is made to CT abdomen pelvis 05/09/2023 FINDINGS: The liver is diffusely homogenous with normal contour and echogenicity. There is a 2.3 x 1.9 x 1.8 cm cyst in the liver on the left. No intrahepatic ductal dilatation is seen. No gallstones or sludge are identified within the gallbladder. The gallbladder wall is not thickened. There is no pericholecy stic fluid present. A sonographic Rowan's sign was not elicited by the tax commissioner. The common estelle t measures 0.4 cm in diameter at the level of the hepatic artery. The visualized portions of the cooper creas appear normal. The right kidney shows normal echogenicity, cortical thickness and renal contour. The right kidney sh ows no evidence of hydronephrosis or mass. No ascites or free fluid is seen in Luis's pouch. IMPRESSION: Unremarkable right upper quadrant ultrasound. ACT 112: Negative or not required by law. Electronically signed by: Maged Winters M.D. 05/11/2023 5:30 PM
[2023-05-12 06:42] LABS: Hemoglobin 12.2 g/dl (14.0-18.0); Mean Corpuscular Hemoglobin 30.8 pg (25.0-34.0); Mean Corpuscular Hgb Conc 33.9 g/dL (32.0-36.0); Mean Corpuscular Volume 90.9 fL (80.0-100.0); Mean Platelet Volume 9.8 fL (9.4-12.4); Platelet Count 304 K/uL (130-400); RDW Coefficient of Variation 12.7 % (11.5-14.5); Red Blood Count 3.96 M/uL (4.70-6.10); White Blood Count 6.34 K/ul (4.8-10.8)
[2023-05-12 07:05] LABS: Albumin Level 3.5 gm/dl (3.4-5.0); BUN Creatinine Ratio 21.2 (10-20); Bilirubin Direct 0.1 mg/dl (0-0.2); Bilirubin,Total 0.3 mg/dl (0.2-1.0); Creatinine Clr Calc Pharmacy 140.8 ml/min; Est GFR (African American) 116.8 ml/min; Est GFR (Non-African American) 100.7 ml/min; Magnesium 1.9 mg/dl (1.7-2.4); Potassium 3.8 mmol/L (3.5-5.1); Total Protein 6.3 gm/dl (6.0-8.3)
[2023-05-12 07:40] LABS: INR 1.5 (0.9-1.1); Prothrombin Time 15.7 Seconds (9.0-12.0)
--- NOTE | 2023-05-12 14:44 | Hospitalist Progress Note ---
Date of Service May 12, 2023 Assessment & Plan (1) Oropharyngeal carcinoma: (2) MTHFR mutation: (3) Factor V Leiden: (4) Status post tracheostomy: (5) S/P percutaneous endoscopic gastrostomy (PEG) tube placement: (6) Postoperative hemorrhage involving digestive system: (7) Transaminitis: Plan Mr Tipton is a 67 yr old M who [place] 04/28 to [place] [facility] [place] dysphagia, odynophagia, choking difficulty breathing that occurred x 1 month. He was admitted to ICU and underwent emergent tracheostomy by ENT for obstructing posterior tongue mass. He also subsequently had a PEG tube placed. 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 He currently has been on Lovenox/Coumadin bridge. He presented to ED on 05/09 secondary to bleeding from PEG tube site. His INR on admission was 1.3. His lovenox was held and he was evaluated by GI. GI tighened the PEG bumper and hemoglobin has remained stable. Patient started on Lovenox bridge with warfarin 05/11 and hgb remained stable this morning. #Postoperative hemorrhage involving digestive system #Oropharyngeal CA - Poorly differentiated carcinoma, consistent with HPV mediated squamous cell #Status post PEG tube placement #Status post tracheostomy Patient admitted to medical Per GI - feels bleeding has stopped, tolerating clear liquids and tube feeds thus far No recurrence of bleeding H&H stable at 12.3 and INR 1.4 Resume Lovenox therapeutic dose BID and warfarin bridge until INR > 2 monitor peg site for bleeding Consult dietitian to assist with tube feed - will resume a continuous feed and titrate from there Pt is not able to tolerate much by mouth, will consult CONSUMER LENDER to assess safety of swallowing Video swallow study to occur today patient is only able to tolerate clears due to aspiration risk and unable to sustain caloric intake this way; therefore requiring peg tube feedings It is expected with radiation therapy that patient will have further impairment in swallowing Initial script for tube feeding was written - may need further once specific regimen determined CM working hard on home nursing - family really needs assistance with close following of trach/peg until they are more comfortable Appreciate assistance and recommendations from Rad/Onc and Heme/Onc to establish plan of care Discussed with RT - pt to be evaluated for passy harsha valve #Factor V Leiden def #MTHFR mutation #hx of VTE lovenox/coumadin on hold due to bleeding at PEG site resume at discretion of GI #Transaminitis *improving noted on admission no abd pain ALT 317>261 and [id number]>123 obtain RUQ US, Acute hep panel - discussed with SAADIA Garcia and she agrees CT a/p: 1. No acute intra-abdominal or intrapelvic abnormality.2. Satisfactory positioning of the gastrostomy tube.3. No bowel obstruction or bowel wall thickening.4. Additional findings as above #Pneumonia, POA Completed course of antibiotic resolved DVT ppx: Lovenox/Warfarin bridge FULL CODE PCP: Aden Solares Dispo: admit to med/surg, CM on board to assistance with Dispo and home health/tube feeding, possible dispo tomorrow contingent on Admission and Anticipated Discharge Date Admission Date: May 09, 2023 Subjective NAEO Patient reports no bleeding at site of PEG tube, endorses that he tolerates his tube feeds and is attempting to get use to passy-harsha valve. Reports no new concerns this morning. Physical Exam Constitutional: WD/WN, vitals as above Neck: trach in place, no discharge or fluid accumlation noted Respiratory: normal respiratory effort, lungs clear to auscultation Gastrointestinal (Abdomen): normal bowel sounds, soft, nontender, no hepatosplenomegaly Musculoskeletal: no cyanosis or clubbing, extremities motor strength 5/5 Results & Data Results & Data Vital Signs (Past 12 Hours) Vital Signs Temp Pulse Resp BP Pulse Ox O2 Del Method 05/12/23 07:23 37 C 68 16 103/66 96 Room Air 05/12/23 07:00 Trach Collar Laboratory Results Short CBC 05/12/23 Range/Units 05:31 WBC 6.34 (4.8-10.8) K/ul Hgb 12.2 L (14.0-18.0) g/dl Hct 36.0 L (42.0-52.0) % Plt Count 304 (130-400) K/uL BMP 05/12/23 05:31 Sodium 137 Potassium 3.8 Chloride 104 Carbon Dioxide 27 BUN 14 Creatinine 0.66 Glucose 110 H Calcium 9.0 Liver Function 05/12/23 Range/Units 05:31 Total Bilirubin 0.3 (0.2-1.0) mg/dl Direct Bilirubin 0.1 (0-0.2) mg/dl AST 61 H (13-39) U/L ALT 187 H (7-52) U/L Alkaline Phosphatase 50 (34-104) U/L Albumin 3.5 (3.4-5.0) gm/dl Medications Administered Home Medications Medication Instructions Recorded Confirmed Last Taken amoxicillin 500 mg-potassium 1 tab feeding tube TID 05/09/23 05/09/23 05/08/23 clavulanate 125 mg tablet enoxaparin 100 mg/mL subcutaneous 100 mg subcut BID 05/09/23 05/09/23 05/08/23 syringe nutritional supplements 1 ea feeding tube TID 05/09/23 05/09/23 05/08/23 warfarin 5 mg tablet 7.5 mg PO DAILY 05/09/23 05/09/23 05/08/23 Active Medications Generic Name Dose Route Start Last Admin Trade Name Freq PRN Reason Stop Dose Admin Enoxaparin Sodium 100 mg 05/11/23 09:00 05/12/23 08:58 Enoxaparin 100 Mg/1ml Syr SQ 06/10/23 08:59 100 mg Q12 KORI Administration Pantoprazole Sodium 40 mg/ 10 mls @ 5 mls/min 05/09/23 21:00 05/12/23 08:59 Syringe IV 06/08/23 20:59 5 mls/min BID KORI Administration Nutritional Formula 0 ml 05/10/23 14:30 05/10/23 17:59 Nutren Liqd 2.0 1,000 Ml Bag PEG 06/09/23 14:29 1,000 ml .See Protocol KORI Administration Protocol Nutritional Formula 30 ml 05/10/23 21:00 05/12/23 08:58 Prosource No Carb 30 Ml/Pkt PEG 06/09/23 20:59 30 ml BID KORI Administration Sterile Water 250 ml 05/10/23 14:30 05/12/23 09:30 Tube Feeding Water Flush GT 06/09/23 14:29 250 ml Q4H KORI Administration Warfarin Sodium 7.5 mg 05/11/23 16:00 05/11/23 16:04 Warfarin Sod 7.5 Mg Tab PO 06/10/23 15:59 7.5 mg DAILY@1600 KORI Administration (6) Postoperative hemorrhage involving digestive system Procedure type: digestive system Qualified Code(s): K91.840 - Postprocedural hemorrhage of a digestive system organ or structure following a digestive system procedure
[2023-05-13 06:29] LABS: Hematocrit (blood only) 36.2 % (42.0-52.0); Hemoglobin 11.9 g/dl (14.0-18.0); Mean Corpuscular Hemoglobin 30.4 pg (25.0-34.0); Mean Corpuscular Hgb Conc 32.9 g/dL (32.0-36.0); Mean Corpuscular Volume 92.6 fL (80.0-100.0); Mean Platelet Volume 9.8 fL (9.4-12.4); Platelet Count 321 K/uL (130-400); RDW Coefficient of Variation 12.7 % (11.5-14.5); RDW Standard Deviation 42.9 fL (36.4-46.3); Red Blood Count 3.91 M/uL (4.70-6.10); White Blood Count 6.64 K/ul (4.8-10.8)
[2023-05-13 06:45] LABS: BUN Creatinine Ratio 18.1 (10-20); Calcium 9.2 mg/dl (8.6-10.3); Creatinine Clr Calc Pharmacy 111.9 ml/min; Est GFR (African American) 106.3 ml/min; Est GFR (Non-African American) 91.7 ml/min; Potassium 3.7 mmol/L (3.5-5.1)
[2023-05-13 06:51] LABS: INR 1.5 (0.9-1.1); Prothrombin Time 16.1 Seconds (9.0-12.0)
[2023-05-13 11:42] LABS: HBSAG NON-REACTIVE (NON-REACTIVE); Hepatitis A Antibody IgM NON-REACTIVE (NON-REACTIVE); Hepatitis B Core Antibody IgM NON-REACTIVE (NON-REACTIVE)
[2023-05-13] MEDS: WARFARIN SOD 10 MG TAB PO SCH (15:16)
--- NOTE | 2023-05-13 18:22 | Discharge Summary ---
Discharge Summary Date of Service May 13, 2023 Notes For Next Care Provider Medication Changes From Visit Lovenox bridge Coumadin 10mg daily Plan for INR/AC clinic check Tube Feeds Admission HPI Per Admitting Provider 67 y/o male with PMHx of Factor V Leiden (on Coumadin) was admitted on 04/28/2023 for progressive dysphagia, odynophagia, choking and difficulty with breathing wh ile lying down. Last month he was admitted to ICU and underwent emergent tracheostomy by ENT for obstructing posterior tongue mass with biopsy. Subsequently had PEG placed for worsening dysphagia. Hospital course was complicated by PNA for which patient was treated with IV abx and transitioned to PO Augmentin on 05/04 to complete course. He was transferred to [facility] for setup of services and titration of tube feeds. 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 ENT with plans to perform trach change POD #5-7. He was sent home on tube feeds, but was unable to secure Nutren, as he was informed his insurance wouldn't cover this. He has since been using Boost, Ensure and other OTC products. In the background of these issues he has a h/o FVL and was restarted on coumadin with a Lovenox bridge. He did recently have an acute DVT on the right leg seen on 02/23/23. INR today is 1.3 Today there is blood soaked gauze over the PEG. No clear trauma to PEG site, but patient isn't sure if he bumped it. He has noted some bloating and indigestion in the past couple of days. Suspects maybe could have been blood in stomach from the bleeding but no noted blood per rectum. OVert bleeding started today. Reports some diarrhea, and is concerned for c diff so we can screen for this. Patient is also on augmentin with reportedly 3 doses left to treat a pneumonia from last admission. Pt denies any abdominal pain currently. ER physician increased the tension around the bumper per IR doc in [facility]. GI physician later came by bedside and is managing the PEG at this point. Currently the bleeding has stopped. Pt is able to whisper with the trach in place. He denies any other issues. and son are at bedside and assist with history. They state he has been doing Boost shakes QID but they are somewhat confused on how to feed him. I reached out to the humanities and languages professor to help guide this. Currently clears diet per GI. Admission Exam Per Admitting Provider CONSTITUTIONAL: WNWD, vitals as above, generally well-appearing, NAD EYES: pupils are round and equal bilaterally, normal conjunctivae, no scleral icterus ENT: external ear and nose normal, oropharynx clear, MMM NECK: tracheostomy in place. RESPIRATORY: clear to auscultation bilaterally, no crackles, rales or wheezes, normal respiratory effort CARDIOVASCULAR: regular rate and rhythm, S1 and 2 heard without murmurs, gallops or rubs, no JVD, no peripheral edema CHEST: inspection of chest was normal GASTROINTESTINAL: soft, nontender, ND, no guarding, PEG in place, gauze overing site-coagulated blood around the bumper without active bleeding. Some ecchymosis in lower abdomen from recent hospitalization and lovenox injections that are in various stages of healing. MUSCULOSKELETAL: strength 5/5 throughout, head is normocephalic and atraumatic, SKIN: warm and dry NEUROLOGIC: CN 2-12 grossly intact, no sensory deficit, normal cognition, speaks in a whisper without issues through the trach, no tremor PSYCHIATRIC: alert cooperative and oriented to person, place and time. Euthymic mood, makes good eye contact, language grossly intact, recent and remote memory grossly intact. Principal Dx & Hospital Course #1 = Principal Diagnosis (1) Oropharyngeal carcinoma: (2) MTHFR mutation: (3) Factor V Leiden: (4) Status post tracheostomy: (5) S/P percutaneous endoscopic gastrostomy (PEG) tube placement: (6) Postoperative hemorrhage involving digestive system: (7) Transaminitis: Plan Mr Tipton is a 67 yr old M who was hospitalized 04/28 to 05/06 at [facility] due to progressive dysphagia, odynophagia, choking difficulty breathing that occurred x 1 month. He was admitted to ICU and underwent emergent tracheostomy by ENT for obstructing posterior tongue mass. He also subsequently had a PEG tube placed. 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 He currently has been on Lovenox/Coumadin bridge. He presented to ED on 05/09 secondary to bleeding from PEG tube site. His INR on admission was 1.3. His lovenox was held and he was evaluated by GI. GI tightened the PEG bumper and hemoglobin has remained stable. Patient started on Lovenox bridge with warfarin 05/11 and hgb remained stable for 48 hours. On day of discharge, patient reports tolerating feeds. He denied nausea or vomiting. Appointment made to ensure patient with Trach follow up. GI evaluated one more time to answer all patient's questions regarding trach. Patient denied any pain, acute concerns, but notes anxiety to get home. #Postoperative hemorrhage involving digestive system #Oropharyngeal CA - Poorly differentiated carcinoma, consistent with HPV mediated squamous cell #Status post PEG tube placement #Status post tracheostomy Patient admitted to medical Per GI - feels bleeding has stopped, tolerating clear liquids and tube feeds thus far No recurrence of bleeding INR 1.5 Resumed Lovenox therapeutic dose BID and warfarin bridge until INR > 2 -Lovenox and coumadin on discharge Consult dietitian to assist with tube feed - -tube feed supplies and prescription sent to pharmacy Video swallow study with aspiration, thin liquids only Trach supplies submitted per CM #Factor V Leiden def #MTHFR mutation #hx of VTE Resumed lovenox and coumadin bridge, plan to follow up OP for INR checks #Transaminitis *improving noted on admission no abd pain ALT 317>261 and [id number] obtain RUQ US, Acute hep panel - discussed with SAADIA Garcia and she agrees CT a/p: 1. No acute intra-abdominal or intrapelvic abnormality.2. Satisfactory positioning of the gastrostomy tube.3. No bowel obstruction or bowel wall thickening.4. Additional findings as above Plan for OP CMP follow up #Pneumonia, POA Completed course of antibiotic resolved Discharge Exam Constitutional WD/WN, vitals as above Neck trach in place, no drainage or signs of infection Respiratory normal respiratory effort, lungs clear to auscultation Cardiovascular RRR, no murmur, no edema Gastrointestinal (Abdomen) no erythema around peg site, no bleeding , slight distention,nontender Updated Medication List Medication Instructions Recorded Confirmed Type Tube Feeding Water Flush 250 ml G-tube Q4H #30 units 05/13/23 Rx amino acids-protein hydrolysate 15 1 ea PEG BID #30 mL 05/13/23 Rx gram-60 kcal/30 mL oral liquid pack ([employer] No Carb) enoxaparin 100 mg/mL subcutaneous 100 mg subcut BID 5 days #10 mL 05/13/23 Rx syringe nutritional supplements 0.08 1 ea PEG .See Protocol #6,000 mL 05/13/23 Rx gram-2 kcal/mL liquid for tube feed (Nutren 2.0) warfarin 5 mg tablet 10 mg (2 x 5 mg) PO DAILY #60 tabs 05/13/23 Rx Hospital Stay Data Consultations 05/09/23 12:41 ED Decision to Admit Stat 05/09/23 12:51 Consult Gastroenterology Routine 05/10/23 10:40 Consult Oncology Routine Consult Radiation Oncology Routine Diagnostic Imagining Performed 05/09/23 09:32 CT abd pelvis IV con only Stat 05/11/23 09:01 US abdomen limited Routine 05/11/23 09:30 FL video swallow Routine Pending Results Patient Have Any Pending Studies at Discharge: No Discharge Instructions Given to Patient (Per Discharging Provider) You were admitted given concerns of bleeding at the PEG site. Your anticoagulation (warfarin and lovenox) were held and GI doctors consulted. They tightened the PEG site bumper and no further bleeding was noted. Your blood level remained stable for over 48 hours after anticoagulation was resumed. New dressings for your Trach site were ordered. You will need to follow up with ENT at [place] in the next week to assess the site and ensure it is healing appropriately. Review of imaging acquired by Wound Care Nurse do not suggest any signs of infections or concerns at this time. Your lovenox and your warfarin were resumed. Your INR as of 05/13 is 1.5. Please continue Lovenox 100mg subcutaneously two times a day, in addition to taking 10mg of Warfarin around 4pm. Please continue this regimen until INR is between 2.0-3.0 and further directions are given to you by home health/Coumadin Clinic. You were given a schedule for Tube Feeds and all supplies will be supplied by [facility]. Home Health: Please obtain INR, CBC, CMP and send results to PCP, Dr. [facility] Attestation I certify that this patient is under my care and that I, or a physicians phlebotomy lab assistant working with me, had a face to-face encounter that meets the [facility] [id number] encounter requirements with this patient. The encounter with the patient was in whole, or in part, for the following medical condition, which is the primary reason for home health care (list medical condition): Oropharyngeal/ tongue carcinoma I certify that, based on my findings, the following services are medically necessary home health services: My clinical findings support the need for the above services because: ST Eval Cognition and Speech and Ensure Safety w Oral Feedings Further, I certify that my clinical findings support that this patient is homebound (i.e. absences from home require considerable and taxing effort and are for medical reasons or [employer] services or infrequently or of short duration when for other reasons) because: Transportation Assistance/Unable to Leave Home Unassisted Certification for Home Health Services: Based on the above findings, I certify that this patient is confined to the home and needs intermittent snf care, physical therapy and/or speech therapy or continues to need occupational therapy. The patient is under my care, and I have initiated the establishment of the plan of care. This patient will be followed by a physician who will periodically review the plan of care. Total Time Total Time Spent Total Time Spent (In Minutes): 45
[2023-05-13] MEDS ORDERED: PROSOURCE NO CARB 30 ML/PKT PEG SCH (21:00)
--- NOTE | 2023-05-18 10:23 | Coding Query ---
To promote full compliance with coding requirements relating to patient care, provider participation is requested in all cases of professional fee coder uncertainty. Please assist us with the question(s) below: Coding Question(s): The diagnosis below was documented in the Addendum on the 05/12 Progress Note, then subsequently fell off all further documentation. Please indicate if it is still a possible diagnosis or ruled out. Physician's Response(s): Bleeding at PEG site due to anticoagulant therapy ( x) Diagnosed and POA ( ) Diagnosed and not POA ( ) Ruled out ( ) Other (please specify) MTDD
== END 2023-05-13 18:07 | disposition home health service (06) | DRG 813 ==
LOC: EDINP 09:13 → ED 09:13 → EDINP 13:15 → SUATTDRO 16:17 → 3E 20:52